=== PATIENT | male | born 1975 | race Caucasian/White ===

== ENCOUNTER 2018-11-22 18:34 | Inpatient (IN) | payer OTHER ==
[2018-11-22 21:11] LABS: Glucose,Whole Blood 299 mg/dL (75-99)
[2018-11-22] MEDS ORDERED: CYCLOBENZAPRINE 5 MG TAB PO PRN (22:36)
[2018-11-22] MEDS ORDERED: VANCOMYCIN IV PER PHARMACY 1 EACH MISC MISCELLANE PRN (22:58)
[2018-11-22] MEDS: SODIUM CHLORIDE 0.9% 1,000 ML IV SCH (23:18)
[2018-11-23] MEDS ORDERED: VANCOMYCIN IV PER PHARMACY 1 EACH MISC MISCELLANE PRN
[2018-11-23] MEDS ORDERED: INSULIN DETEMIR (LEVEMIR) 100 UNIT/ML SYR SQ SCH
[2018-11-23] MEDS: ONDANSETRON 4 MG/2 ML VIAL IVP PRN (00:17)
[2018-11-23] MEDS ORDERED: VANCOMYCIN 2,000 MG in SODIUM CHLORIDE 0.9% 500 ML 500 ML IVPB ONE (01:00)
[2018-11-23] MEDS: PIPERACILLIN-TAZOBACTAM 3.375 GM in SODIUM CHLORIDE 0.9% 100 ML IVPB SCH ×2 (02:25→08:32)
[2018-11-23] MEDS: HYDROmorphone 0.5 MG/0.5 ML SYRINGE IVP PRN ×3 (02:27→12:00)
[2018-11-23] MEDS: HYDROcodone/APAP 10-325MG 1 EACH TAB PO PRN ×3 (04:14→21:43)
[2018-11-23 06:42] LABS: Glucose,Whole Blood 324 mg/dL (75-99)
[2018-11-23 07:50] LABS: Basophils % (A) 0 %; Eosinophils # (A) 0.1 k/uL (0-0.7); Eosinophils % (A) 1 %; HGB 12.4 gm/dL (13.0-17.5); Lymphocytes # (A) 1.7 k/uL (1.0-4.8); Lymphocytes % (A) 14 %; MCH 27.6 pg (25.0-35.0); MCHC 33.5 g/dL (31.0-37.0); MCV 82.5 fL (80.0-100.0); Mean Platelet Volume 6.9; Monocytes # (A) 0.8 k/uL (0-1.0); Monocytes % (A) 7 %; Neutrophils # (A) 9.8 k/uL (1.3-7.7); Neutrophils % (A) 77 %; Platelet Count 240 k/uL (150-450); RBC 4.48 m/uL (4.30-5.90); RDW 13.5 % (11.5-15.5); WBC 12.7 k/uL (3.8-10.6)
[2018-11-23 07:59] LABS: ALT 24 U/L (21-72); AST 24 U/L (17-59); Albumin 3.3 g/dL (3.5-5.0); Alkaline Phosphatase 81 U/L (38-126); Anion Gap 7 mmol/L; Blood Urea Nitrogen 17 mg/dL (9-20); Calcium 8.7 mg/dL (8.4-10.2); Carbon Dioxide 28 mmol/L (22-30); Chloride 99 mmol/L (98-107); Glucose 307 mg/dL (74-99); Potassium 4.8 mmol/L (3.5-5.1); Sodium 134 mmol/L (137-145); Total Bilirubin 0.7 mg/dL (0.2-1.3); Total Protein 6.2 g/dL (6.3-8.2)
[2018-11-23] MEDS: INSULIN ASPART (NovoLOG) 100 UNIT/ML VIAL SQ SCH ×5 (08:32→20:36)
[2018-11-23] MEDS: SODIUM CHLORIDE 0.9% 1,000 ML IV SCH (08:32)
[2018-11-23] MEDS ORDERED: BISACODYL 5 MG TABLET.DR PO STA (10:39)
[2018-11-23 11:58] LABS: Glucose,Whole Blood 329 mg/dL (75-99)
[2018-11-23] MEDS: VANCOMYCIN 1,750 MG in SODIUM CHLORIDE 0.9% 500 ML 500 ML IVPB SCH ×2 (12:00→21:09)
[2018-11-23] MEDS ORDERED: BACLOFEN 10 MG TAB PO PRN (12:35)
--- NOTE | 2018-11-23 13:00 | P.CNOR ---
<Gonzales Lucero - Last Filed: 11/23/18 12:53> History of Present Illness - [facility] Consult date: 11/23/18 Requesting physician: Delma Allen Consult reason: neck pain (Left mid thoracic abscess) History of present illness: Patient is a very pleasant 43-year-old male who seen and examined at the bedside after consultation was placed for evaluation of left midthoracic abscess and cellulitis close to the spinous process. Patient states approximately 2 weeks ago he began experiencing some pain at the abscess site without specific injury. He states approximately 3-5 days days ago his symptoms became severe and debilitating. Nursing states the patient's had stated she had picked at the abscess area feeling may have just been a pimple. His symptoms progressively worsened. He presented to [facility] last night for further evaluation. Following CT imaging the patient was transferred to [facility] for further evaluation. He was admitted to observation after assessment in the emergency department. CT of the abdomen and pelvis has been loaded into the hospital system for further evaluation. Patient states he continues to have severe pain at his midthoracic spine on the left. He denies any lower extremity weakness or radiculopathy bilaterally. He states his pain is only centered at the left midthoracic spine. He does have a significant medical history. He states he is currently on disability after being diagnosed with multiple sclerosis. He does have a history of 3 heart attacks and previously had 7 cardiac stents placed. These cardiac stents were placed approximately 2 years ago. He denies any further surgical intervention after the cardiac stent placement. Past Medical History Past Medical History: Coronary Artery Disease (CAD), Heart Failure, Diabetes Mellitus, Hyperlipidemia, Hypertension, Myocardial Infarction (MT) Additional Past Medical History / Comment(s): scoliosis of spine, 3 MT's x7 stents (2013 x2 MT's w/stents, 2016 MT w/stents), DM II. Last Myocardial Infarction Date:: 2015 History of Any Multi-Drug Resistant Organisms: None Reported Additional Past Surgical History / Comment(s): Pt states: "MT's with stents, left knee scope." Past Anesthesia/Blood Transfusion Reactions: No Reported Reaction Past Psychological History: No Psychological Hx Reported Smoking Status: Never smoker - Past Family History Father Additional Family Medical History / Comment(s): "heart disease." Mother History Unknown: Yes Family Medical History: Cancer, Diabetes Mellitus Additional Family Medical History / Comment(s): pt states: "kidney cancer." Medications and Allergies Home Medications Medication Instructions Recorded Confirmed Type Aspirin [[place] Aspirin EC] 81 mg PO DAILY 11/22/18 11/22/18 History Atorvastatin [Lipitor] 80 mg PO HS 11/22/18 11/22/18 History Baclofen 10 mg PO Q6H PRN 11/22/18 11/22/18 History Carvedilol [Coreg] 12.5 mg PO BID 11/22/18 11/22/18 History Clopidogrel [Plavix] 75 mg PO DAILY 11/22/18 11/22/18 History Ergocalciferol (Vitamin D2) 50,000 unit PO Q72H 11/22/18 11/22/18 History [Drisdol] Furosemide [Lasix] 20 mg PO AC-SUPPER 11/22/18 11/22/18 History Furosemide [Lasix] 40 mg PO DAILY 11/22/18 11/22/18 History Gabapentin [Neurontin] 300 mg PO TID 11/22/18 11/22/18 History Glatiramer Acetate [Copaxone] 20 mg IM DAILY 11/22/18 11/22/18 History Insulin Glargine [Lantus] 70 unit SQ HS 11/22/18 11/23/18 History Insulin Glulisine [Apidra] 30 units SQ AC-TID 11/22/18 11/22/18 History Isosorbide Mononitrate ER [Imdur] 60 mg PO DAILY 11/22/18 11/22/18 History Lisinopril [Prinivil] 10 mg PO BID 11/22/18 11/22/18 History Nitroglycerin 0.4 mg SL Q5M 11/22/18 11/22/18 History Polyethylene Glycol 3350 [Miralax] 17 gm PO DAILY 11/22/18 11/22/18 History Potassium Chloride ER [K-Dur 20] 20 meq PO DAILY 11/22/18 11/22/18 History QUEtiapine [SEROquel] 100 mg PO HS 11/22/18 11/22/18 History Selsun Blue 1 applic TOPICAL DAILY 11/22/18 11/22/18 History Vortioxetine Hydrobromide 20 mg PO DAILY 11/22/18 11/22/18 History [Trintellix] traMADol HCL [Ultram] 50 mg PO Q6H PRN 11/22/18 11/22/18 History Allergies Allergy/AdvReac Type Severity Reaction Status Date / Time No Known Allergies Allergy Verified 11/22/18 22:11 Physical Examination Physical exam: Patient is awake, alert, and oriented 3 Good chest excursion with deep inspiration and expiration Examination of the thoracic spine shows evidence of a large left midthoracic abscess which is indurated with erythema measuring approximately 7.5 cm x 6.25 cm Significant pain on palpation over the abscess site Evidence of open wound measuring approximately 4 mm with purulent drainage at the abscess site No significant pain with palpation along the lumbar spine Adequate for range of motion of the bilateral lower extremities Bilateral lower extremity strength 5/5 Dorsiflexion, plantarflexion, and extensor hallucis longus positive sustained bilateral lower extremities Neurovascularly intact bilateral lower extremities Results Pertinent studies: CT of the abdomen and pelvis taken at an outside facility at [facility] on 11/22/2018: Evidence of large soft tissue change with fluid collection at the left midthoracic spine that appears superficial and does not appear to extend into the fascial layer or into the spinal canal; T10-L2 degenerative disc disease; no evidence of vertebral body compression fracture - Labs Labs: Abnormal Lab Results - Last 24 Hours (Table) 11/22/18 11/23/18 11/23/18 Range/Units 21:06 06:40 07:32 WBC 12.7 H (3.8-10.6) k/uL Hgb 12.4 L (13.0-17.5) gm/dL Hct 37.0 L (39.0-53.0) % Neutrophils # 9.8 H (1.3-7.7) k/uL Sodium (137-145) mmol/L Glucose (74-99) mg/dL POC Glucose (mg/dL) 299 H 324 H (75-99) mg/dL Total Protein (6.3-8.2) g/dL Albumin (3.5-5.0) g/dL 11/23/18 11/23/18 Range/Units 07:32 11:55 WBC (3.8-10.6) k/uL Hgb (13.0-17.5) gm/dL Hct (39.0-53.0) % Neutrophils # (1.3-7.7) k/uL Sodium 134 L (137-145) mmol/L Glucose 307 H (74-99) mg/dL POC Glucose (mg/dL) 329 H (75-99) mg/dL Total Protein 6.2 L (6.3-8.2) g/dL Albumin 3.3 L (3.5-5.0) g/dL H & H 11/23/18 Range/Units 07:32 Hgb 12.4 L (13.0-17.5) gm/dL Hct 37.0 L (39.0-53.0) % Result Diagrams: 11/23/18 07:32 11/23/18 07:32 Assessment and Plan Assessment: Assessment: Large left midthoracic abscess measuring approximately 7.5 cm x 6.25 cm Severe thoracic back pain Thoracolumbar degenerative disc disease T10-L2 Multiple sclerosis History of heart attack 3 with cardiac stent placement 7 (1) Thoracic abscess Current Visit: Yes Status: Acute Code(s): J86.9 - PYOTHORAX WITHOUT FISTULA SNOMED Code(s): 864283533 (2) Thoracic back pain Current Visit: Yes Status: Acute Code(s): M54.6 - PAIN IN THORACIC SPINE SNOMED Code(s): 008657264 (3) Thoracic degenerative disc disease Current Visit: Yes Status: Acute Code(s): M51.34 - OTHER INTERVERTEBRAL DISC DEGENERATION, THORACIC REGION SNOMED Code(s): 63392596 (4) Multiple sclerosis Current Visit: Yes Status: Acute Code(s): G35 - MULTIPLE SCLEROSIS SNOMED Code(s): 77245780 Plan: Plan: 1. After physical examination of the patient, reviewing of imaging, and further discussion with Dr. Trip Frost, we will currently planning to proceed forward with surgical intervention tomorrow, 11/24/2018. The proposed surgical intervention will be an irrigation and debridement of the left midthoracic abscess. Patient may eat today. He will become nothing by mouth status starting at midnight on 11/24/2018 in anticipation for surgical intervention. We will proceed with surgery as scheduled if the patient is cleared from a medical standpoint. During physical examination, abscess site was wiped clean and the abcess site manipulated causing the evacuation of further purulent discharge. This purulent discharge was swabbed and culture sent for anaerobic and aerobic analysis. Patient may continue with dressing changes as needed with nonstick Telfa, 4 x 4's, and paper tape. 2. Patient will continue to be seen and examined by medicine for his other medical diagnoses. We'll plan for medical clearance prior to surgical intervention. Patient will continue with antibiotic IV medication as prescribed by medicine including vancomycin. Time with Patient: Greater than 30 (Including physical examination, reviewing of imaging, obtaining history, and documentation) <Luis Felipe Frost - Last Filed: 11/24/18 11:06> Physical Examination Osteopathic Statement: *. No significant issues noted on an osteopathic structural exam other than those noted in the History and Physical/Consult. Results - Labs Labs: Abnormal Lab Results - Last 24 Hours (Table) 11/23/18 11/23/18 11/23/18 Range/Units 07:32 11:55 16:52 WBC (3.8-10.6) k/uL Hgb (13.0-17.5) gm/dL Hct (39.0-53.0) % Sodium (137-145) mmol/L Potassium (3.5-5.1) mmol/L Chloride (98-107) mmol/L BUN (9-20) mg/dL Creatinine (0.66-1.25) mg/dL Glucose (74-99) mg/dL POC Glucose (mg/dL) 329 H 307 H (75-99) mg/dL Hemoglobin A1c 11.7 H (4.0-6.0) % 11/23/18 11/24/18 11/24/18 Range/Units 20:09 00:02 06:54 WBC (3.8-10.6) k/uL Hgb (13.0-17.5) gm/dL Hct (39.0-53.0) % Sodium 132 L (137-145) mmol/L Potassium 5.2 H (3.5-5.1) mmol/L Chloride 95 L (98-107) mmol/L BUN 28 H (9-20) mg/dL Creatinine 2.44 H (0.66-1.25) mg/dL Glucose 275 H (74-99) mg/dL POC Glucose (mg/dL) 289 H 298 H (75-99) mg/dL Hemoglobin A1c (4.0-6.0) % 11/24/18 Range/Units 06:56 WBC 14.5 H (3.8-10.6) k/uL Hgb 11.9 L (13.0-17.5) gm/dL Hct 36.5 L (39.0-53.0) % Sodium (137-145) mmol/L Potassium (3.5-5.1) mmol/L Chloride (98-107) mmol/L BUN (9-20) mg/dL Creatinine (0.66-1.25) mg/dL Glucose (74-99) mg/dL POC Glucose (mg/dL) (75-99) mg/dL Hemoglobin A1c (4.0-6.0) % Microbiology - Last 24 Hours (Table) 11/23/18 09:25 Gram Stain - Preliminary Back Wound Culture - Preliminary Presumptive Staph aureus 11/23/18 09:25 Anaerobic Culture - Preliminary Back H & H 11/23/18 11/24/18 Range/Units 07:32 06:56 Hgb 12.4 L 11.9 L (13.0-17.5) gm/dL Hct 37.0 L 36.5 L (39.0-53.0) % Result Diagrams: 11/24/18 06:56 11/24/18 00:02 Assessment and Plan Plan: I reviewed the note and reviewed the images as well and the patient. He is 43-year-old male with multiple medical issues and has a abscess which appears to be subcutaneous and extra muscular at the paravertebral area of his thoracic spine. He is not having any neurologic deficit. He does not have any spinal involvement. He has significant pus under pressure and significant discomfort from this. I think his best course of treatment would be to pursue irrigation and debridement with excisional debridement of the thoracic abscess. We discussed the risk, patient's alternatives and benefits with him. We answered his questions best for ability G understand he is agreeable to proceed with surgical intervention as soon as possible.
[2018-11-23] MEDS: SENNOSIDES-DOCUSATE SODIUM 1 EACH TAB PO SCH ×2 (13:09→20:36)
[2018-11-23] MEDS: NITROGLYCERIN SL TABS 0.4 MG TAB SUBLINGUAL SCH ×5 (13:09→14:40)
[2018-11-23] MEDS: COPAXONE 20 MG IM SCH (13:09)
--- NOTE | 2018-11-23 13:11 | XR ---
EXAMINATION TYPE: XR chest 1V DATE OF EXAM: 11/23/2018 COMPARISON: NONE HISTORY: Shortness of breath. Concern for congestive heart failure. TECHNIQUE: Single frontal view of the chest is obtained. FINDINGS: There is no focal air space opacity, pleural effusion, or pneumothorax seen. Minimal left basilar platelike horizontally oriented dependent atelectasis is seen. The cardiac silhouette size i s mildly enlarged. The osseous structures are intact. IMPRESSION: Platelike left basilar subsegmental atelectasis. No radiographic sequela of decompensate d congestive heart failure.
--- NOTE | 2018-11-23 14:54 | P.HPIM ---
History of Present Illness 43-year-old pleasant gentleman was transferred from [facility] after he presented there with severe back pain and possible low-grade fevers patient is found to have C light is an abscess on the right mid back in the paraspinal area. Patient is coming of severe pain there patient has a small pimple-like area with surrounding abscess redness with the pus drainage. Patient will undergo incision and drainage tomorrow patient was started on vancomycin and Zosyn Zosyn was discontinued and infectious disease was consulted. Patient had a CT of the abdomen which showed a showed the same thing as clinical exam. Patient has multiple chronic medical problems including microinfarction 2 years ago with stents that were placed 2 years ago with congestive heart failure appears to be systolic dysfunction it does not have any close available here will obtain medical records from my his him assistant. Patient does have history of multiple sclerosis with some weakness in both legs for which patient is on Glatiramer ACT 8 no new weakness. Patient is diabetic with highly uncontrolled blood sugars patient is on very dose of high-dose of insulin obese. Patient is mildly hyponatremic because of which I'm cutting down oral Lasix chest x-ray was obtained which did not show any pulmonary edema. Review of Systems REVIEW OF SYSTEMS: CONSTITUTIONAL: No fever, no malaise, no fatigue. HEENT: No recent visual problems or hearing problems. Denied any sore throat. CARDIOVASCULAR: No chest pain, orthopnea, PND, no palpitations, no syncope. PULMONARY: No shortness of breath, no cough, no hemoptysis. GASTROINTESTINAL: No diarrhea, no nausea, no vomiting, no abdominal pain. NEUROLOGICAL: No headaches, no weakness, no numbness. HEMATOLOGICAL: Denies any bleeding or petechiae. GENITOURINARY: Denies any burning micturition, frequency, or urgency. MUSCULOSKELETAL/RHEUMATOLOGICAL: Denies any joint pain, swelling, or any muscle pain. ENDOCRINE: Denies any polyuria or polydipsia. The rest of the 14-point review of systems is negative. Past Medical History Past Medical History: Coronary Artery Disease (CAD), Heart Failure, Diabetes Mellitus, Hyperlipidemia, Hypertension, Myocardial Infarction (RI) Additional Past Medical History / Comment(s): scoliosis of spine, 3 RI's x7 stents (2013 x2 RI's w/stents, 2016 RI w/stents), DM II. Last Myocardial Infarction Date:: 2015 History of Any Multi-Drug Resistant Organisms: None Reported Additional Past Surgical History / Comment(s): Pt states: "RI's with stents, left knee scope." Past Anesthesia/Blood Transfusion Reactions: No Reported Reaction Past Psychological History: No Psychological Hx Reported Smoking Status: Never smoker - Past Family History Father Additional Family Medical History / Comment(s): "heart disease." Mother History Unknown: Yes Family Medical History: Cancer, Diabetes Mellitus Additional Family Medical History / Comment(s): pt states: "kidney cancer." Medications and Allergies Home Medications Medication Instructions Recorded Confirmed Type Aspirin [[place] Aspirin EC] 81 mg PO DAILY 11/22/18 11/22/18 History Atorvastatin [Lipitor] 80 mg PO HS 11/22/18 11/22/18 History Baclofen 10 mg PO Q6H PRN 11/22/18 11/22/18 History Carvedilol [Coreg] 12.5 mg PO BID 11/22/18 11/22/18 History Clopidogrel [Plavix] 75 mg PO DAILY 11/22/18 11/22/18 History Ergocalciferol (Vitamin D2) 50,000 unit PO Q72H 11/22/18 11/22/18 History [Drisdol] Furosemide [Lasix] 20 mg PO AC-SUPPER 11/22/18 11/22/18 History Furosemide [Lasix] 40 mg PO DAILY 11/22/18 11/22/18 History Gabapentin [Neurontin] 300 mg PO TID 11/22/18 11/22/18 History Glatiramer Acetate [Copaxone] 20 mg IM DAILY 11/22/18 11/22/18 History Insulin Glargine [Lantus] 100 unit SQ HS 11/22/18 11/22/18 History Insulin Glulisine [Apidra] 30 units SQ AC-TID 11/22/18 11/22/18 History Isosorbide Mononitrate ER [Imdur] 60 mg PO DAILY 11/22/18 11/22/18 History Lisinopril [Prinivil] 10 mg PO BID 11/22/18 11/22/18 History Nitroglycerin 0.4 mg SL Q5M 11/22/18 11/22/18 History Polyethylene Glycol 3350 [Miralax] 17 gm PO DAILY 11/22/18 11/22/18 History Potassium Chloride ER [K-Dur 20] 20 meq PO DAILY 11/22/18 11/22/18 History QUEtiapine [SEROquel] 100 mg PO HS 11/22/18 11/22/18 History Selsun Blue 1 applic TOPICAL DAILY 11/22/18 11/22/18 History Vortioxetine Hydrobromide 20 mg PO DAILY 11/22/18 11/22/18 History [Trintellix] traMADol HCL [Ultram] 50 mg PO Q6H PRN 11/22/18 11/22/18 History Allergies Allergy/AdvReac Type Severity Reaction Status Date / Time No Known Allergies Allergy Verified 11/22/18 22:11 Physical Exam Vitals: Vital Signs Temp Pulse Resp BP Pulse Ox 11/23/18 12:00 86 18 11/23/18 08:00 86 18 11/23/18 07:15 98.9 F 93 18 91/71 92 L 11/23/18 03:21 99 18 11/23/18 00:00 99 18 11/22/18 23:48 99.7 F H 100 18 157/72 91 L 11/22/18 21:01 17 11/22/18 20:40 99.1 F 96 16 148/88 90 L Intake and Output 11/22/18 11/23/18 11/23/18 22:59 06:59 14:59 Intake Total 1200 Output Total 400 Balance 800 Intake: Other 1200 Output: Urine 400 Other: Voiding Method Toilet Urinal # Voids 1 1 Weight 123.63 kg PHYSICAL EXAMINATION: GENERAL: The patient is alert and oriented x3, patient is in distress because of pain. Well developed, well nourished. HEENT: Pupils are round and equally reacting to light. EOMI. No scleral icterus. No conjunctival pallor. Normocephalic, atraumatic. No pharyngeal erythema. No thyromegaly. CARDIOVASCULAR: S1 and S2 present. No murmurs, rubs, or gallops. PULMONARY: Chest is clear to auscultation, no wheezing or crackles. ABDOMEN: Soft, nontender, nondistended, normoactive bowel sounds. No palpable organomegaly. MUSCULOSKELETAL: No joint swelling or deformity. EXTREMITIES: No cyanosis, clubbing, or pedal edema. NEUROLOGICAL: Gross neurological examination did not reveal any focal deficits. SKIN: Patient has about 3-4 cm circumferential area of abscess in the paraspinal area which is draining redness local is of temperature in the abscess site area with tenderness Results CBC & Chem 7: 11/23/18 07:32 11/23/18 07:32 Labs: Abnormal Lab Results - Last 24 Hours (Table) 11/22/18 11/23/18 11/23/18 Range/Units 21:06 06:40 07:32 WBC 12.7 H (3.8-10.6) k/uL Hgb 12.4 L (13.0-17.5) gm/dL Hct 37.0 L (39.0-53.0) % Neutrophils # 9.8 H (1.3-7.7) k/uL Sodium (137-145) mmol/L Glucose (74-99) mg/dL POC Glucose (mg/dL) 299 H 324 H (75-99) mg/dL Total Protein (6.3-8.2) g/dL Albumin (3.5-5.0) g/dL 11/23/18 11/23/18 Range/Units 07:32 11:55 WBC (3.8-10.6) k/uL Hgb (13.0-17.5) gm/dL Hct (39.0-53.0) % Neutrophils # (1.3-7.7) k/uL Sodium 134 L (137-145) mmol/L Glucose 307 H (74-99) mg/dL POC Glucose (mg/dL) 329 H (75-99) mg/dL Total Protein 6.2 L (6.3-8.2) g/dL Albumin 3.3 L (3.5-5.0) g/dL Thrombosis Risk Factor Assmnt - Choose All That Apply Each Factor Represents 1 point: Age 41-60 years, Obesity (BMI >25) Other Risk Factors: No Other congenital or acquired thrombophilia - If yes, enter type in comment: No Thrombosis Risk Factor Assessment Total Risk Factor Score: 2 Thrombosis Risk Factor Assessment Level: Low Risk Assessment and Plan Plan: -Back pain: Secondary to an abscess in the paraspinal area patient underwent incision and drainage continue with vancomycin infectious disease was consulted -Congestive heart failure chronic systolic dysfunction patient is bit hypovolemic, cut down the Lasix with close clinical monitoring. -Coronary artery disease with ischemic cardiomyopathy continue with a beta lukas patient is on dual antiplatelet therapy patient will be continued on aspirin and Plavix will be held patient had stents that were placed more than 2 years ago patient may not require dual antiplatelet therapy and patient will undergo incision and drainage because of that reason Plavix is being held at this time. Patient is on lisinopril because of cardiomyopathy dose of which showed will cut it down because his blood pressures 91-71 do not have ejection fraction available. Beta lukas will be continued -Type 2 diabetes mellitus uncontrolled blood sugars dietary counseling was provided patient was resumed on his home regimen along with sliding scale insulin titration of his regimen depending on his blood sugars here -Sepsis: Secondary to an abscess. -Multiple sclerosis without any new neurological deficits continue with home medications -Hyperlipidemia -Hypertension -Patient will need pharmacologic GEN due to prophylaxis
[2018-11-23] MEDS: KETOROLAC 30 MG/ML 1 ML VIAL IVP PRN ×2 (15:47→23:30)
[2018-11-23] MEDS: CARVEDILOL 12.5 MG TAB PO SCH (15:47)
[2018-11-23] MEDS: GABAPENTIN 300 MG CAP PO SCH ×2 (15:47→21:09)
[2018-11-23] MEDS: HEPARIN SODIUM,PORCINE 5,000 UNIT/ML 1 ML VIAL SQ SCH ×2 (15:48→23:30)
[2018-11-23] MEDS: ceFAZolin IN SWFI 2 GM/20 ML SYRINGE IVP SCH (15:48)
--- NOTE | 2018-11-23 16:15 | P.CONS ---
History of Present Illness - Reason for Consult Consult date: 11/23/18 - Chief Complaint pain in the back - History of Present Illness 43-year-old male that has a long-standing history of diabetes mellitus type 2 that is poorly controlled hemoglobin A1c has been at 13 more recently was about 11. Relates that he has been having ongoing medical troubles with his underlying coronary artery disease and his multiple sclerosis. As of late he's been doing somewhat poorly and that the MS has been flaring is having increasing difficulties with ambulation and discomforts to his lower extremities. He relates several weeks ago started to feel more poorly and developed without was a ampler cyst on his back that became progressively more uncomfortable. It bec rebecca larger, swollen, warm and reddened and constantly his attempted to drain it. Her manipulation did not allow any drainage and now the site has considerably worsened. There is a large area that is very painful making it difficult for him to lay supine cause of the swelling and tenderness. He started physically feel more poorly low-grade fever with chills and thought that his MS was worsening. Consequently presented to his local emergency center. There he underwent evaluations which included computed tomography scan and ultrasound and constantly was referred to our facility for surgical evaluation. With evidence of any abscess to his thoracic area of his back the infectious diseases consultation is been requested. The patient relates that over the last many months he's had difficulties with small skin lesions and pimples that usually resolve with local care this is the first time something has become so difficult. Review of Systems 43-year-old male uncomfortable due to the pain from the lesion on his back HEENT:has only a mild headache but no acute visual change. Denies sinus or mouth discomforts. Denies neck stiffness or pain. Denies significant oral cavity pain. Denies difficulty on swallowing. Lungs: Denies significant shortness of breath, cough, sputum production, or hemoptysis. Cardiovascular: Denies significant shortness of breath, chest pain, chest wall pain, orthopnea, dyspnea on exertion, syncope Gastrointestinal:is not at all some nausea and decreased appetite no significant emesis. He's had no hematemesis melena or hematochezia. He's had constipation with no diarrhea Musculoskeletal: relates to significant pain to his lower extremities that is worsened as his MS has recently flared Skin: [place] per the HPI lesion to his thoracic spine Neuro: has MS flare which is causing pain and weakness to his lower extremities Psychiatric:chronic anxiety and depression Endocrine: chronic fatigue and weight has been increasing Past Medical History Past Medical History: Coronary Artery Disease (CAD), Heart Failure, Diabetes Mellitus, Hyperlipidemia, Hypertension, Myocardial Infarction (ME) Additional Past Medical History / Comment(s): scoliosis of spine, 3 ME's x7 stents (2013 x2 ME's w/stents, 2016 ME w/stents), DM II. Last Myocardial Infarction Date:: 2015 History of Any Multi-Drug Resistant Organisms: None Reported Additional Past Surgical History / Comment(s): Pt states: "ME's with stents, left knee scope." Past Anesthesia/Blood Transfusion Reactions: No Reported Reaction Past Psychological History: No Psychological Hx Reported, Anxiety, Depression Additional Psychological History / Comment(s): Patient is and lives in the family home with his . They've a total of 7 children. Four of the children currently live in the home with them. Did not relate any significant alcohol or recreational drug use. No experience. Medically disabled. No animals in the home Smoking Status: Never smoker - Past Family History Father Additional Family Medical History / Comment(s): "heart disease." Mother History Unknown: Yes Family Medical History: Cancer, Diabetes Mellitus Additional Family Medical History / Comment(s): pt states: "kidney cancer." Medications and Allergies Home Medications and Allergies Comment(s): Current Medications Hydrocodone Bitart/Acetaminophen ([place] 10) 1 each PO Q6H PRN PRN Reason: Pain Last Admin: 11/23/18 15:48 Dose: 1 each Documented by: Aspirin (Aspirin) 81 mg PO DAILY [facility] Atorvastatin Calcium (Lipitor) 80 mg PO HS ALONSO Baclofen (Lioresal) 10 mg PO Q6H PRN PRN Reason: Spasms Carvedilol (Coreg) 12.5 mg PO AC-BID [facility] Last Admin: 11/23/18 15:47 Dose: 12.5 mg Documented by: Cefazolin Sodium (Kefzol) 2 gm IVP Q8HR [facility] Last Admin: 11/23/18 15:48 Dose: 2 gm Documented by: Famotidine (Pepcid) 20 mg PO BID [facility] Furosemide (Lasix) 40 mg PO DAILY [facility] Gabapentin (Neurontin) 300 mg PO TID [facility] Last Admin: 11/23/18 15:47 Dose: 300 mg Documented by: Heparin Sodium (Porcine) (Heparin) 5,000 unit SQ Q8HR [facility] Last Admin: 11/23/18 15:48 Dose: 5,000 unit Documented by: Hydromorphone HCl (Dilaudid) 0.5 mg IVP Q3HR PRN PRN Reason: Pain Last Admin: 11/23/18 12:00 Dose: 0.5 mg Documented by: Vancomycin HCl 1,750 mg/ (Sodium Chloride) 500 mls @ 167 mls/hr IVPB Q8H [facility] Last Admin: 11/23/18 12:00 Dose: 167 mls/hr Documented by: Insulin Aspart (Novolog) 0 unit SQ ACHS [facility]; Protocol Last Admin: 11/23/18 12:01 Dose: 9 unit Documented by: Insulin Aspart (Novolog) 30 unit SQ AC-TID [facility] Insulin Detemir (Levemir) 100 unit SQ HS [facility] Last Admin: 11/23/18 02:25 Dose: Not Given Documented by: Isosorbide Mononitrate (Imdur) 60 mg PO DAILY [facility] Ketorolac Tromethamine (Toradol) 15 mg IVP Q6HR PRN PRN Reason: Pain Stop: 11/28/18 12:35 Last Admin: 11/23/18 15:47 Dose: 15 mg Documented by: Lactulose (Cephulac) 20 gm PO BID PRN PRN Reason: Constipation Lisinopril (Zestril) 10 mg PO DAILY [facility] Miscellaneous Information (Vancomycin Trough Due) 0 each MISCELLANE DIRECTED ONE Stop: 11/24/18 19:01 Copaxone (Glatiramer (Acetate) 20 Mg) 20 mg IM DAILY [facility] Last Admin: 11/23/18 13:09 Dose: Not Given Documented by: Ondansetron HCl (Zofran) 4 mg IVP Q6HR PRN PRN Reason: Nausea And Vomiting Last Admin: 11/23/18 00:17 Dose: 4 mg Documented by: Polyethylene Glycol (Miralax) 17 gm PO DAILY PRN PRN Reason: Constipation Quetiapine Fumarate (Seroquel) 100 mg PO [facility] Senna/Docusate Sodium (Senokot-S) 1 each PO BID [facility] Last Admin: 11/23/18 13:09 Dose: Not Given Documented by: Vortioxetine (Trintellix) 20 mg PO DAILY ALONSO Home Medications Medication Instructions Recorded Confirmed Type Aspirin [[place] Aspirin EC] 81 mg PO DAILY 11/22/18 11/22/18 History Atorvastatin [Lipitor] 80 mg PO HS 11/22/18 11/22/18 History Baclofen 10 mg PO Q6H PRN 11/22/18 11/22/18 History Carvedilol [Coreg] 12.5 mg PO BID 11/22/18 11/22/18 History Clopidogrel [Plavix] 75 mg PO DAILY 11/22/18 11/22/18 History Ergocalciferol (Vitamin D2) 50,000 unit PO Q72H 11/22/18 11/22/18 History [Drisdol] Furosemide [Lasix] 20 mg PO AC-SUPPER 11/22/18 11/22/18 History Furosemide [Lasix] 40 mg PO DAILY 11/22/18 11/22/18 History Gabapentin [Neurontin] 300 mg PO TID 11/22/18 11/22/18 History Glatiramer Acetate [Copaxone] 20 mg IM DAILY 11/22/18 11/22/18 History Insulin Glargine [Lantus] 100 unit SQ HS 11/22/18 11/22/18 History Insulin Glulisine [Apidra] 30 units SQ AC-TID 11/22/18 11/22/18 History Isosorbide Mononitrate ER [Imdur] 60 mg PO DAILY 11/22/18 11/22/18 History Lisinopril [Prinivil] 10 mg PO BID 11/22/18 11/22/18 History Nitroglycerin 0.4 mg SL Q5M 11/22/18 11/22/18 History Polyethylene Glycol 3350 [Miralax] 17 gm PO DAILY 11/22/18 11/22/18 History Potassium Chloride ER [K-Dur 20] 20 meq PO DAILY 11/22/18 11/22/18 History QUEtiapine [SEROquel] 100 mg PO HS 11/22/18 11/22/18 History Selsun Blue 1 applic TOPICAL DAILY 11/22/18 11/22/18 History Vortioxetine Hydrobromide 20 mg PO DAILY 11/22/18 11/22/18 History [Trintellix] traMADol HCL [Ultram] 50 mg PO Q6H PRN 11/22/18 11/22/18 History Allergies Allergy/AdvReac Type Severity Reaction Status Date / Time No Known Allergies Allergy Verified 11/22/18 22:11 Physical Exam Vitals: Vital Signs Temp Pulse Resp BP Pulse Ox 11/23/18 12:00 86 18 11/23/18 08:00 86 18 11/23/18 07:15 98.9 F 93 18 91/71 92 L 11/23/18 03:21 99 18 11/23/18 00:00 99 18 11/22/18 23:48 99.7 F H 100 18 157/72 91 L 11/22/18 21:01 17 11/22/18 20:40 99.1 F 96 16 148/88 90 L Intake and Output 11/23/18 11/23/18 11/23/18 06:59 14:59 22:59 Intake Total 1200 Output Total 400 Balance 800 Intake: Other 1200 Output: Urine 400 Other: Voiding Method Toilet Urinal # Voids 1 43-year-old male with obesity uncomfortable HEENT: Anicteric conjunctiva are pink and moist nasal mucosa grossly intact without significant lesions, there is no thrush. Neck: The neck is supple without significant lymphadenopathy or thyromegaly. Lungs: Good bilateral air entry without significant crackles or wheezing. There is no significant bronchial sounds. There is no egophony or dullness. Heart: mildly irregular with a soft S4 no murmur click or rub Abdomen: obesePositive bowel sounds soft and nontender without palpable masses or organomegaly. There was no guarding or rebound. Extremities: The upper extremities have excellent pulses they are symmetric, no significant petechiae or telangiectasia. No splinter hemorrhages were noted. The lower extremities are free from significant edema. The peripheral pulses were 2+ and symmetric. Neuro: Awake alert oriented to person place and time. There are no acute new gross focal sensory motor deficits. skin: Evidence of the significant abscess in the mid aspect of the thoracic spine. There is a approximate 5 cm area of erythema. The central area is necrotic and grossly purulent material is extruding from the site. Is externally tender to touch.scattered on the back are a few other small milind thematous areas that are without evidence of significant tenderness or purulence at this time. Results CBC & Chem 7: 11/23/18 07:32 11/23/18 07:32 Labs: Abnormal Lab Results - Last 24 Hours (Table) 11/22/18 11/23/18 11/23/18 Range/Units 21:06 06:40 07:32 WBC 12.7 H (3.8-10.6) k/uL Hgb 12.4 L (13.0-17.5) gm/dL Hct 37.0 L (39.0-53.0) % Neutrophils # 9.8 H (1.3-7.7) k/uL Sodium (137-145) mmol/L Glucose (74-99) mg/dL POC Glucose (mg/dL) 299 H 324 H (75-99) mg/dL Total Protein (6.3-8.2) g/dL Albumin (3.5-5.0) g/dL 11/23/18 11/23/18 Range/Units 07:32 11:55 WBC (3.8-10.6) k/uL Hgb (13.0-17.5) gm/dL Hct (39.0-53.0) % Neutrophils # (1.3-7.7) k/uL Sodium 134 L (137-145) mmol/L Glucose 307 H (74-99) mg/dL POC Glucose (mg/dL) 329 H (75-99) mg/dL Total Protein 6.2 L (6.3-8.2) g/dL Albumin 3.3 L (3.5-5.0) g/dL Laboratory Results WBC 12.7 k/uL (3.8-10.6) H 11/23/18 07:32 RBC 4.48 m/uL (4.30-5.90) 11/23/18 07:32 Hgb 12.4 gm/dL (13.0-17.5) L 11/23/18 07:32 Hct 37.0 % (39.0-53.0) L 11/23/18 07:32 MCV 82.5 fL (80.0-100.0) 11/23/18 07:32 MCH 27.6 pg (25.0-35.0) 11/23/18 07:32 MCHC 33.5 g/dL (31.0-37.0) 11/23/18 07:32 RDW 13.5 % (11.5-15.5) 11/23/18 07:32 Plt Count 240 k/uL (150-450) 11/23/18 07:32 Neutrophils % 77 % 11/23/18 07:32 Lymphocytes % 14 % 11/23/18 07:32 Monocytes % 7 % 11/23/18 07:32 Eosinophils % 1 % 11/23/18 07:32 Basophils % 0 % 11/23/18 07:32 Neutrophils # 9.8 k/uL (1.3-7.7) H 11/23/18 07:32 Lymphocytes # 1.7 k/uL (1.0-4.8) 11/23/18 07:32 Monocytes # 0.8 k/uL (0-1.0) 11/23/18 07:32 Eosinophils # 0.1 k/uL (0-0.7) 11/23/18 07:32 Basophils # 0.0 k/uL (0-0.2) 11/23/18 07:32 Sodium 134 mmol/L (137-145) L 11/23/18 07:32 Potassium 4.8 mmol/L (3.5-5.1) 11/23/18 07:32 Chloride 99 mmol/L (98-107) 11/23/18 07:32 Carbon Dioxide 28 mmol/L (22-30) 11/23/18 07:32 Anion Gap 7 mmol/L 11/23/18 07:32 BUN 17 mg/dL (9-20) 11/23/18 07:32 Creatinine 0.76 mg/dL (0.66-1.25) 11/23/18 07:32 Est GFR (CKD-EPI)AfAm >90 (>60 ml/min/1.73 sqM) 11/23/18 07:32 Est GFR (CKD-EPI)NonAf >90 (>60 ml/min/1.73 sqM) 11/23/18 07:32 Glucose 307 mg/dL (74-99) H 11/23/18 07:32 POC Glucose (mg/dL) 329 mg/dL (75-99) H 11/23/18 11:55 POC Glu [employer]er[employer] Supervisor ID Sydnie Elliott 11/23/18 11:55 Calcium 8.7 mg/dL (8.4-10.2) 11/23/18 07:32 Total Bilirubin 0.7 mg/dL (0.2-1.3) 11/23/18 07:32 AST 24 U/L (17-59) 11/23/18 07:32 ALT 24 U/L (21-72) 11/23/18 07:32 Alkaline Phosphatase 81 U/L (38-126) 11/23/18 07:32 Total Protein 6.2 g/dL (6.3-8.2) L 11/23/18 07:32 Albumin 3.3 g/dL (3.5-5.0) L 11/23/18 07:32 outside studies including computed tomography scan chest and pelvis are reviewed as well as ultrasound showing evidence the fluid collection in the tissue of the posterior thoracic area Assessment and Plan (1) Thoracic abscess Narrative/Plan: 43-year-old male who has multiple medical troubles that includes multiple sclerosis, coronary disease and diabetes mellitus type 2 presented to his local emergency center and then transferred to our facility for further bandar gical evaluation. Patient is evidence of an abscess on the posterior aspect of the thorax in is in need of surgical incision and drainage. The patient has been seen by orthopedics and plans are for this to occur tomorrow. Given the uncontrolled IV as well as type II staphylococcal infection the skin is most likely and while cultures are in process vancomycin with cefazolin are being utilized. Wound care will be advised once the postoperative wound is evaluated.if patient is not up-to-date on his tetanus vaccine should be performed before his discharge. Multivitamin with zinc is added to his medications. Current Visit: Yes Status: Acute Code(s): J86.9 - PYOTHORAX WITHOUT FISTULA SNOMED Code(s): 096983414 (2) Diabetes mellitus type 2, uncontrolled, with complications Current Visit: Yes Status: Acute Code(s): E11.8 - TYPE 2 DIABETES MELLITUS WITH UNSPECIFIED COMPLICATIONS; E11.65 - TYPE 2 DIABETES MELLITUS WITH HYPERGLYCEMIA SNOMED Code(s): 80013147
[2018-11-23 16:54] LABS: Glucose,Whole Blood 307 mg/dL (75-99)
[2018-11-23 20:10] LABS: Glucose,Whole Blood 289 mg/dL (75-99)
[2018-11-23] MEDS: ATORVASTATIN 80 MG TAB PO SCH (20:36)
[2018-11-23] MEDS: FAMOTIDINE 20 MG TAB PO SCH (20:36)
[2018-11-23] MEDS ORDERED: LISINOPRIL 10 MG TAB PO SCH (21:00)
[2018-11-23] MEDS: QUEtiapine 100 MG TAB PO SCH (21:09)
[2018-11-23 21:21] LABS: Hemoglobin A1C 11.7 % (4.0-6.0)
[2018-11-24] MEDS: ceFAZolin IN SWFI 2 GM/20 ML SYRINGE IVP SCH ×4 (00:38→23:01)
[2018-11-24] MEDS: VANCOMYCIN 1,750 MG in SODIUM CHLORIDE 0.9% 500 ML 500 ML IVPB SCH (04:19)
[2018-11-24] MEDS: HYDROmorphone 0.5 MG/0.5 ML SYRINGE IVP PRN (04:26)
[2018-11-24] MEDS: COPAXONE 20 MG IM SCH (06:57)
[2018-11-24] MEDS: HEPARIN SODIUM,PORCINE 5,000 UNIT/ML 1 ML VIAL SQ SCH ×3 (06:57→23:01)
[2018-11-24 06:59] LABS: Glucose,Whole Blood 298 mg/dL (75-99)
[2018-11-24] MEDS: INSULIN ASPART (NovoLOG) 100 UNIT/ML VIAL SQ SCH ×7 (07:26→20:57)
[2018-11-24] MEDS: ASPIRIN 81 MG PO SCH (07:29)
[2018-11-24] MEDS: MULTIVITAMINS, THERA 1 EACH TAB PO SCH (07:30)
[2018-11-24] MEDS: ISOSORBIDE MONONITRATE ER 60 MG TAB.ER.24H PO SCH (07:30)
[2018-11-24] MEDS: LISINOPRIL 10 MG TAB PO SCH (07:30)
[2018-11-24] MEDS: VORTIOXETINE HYDROBROMIDE 20 MG TABLET PO SCH (07:31)
[2018-11-24] MEDS: CARVEDILOL 12.5 MG TAB PO SCH ×2 (07:31→17:35)
[2018-11-24] MEDS: FUROSEMIDE 40 MG TAB PO SCH (07:31)
[2018-11-24] MEDS: FAMOTIDINE 20 MG TAB PO SCH (07:31)
[2018-11-24] MEDS: SENNOSIDES-DOCUSATE SODIUM 1 EACH TAB PO SCH ×2 (07:31→20:57)
[2018-11-24] MEDS: GABAPENTIN 300 MG CAP PO SCH ×3 (07:31→23:01)
[2018-11-24] MEDS: KETOROLAC 30 MG/ML 1 ML VIAL IVP PRN ×2 (07:37→23:07)
[2018-11-24] MEDS: ONDANSETRON 4 MG/2 ML VIAL IVP PRN ×3 (07:43→23:02)
[2018-11-24 07:56] LABS: HCT 36.5 % (39.0-53.0); HGB 11.9 gm/dL (13.0-17.5); MCH 27.3 pg (25.0-35.0); MCHC 32.6 g/dL (31.0-37.0); MCV 83.6 fL (80.0-100.0); Mean Platelet Volume 7.2; Platelet Count 243 k/uL (150-450); RBC 4.37 m/uL (4.30-5.90); RDW 13.5 % (11.5-15.5); WBC 14.5 k/uL (3.8-10.6)
[2018-11-24 08:10] LABS: Calcium 8.5 mg/dL (8.4-10.2); Potassium 5.2 mmol/L (3.5-5.1)
[2018-11-24 11:04] VITALS: BMI 42.0
[2018-11-24] MEDS ORDERED: BACITRACIN 50,000 UNIT, POLYMYXIN B 500,000 UNIT in SODIUM CHLORIDE 0.9% IRRIGATIO 1,00... IRRIGATION ONE (11:22)
[2018-11-24 11:39] LABS: Glucose,Whole Blood 281 mg/dL (75-99)
[2018-11-24] MEDS ORDERED: IV FLUID CONTINUATION 1,000 ML IV ONE (12:16)
[2018-11-24] MEDS ORDERED: LIDOCAINE 1% 20 ML VIAL (10MG/ML) FOR IV START INTRADERMA ONE (12:30)
[2018-11-24] MEDS ORDERED: LACTATED RINGERS 1,000 ML IV ONE (12:30)
[2018-11-24 13:04] LABS: Glucose,Whole Blood 265 mg/dL (75-99)
[2018-11-24] MEDS ORDERED: fentaNYL (PF) 50 MCG/ML 2 ML AMP IV ONE (13:15)
[2018-11-24] MEDS ORDERED: SUCCINYLCHOLINE CHLORIDE 100 MG/5 ML SYR IV ONE (14:14)
[2018-11-24] MEDS ORDERED: LIDOCAINE 1% INJ 10MG/ML (20 ML MDV) ONE (14:14)
[2018-11-24] MEDS ORDERED: PROPOFOL 10 MG/ML 20 ML VIAL IV ONE (14:14)
[2018-11-24] MEDS ORDERED: ceFAZolin 1,000 MG VIAL ONE (14:14)
[2018-11-24] MEDS ORDERED: fentaNYL (PF) 50 MCG/ML 2 ML AMP ONE (14:14)
[2018-11-24] MEDS ORDERED: MIDAZOLAM 2 MG/2 ML VIAL ONE (14:14)
[2018-11-24] MEDS ORDERED: PHENYLEPHRINE-0.9% NACL SYG 1 MG/10 ML SYRINGE ONE (14:14)
[2018-11-24] MEDS ORDERED: ePHEDrine SULFATE/0.9% NACL/PF 50 MG/5 ML SYRINGE IV ONE (14:14)
[2018-11-24] MEDS ORDERED: SODIUM CHLORIDE 0.9% 50 ML with ceFAZolin 2,000 MG IV ONE ×2 (14:46)
[2018-11-24] MEDS ORDERED: HYDROcodone/APAP 5-325MG 1 EACH TAB PO PRN (15:25)
--- NOTE | 2018-11-24 15:36 | P.OP ---
Date of Procedure: 11/24/18 Preoperative Diagnosis: Soft tissue abscess at thoracic spine, 10 x 10 cm Subcutaneous soft tissue abscess at thoracic spine with thoracic back pain Postoperative Diagnosis: Same Anesthesia: GETA Pathology: other (Deep subcutaneous abscess wound at the thoracic spine culture sent to pathology) Condition: stable Disposition: PACU Description of Procedure: BRIEF OPERATIVE NOTE Preoperative Diagnosis:Soft tissue abscess at thoracic spine, 10 x 10 cm Subcutaneous soft tissue abscess at thoracic spine with thoracic back pain Postoperative Diagnosis:same , no evidence of intramuscular or further abscess deep to the fascial layer Procedure: irrigation and debridement with excisional debridement of thoracic abscess at deep subcutaneous tissue measuring approximately 10 cm by 10 cm x 4 cm , excisional debridement of denuded tissue thoracic spine wound Surgeon: Dr. Frost Landscape Engineer: Gonzales MEDRANO Anesthesia: General anesthesia Estimated blood loss:Approximately 50 mL Complications: None apparent Components implanted:none Disposition: To recovery room in good stable condition, with dressing intact and iodoform gauze packed into the wound OPERATIVE INDICATIONS The patient has been having issues in their lower back over his thoracic spine which has been worsening for him. The patient has multiple medical issues including poorly controlled diabetes, MS, cardiac artery disease with multiple stents the past. Patient has been developing worsening pain in his back at the mid back over the past several weeks area he denies any specific injury or trauma or bites or punctures. He started noticing well swelling and redness at the area and was evaluated. He has been in bed and was admitted to the hospital in regards to pad abscess that his thoracic spine. Further workup which showed soft tissue abscess at his thoracic area on the left side. Did not appear to extend into the thoracic spine itself or appear to cause any neurologic change. Patient denied any changes in his neurologic status or any numbness tingling in his lower extremity is. Different treatment options were explained to the patient. He had been on IV antibiotics and had some drainage from the wound itself but there is still significant erythema and significant pressure at the space. He is having great pain due to the abscess. We discussed possibility of surgical intervention for irrigation and debridement with his excisional debridement of the abscess. Patient was described the risk of occasions alternatives and benefits at length discussed the nature of the surgery in the abscess and the possibility of further need for surgery. The risks, occasions were explained and elected to proceed with surgical intervention and signed informed consent. . OPERATIVE SUMMARY After discussing all the risks, patient alternatives and benefits at length, the patient elected to proceed with surgical intervention, signed informed consent, and presented for their procedure. The patient was seen and examined in the preoperative holding area and the surgical site was marked. The patient was given antibiotics and brought to the operating room. The patient was sedated and intubated by anesthesia in standard fashion. The patient was positioned on to the operating room table in a prone position on the appropriate frame which was well-padded and well molded. We were careful to pad any bony prominences and pressure points. We were careful to maintain the patient's cervical spine and good neutral alignment and position throughout. The patient was prepped and draped in a normal standard fashion. An appropriate timeout and keystone protocol performed. We were able to proceed with the surgery. the abscess area was easily identified as he had a approximately 8 x 8 cm area of significant erythema over a draining 0.5 x 0.5 cm purulent space. An incision was made at the knee opening of the abscess near the paraspinal area on the left of the thoracic spine. Upon incision a great deal of pus was able to be excised. There is significant whitish yellow purulence. I was able to explore the area digitally. There is no evidence of deep tissue abscess into the fascia or the musculature. The abscess seemed to be contained within the subcutaneous space. There are numerous vacuoles and spaces which had to be broken down at the subcu space where further pus was removed. We're able to remove great deal of pus. There is significant denuded tissue and I performed excisional debridement of the denuded tissue of the fatty tissue and the connective tissue at the area. There is obvious purulence and infection at the soft tissue and a portion of soft tissue was removed to get good bleeding surface. Deep culture was taken of the subcu tissue and sent to pathology. The wound was then copiously irrigated and suctioned dry with possibly 4 L of antibiotic and irrigation solution. We had good clean surfaces. Good bleeding tissue. There is no further pus or purulence noted. Some of the erythema had already subsided to some degree at the skin. I was unable to proceed with closure. The empty space was packed lightly with iodoform gauze. I closed the skin with 3-0 nylon. We will proceed with dressing. The wound was cleaned and dried and dressed with the appropriate dressing. The drapes were broken down. The patient was gently rolled back onto their hospital bed being careful to maintain their cervical spine and good neutral alignment and position. They were woken up by anesthesia, extubated, and brought to the recovery room in good stable condition. The patient will be admitted to the hospital for observation and for appropriate I plan to remove portions of the iodoform gauze tomorrow and then the remainder of the gauze the next day and follow the wound closely. He should continue antibiotics as per infectious disease.postoperative care, medical management and monitoring. We will continue to follow them closely about the postoperative course.
[2018-11-24] MEDS ORDERED: MEPERIDINE 50 MG/ML SYRINGE IVP ONE (15:38)
[2018-11-24 15:46] LABS: Glucose,Whole Blood 257 mg/dL (75-99)
[2018-11-24] MEDS ORDERED: SODIUM CHLORIDE 0.9% 1,000 ML IV ONE (16:11)
[2018-11-24 16:42] LABS: Glucose,Whole Blood 279 mg/dL (75-99)
[2018-11-24] MEDS ORDERED: VANCOMYCIN TROUGH DUE 1 EACH MISC MISCELLANE ONE (19:00)
[2018-11-24 20:43] LABS: Glucose,Whole Blood 357 mg/dL (75-99)
[2018-11-24] MEDS: QUEtiapine 100 MG TAB PO SCH (20:57)
[2018-11-24] MEDS: INSULIN DETEMIR (LEVEMIR) 100 UNIT/ML SYR SQ SCH (20:57)
[2018-11-24] MEDS: ATORVASTATIN 80 MG TAB PO SCH (20:57)
[2018-11-24] MEDS ORDERED: INSULIN DETEMIR (LEVEMIR) 100 UNIT/ML SYR SQ SCH (21:00)
--- NOTE | 2018-11-24 21:34 | P.PN ---
Subjective Progress Note Date: 11/24/18 43-year-old male that has a long-standing history of diabetes mellitus type 2 that is poorly controlled hemoglobin A1c has been at 13 more recently was about 11. Relates that he has been having ongoing medical troubles with his underlying coronary artery disease and his multiple sclerosis. As of late he's been doing somewhat poorly and that the MS has been flaring is having increasing difficulties with ambulation and discomforts to his lower extremities. He relates several weeks ago started to feel more poorly and developed without was a ampler cyst on his back that became progressively more uncomfortable. It became larger, swollen, warm and reddened and constantly his attempted to drain it. Her manipulation did not allow any drainage and now the site has considerably worsened. There is a large area that is very painful making it difficult for him to lay supine cause of the swelling and tenderness. He started physically feel more poorly low-grade fever with chills and thought that his MS was worsening. Consequently presented to his local emergency center. There he underwent evaluations which included computed tomography scan and ultrasound and constantly was referred to our facility for surgical evaluation. With evidence of any abscess to his thoracic area of his back the infectious diseases consultation is been requested. The patient relates that over the last many months he's had difficulties with small skin lesions and pimples that usually resolve with local care this is the first time something has become so difficult. Patient is now status post incision and drainage of the back abscess. His pain is well controlled. He voices no other new acute complaints at this time. No nausea or emesis with antibiotic therapy. Blood sugars are trending to improvement. Objective - Vital Signs Vital signs: Vital Signs Temp 98.0 F 11/24/18 20:08 Pulse 99 11/24/18 20:08 Resp 17 11/24/18 20:08 BP 121/79 11/24/18 20:08 Pulse Ox 98 11/24/18 20:08 Intake & Output 11/24/18 11/24/18 11/25/18 06:59 18:59 06:59 Intake Total 1426 Output Total 550 20 375 Balance -550 1406 -375 Weight 133 kg 133 kg Intake: IV 1426 Output: Urine 550 375 Estimated Blood Loss 20 Other: Voiding Method Urinal # Voids 1 # Bowel Movements 0 - Exam 43-year-old male with obesity uncomfortable HEENT: Anicteric conjunctiva are pink and moist nasal mucosa grossly intact without significant lesions, there is no thrush. Neck: The neck is supple without significant lymphadenopathy or thyromegaly. Lungs: Good bilateral air entry without significant crackles or wheezing. There is no significant bronchial sounds. There is no egophony or dullness. Heart: mildly irregular with a soft S4 no murmur click or rub Abdomen: obesePositive bowel sounds soft and nontender without palpable masses or organomegaly. There was no guarding or rebound. Extremities: The upper extremities have excellent pulses they are symmetric, no significant petechiae or telangiectasia. No splinter hemorrhages were noted. The lower extremities are free from significant edema. The peripheral pulses were 2+ and symmetric. Neuro: Awake alert oriented to person place and time. There are no acute new gross focal sensory motor deficits. skin: Evidence of the significant abscess in the mid aspect of the thoracic s pine. Surgical dressing is in place not removed and is intact - Labs CBC & Chem 7: 11/24/18 06:56 11/24/18 00:02 Labs: Abnormal Lab Results - Last 24 Hours (Table) 11/23/18 11/24/18 11/24/18 Range/Units 07:32 00:02 06:54 WBC (3.8-10.6) k/uL Hgb (13.0-17.5) gm/dL Hct (39.0-53.0) % Sodium 132 L (137-145) mmol/L Potassium 5.2 H (3.5-5.1) mmol/L Chloride 95 L (98-107) mmol/L BUN 28 H (9-20) mg/dL Creatinine 2.44 H (0.66-1.25) mg/dL Glucose 275 H (74-99) mg/dL POC Glucose (mg/dL) 298 H (75-99) mg/dL Hemoglobin A1c 11.7 H (4.0-6.0) % 11/24/18 11/24/18 11/24/18 Range/Units 06:56 11:35 12:30 WBC 14.5 H (3.8-10.6) k/uL Hgb 11.9 L (13.0-17.5) gm/dL Hct 36.5 L (39.0-53.0) % Sodium (137-145) mmol/L Potassium (3.5-5.1) mmol/L Chloride (98-107) mmol/L BUN (9-20) mg/dL Creatinine (0.66-1.25) mg/dL Glucose (74-99) mg/dL POC Glucose (mg/dL) 281 H 265 H (75-99) mg/dL Hemoglobin A1c (4.0-6.0) % 11/24/18 11/24/18 11/24/18 Range/Units 15:43 16:40 20:36 WBC (3.8-10.6) k/uL Hgb (13.0-17.5) gm/dL Hct (39.0-53.0) % Sodium (137-145) mmol/L Potassium (3.5-5.1) mmol/L Chloride (98-107) mmol/L BUN (9-20) mg/dL Creatinine (0.66-1.25) mg/dL Glucose (74-99) mg/dL POC Glucose (mg/dL) 257 H 279 H 357 H (75-99) mg/dL Hemoglobin A1c (4.0-6.0) % Microbiology - Last 24 Hours (Table) 11/23/18 09:25 Gram Stain - Preliminary Back Wound Culture - Preliminary Presumptive Staph aureus Laboratory Results WBC 14.5 k/uL (3.8-10.6) H 11/24/18 06:56 RBC 4.37 m/uL (4.30-5.90) 11/24/18 06:56 Hgb 11.9 gm/dL (13.0-17.5) L 11/24/18 06:56 Hct 36.5 % (39.0-53.0) L 11/24/18 06:56 MCV 83.6 fL (80.0-100.0) 11/24/18 06:56 MCH 27.3 pg (25.0-35.0) 11/24/18 06:56 MCHC 32.6 g/dL (31.0-37.0) 11/24/18 06:56 RDW 13.5 % (11.5-15.5) 11/24/18 06:56 Plt Count 243 k/uL (150-450) 11/24/18 06:56 Neutrophils % 77 % 11/23/18 07:32 Lymphocytes % 14 % 11/23/18 07:32 Monocytes % 7 % 11/23/18 07:32 Eosinophils % 1 % 11/23/18 07:32 Basophils % 0 % 11/23/18 07:32 Neutrophils # 9.8 k/uL (1.3-7.7) H 11/23/18 07:32 Lymphocytes # 1.7 k/uL (1.0-4.8) 11/23/18 07:32 Monocytes # 0.8 k/uL (0-1.0) 11/23/18 07:32 Eosinophils # 0.1 k/uL (0-0.7) 11/23/18 07:32 Basophils # 0.0 k/uL (0-0.2) 11/23/18 07:32 Sodium 132 mmol/L (137-145) L 11/24/18 00:02 Potassium 5.2 mmol/L (3.5-5.1) H 11/24/18 00:02 Chloride 95 mmol/L (98-107) L 11/24/18 00:02 Carbon Dioxide 28 mmol/L (22-30) 11/24/18 00:02 Anion Gap 9 mmol/L 11/24/18 00:02 BUN 28 mg/dL (9-20) H 11/24/18 00:02 Creatinine 2.44 mg/dL (0.66-1.25) H 11/24/18 00:02 Est GFR (CKD-EPI)AfAm 36 (>60 ml/min/1.73 sqM) 11/24/18 00:02 Est GFR (CKD-EPI)NonAf 31 (>60 ml/min/1.73 sqM) 11/24/18 00:02 Glucose 275 mg/dL (74-99) H 11/24/18 00:02 POC Glucose (mg/dL) 357 mg/dL (75-99) H 11/24/18 20:36 POC Glu Custom Ski Maker ID Marvin Mack 11/24/18 20:[address] Glu mg/dL 289 11/23/18 07:32 Hemoglobin A1c 11.7 % (4.0-6.0) H 11/23/18 07:32 Calcium 8.5 mg/dL (8.4-10.2) 11/24/18 00:02 Total Bilirubin 0.7 mg/dL (0.2-1.3) 11/23/18 07:32 AST 24 U/L (17-59) 11/23/18 07:32 ALT 24 U/L (21-72) 11/23/18 07:32 Alkaline Phosphatase 81 U/L (38-126) 11/23/18 07:32 Total Protein 6.2 g/dL (6.3-8.2) L 11/23/18 07:32 Albumin 3.3 g/dL (3.5-5.0) L 11/23/18 07:32 Microbiology 11/23/18 09:25 Back Gram Stain - Preliminary 11/23/18 09:25 Back Wound Culture - Preliminary Presumptive Staph aureus 11/23/18 09:25 Back Anaerobic Culture - Preliminary Laboratory Results WBC 14.5 k/uL (3.8-10.6) H 11/24/18 06:56 RBC 4.37 m/uL (4.30-5.90) 11/24/18 06:56 Hgb 11.9 gm/dL (13.0-17.5) L 11/24/18 06:56 Hct 36.5 % (39.0-53.0) L 11/24/18 06:56 MCV 83.6 fL (80.0-100.0) 11/24/18 06:56 MCH 27.3 pg (25.0-35.0) 11/24/18 06:56 MCHC 32.6 g/dL (31.0-37.0) 11/24/18 06:56 RDW 13.5 % (11.5-15.5) 11/24/18 06:56 Plt Count 243 k/uL (150-450) 11/24/18 06:56 Neutrophils % 77 % 11/23/18 07:32 Lymphocytes % 14 % 11/23/18 07:32 Monocytes % 7 % 11/23/18 07:32 Eosinophils % 1 % 11/23/18 07:32 Basophils % 0 % 11/23/18 07:32 Neutrophils # 9.8 k/uL (1.3-7.7) H 11/23/18 07:32 Lymphocytes # 1.7 k/uL (1.0-4.8) 11/23/18 07:32 Monocytes # 0.8 k/uL (0-1.0) 11/23/18 07:32 Eosinophils # 0.1 k/uL (0-0.7) 11/23/18 07:32 Basophils # 0.0 k/uL (0-0.2) 11/23/18 07:32 Sodium 132 mmol/L (137-145) L 11/24/18 00:02 Potassium 5.2 mmol/L (3.5-5.1) H 11/24/18 00:02 Chloride 95 mmol/L (98-107) L 11/24/18 00:02 Carbon Dioxide 28 mmol/L (22-30) 11/24/18 00:02 Anion Gap 9 mmol/L 11/24/18 00:02 BUN 28 mg/dL (9-20) H 11/24/18 00:02 Creatinine 2.44 mg/dL (0.66-1.25) H 11/24/18 00:02 Est GFR (CKD-EPI)AfAm 36 (>60 ml/min/1.73 sqM) 11/24/18 00:02 Est GFR (CKD-EPI)NonAf 31 (>60 ml/min/1.73 sqM) 11/24/18 00:02 Glucose 275 mg/dL (74-99) H 11/24/18 00:02 POC Glucose (mg/dL) 357 mg/dL (75-99) H 11/24/18 20:36 POC Glu Custom [employer] Maker ID Marvin Mack 11/24/18 20:[address] Glu mg/dL 289 11/23/18 07:32 Hemoglobin A1c 11.7 % (4.0-6.0) H 11/23/18 07:32 Calcium 8.5 mg/dL (8.4-10.2) 11/24/18 00:02 Total Bilirubin 0.7 mg/dL (0.2-1.3) 11/23/18 07:32 AST 24 U/L (17-59) 11/23/18 07:32 ALT 24 U/L (21-72) 11/23/18 07:32 Alkaline Phosphatase 81 U/L (38-126) 11/23/18 07:32 Total Protein 6.2 g/dL (6.3-8.2) L 11/23/18 07:32 Albumin 3.3 g/dL (3.5-5.0) L 11/23/18 07:32 Microbiology 11/23/18 09:25 Back Gram Stain - Preliminary 11/23/18 09:25 Back Wound Culture - Preliminary Presumptive Staph aureus 11/23/18 09:25 Back Anaerobic Culture - Preliminary Assessment and Plan (1) Thoracic abscess Narrative/Plan: 43-year-old male who has multiple medical troubles that includes multiple sclerosis, coronary disease and diabetes mellitus type 2 presented to his local emergency center and then transferred to our facility for further surgical evaluation. Patient is evidence of an abscess on the posterior aspect of the thorax in is in need of surgical incision and drainage. The patient has been seen by orthopedics and plans are for this to occur tomorrow. Given the uncontrolled IV as well as type II staphylococcal infection the skin is most likely and while cultures are in process vancomycin with cefazolin are being utilized. Wound care will be advised once the postoperative wound is evaluated.if patient is not up-to-date on his tetanus vaccine should be performed before his discharge. Multivitamin with zinc is added to his medications. 11/24/2018 patient improved after I&D today still some pain post -op. No fever and blood glucose already improving. Final cultures are pending patient will likely be treated in the outpatient setting likely in his home with home care. Given the extent of the abscess will likely utilize a couple week course of antibiotic therapy with local wound care. Site will be observed and further advice about wound care at discharge. Patient is again educated about the importance of blood glucose control and how this impacts infections. Current Visit: Yes Status: Acute Code(s): J86.9 - PYOTHORAX WITHOUT FISTULA SNOMED Code(s): 268685214 (2) Diabetes mellitus type 2, uncontrolled, with complications Current Visit: Yes Status: Acute Code(s): E11.8 - TYPE 2 DIABETES MELLITUS WITH UNSPECIFIED COMPLICATIONS; E11.65 - TYPE 2 DIABETES MELLITUS WITH HYPERGLYCEMIA SNOMED Code(s): 18919647
[2018-11-24] MEDS: POLYETHYLENE GLYCOL 3350 17 GM POWD.PACK PO PRN (23:02)
[2018-11-24] MEDS: LACTULOSE 20 GM/30 ML CUP PO PRN (23:07)
[2018-11-25 06:14] LABS: Basophils % (A) 0 %; Eosinophils # (A) 0.2 k/uL (0-0.7); Eosinophils % (A) 1 %; HGB 11.2 gm/dL (13.0-17.5); Lymphocytes # (A) 1.4 k/uL (1.0-4.8); Lymphocytes % (A) 11 %; MCHC 32.1 g/dL (31.0-37.0); Mean Platelet Volume 7.5; Monocytes # (A) 0.9 k/uL (0-1.0); Monocytes % (A) 7 %; Neutrophils # (A) 10.2 k/uL (1.3-7.7); Neutrophils % (A) 79 %; Platelet Count 258 k/uL (150-450); RBC 4.17 m/uL (4.30-5.90); RDW 13.4 % (11.5-15.5)
[2018-11-25 06:34] LABS: Calcium 8.6 mg/dL (8.4-10.2)
[2018-11-25 06:38] LABS: Vancomycin,Random 22.2 ug/mL
[2018-11-25 07:22] LABS: Glucose,Whole Blood 293 mg/dL (75-99)
[2018-11-25] MEDS: CARVEDILOL 12.5 MG TAB PO SCH ×2 (08:37→17:01)
[2018-11-25] MEDS: INSULIN ASPART (NovoLOG) 100 UNIT/ML VIAL SQ SCH ×7 (08:37→21:04)
[2018-11-25] MEDS: ceFAZolin IN SWFI 2 GM/20 ML SYRINGE IVP SCH ×3 (08:37→23:51)
[2018-11-25] MEDS: HEPARIN SODIUM,PORCINE 5,000 UNIT/ML 1 ML VIAL SQ SCH ×3 (08:38→23:51)
[2018-11-25] MEDS: FAMOTIDINE 20 MG TAB PO SCH (10:18)
[2018-11-25] MEDS: ASPIRIN 81 MG PO SCH (10:18)
[2018-11-25] MEDS: FUROSEMIDE 40 MG TAB PO SCH (10:18)
[2018-11-25] MEDS: LISINOPRIL 10 MG TAB PO SCH (10:19)
[2018-11-25] MEDS: ISOSORBIDE MONONITRATE ER 60 MG TAB.ER.24H PO SCH (10:19)
[2018-11-25] MEDS: GABAPENTIN 300 MG CAP PO SCH ×3 (10:19→20:58)
[2018-11-25] MEDS: SENNOSIDES-DOCUSATE SODIUM 1 EACH TAB PO SCH ×2 (10:19→20:58)
[2018-11-25] MEDS: VORTIOXETINE HYDROBROMIDE 20 MG TABLET PO SCH (10:19)
[2018-11-25] MEDS: HYDROmorphone 0.5 MG/0.5 ML SYRINGE IVP PRN ×3 (10:40→23:51)
[2018-11-25 11:44] LABS: Glucose,Whole Blood 352 mg/dL (75-99)
--- NOTE | 2018-11-25 12:02 | P.PN ---
Progress Note - Text Progress Note Date: 11/25/18 Postoperative day #1 Patient is seen and examined today at bedside. The patient has some pain around the surgical site as expected. Pain is being controlled with medication. He has not been having any fevers overnight. Physical Exam Afebrile with stable vital signs he has been afebrile over the last 24 hours Abdomen is soft nontender. Chest has good excursion deep and space expiration The incision site has less erythema though there is still some redness around the site of the abscess. There is been some cloudy drainage as expected from the site. At bedside today I removed a [place] half of the iodoform gauze from the wound. The wound is soft but there is no tense fluid collection. The patient tolerated this well. Sutures are intact. Extremities have not had neurologic change from prior to surgery. Calves and thighs were soft nontender without evidence of DVT. Assessment/Plan Postoperative day #1 status post incision and excisional drainage and excisional debridement of thoracic abscess superficial at the subcutaneous tissue. Patient is progressing as expected from the surgery. We left some of the dressing intact and this was removed tomorrow which we our service will do at bedside. He should continue his IV antibiotic per infectious disease. At this point I do not plan further surgical intervention and I would like to see how he does with continued local wound care and IV antibiotics. Once the dressing is removed tomorrow and he has a plan for his continued antibiotics would be okay from orthosis spine surgery standpoint for him to be treated outpatient. He is continuing his medical management for his other cardiac and MS issues as well. We will continue to increase the patient's mobilization with therapy. We will continue pain control with oral or IV medications. We'll continue to follow patient closely.
[2018-11-25] MEDS: COPAXONE 20 MG IM SCH (12:25)
[2018-11-25] MEDS: MULTIVITAMINS, THERA 1 EACH TAB PO SCH (12:25)
[2018-11-25 16:43] LABS: Glucose,Whole Blood 340 mg/dL (75-99)
[2018-11-25 20:17] LABS: Glucose,Whole Blood 276 mg/dL (75-99)
[2018-11-25] MEDS: INSULIN DETEMIR (LEVEMIR) 100 UNIT/ML SYR SQ SCH (20:57)
[2018-11-25] MEDS: ATORVASTATIN 80 MG TAB PO SCH (20:57)
[2018-11-25] MEDS: QUEtiapine 100 MG TAB PO SCH (20:58)
--- NOTE | 2018-11-25 22:44 | P.PN ---
Subjective Progress Note Date: 11/25/18 43-year-old male that has a long-standing history of diabetes mellitus type 2 that is poorly controlled hemoglobin A1c has been at 13 more recently was about 11. Relates that he has been having ongoing medical troubles with his underlying coronary artery disease and his multiple sclerosis. As of late he's been doing somewhat poorly and that the MS has been flaring is having increasing difficulties with ambulation and discomforts to his lower extremities. He relates several weeks ago started to feel more poorly and developed without was a ampler cyst on his back that became progressively more uncomfortable. It became larger, swollen, warm and reddened and constantly his attempted to drain it. Her manipulation did not allow any drainage and now the site has considerably worsened. There is a large area that is very painful making it difficult for him to lay supine cause of the swelling and tenderness. He started physically feel more poorly low-grade fever with chills and thought that his MS was worsening. Consequently presented to his local emergency center. There he underwent evaluations which included computed tomography scan and ultrasound and constantly was referred to our facility for surgical evaluation. With evidence of any abscess to his thoracic area of his back the infectious diseases consultation is been requested. The patient relates that over the last many months he's had difficulties with small skin lesions and pimples that usually resolve with local care this is the first time something has become so difficult. Patient is now status post incision and drainage of the back abscess. His pain is well controlled. He voices no other new acute complaints at this time. No nausea or emesis with antibiotic therapy. Blood sugars are trending to improvement. 11/25/2018 patient is feeling better status post incision and drainage of his large back abscess. It is packed with the gauze dressing. Drainage is well contained. He has noted blood sugars are starting to show some improvement. He is having no further fever chill. Being ready for discharge tomorrow once all arrangements are made about his antibiotic therapy. Objective - Vital Signs Vital signs: Vital Signs Temp 98.2 F 11/25/18 19:54 Pulse 80 11/25/18 19:54 Resp 18 11/25/18 19:54 BP 104/66 11/25/18 19:54 Pulse Ox 95 11/25/18 19:54 Intake & Output 11/25/18 11/25/18 11/26/18 06:59 18:59 06:59 Output Total 1100 350 Balance -1100 -350 Weight 135.8 kg Output: Urine 1100 350 Other: Voiding Method Urinal Toilet # Voids 1 2 1 # Bowel Movements 2 1 - Exam 43-year-old male with obesity uncomfortable HEENT: Anicteric conjunctiva are pink and moist nasal mucosa grossly intact without significant lesions, there is no thrush. Neck: The neck is supple without significant lymphadenopathy or thyromegaly. Lungs: Good bilateral air entry without significant crackles or wheezing. There is no significant bronchial sounds. There is no egophony or dullness. Heart: mildly irregular with a soft S4 no murmur click or rub Abdomen: obesePositive bowel sounds soft and nontender without palpable masses or organomegaly. There was no guarding or rebound. Extremities: The upper extremities have excellent pulses they are symmetric, no significant petechiae or telangiectasia. No splinter hemorrhages were noted. The lower extremities are free from significant edema. The peripheral pulses were 2+ and symmetric. Neuro: Awake alert oriented to person place and time. There are no acute new gross focal sensory motor deficits. skin: Evidence of the significant abscess in the mid aspect of the thoracic spine. Surgical dressing is in place without breakthrough drainage or bleeding - Labs CBC & Chem 7: 11/25/18 05:54 11/25/18 05:54 Labs: Abnormal Lab Results - Last 24 Hours (Table) 11/25/18 11/25/18 11/25/18 Range/Units 05:54 05:54 07:09 WBC 13.0 H (3.8-10.6) k/uL RBC 4.17 L (4.30-5.90) m/uL Hgb 11.2 L (13.0-17.5) gm/dL Hct 35.0 L (39.0-53.0) % Neutrophils # 10.2 H (1.3-7.7) k/uL Sodium 132 L (137-145) mmol/L Chloride 97 L (98-107) mmol/L BUN 37 H (9-20) mg/dL Creatinine 3.70 H (0.66-1.25) mg/dL Glucose 269 H (74-99) mg/dL POC Glucose (mg/dL) 293 H (75-99) mg/dL 11/25/18 11/25/1819 Range/Units 11:33 16:42 20:16 WBC (3.8-10.6) k/uL RBC (4.30-5.90) m/uL Hgb (13.0-17.5) gm/dL Hct (39.0-53.0) % Neutrophils # (1.3-7.7) k/uL Sodium (137-145) mmol/L Chloride (98-107) mmol/L BUN (9-20) mg/dL Creatinine (0.66-1.25) mg/dL Glucose (74-99) mg/dL POC Glucose (mg/dL) 352 H 340 H 276 H (75-99) mg/dL Microbiology - Last 24 Hours (Table) 11/24/18 14:53 Gram Stain - Preliminary Back Wound Culture - Preliminary Presumptive Staph aureus 11/23/18 09:25 Anaerobic Culture - Preliminary Back 11/23/18 09:25 Gram Stain - Final Back Wound Culture - Final Staphylococcus aureus 11/24/18 14:53 Fungal Culture - Preliminary Back 11/24/18 14:53 Anaerobic Culture - Preliminary Back Laboratory Results WBC 13.0 k/uL (3.8-10.6) H 11/25/18 05:54 RBC 4.17 m/uL (4.30-5.90) L 11/25/18 05:54 Hgb 11.2 gm/dL (13.0-17.5) L 11/25/18 05:54 Hct 35.0 % (39.0-53.0) L 11/25/18 05:54 MCV 84.0 fL (80.0-100.0) 11/25/18 05:54 MCH 27.0 pg (25.0-35.0) 11/25/18 05:54 MCHC 32.1 g/dL (31.0-37.0) 11/25/18 05:54 RDW 13.4 % (11.5-15.5) 11/25/18 05:54 Plt Count 258 k/uL (150-450) 11/25/18 05:54 Neutrophils % 79 % 11/25/18 05:54 Lymphocytes % 11 % 11/25/18 05:54 Monocytes % 7 % 11/25/18 05:54 Eosinophils % 1 % 11/25/18 05:54 Basophils % 0 % 11/25/18 05:54 Neutrophils # 10.2 k/uL (1.3-7.7) H 11/25/18 05:54 Lymphocytes # 1.4 k/uL (1.0-4.8) 11/25/18 05:54 Monocytes # 0.9 k/uL (0-1.0) 11/25/18 05:54 Eosinophils # 0.2 k/uL (0-0.7) 11/25/18 05:54 Basophils # 0.0 k/uL (0-0.2) 11/25/18 05:54 Sodium 132 mmol/L (137-145) L 11/25/18 05:54 Potassium 5.0 mmol/L (3.5-5.1) 11/25/18 05:54 Chloride 97 mmol/L (98-107) L 11/25/18 05:54 Carbon Dioxide 25 mmol/L (22-30) 11/25/18 05:54 Anion Gap 10 mmol/L 11/25/18 05:54 BUN 37 mg/dL (9-20) H 11/25/18 05:54 Creatinine 3.70 mg/dL (0.66-1.25) H 11/25/18 05:54 Est GFR (CKD-EPI)AfAm 22 (>60 ml/min/1.73 sqM) 11/25/18 05:54 Est GFR (CKD-EPI)NonAf 19 (>60 ml/min/1.73 sqM) 11/25/18 05:54 Glucose 269 mg/dL (74-99) H 11/25/18 05:54 POC Glucose (mg/dL) 276 mg/dL (75-99) H 11/25/18 20:16 POC Glu Nurse Auditor ID Angela Bustamante 11/25/18 20:[address] Glu mg/dL 289 11/23/18 07:32 Hemoglobin A1c 11.7 % (4.0-6.0) H 11/23/18 07:32 Calcium 8.6 mg/dL (8.4-10.2) 11/25/18 05:54 Total Bilirubin 0.7 mg/dL (0.2-1.3) 11/23/18 07:32 AST 24 U/L (17-59) 11/23/18 07:32 ALT 24 U/L (21-72) 11/23/18 07:32 Alkaline Phosphatase 81 U/L (38-126) 11/23/18 07:32 Total Protein 6.2 g/dL (6.3-8.2) L 11/23/18 07:32 Albumin 3.3 g/dL (3.5-5.0) L 11/23/18 07:32 Random Vancomycin 22.2 ug/mL 11/25/18 05:54 Microbiology 11/24/18 14:53 Back Gram Stain - Preliminary 11/24/18 14:53 Back Wound Culture - Preliminary Presumptive Staph aureus 11/23/18 09:25 Back Anaerobic Culture - Preliminary 11/23/18 09:25 Back Gram Stain - Final 11/23/18 09:25 Back Wound Culture - Final Staphylococcus aureus 11/24/18 14:53 Back Fungal Culture - Preliminary 11/24/18 14:53 Back Anaerobic Culture - Preliminary Assessment and Plan (1) Thoracic abscess Narrative/Plan: 43-year-old male who has multiple medical troubles that includes multiple sclerosis, coronary disease and diabetes mellitus type 2 presented to his local emergency center and then transferred to our facility for further surgical evaluation. Patient is evidence of an abscess on the posterior aspect of the thorax in is in need of surgical incision and drainage. The patient has been seen by orthopedics and plans are for this to occur tomorrow. Given the uncontrolled IV as well as type II staphylococcal infection the skin is most likely and while cultures are in process vancomycin with cefazolin are being utilized. Wound care will be advised once the postoperative wound is evaluated.if patient is not up-to-date on his tetanus vaccine should be performed before his discharge. Multivitamin with zinc is added to his medications. 11/24/2018 patient improved after I&D today still some pain post -op. No fever and blood glucose already improving. Final cultures are pending patient will likely be treated in the outpatient setting likely in his home with home care. Given the extent of the abscess will likely utilize a couple week course of antibiotic therapy with local wound care. Site will be observed and further advice about wound care at discharge. Patient is again educated about the importance of blood glucose control and how this impacts infections. 11/25/2018 patient is now starting to show some improvement. MSSA as I said vancomycin discontinued and will plan on ceftezole and. 2 g every 8 hours IV push will be arranged for home patient relates his can be helpful in this process. If the blood work is requested. Follow-up in the office in 2 weeks if any of his antibiotic therapy hoping that he will have further improvement. Local wound care is written with the silver alginate dressing per the home care nurse. Current Visit: Yes Status: Acute Code(s): J86.9 - PYOTHORAX WITHOUT FISTULA SNOMED Code(s): 841509968 (2) Diabetes mellitus type 2, uncontrolled, with complications Current Visit: Yes Status: Acute Code(s): E11.8 - TYPE 2 DIABETES MELLITUS WITH UNSPECIFIED COMPLICATIONS; E11.65 - TYPE 2 DIABETES MELLITUS WITH HYPERGLYCEMIA SNOMED Code(s): 93840696
--- NOTE | 2018-11-25 23:30 | P.PN ---
Subjective Progress Note Date: 11/24/18 Principal diagnosis: Thoracic abscess Hyperglycemia with uncontrolled diabetes type 2 43-year-old pleasant gentleman was transferred from [facility] after he presented there with severe back pain and possible low-grade fevers patient is found to have C light is an abscess on the right mid back in the paraspinal area. Patient is coming of severe pain there patient has a small pimple-like area with surrounding abscess redness with the pus drainage. Patient will und ergo incision and drainage tomorrow patient was started on vancomycin and Zosyn Zosyn was discontinued and infectious disease was consulted. Patient had a CT of the abdomen which showed a showed the same thing as clinical exam. 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 Patient does have history of multiple sclerosis with some weakness in both legs for which patient is on Glatiramer ACT 8 no new weakness. Patient is diabetic with highly uncontrolled blood sugars patient is on very dose of high-dose of insulin obese. Patient is mildly hyponatremic because of which I'm cutting down oral Lasix chest x-ray was obtained which did not show any pulmonary edema. 11/24/2018 Patient is awake alert oriented oriented 3. Patient was taken to or today for incision and drainage of thoracic abscess. No fever no chills. We will follow up wound cultures. ID is following. Patient will be continued on antibiotics in the form of cefazolin as per ID recommendations. Continued on wound care. Patient was started back on home dose of levemir 75 units at bedtime along with aspart 30 units 3 times a day before meals. Patient is hyperglycemic today. No nausea vomiting or abdominal pain. Current medications reviewed. Objective - Vital Signs Vital signs: Vital Signs Temp 98.1 F 11/24/18 12:18 Pulse 82 11/24/18 12:18 Resp 18 11/24/18 12:18 BP 114/74 11/24/18 12:18 Pulse Ox 98 11/24/18 12:18 Intake & Output 11/23/18 11/24/18 11/24/18 18:59 06:59 18:59 Intake Total 1200 250 Output Total 400 550 Balance 800 -550 250 Weight 133 kg 133 kg Intake: IV 250 Other 1200 Output: Urine 400 550 Other: Voiding Method Urinal Urinal # Voids 0 # Bowel Movements 0 - Exam GENERAL: The patient is alert and oriented x3, patient is in distress because of pain. Well developed, well nourished. HEENT: Pupils are round and equally reacting to light. EOMI. No scleral icterus. No conjunctival pallor. Normocephalic, atraumatic. No pharyngeal erythema. No thyromegaly. CARDIOVASCULAR: S1 and S2 present. No murmurs, rubs, or gallops. PULMONARY: Chest is clear to auscultation, no wheezing or crackles. ABDOMEN: Soft, nontender, nondistended, normoactive bowel sounds. No palpable organomegaly. MUSCULOSKELETAL: No joint swelling or deformity. EXTREMITIES: No cyanosis, clubbing, or pedal edema. NEUROLOGICAL: Gross neurological examination did not reveal any focal deficits. SKIN: Thoracic abscess status post I&D currently bandaged. - Labs CBC & Chem 7: 11/25/18 05:54 11/25/18 05:54 Labs: Abnormal Lab Results - Last 24 Hours (Table) 11/23/18 11/23/18 11/23/18 Range/Units 07:32 16:52 20:09 WBC (3.8-10.6) k/uL Hgb (13.0-17.5) gm/dL Hct (39.0-53.0) % Sodium (137-145) mmol/L Potassium (3.5-5.1) mmol/L Chloride (98-107) mmol/L BUN (9-20) mg/dL Creatinine (0.66-1.25) mg/dL Glucose (74-99) mg/dL POC Glucose (mg/dL) 307 H 289 H (75-99) mg/dL Hemoglobin A1c 11.7 H (4.0-6.0) % 11/24/18 11/24/18 11/24/18 Range/Units 00:02 06:54 06:56 WBC 14.5 H (3.8-10.6) k/uL Hgb 11.9 L (13.0-17.5) gm/dL Hct 36.5 L (39.0-53.0) % Sodium 132 L (137-145) mmol/L Potassium 5.2 H (3.5-5.1) mmol/L Chloride 95 L (98-107) mmol/L BUN 28 H (9-20) mg/dL Creatinine 2.44 H (0.66-1.25) mg/dL Glucose 275 H (74-99) mg/dL POC Glucose (mg/dL) 298 H (75-99) mg/dL Hemoglobin A1c (4.0-6.0) % 11/24/18 11/24/18 Range/Units 11:35 12:30 WBC (3.8-10.6) k/uL Hgb (13.0-17.5) gm/dL Hct (39.0-53.0) % Sodium (137-145) mmol/L Potassium (3.5-5.1) mmol/L Chloride (98-107) mmol/L BUN (9-20) mg/dL Creatinine (0.66-1.25) mg/dL Glucose (74-99) mg/dL POC Glucose (mg/dL) 281 H 265 H (75-99) mg/dL Hemoglobin A1c (4.0-6.0) % Microbiology - Last 24 Hours (Table) 11/23/18 09:25 Gram Stain - Preliminary Back Wound Culture - Preliminary Presumptive Staph aureus 11/23/18 09:25 Anaerobic Culture - Preliminary Back Assessment and Plan Assessment: -Back pain: Secondary to an abscess in the paraspinal area patient underwent incision and drainage continue with cefazolin. Vancomycin DC'd. -Acute kidney injury nonoliguric. Possible ATN. Creatinine 2.44 today. Will hold Lasix, lisinopril and Neurontin. We'll consult nephrology. -Congestive heart failure chronic systolic dysfunction patient is bit hypovolemic, hold the Lasix with close clinical monitoring. -Coronary artery disease with ischemic cardiomyopathy continue with a beta lukas patient is on dual antiplatelet therapy patient will be continued on aspirin and Plavix will be held patient had stents that were placed more than 2 years ago patient may not require dual antiplatelet therapy and patient will undergo incision and drainage because of that reason Plavix is being held at this time. Patient is on lisinopril because of cardiomyopathy dose of which showed will cut it down because his blood pressures 91-71 do not have ejection fraction available. Beta lukas will be continued -Type 2 diabetes mellitus uncontrolled with hyperglycemia. dietary counseling was provided patient was resumed on his home regimen along with sliding scale insulin titration of his regimen depending on his blood sugars here -Sepsis: Secondary to an abscess. -Multiple sclerosis without any new neurological deficits continue with home medications -Hyperlipidemia -Hypertension -DVT prophylaxis Time with Patient: Greater than 30
--- NOTE | 2018-11-25 23:38 | P.PN ---
Subjective Progress Note Date: 11/25/18 Principal diagnosis: Thoracic abscess Hyperglycemia with uncontrolled diabetes type 2 Acute kidney injury 43-year-old pleasant gentleman was transferred from [facility] after he presented there with severe back pain and possible low-grade fevers patient is found to have C light is an abscess on the right mid back in the paraspinal area. Patient is coming of severe pain there patient has a small pimple-like area with surrounding abscess redness with the pus drainage. Patient will undergo incision and drainage tomorrow patient was started on vancomycin and Zosyn Zosyn was discontinued and infectious disease was consulted. Patient had a CT of the abdomen which showed a showed the same thing as clinical exam. 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 Patient does have history of multiple sclerosis with some weakness in both legs for which patient is on Glatiramer ACT 8 no new weakness. Patient is diabetic with highly uncontrolled blood sugars patient is on very dose of high-dose of insulin obese. Patient is mildly hyponatremic because of which I'm cutting down oral Lasix chest x-ray was obtained which did not show any pulmonary edema. 11/24/2018 Patient is awake alert oriented oriented 3. Patient was taken to or today for incision and drainage of thoracic abscess. No fever no chills. We will follow up wound cultures. ID is following. Patient will be continued on antibiotics in the form of cefazolin as per ID recommendations. Continued on wound care. Patient was started back on home dose of levemir 75 units at bedtime along with aspart 30 units 3 times a day before meals. Patient is hyperglycemic today. No nausea vomiting or abdominal pain. 11/25/2018 Patient says that he feels better today. Back pain is much improved now. Status post I&D. Initial wound cultures growing MSSA. Patient will be continued on cefazolin as per ID recommendations. No fever no chills. Blood sugar is better controlled today. Still hyperglycemic. Creatinine increased from 2.44-3.7 today. Blood pressure is also on the lower side. Patient will be started on gentle hydration. Will get urine eosinophils and US RENAL. Nephrology will be consulted. Patient denied any abdominal pain. Denied any dysuria or hematuria. No fever no chills. Current medications reviewed. Objective - Vital Signs Vital signs: Vital Signs Temp 98.2 F 11/25/18 19:54 Pulse 80 11/25/18 19:54 Resp 18 11/25/18 19:54 BP 104/66 11/25/18 19:54 Pulse Ox 95 11/25/18 19:54 Intake & Output 11/25/18 11/25/18 11/26/18 06:59 18:59 06:59 Output Total 1100 350 Balance -1100 -350 Weight 135.8 kg Output: Urine 1100 350 Other: Voiding Method Urinal Toilet # Voids 1 2 1 # Bowel Movements 2 1 - Exam GENERAL: The patient is alert and oriented x3, patient is in distress because of pain. Well developed, well nourished. HEENT: Pupils are round and equally reacting to light. EOMI. No scleral icterus. No conjunctival pallor. Normocephalic, atraumatic. No pharyngeal erythema. No thyromegaly. CARDIOVASCULAR: S1 and S2 present. No murmurs, rubs, or gallops. PULMONARY: Chest is clear to auscultation, no wheezing or crackles. ABDOMEN: Soft, nontender, nondistended, normoactive bowel sounds. No palpable organomegaly. MUSCULOSKELETAL: No joint swelling or deformity. EXTREMITIES: No cyanosis, clubbing, or pedal edema. NEUROLOGICAL: Gross neurological examination did not reveal any focal deficits. SKIN: Thoracic abscess status post I&D currently bandaged. - Labs CBC & Chem 7: 11/25/18 05:54 11/25/18 05:54 Labs: Abnormal Lab Results - Last 24 Hours (Table) 11/25/18 11/25/18 11/25/18 Range/Units 05:54 05:54 07:09 WBC 13.0 H (3.8-10.6) k/uL RBC 4.17 L (4.30-5.90) m/uL Hgb 11.2 L (13.0-17.5) gm/dL Hct 35.0 L (39.0-53.0) % Neutrophils # 10.2 H (1.3-7.7) k/uL Sodium 132 L (137-145) mmol/L Chloride 97 L (98-107) mmol/L BUN 37 H (9-20) mg/dL Creatinine 3.70 H (0.66-1.25) mg/dL Glucose 269 H (74-99) mg/dL POC Glucose (mg/dL) 293 H (75-99) mg/dL 11/25/18 11/25/18 11/25/18 Range/Units 11:33 16:42 20:16 WBC (3.8-10.6) k/uL RBC (4.30-5.90) m/uL Hgb (13.0-17.5) gm/dL Hct (39.0-53.0) % Neutrophils # (1.3-7.7) k/uL Sodium (137-145) mmol/L Chloride (98-107) mmol/L BUN (9-20) mg/dL Creatinine (0.66-1.25) mg/dL Glucose (74-99) mg/dL POC Glucose (mg/dL) 352 H 340 H 276 H (75-99) mg/dL Microbiology - Last 24 Hours (Table) 11/24/18 14:53 Gram Stain - Preliminary Back Wound Culture - Preliminary Presumptive Staph aureus 11/23/18 09:25 Anaerobic Culture - Preliminary Back 11/23/18 09:25 Gram Stain - Final Back Wound Culture - Final Staphylococcus aureus 11/24/18 14:53 Fungal Culture - Preliminary Back 11/24/18 14:53 Anaerobic Culture - Preliminary Back Assessment and Plan Assessment: -Back pain: Secondary to an abscess in the paraspinal area patient underwent incision and drainage continue with cefazolin. Vancomycin DC'd. -Acute kidney injury nonoliguric. Possible ATN. Creatinine 0.76--2.44--3.7 today. Will hold Lasix, lisinopril and Neurontin. Gentle hydration. consult nephrology. -Congestive heart failure chronic systolic dysfunction patient is bit hypovolemic, hold the Lasix with close clinical monitoring. -Coronary artery disease with ischemic cardiomyopathy continue with a beta lukas patient is on dual antiplatelet therapy patient will be continued on aspirin and Plavix will be held patient had stents that were placed more than 2 years ago patient may not require dual antiplatelet therapy and patient will undergo incision and drainage because of that reason Plavix is being held at this time. Patient is on lisinopril because of cardiomyopathy dose of which owed will cut it down because his blood pressures 91-71 do not have ejection fraction available. Beta lukas will be continued -Type 2 diabetes mellitus uncontrolled with hyperglycemia. Hb A1c 11.7 .dietary counseling was provided patient was resumed on his home regimen along with sliding scale insulin titration of his regimen depending on his blood sugars here -Sepsis: Secondary to an abscess. -Multiple sclerosis without any new neurological deficits continue with home medications -Hyperlipidemia -Hypertension -DVT prophylaxis Time with Patient: Greater than 30
[2018-11-25] MEDS: SODIUM CHLORIDE 0.9% 1,000 ML IV SCH (23:52)
[2018-11-26] MEDS: ONDANSETRON 4 MG/2 ML VIAL IVP PRN ×2 (01:20→08:30)
[2018-11-26 07:20] LABS: Glucose,Whole Blood 326 mg/dL (75-99)
[2018-11-26] MEDS: CLOPIDOGREL 75 MG TAB PO SCH (07:59)
[2018-11-26] MEDS: SENNOSIDES-DOCUSATE SODIUM 1 EACH TAB PO SCH ×2 (07:59→20:11)
[2018-11-26] MEDS: FAMOTIDINE 20 MG TAB PO SCH (07:59)
[2018-11-26] MEDS: ISOSORBIDE MONONITRATE ER 60 MG TAB.ER.24H PO SCH (08:00)
[2018-11-26] MEDS: VORTIOXETINE HYDROBROMIDE 20 MG TABLET PO SCH (08:00)
[2018-11-26] MEDS: INSULIN ASPART (NovoLOG) 100 UNIT/ML VIAL SQ SCH ×7 (08:00→21:34)
[2018-11-26] MEDS: CARVEDILOL 12.5 MG TAB PO SCH ×2 (08:00→17:37)
[2018-11-26] MEDS: ASPIRIN 81 MG PO SCH (08:00)
[2018-11-26] MEDS: COPAXONE 20 MG IM SCH (08:01)
[2018-11-26] MEDS: HEPARIN SODIUM,PORCINE 5,000 UNIT/ML 1 ML VIAL SQ SCH ×3 (08:01→23:46)
--- NOTE | 2018-11-26 08:06 | US ---
EXAMINATION TYPE: US kidneys/renal and bladder DATE OF EXAM: 11/26/2018 COMPARISON: NONE CLINICAL HISTORY: PAIGE. No h/o renal issues, no complaints at this time EXAM MEASUREMENTS: Right Kidney: 13.0 x 5.9 x 7.3 cm Left Kidney: 14.4 x 7.8 x 7.8 cm Right Kidney: Large in size with no hydronephrosis or masses seen Left Kidney: Large in size with no hydronephrosis or masses seen Bladder: patient voided prior to exam IMPRESSION: 1. Renal ultrasound unremarkable.
[2018-11-26] MEDS: POLYETHYLENE GLYCOL 3350 17 GM POWD.PACK PO PRN (08:30)
--- NOTE | 2018-11-26 08:59 | P.PN ---
Progress Note - Text Progress Note Date: 11/26/18 Patient is a very pleasant 43-year-old male who is seen and examined the bedside for follow-up evaluation for his thoracic spine. He is status post incision and excisional drainage and excisional debridement of the thoracic abscess superficial at the subcutaneous tissue. Postoperatively patient's symptoms have had significant improvement. He continues to have some pain at thoracic spine but feels his pain has been adequately controlled with medications. He denies any lower external weakness or radiculopathy bilaterally. He continues to be seen by medicine and infectious disease. He continues to receive Kefzol antibiotic IV. Patient feels he is ready for discharge home today. IV outpatient antibiotics have been ordered by infectious disease. PICC line intact of the left upper extremity. Wound cultures have come back positive for presumptive staph aureus. Physical exam: Patient is awake, alert, and oriented 3 Good chest excursion with deep inspiration and expiration Examination of the thoracic spine shows evidence of a large left midthoracic abscess which continues to have some induration with erythema measuring approximately 7.5 cm x 6.25 cm but has had significant improvement postoperatively Continued pain on palpation over the abscess site 3 nylon sutures intact over the incision site Iodoform gauze removed during physical examination Minimal purulent discharge from the incision site Evidence of open wound measuring approximately 4 mm with purulent drainage at the abscess site No significant pain with palpation along the lumbar spine Adequate for range of motion of the bilateral lower extremities Bilateral lower extremity strength 5/5 Dorsiflexion, plantarflexion, and extensor hallucis longus positive sustained bilateral lower extremities Neurovascularly intact bilateral lower extremities Pertinent studies: CT of the abdomen and pelvis taken at an outside facility at [facility] on 11/22/2018: Evidence of large soft tissue change with fluid collection at the left midthoracic spine that appears superficial and does not appear to extend into the fascial layer or into the spinal canal; T10-L2 degenerative disc disease; no evidence of vertebral body compression fracture Assessment: Status post incision and excisional drainage and excisional debridement of the thoracic abscess superficial at the subcutaneous tissue Thoracic back pain Thoracolumbar degenerative disc disease T10-L2 Multiple sclerosis History of heart attack 3 with cardiac stent placement 7 Plan: 1. Patient's dressing has been removing physical examination. Rest of iodoform gauze has been removed during physical examination. Sutures over the incision site remain intact. Dressing has been reapplied with nonstick, 4 x 4's, and ABDs pad. Patient has had improvement of his thoracic back pain following irrigation and debridement of his thoracic abscess. He continues to have some mild drainage at the incision site. His pain is been controlled with medications. He has been ambulating without difficulty. He denies any specific lower extremity weakness or radiculopathy. He does feel generally weaker during ambulation but has been ambulating without difficulty. At this time, patient be clear for discharge from an orthopedic spine standpoint. We will continue to keep sutures intact of the incision site. We'll plan for the patient to follow up in approximately 1 week for further evaluation. If the patient is having exacerbation of symptoms prior to her scheduled appointment, he may call the office set up an earlier follow-up appointment. He may follow-up with Gonzales Lucero PA-C or Dr. Trip Frost at [facility]. We discussed he may continue with daily dressing changes as needed. He should avoid heavy lifting, bending, twisting, and heavy activities with his thoracic spine. MAPS has been reviewed today, 11/26/2018, with an Overall Overdose Risk Score of 150 with a narcotic score of 281. An "Opiod Start Talking" Forn has been signed by the patient and myself in place in the patient's chart. A prescription has been written for [place] 5 mg/325 mg 1 tablet every 6 hours as needed for pain, dispense #42. Patient does regularly receive pain medication from his neurologist but is unsure if he is under contract. We discussed will prescribe this medication for the first week postoperatively. He'll plan to contact his neurologist to discuss long-term pain management plans. 2. Patient will continue to be seen and examined by Dr. Noriega in infectious disease and Dr. Allen in medicine
[2018-11-26] MEDS: ceFAZolin IN SWFI 2 GM/20 ML SYRINGE IVP SCH ×3 (10:01→23:46)
[2018-11-26 10:12] LABS: Basophils % (A) 0 %; Eosinophils # (A) 0.4 k/uL (0-0.7); Eosinophils % (A) 4 %; HCT 33.7 % (39.0-53.0); HGB 11.1 gm/dL (13.0-17.5); Lymphocytes # (A) 1.3 k/uL (1.0-4.8); Lymphocytes % (A) 13 %; MCH 27.3 pg (25.0-35.0); MCHC 32.8 g/dL (31.0-37.0); MCV 83.3 fL (80.0-100.0); Mean Platelet Volume 7.8; Monocytes # (A) 0.6 k/uL (0-1.0); Monocytes % (A) 6 %; Neutrophils # (A) 7.1 k/uL (1.3-7.7); Neutrophils % (A) 74 %; Platelet Count 284 k/uL (150-450); RBC 4.05 m/uL (4.30-5.90); RDW 13.5 % (11.5-15.5); WBC 9.5 k/uL (3.8-10.6)
[2018-11-26 10:16] LABS: Calcium 8.6 mg/dL (8.4-10.2); Potassium 5.1 mmol/L (3.5-5.1)
[2018-11-26 11:31] LABS: Glucose,Whole Blood 316 mg/dL (75-99)
[2018-11-26] MEDS: MULTIVITAMINS, THERA 1 EACH TAB PO SCH (13:17)
[2018-11-26] MEDS: LACTULOSE 20 GM/30 ML CUP PO PRN (13:20)
--- NOTE | 2018-11-26 14:00 | P.NPCON ---
History of Present Illness - Reason for Consult acute renal failure - History of Present Illness Reason for consultation: Acute kidney injury History of present illness: Patient is a 43-year-old male seen in renal consultation for acute kidney injury. Patient's baseline creatinine is near 1 and is elevated at 4.08 today. His renal function has been worsening over the last few days. He denies any prior history of kidney disease. Renal ultrasound reveals no evidence of hydronephrosis. Patient presented to the hospital due to pain in his lower back. Patient states about a week ago he had pain and then noticed a cyst which was enlarging. On November 24 T underwent irrigation and debridement with excision of the thoracic abscess. Cultures positive for staph aureus. He was receiving IV vancomycin and is now on cefazolin. Vancomycin level from November 25 is 22.2. His blood pressure has been running on the lower side in the range of systolic 90s to 120. No dizziness or passing out. He has been voiding. No hematuria or dysuria. Denies chest pain or shortness of breath. No vomiting or diarrhea. Appetite is fair. He does have history of congestive heart failure and was taking Lasix 60 mg total at home. He was receiving Lasix 40 mg once daily here which was discontinued yesterday. He was also receiving lisinopril which was discontinued yesterday. He is also maintained on Toradol for pain control. He denies family history of renal disease. Vital signs are stable. General: The patient appeared well nourished and normally developed. HEENT: Head exam is unremarkable. Neck is without jugular venous distension. LUNGS: Lungs are clear to auscultation and percussion. Breath sounds decreased. HEART: Rate and Rhythm are regular. First and second heart sounds normal. No murmurs, rubs or gallops. ABDOMEN: Abdominal exam reveals normal bowel sounds. Non-tender and non-distended. No evidence of peritonitis. EXTREMITITES: No clubbing, cyanosis, or edema. Past Medical History Past Medical History: Coronary Artery Disease (CAD), Heart Failure, Diabetes Mellitus, Hyperlipidemia, Hypertension, Myocardial Infarction (SC) Additional Past Medical History / Comment(s): scoliosis of spine, 3 SC's x7 stents (2013 x2 SC's w/stents, 2016 SC w/stents), DM II. Last Myocardial Infarction Date:: 2015 History of Any Multi-Drug Resistant Organisms: None Reported Additional Past Surgical History / Comment(s): Pt states: "SC's with stents, left knee scope." Past Anesthesia/Blood Transfusion Reactions: No Reported Reaction Past Psychological History: No Psychological Hx Reported, Anxiety, Depression Additional Psychological History / Comment(s): Patient is and lives in the family home with his . They've a total of 7 children. Four of the children currently live in the home with them. Did not relate any significant alcohol or recreational drug use. No experience. Medically disabled. No animals in the home Smoking Status: Never smoker - Past Family History Father Additional Family Medical History / Comment(s): "heart disease." Mother History Unknown: Yes Family Medical History: Cancer, Diabetes Mellitus Additional Family Medical History / Comment(s): pt states: "kidney cancer." Medications and Allergies Home Medications Medication Instructions Recorded Confirmed Type Aspirin [[place] Aspirin EC] 81 mg PO DAILY 11/22/18 11/22/18 History Atorvastatin [Lipitor] 80 mg PO HS 11/22/18 11/22/18 History Baclofen 10 mg PO Q6H PRN 11/22/18 11/22/18 History Carvedilol [Coreg] 12.5 mg PO BID 11/22/18 11/22/18 History Clopidogrel [Plavix] 75 mg PO DAILY 11/22/18 11/22/18 History Ergocalciferol (Vitamin D2) 50,000 unit PO Q72H 11/22/18 11/22/18 History [Drisdol] Furosemide [Lasix] 20 mg PO AC-SUPPER 11/22/18 11/22/18 History Furosemide [Lasix] 40 mg PO DAILY 11/22/18 11/22/18 History Gabapentin [Neurontin] 300 mg PO TID 11/22/18 11/22/18 History Glatiramer Acetate [Copaxone] 20 mg IM DAILY 11/22/18 11/22/18 History Insulin Glargine [Lantus] 70 unit SQ HS 11/22/18 11/23/18 History Insulin Glulisine [Apidra] 30 units SQ AC-TID 11/22/18 11/22/18 History Isosorbide Mononitrate ER [Imdur] 60 mg PO DAILY 11/22/18 11/22/18 History Lisinopril [Prinivil] 10 mg PO BID 11/22/18 11/22/18 History Nitroglycerin 0.4 mg SL Q5M 11/22/18 11/22/18 History Polyethylene Glycol 3350 [Miralax] 17 gm PO DAILY 11/22/18 11/22/18 History Potassium Chloride ER [K-Dur 20] 20 meq PO DAILY 11/22/18 11/22/18 History QUEtiapine [SEROquel] 100 mg PO HS 11/22/18 11/22/18 History Selsun Blue 1 applic TOPICAL DAILY 11/22/18 11/22/18 History Vortioxetine Hydrobromide 20 mg PO DAILY 11/22/18 11/22/18 History [Trintellix] traMADol HCL [Ultram] 50 mg PO Q6H PRN 11/22/18 11/22/18 History ceFAZolin [Kefzol] 2 gm IVP Q8HR #42 ml 11/24/18 Rx HYDROcodone/APAP 5-325MG [[place] 5] 1 each PO Q4HR PRN #42 tab 11/26/18 Rx Allergies Allergy/AdvReac Type Severity Reaction Status Date / Time No Known Allergies Allergy Verified 11/22/18 22:11 Physical Exam Vitals: Vital Signs Temp Pulse Resp BP Pulse Ox 11/26/18 01:13 97.8 F 74 16 115/74 93 L 11/25/18 19:54 98.2 F 80 18 104/66 95 Intake and Output 11/25/18 11/26/18 11/26/18 22:59 06:59 14:59 Intake Total 250 Output Total 350 Balance -350 250 Intake: Intake, IV Titration 250 Amount Sodium Chloride 0.9% 1, 250 000 ml @ 50 mls/hr IV . [facility] Rx#:[id number] Output: Urine 350 Other: Voiding Method Toilet Toilet # Voids 1 2 # Bowel Movements 1 Weight 138.5 kg Results - Lab Results Most recent lab results Calcium 8.6 mg/dL (8.4-10.2) 11/26/18 08:34 11/26/18 08:34 11/26/18 08:34 Assessment and Plan Plan: Assessment: 1. Acute kidney injury secondary to ATN secondary to hypotension and nonsteroidals. Additionally he was on Lasix and lisinopril which have been discontinued. Baseline creatinine is near 1. It is 4.0 today. Rule out urinary retention. No evidence of hydronephrosis noted on renal ultrasound. 2. Hypertonic hyponatremia secondary to hyperglycemia. 3. Insulin-dependent diabetes mellitus. 4. History of MS. 5. Thoracic spine abscess status post debridement on November 24. Plan: Increase rate of normal saline to 75 mL an hour. Discontinue Toradol. Continue to hold diuretics and lisinopril. Check postvoid residual and to insert Valenzuela catheter if greater than 300 mL present. Check urinalysis and urine eosinophils. Repeat electrolytes in the morning. Thank you for the consultation. I will continue to follow the patient with you during his hospital stay.
--- NOTE | 2018-11-26 17:07 | P.PN ---
Subjective Progress Note Date: 11/26/18 43-year-old male that has a long-standing history of diabetes mellitus type 2 that is poorly controlled hemoglobin A1c has been at 13 more recently was about 11. Relates that he has been having ongoing medical troubles with his underlying coronary artery disease and his multiple sclerosis. As of late he's been doing somewhat poorly and that the MS has been flaring is having increasing difficulties with ambulation and discomforts to his lower extremities. He relates several weeks ago started to feel more poorly and developed without was a ampler cyst on his back that became progressively more uncomfortable. It became larger, swollen, warm and reddened and constantly his attempted to drain it. Her manipulation did not allow any drainage and now the site has considerably worsened. There is a large area that is very painful making it difficult for him to lay supine cause of the swelling and tenderness. He started physically feel more poorly low-grade fever with chills and thought that his MS was worsening. Consequently presented to his local emergency center. There he underwent evaluations which included computed tomography scan and ultrasound and constantly was referred to our facility for surgical evaluation. With evidence of any abscess to his thoracic area of his back the infectious diseases consultation is been requested. The patient relates that over the last many months he's had difficulties with small skin lesions and pimples that usually resolve with local care this is the first time something has become so difficult. Patient is now status post incision and drainage of the back abscess. His pain is well controlled. He voices no other new acute complaints at this time. No nausea or emesis with antibiotic therapy. Blood sugars are trending to improvement. 11/25/2018 patient is feeling better status post incision and drainage of his large back abscess. It is packed with the gauze dressing. Drainage is well contained. He has noted blood sugars are starting to show some improvement. He is having no further fever chill. Being ready for discharge tomorrow once all arrangements are made about his antibiotic therapy. 11/26/2018 patient is feeling somewhat better but continues hip pain to his back. Dressing is been changed recently. Blood sugars remain elevated and overall is not feeling very well. Evidence of worsening acute renal failure are noted. Objective - Vital Signs Vital signs: Vital Signs Temp 98.4 F 11/26/18 14:41 Pulse 76 11/26/18 14:41 Resp 16 11/26/18 14:41 BP 120/77 11/26/18 14:41 Pulse Ox 95 11/26/18 14:41 Intake & Output 11/25/18 11/26/18 11/26/18 18:59 06:59 18:59 Intake Total 250 Output Total 350 475 Balance -350 250 -475 Weight 138.5 kg Intake: Intake, IV Titration 250 Amount Sodium Chloride 0.9% 1, 250 000 ml @ 75 mls/hr IV . [id number] [facility] Rx#:[id number] Output: Urine 350 475 Other: Voiding Method Toilet Toilet # Voids 2 2 # Bowel Movements 1 - Exam 43-year-old male with obesity uncomfortable HEENT: Anicteric conjunctiva are pink and moist nasal mucosa grossly intact without significant lesions, there is no thrush. Neck: The neck is supple without significant lymphadenopathy or thyromegaly. Lungs: Good bilateral air entry without significant crackles or wheezing. There is no significant bronchial sounds. There is no egophony or dullness. Heart: mildly irregular with a soft S4 no murmur click or rub Abdomen: obesePositive bowel sounds soft and nontender without palpable masses or organomegaly. There was no guarding or rebound. Extremities: The upper extremities have excellent pulses they are symmetric, no significant petechiae or telangiectasia. No splinter hemorrhages were noted. The lower extremities are free from significant edema. The peripheral pulses were 2+ and symmetric. Neuro: Awake alert oriented to person place and time. There are no acute new gross focal sensory motor deficits. skin: Evidence of the significant abscess in the mid aspect of the thoracic spine. Surgical dressing is in place without breakthrough drainage or bleeding - Labs CBC & Chem 7: 11/26/18 08:34 11/26/18 08:34 Labs: Abnormal Lab Results - Last 24 Hours (Table) 11/25/18 11/26/18 11/26/18 Range/Units 20:16 07:17 08:34 RBC (4.30-5.90) m/uL Hgb (13.0-17.5) gm/dL Hct (39.0-53.0) % Sodium 131 L (137-145) mmol/L Chloride 96 L (98-107) mmol/L BUN 43 H (9-20) mg/dL Creatinine 4.08 H (0.66-1.25) mg/dL Glucose 324 H (74-99) mg/dL POC Glucose (mg/dL) 276 H 326 H (75-99) mg/dL 11/26/18 11/26/18 Range/Units 08:34 11:29 RBC 4.05 L (4.30-5.90) m/uL Hgb 11.1 L (13.0-17.5) gm/dL Hct 33.7 L (39.0-53.0) % Sodium (137-145) mmol/L Chloride (98-107) mmol/L BUN (9-20) mg/dL Creatinine (0.66-1.25) mg/dL Glucose (74-99) mg/dL POC Glucose (mg/dL) 316 H (75-99) mg/dL Microbiology - Last 24 Hours (Table) 11/24/18 14:53 Gram Stain - Preliminary Back Wound Culture - Preliminary Presumptive Staph aureus 11/23/18 09:25 Anaerobic Culture - Preliminary Back Laboratory Results WBC 9.5 k/uL (3.8-10.6) 11/26/18 08:34 RBC 4.05 m/uL (4.30-5.90) L 11/26/18 08:34 Hgb 11.1 gm/dL (13.0-17.5) L 11/26/18 08:34 Hct 33.7 % (39.0-53.0) L 11/26/18 08:34 MCV 83.3 fL (80.0-100.0) 11/26/18 08:34 MCH 27.3 pg (25.0-35.0) 11/26/18 08:34 MCHC 32.8 g/dL (31.0-37.0) 11/26/18 08:34 RDW 13.5 % (11.5-15.5) 11/26/18 08:34 Plt Count 284 k/uL (150-450) 11/26/18 08:34 Neutrophils % 74 % 11/26/18 08:34 Lymphocytes % 13 % 11/26/18 08:34 Monocytes % 6 % 11/26/18 08:34 Eosinophils % 4 % 11/26/18 08:34 Basophils % 0 % 11/26/18 08:34 Neutrophils # 7.1 k/uL (1.3-7.7) 11/26/18 08:34 Lymphocytes # 1.3 k/uL (1.0-4.8) 11/26/18 08:34 Monocytes # 0.6 k/uL (0-1.0) 11/26/18 08:34 Eosinophils # 0.4 k/uL (0-0.7) 11/26/18 08:34 Basophils # 0.0 k/uL (0-0.2) 11/26/18 08:34 Sodium 131 mmol/L (137-145) L 11/26/18 08:34 Potassium 5.1 mmol/L (3.5-5.1) 11/26/18 08:34 Chloride 96 mmol/L (98-107) L 11/26/18 08:34 Carbon Dioxide 24 mmol/L (22-30) 11/26/18 08:34 Anion Gap 11 mmol/L 11/26/18 08:34 BUN 43 mg/dL (9-20) H 11/26/18 08:34 Creatinine 4.08 mg/dL (0.66-1.25) H 11/26/18 08:34 Est GFR (CKD-EPI)AfAm 19 (>60 ml/min/1.73 sqM) 11/26/18 08:34 Est GFR (CKD-EPI)NonAf 17 (>60 ml/min/1.73 sqM) 11/26/18 08:34 Glucose 324 mg/dL (74-99) H 11/26/18 08:34 POC Glucose (mg/dL) 316 mg/dL (75-99) H 11/26/18 11:29 POC Glu Professor Of Radiology [employer] Lisa Huber 11/26/18 11:[address] Glu mg/dL 289 11/23/18 07:32 Hemoglobin A1c 11.7 % (4.0-6.0) H 11/23/18 07:32 Calcium 8.6 mg/dL (8.4-10.2) 11/26/18 08:34 Total Bilirubin 0.7 mg/dL (0.2-1.3) 11/23/18 07:32 AST 24 U/L (17-59) 11/23/18 07:32 ALT 24 U/L (21-72) 11/23/18 07:32 Alkaline Phosphatase 81 U/L (38-126) 11/23/18 07:32 Total Protein 6.2 g/dL (6.3-8.2) L 11/23/18 07:32 Albumin 3.3 g/dL (3.5-5.0) L 11/23/18 07:32 Random Vancomycin 22.2 ug/mL 11/25/18 05:54 Microbiology 11/24/18 14:53 Back Gram Stain - Preliminary 11/24/18 14:53 Back Wound Culture - Preliminary Presumptive Staph aureus 11/23/18 09:25 Back Anaerobic Culture - Preliminary 11/23/18 09:25 Back Gram Stain - Final 11/23/18 09:25 Back Wound Culture - Final Staphylococcus aureus 11/24/18 14:53 Back Fungal Culture - Preliminary 11/24/18 14:53 Back Anaerobic Culture - Preliminary Assessment and Plan (1) Thoracic abscess Narrative/Plan: 43-year-old male who has multiple medical troubles that includes multiple sclerosis, coronary disease and diabetes mellitus type 2 presented to his local emergency center and then transferred to our facility for further surgical evaluation. Patient is evidence of an abscess on the posterior aspect of the thorax in is in need of surgical incision and drainage. The patient has been seen by orthopedics and plans are for this to occur tomorrow. Given the uncontrolled IV as well as type II staphylococcal infection the skin is most likely and while cultures are in process vancomycin with cefazolin are being utilized. Wound care will be advised once the postoperative wound is evaluated.if patient is not up-to-date on his tetanus vaccine should be performed before his discharge. Multivitamin with zinc is added to his medications. 11/24/2018 patient improved after I&D today still some pain post -op. No fever and blood glucose already improving. Final cultures are pending patient will likely be treated in the outpatient setting likely in his home with home care. Given the extent of the abscess will likely utilize a couple week course of antibiotic therapy with local wound care. Site will be observed and further advice about wound care at discharge. Patient is again educated about the importance of blood glucose control and how this impacts infections. 11/25/2018 patient is now starting to show some improvement. MSSA as I said vancomycin discontinued and will plan on ceftezole and. 2 g every 8 hours IV push will be arranged for home patient relates his can be helpful in this process. If the blood work is requested. Follow-up in the office in 2 weeks if any of his antibiotic therapy hoping that he will have further improvement. Local wound care is written with the silver alginate dressing per the home care nurse. 11/26/2018 the patient has had improvement of the abscess. With final culture of MSSA antibiotic therapy has been de-escalated to Ancef 2 g every 8 hours which has now been dose adjusted because of acute renal failure. The patient's been seen by nephrology. Appears that there is a multifactorial etiology for his renal failure including his sepsis, uncontrolled diabetes, LLUVIA inhibitor, nonsteroidals and utilization of antibiotic therapy with vancomycin. Vancomycin was just for approximate 48 hours while cultures were pending and has been discontinued. Rations for outpatient by therapy 40 been made as his home care for wound care for his back ulceration. Current Visit: Yes Status: Acute Code(s): J86.9 - PYOTHORAX WITHOUT FISTULA SNOMED Code(s): 072719342 (2) Diabetes mellitus type 2, uncontrolled, with complications Current Visit: Yes Status: Acute Code(s): E11.8 - TYPE 2 DIABETES MELLITUS WITH UNSPECIFIED COMPLICATIONS; E11.65 - TYPE 2 DIABETES MELLITUS WITH HYPERGLYC EMIA SNOMED Code(s): 03365952
[2018-11-26 17:19] LABS: Glucose,Whole Blood 269 mg/dL (75-99)
[2018-11-26] MEDS: HYDROmorphone 0.5 MG/0.5 ML SYRINGE IVP PRN (17:35)
[2018-11-26] MEDS: SODIUM CHLORIDE 0.9% 1,000 ML IV SCH (17:39)
[2018-11-26] MEDS: LACTULOSE 20 GM/30 ML CUP PO SCH ×2 (18:43→21:33)
[2018-11-26 20:09] LABS: Glucose,Whole Blood 294 mg/dL (75-99)
[2018-11-26] MEDS: ATORVASTATIN 80 MG TAB PO SCH (20:11)
[2018-11-26] MEDS: QUEtiapine 100 MG TAB PO SCH (21:33)
[2018-11-26] MEDS: INSULIN DETEMIR (LEVEMIR) 100 UNIT/ML SYR SQ SCH (21:34)
--- NOTE | 2018-11-26 22:05 | P.PN ---
Subjective Progress Note Date: 11/26/18 Principal diagnosis: Thoracic abscess Hyperglycemia with uncontrolled diabetes type 2 Acute kidney injury 43-year-old pleasant gentleman was transferred from [facility] after he presented there with severe back pain and possible low-grade fevers patient is found to have C light is an abscess on the right mid back in the paraspinal area. Patient is coming of severe pain there patient has a small pimple-like area with surrounding abscess redness with the pus drainage. Patient will undergo incision and drainage tomorrow patient was started on vancomycin and Zosyn Zosyn was discontinued and infectious disease was consulted. Patient had a CT of the abdomen which showed a showed the same thing as clinical exam. Patient has multiple chronic medical problems including myocardial infarction 2 years ago with stents that were placed 2 years ago with congestive heart failure appears to be systolic dysfunction it does not have any close available here will obtain medical records from my his pulverizer tender. Patient does have history of multiple sclerosis with some weakness in both legs for which patient is on Glatiramer ACT 8 no new weakness. Patient is diabetic with highly uncontrolled blood sugars patient is on very dose of high-dose of insulin obese. Patient is mildly hyponatremic because of which I'm cutting down oral Lasix chest x-ray was obtained which did not show any pulmonary edema. 11/24/2018 Patient is awake alert oriented oriented 3. Patient was taken to or today for incision and drainage of thoracic abscess. No fever no chills. We will follow up wound cultures. ID is following. Patient will be continued on antibiotics in the form of cefazolin as per ID recommendations. Continued on wound care. Patient was started back on home dose of levemir 75 units at bedtime along with aspart 30 units 3 times a day before meals. Patient is hyperglycemic today. No nausea vomiting or abdominal pain. 11/25/2018 Patient says that he feels better today. Back pain is much improved now. Status post I&D. Initial wound cultures growing MSSA. Patient will be continued on cefazolin as per ID recommendations. No fever no chills. Blood sugar is better controlled today. Still hyperglycemic. Creatinine increased from 2.44-3.7 today. Blood pressure is also on the lower side. Patient will be started on gentle hydration. Will get urine eosinophils and US RENAL. Nephrology will be consulted. Patient denied any abdominal pain. Denied any dysuria or hematuria. No fever no chills. 11/26/2018 Patient denied any complaints of chest pain or shortness of breath. Lying in the bed comfortably. Patient says that his urine output has increased. Currently being continued on normal saline at 75 mL per hour. No complaints of fever or chills. Continued on IV antibiotics. Blood sugar is still elevated. Otherwise creatinine level increased to 4.08 today. Nephrology is following. Ultrasound renal showed no evidence of obstruction. Current medications reviewed. Objective - Vital Signs Vital signs: Vital Signs Temp 98.7 F 11/26/18 19:35 Pulse 84 11/26/18 19:35 Resp 16 11/26/18 19:35 BP 151/81 11/26/18 19:35 Pulse Ox 95 11/26/18 19:35 Intake & Output 11/26/18 11/26/18 11/27/18 06:59 18:59 06:59 Intake Total 250 1595 75 Output Total 475 Balance 250 1120 75 Weight 138.5 kg Intake: Intake, IV Titration 250 875 75 Amount Sodium Chloride 0.9% 1, 250 875 75 000 ml @ 75 mls/hr IV . [id number] [facility] Rx#:[id number] Oral 720 Output: Urine 475 Other: Voiding Method Toilet Toilet Urinal # Voids 2 1 - Exam GENERAL: The patient is alert and oriented x3, patient is in distress because of pain. Well developed, well nourished. HEENT: Pupils are round and equally reacting to light. EOMI. No scleral icterus. No conjunctival pallor. Normocephalic, atraumatic. No pharyngeal erythema. No thyromegaly. CARDIOVASCULAR: S1 and S2 present. No murmurs, rubs, or gallops. PULMONARY: Chest is clear to auscultation, no wheezing or crackles. ABDOMEN: Soft, nontender, nondistended, normoactive bowel sounds. No palpable organomegaly. MUSCULOSKELETAL: No joint swelling or deformity. EXTREMITIES: No cyanosis, clubbing, or pedal edema. NEUROLOGICAL: Gross neurological examination did not reveal any focal deficits. SKIN: Thoracic abscess status post I&D currently bandaged. - Labs CBC & Chem 7: 11/26/18 08:34 11/26/18 08:34 Labs: Abnormal Lab Results - Last 24 Hours (Table) 11/26/18 11/26/18 11/26/18 Range/Units 07:17 08:34 08:34 RBC 4.05 L (4.30-5.90) m/uL Hgb 11.1 L (13.0-17.5) gm/dL Hct 33.7 L (39.0-53.0) % Sodium 131 L (137-145) mmol/L Chloride 96 L (98-107) mmol/L BUN 43 H (9-20) mg/dL Creatinine 4.08 H (0.66-1.25) mg/dL Glucose 324 H (74-99) mg/dL POC Glucose (mg/dL) 326 H (75-99) mg/dL 11/26/18 11/26/18 11/26/18 Range/Units 11:29 17:17 20:08 RBC (4.30-5.90) m/uL Hgb (13.0-17.5) gm/dL Hct (39.0-53.0) % Sodium (137-145) mmol/L Chloride (98-107) mmol/L BUN (9-20) mg/dL Creatinine (0.66-1.25) mg/dL Glucose (74-99) mg/dL POC Glucose (mg/dL) 316 H 269 H 294 H (75-99) mg/dL Microbiology - Last 24 Hours (Table) 11/24/18 14:53 Anaerobic Culture - Preliminary Back 11/24/18 14:53 Gram Stain - Final Back Wound Culture - Final Staphylococcus aureus Assessment and Plan Assessment: -Back pain: Secondary to an abscess in the paraspinal area patient underwent incision and drainage. MSSA. continue with cefazolin. Vancomycin DC'd. -Acute kidney injury nonoliguric. Possible ATN. Creatinine 0.76--2.44--3.7-- 1.08 today. Will hold Lasix, lisinopril NSAID and Neurontin. Gentle hydration. Nephrology is following. -Congestive heart failure chronic systolic dysfunction patient is bit hypovolemic, hold the Lasix with close clinical monitoring. -Coronary artery disease with ischemic cardiomyopathy continue with a beta lukas patient is on dual antiplatelet therapy patient will be continued on aspirin and Plavix will be held patient had stents that were placed more than 2 years ago patient may not require dual antiplatelet therapy and patient will undergo incision and drainage because of that reason Plavix is being held at this time. Patient is on lisinopril because of cardiomyopathy dose of which showed will cut it down because his blood pressures 91-71 do not have ejection fraction available. Beta lukas will be continued -Type 2 diabetes mellitus uncontrolled with hyperglycemia. Hb A1c 11.7 .dietary counseling was provided patient was resumed on his home regimen along with sliding scale insulin titration of his regimen depending on his blood sugars here -Sepsis: Secondary to an abscess. -Multiple sclerosis without any new neurological deficits continue with home medications -Hyperlipidemia -Hypertension -DVT prophylaxis Time with Patient: Greater than 30
[2018-11-26 22:20] LABS: Amorphous Sediment,Urine Rare /hpf; Appearance,Urine Clear (Clear); Bacteria,Urine Occasional /hpf; Bilirubin,Urine Negative (Negative); Blood,Urine Trace (Negative); Color,Urine Light Yellow; Glucose,Urine (UA) Trace (Negative); Ketones,Urine Negative (Negative); Leukocyte Esterase,Urine Negative (Negative); Mucus,Urine Rare /hpf; Nitrite,Urine Negative (Negative); Protein,Urine Trace (Negative); RBC,Urine <1 /hpf (0-5); Specific Gravity,Urine 1.007 (1.001-1.035); Urobilinogen,Urine <2.0 mg/dL (<2.0); WBC,Urine 1 /hpf (0-5)
[2018-11-27 07:34] LABS: Glucose,Whole Blood 261 mg/dL (75-99)
[2018-11-27 07:55] LABS: Calcium 9.1 mg/dL (8.4-10.2); Potassium 5.3 mmol/L (3.5-5.1)
[2018-11-27] MEDS: INSULIN ASPART (NovoLOG) 100 UNIT/ML VIAL SQ SCH ×7 (07:58→21:12)
[2018-11-27] MEDS: CARVEDILOL 12.5 MG TAB PO SCH ×2 (08:00→17:27)
[2018-11-27] MEDS: ASPIRIN 81 MG PO SCH (08:00)
[2018-11-27] MEDS: CLOPIDOGREL 75 MG TAB PO SCH (08:00)
[2018-11-27] MEDS: HEPARIN SODIUM,PORCINE 5,000 UNIT/ML 1 ML VIAL SQ SCH ×3 (08:00→23:29)
[2018-11-27] MEDS: FAMOTIDINE 20 MG TAB PO SCH (08:01)
[2018-11-27] MEDS: SENNOSIDES-DOCUSATE SODIUM 1 EACH TAB PO SCH ×2 (08:01→21:12)
[2018-11-27] MEDS: VORTIOXETINE HYDROBROMIDE 20 MG TABLET PO SCH (08:01)
[2018-11-27] MEDS: COPAXONE 20 MG IM SCH (08:01)
[2018-11-27] MEDS: LACTULOSE 20 GM/30 ML CUP PO SCH ×3 (08:01→21:13)
[2018-11-27] MEDS: ISOSORBIDE MONONITRATE ER 60 MG TAB.ER.24H PO SCH (08:01)
--- NOTE | 2018-11-27 08:53 | P.PN ---
Subjective Progress Note Date: 11/27/18 Principal diagnosis: History of present illness: Patient is a 43-year-old male seen in renal consultation for acute kidney injury, multiple sclerosis, diabetes mellitus coronary artery disease. He had acute kidney injuries secondary to combination off hypotension nonsteroidals and Angel inhibitors. He was started on IV fluids and is responding with reduction in creatinine. He has significant oozing from his spinal surgery own. Denies any shortness of breath fever chills. Has good appetite no nausea vomiting. Is somewhat constipated but feels is from his MS and is a chronic problem He had a good night sleep History of present illness; Patient's baseline creatinine is near 1 and is elevated at 4.08 today. His renal function has been worsening over the last few days. He denies any prior history of kidney disease. Renal ultrasound reveals no evidence of hydron ephrosis. Patient presented to the hospital due to pain in his lower back. Patient states about a week ago he had pain and then noticed a cyst which was enlarging. On November 24 T underwent irrigation and debridement with excision of the thoracic abscess. Cultures positive for staph aureus. He was receiving IV vancomycin and is now on cefazolin. Vancomycin level from November 25 is 22.2. His blood pressure has been running on the lower side in the range of systolic 90s to 120. No dizziness or passing out. He has been voiding. No hematuria or dysuria. Denies chest pain or shortness of breath. No vomiting or diarrhea. Appetite is fair. He does have history of congestive heart failure and was taking Lasix 60 mg total at home. He was receiving Lasix 40 mg once daily here which was discontinued yesterday. He was also receiving lisinopril which was discontinued yesterday. He is also maintained on Toradol for pain control. He denies family history of renal disease. Objective - Vital Signs Vital signs: Vital Signs Temp 97.4 F L 11/27/18 01:08 Pulse 81 11/27/18 01:08 Resp 16 11/27/18 01:08 BP 146/82 11/27/18 01:08 Pulse Ox 96 11/27/18 01:08 Intake & Output 11/26/18 11/27/18 11/27/18 18:59 06:59 18:59 Intake Total 1595 825 Output Total 475 500 Balance 1120 325 Weight 143 kg Intake: Intake, IV Titration 875 825 Amount Sodium Chloride 0.9% 1, 875 825 000 ml @ 75 mls/hr IV . [id number] [facility] Rx#:[id number] Oral 720 Output: Urine 475 500 Other: Voiding Method Toilet Toilet Urinal # Voids 2 Vital signs are stable. General: The patient appeared well nourished and normally developed. HEENT: Head exam is unremarkable. Neck is without jugular venous distension. LUNGS: Lungs are clear to auscultation and percussion. Breath sounds normal HEART: Rate and Rhythm are regular. First and second heart sounds normal. No murmurs, rubs or gallops. ABDOMEN: Abdominal exam reveals normal bowel sounds. Non-tender and non- distended. No evidence of peritonitis. EXTREMITITES: No clubbing, cyanosis, has 1+ edema. Neurologically awake alert oriented comfortable. - Labs CBC & Chem 7: 11/26/18 08:34 11/27/18 07:22 Labs: Abnormal Lab Results - Last 24 Hours (Table) 11/26/18 11/26/18 11/26/18 Range/Units 08:34 08:34 11:29 RBC 4.05 L (4.30-5.90) m/uL Hgb 11.1 L (13.0-17.5) gm/dL Hct 33.7 L (39.0-53.0) % Sodium 131 L (137-145) mmol/L Potassium (3.5-5.1) mmol/L Chloride 96 L (98-107) mmol/L BUN 43 H (9-20) mg/dL Creatinine 4.08 H (0.66-1.25) mg/dL Glucose 324 H (74-99) mg/dL POC Glucose (mg/dL) 316 H (75-99) mg/dL Urine Protein (Negative) Urine Glucose (UA) (Negative) Urine Blood (Negative) Amorphous Sediment (None) /hpf Urine Bacteria (None) /hpf Urine Mucus (None) /hpf 11/26/18 11/26/18 11/26/18 Range/Units 17:17 20:08 21:50 RBC (4.30-5.90) m/uL Hgb (13.0-17.5) gm/dL Hct (39.0-53.0) % Sodium (137-145) mmol/L Potassium (3.5-5.1) mmol/L Chloride (98-107) mmol/L BUN (9-20) mg/dL Creatinine (0.66-1.25) mg/dL Glucose (74-99) mg/dL POC Glucose (mg/dL) 269 H 294 H (75-99) mg/dL Urine Protein Trace H (Negative) Urine Glucose (UA) Trace H (Negative) Urine Blood Trace H (Negative) Amorphous Sediment Rare H (None) /hpf Urine Bacteria Occasional H (None) /hpf Urine Mucus Rare H (None) /hpf 11/27/18 11/27/18 Range/Units 07:22 07:22 RBC (4.30-5.90) m/uL Hgb (13.0-17.5) gm/dL Hct (39.0-53.0) % Sodium 136 L (137-145) mmol/L Potassium 5.3 H (3.5-5.1) mmol/L Chloride (98-107) mmol/L BUN 43 H (9-20) mg/dL Creatinine 3.43 H (0.66-1.25) mg/dL Glucose 251 H (74-99) mg/dL POC Glucose (mg/dL) 261 H (75-99) mg/dL Urine Protein (Negative) Urine Glucose (UA) (Negative) Urine Blood (Negative) Amorphous Sediment (None) /hpf Urine Bacteria (None) /hpf Urine Mucus (None) /hpf Microbiology - Last 24 Hours (Table) 11/24/18 14:53 Anaerobic Culture - Preliminary Back 11/24/18 14:53 Gram Stain - Final Back Wound Culture - Final Staphylococcus aureus Assessment and Plan Plan: Assessment: 1. Acute kidney injury secondary to ATN secondary to hypotension and nonsteroidals. Additionally he was on Lasix and lisinopril which have been discontinued. Baseline creatinine is near 1. It peaked at 4 and is down to 3.43 this morning. Ultrasound shows no hydronephrosis 2. Hypertonic hyponatremia secondary to hyperglycemia. Resolved with sodium of 136 3. Insulin-dependent diabetes mellitus. 4. History of MS. has history of constipation 5. Thoracic spine abscess status post debridement on November 24. Oozing fair amount of serous fluid 6. Significant edema, on IV fluids. Plan: Discontinue IV fluids. Watch his edema. Watch intake and output Avoid any nephrotoxic medication. If possible change vancomycin, since the staph is sensitive to multiple other antibiotics. Monitor labs. Thank you for allowing to participate in this patient care will continue to follow
--- NOTE | 2018-11-27 10:59 | P.PN ---
Progress Note - Text Progress Note Date: 11/27/18 Postoperative day #3 Patient is seen and examined today at bedside. He feels his symptoms have been improving. He says his back has some soreness but it is much better than prior to surgery. Pain is being controlled with medication. Physical Exam Afebrile with stable vital signs Abdomen is soft nontender. Chest has good excursion deep and space expiration The incision site is improving. There is an area about 6 x 6 cm that is still erythematous. I removed the central stitch and there is no active drainage from the site. I'm unable to extrude pus. There is no active purulence from the site. Extremities have not had neurologic change from prior to surgery. Calves and thighs were soft nontender without evidence of DVT. Assessment/Plan Postoperative day #3 status post irrigation and excisional debridement of thoracic back abscess, Improving slowly. Patient is progressing as expected from the surgery. We appreciate the antibiotic regimen per medicine and infectious disease. The patient has a PICC line. He is continuing to manage his inability regimen for his MSSA. I do not have further plans of surgical intervention at this point and he should continue with local wound care and antibiotics. It is okay for the patient to shower with Tegaderm over the wound site. We will continue to increase the patient's mobilization with therapy. We will continue pain control with oral or IV medications. We'll continue to follow patient closely.
[2018-11-27] MEDS: ceFAZolin IN SWFI 2 GM/20 ML SYRINGE IVP SCH ×3 (11:14→23:29)
[2018-11-27] MEDS: HYDROmorphone 0.5 MG/0.5 ML SYRINGE IVP PRN ×2 (11:16→17:26)
[2018-11-27 12:03] LABS: Glucose,Whole Blood 284 mg/dL (75-99)
[2018-11-27] MEDS: MULTIVITAMINS, THERA 1 EACH TAB PO SCH (12:44)
--- NOTE | 2018-11-27 15:20 | P.PN ---
Subjective Progress Note Date: 11/27/18 43-year-old male that has a long-standing history of diabetes mellitus type 2 that is poorly controlled hemoglobin A1c has been at 13 more recently was about 11. Relates that he has been having ongoing medical troubles with his underlying coronary artery disease and his multiple sclerosis. As of late he's been doing somewhat poorly and that the MS has been flaring is having increasing difficulties with ambulation and discomforts to his lower extremities. He relates several weeks ago started to feel more poorly and developed without was a ampler cyst on his back that became progressively more uncomfortable. It became larger, swollen, warm and reddened and constantly his attempted to drain it. Her manipulation did not allow any drainage and now the site has considerably worsened. There is a large area that is very painful making it difficult for him to lay supine cause of the swelling and tenderness. He started physically feel more poorly low-grade fever with chills and thought that his MS was worsening. Consequently presented to his local emergency center. There he underwent evaluations which included computed tomography scan and ultrasound and constantly was referred to our facility for surgical evaluation. With evidence of any abscess to his thoracic area of his back the infectious diseases consultation is been requested. The patient relates that over the last many months he's had difficulties with small skin lesions and pimples that usually resolve with local care this is the first time something has become so difficult. Patient is now status post incision and drainage of the back abscess. His pain is well controlled. He voices no other new acute complaints at this time. No nausea or emesis with antibiotic therapy. Blood sugars are trending to improvement. 11/25/2018 patient is feeling better status post incision and drainage of his large back abscess. It is packed with the gauze dressing. Drainage is well contained. He has noted blood sugars are starting to show some improvement. He is having no further fever chill. Being ready for discharge tomorrow once all arrangements are made about his antibiotic therapy. 11/26/2018 patient is feeling somewhat better but continues hip pain to his back. Dressing is been changed recently. Blood sugars remain elevated and overall is not feeling very well. Evidence of worsening acute renal failure are noted. 11/27/2018 patient is feeling somewhat better today. The pain from the back inc ision is improved. He's been seen by the surgeon today and the suture was removed which has improved discomfort. There was not a large amount of purulent still seemed, but the patient continues to have evidence of the extensive surrounding erythema that is slightly tender. The acute renal failure extremities show some slight improvement in urine output is improved. Blood sugars remain erratic Objective - Vital Signs Vital signs: Vital Signs Temp 97.4 F L 11/27/18 01:08 Pulse 81 11/27/18 01:08 Resp 16 11/27/18 01:08 BP 146/82 11/27/18 01:08 Pulse Ox 96 11/27/18 01:08 Intake & Output 11/26/18 11/27/18 11/27/18 18:59 06:59 18:59 Intake Total 1595 825 Output Total 463 887 1821 Balance 1120 325 -1500 Weight 143 kg Intake: Intake, IV Titration 875 825 Amount Sodium Chloride 0.9% 1, 875 825 000 ml @ 75 mls/hr IV . [id number] [facility] Rx#:[id number] Oral 720 Output: Urine 431 459 4643 Other: Voiding Method Toilet Toilet Urinal # Voids 2 2 - Exam 43-year-old male with obesity uncomfortable HEENT: Anicteric conjunctiva are pink and moist nasal mucosa grossly intact without significant lesions, there is no thrush. Neck: The neck is supple without significant lymphadenopathy or thyromegaly. Lungs: Good bilateral air entry without significant crackles or wheezing. There is no significant bronchial sounds. There is no egophony or dullness. Heart: mildly irregular with a soft S4 no murmur click or rub Abdomen: obesePositive bowel sounds soft and nontender without palpable masses or organomegaly. There was no guarding or rebound. Extremities: The upper extremities have excellent pulses they are symmetric, no significant petechiae or telangiectasia. No splinter hemorrhages were noted. The lower extremities are free from significant edema. The peripheral pulses were 2+ and symmetric. Neuro: Awake alert oriented to person place and time. There are no acute new gross focal sensory motor deficits. skin: Evidence of the significant abscess in the mid aspect of the thoracic spine. Surgical dressing is in place without breakthrough drainage or bleeding - Labs CBC & Chem 7: 11/26/18 08:34 11/27/18 07:22 Labs: Abnormal Lab Results - Last 24 Hours (Table) 11/26/18 11/26/18 11/26/18 Range/Units 17:17 20:08 21:50 Sodium (137-145) mmol/L Potassium (3.5-5.1) mmol/L BUN (9-20) mg/dL Creatinine (0.66-1.25) mg/dL Glucose (74-99) mg/dL POC Glucose (mg/dL) 269 H 294 H (75-99) mg/dL Urine Protein Trace H (Negative) Urine Glucose (UA) Trace H (Negative) Urine Blood Trace H (Negative) Amorphous Sediment Rare H (None) /hpf Urine Bacteria Occasional H (None) /hpf Urine Mucus Rare H (None) /hpf 11/27/18 11/27/18 11/27/18 Range/Units 07:22 07:22 11:49 Sodium 136 L (137-145) mmol/L Potassium 5.3 H (3.5-5.1) mmol/L BUN 43 H (9-20) mg/dL Creatinine 3.43 H (0.66-1.25) mg/dL Glucose 251 H (74-99) mg/dL POC Glucose (mg/dL) 261 H 284 H (75-99) mg/dL Urine Protein (Negative) Urine Glucose (UA) (Negative) Urine Blood (Negative) Amorphous Sediment (None) /hpf Urine Bacteria (None) /hpf Urine Mucus (None) /hpf Microbiology - Last 24 Hours (Table) 11/23/18 09:25 Anaerobic Culture - Final Back 11/24/18 14:53 Anaerobic Culture - Preliminary Back 11/24/18 14:53 Gram Stain - Final Back Wound Culture - Final Staphylococcus aureus Laboratory Results WBC 9.5 k/uL (3.8-10.6) 11/26/18 08:34 RBC 4.05 m/uL (4.30-5.90) L 11/26/18 08:34 Hgb 11.1 gm/dL (13.0-17.5) L 11/26/18 08:34 Hct 33.7 % (39.0-53.0) L 11/26/18 08:34 MCV 83.3 fL (80.0-100.0) 11/26/18 08:34 MCH 27.3 pg (25.0-35.0) 11/26/18 08:34 MCHC 32.8 g/dL (31.0-37.0) 11/26/18 08:34 RDW 13.5 % (11.5-15.5) 11/26/18 08:34 Plt Count 284 k/uL (150-450) 11/26/18 08:34 Neutrophils % 74 % 11/26/18 08:34 Lymphocytes % 13 % 11/26/18 08:34 Monocytes % 6 % 11/26/18 08:34 Eosinophils % 4 % 11/26/18 08:34 Basophils % 0 % 11/26/18 08:34 Neutrophils # 7.1 k/uL (1.3-7.7) 11/26/18 08:34 Lymphocytes # 1.3 k/uL (1.0-4.8) 11/26/18 08:34 Monocytes # 0.6 k/uL (0-1.0) 11/26/18 08:34 Eosinophils # 0.4 k/uL (0-0.7) 11/26/18 08:34 Basophils # 0.0 k/uL (0-0.2) 11/26/18 08:34 Sodium 136 mmol/L (137-145) L 11/27/18 07:22 Potassium 5.3 mmol/L (3.5-5.1) H 11/27/18 07:22 Chloride 103 mmol/L (98-107) 11/27/18 07:22 Carbon Dioxide 24 mmol/L (22-30) 11/27/18 07:22 Anion Gap 9 mmol/L 11/27/18 07:22 BUN 43 mg/dL (9-20) H 11/27/18 07:22 Creatinine 3.43 mg/dL (0.66-1.25) H 11/27/18 07:22 Est GFR (CKD-EPI)AfAm 24 (>60 ml/min/1.73 sqM) 11/27/18 07:22 Est GFR (CKD-EPI)NonAf 20 (>60 ml/min/1.73 sqM) 11/27/18 07:22 Glucose 251 mg/dL (74-99) H 11/27/18 07:22 POC Glucose (mg/dL) 284 mg/dL (75-99) H 11/27/18 11:49 POC Glu Suspender Cutter YU ColemanleyNegrita 11/27/18 11:[address] Glu mg/dL 289 11/23/18 07:32 Hemoglobin A1c 11.7 % (4.0-6.0) H 11/23/18 07:32 Calcium 9.1 mg/dL (8.4-10.2) 11/27/18 07:22 Total Bilirubin 0.7 mg/dL (0.2-1.3) 11/23/18 07:32 AST 24 U/L (17-59) 11/23/18 07:32 ALT 24 U/L (21-72) 11/23/18 07:32 Alkaline Phosphatase 81 U/L (38-126) 11/23/18 07:32 Total Protein 6.2 g/dL (6.3-8.2) L 11/23/18 07:32 Albumin 3.3 g/dL (3.5-5.0) L 11/23/18 07:32 Urine Color Light Yellow 11/26/18 21:50 Urine Appearance Clear (Clear) 11/26/18 21:50 Urine pH 5.0 (5.0-8.0) 11/26/18 21:50 Ur Specific Porter 1.007 (1.001-1.035) 11/26/18 21:50 Urine Protein Trace (Negative) H 11/26/18 21:50 Urine Glucose (UA) Trace (Negative) H 11/26/18 21:50 Urine Ketones Negative (Negative) 11/26/18 21:50 Urine Blood Trace (Negative) H 11/26/18 21:50 Urine Nitrite Negative (Negative) 11/26/18 21:50 Urine Bilirubin Negative (Negative) 11/26/18 21:50 Urine Urobilinogen <2.0 mg/dL (<2.0) 11/26/18 21:50 Ur Leukocyte Esterase Negative (Negative) 11/26/18 21:50 Urine RBC <1 /hpf (0-5) 11/26/18 21:50 Urine WBC 1 /hpf (0-5) 11/26/18 21:50 Amorphous Sediment Rare /hpf (None) H 11/26/18 21:50 Urine Bacteria Occasional /hpf (None) H 11/26/18 21:50 Urine Mucus Rare /hpf (None) H 11/26/18 21:50 Urine Eosinophils 0 % 11/26/18 15:17 Random Vancomycin 22.2 ug/mL 11/25/18 05:54 Microbiology 11/23/18 09:25 Back Anaerobic Culture - Final 11/24/18 14:53 Back Anaerobic Culture - Preliminary 11/24/18 14:53 Back Gram Stain - Final 11/24/18 14:53 Back Wound Culture - Final Staphylococcus aureus 11/23/18 09:25 Back Gram Stain - Final 11/23/18 09:25 Back Wound Culture - Final Staphylococcus aureus 11/24/18 14:53 Back Fungal Culture - Preliminary Assessment and Plan (1) Thoracic abscess Narrative/Plan: 43-year-old male who has multiple medical troubles that includes multiple sclerosis, coronary disease and diabetes mellitus type 2 presented to his local emergency center and then transferred to our facility for further surgical evaluation. Patient is evidence of an abscess on the posterior aspect of the thorax in is in need of surgical incision and drainage. The patient has been seen by orthopedics and plans are for this to occur tomorrow. Given the uncontrolled IV as well as type II staphylococcal infection the skin is most likely and while cultures are in process vancomycin with cefazolin are being utilized. Wound care will be advised once the postoperative wound is evaluated.if patient is not up-to-date on his tetanus vaccine should be performed before his discharge. Multivitamin with zinc is added to his medications. 11/24/2018 patient improved after I&D today still some pain post -op. No fever and blood glucose already improving. Final cultures are pending patient will likely be treated in the outpatient setting likely in his home with home care. Given the extent of the abscess will likely utilize a couple week course of antibiotic therapy with local wound care. Site will be observed and further advice about wound care at discharge. Patient is again educated about the importance of blood glucose control and how this impacts infections. 11/25/2018 patient is now starting to show some improvement. MSSA as I said vancomycin discontinued and will plan on ceftezole and. 2 g every 8 hours IV push will be arranged for home patient relates his can be helpful in this process. If the blood work is requested. Follow-up in the office in 2 weeks if any of his antibiotic therapy hoping that he will have further improvement. Local wound care is written with the silver alginate dressing per the home care nurse. 11/26/2018 the patient has had improvement of the abscess. With final culture of MSSA antibiotic therapy has been de-escalated to Ancef 2 g every 8 hours which has now been dose adjusted because of acute renal failure. The patient's been seen by nephrology. Appears that there is a multifactorial etiology for his renal failure including his sepsis, uncontrolled diabetes, LLUVIA inhibitor, nonsteroidals and utilization of antibiotic therapy with vancomycin. Vancomycin was just for approximate 48 hours while cultures were pending and has been discontinued. Rations for outpatient by therapy has been made as his home care for wound care for his back ulceration. 11/27/2018 since yesterday the patient has had some further improvement of his discomfort. He is tolerating the current antibiotic therapy while on Ancef 2 g he became recommendations as MSSA abscess of his back that has been incised and drained by orthopedics. Given the extensive nature of the infection the patient will receive a 14 day course of outpatient intravenous antibiotic therapy after his discharge. The patient is being followed by nephrology for his acute renal failure and is starting to show some further improvement. His creatinine has improved to 3.43 today. Output is adequate. He has other new symptoms. They're working diligently with attempts to improve his glucose control. Hemoglobin A1c was greater than 11 at admission. Wound care discharge will be silver alginate cumin and Thursday changed by home care and he be followed at the wound healing center after discharge. Current Visit: Yes Status: Acute Code(s): J86.9 - PYOTHORAX WITHOUT FISTULA SNOMED Code(s): 619909715 (2) Diabetes mellitus type 2, uncontrolled, with complications Current Visit: Yes Status: Acute Code(s): E11.8 - TYPE 2 DIABETES MELLITUS WITH UNSPECIFIED COMPLICATIONS; E11.65 - TYPE 2 DIABETES MELLITUS WITH HYPERGLYCEMIA SNOMED Code(s): 28377467
[2018-11-27 17:00] LABS: Glucose,Whole Blood 288 mg/dL (75-99)
[2018-11-27 20:39] LABS: Glucose,Whole Blood 293 mg/dL (75-99)
[2018-11-27] MEDS: ATORVASTATIN 80 MG TAB PO SCH (21:12)
[2018-11-27] MEDS: INSULIN DETEMIR (LEVEMIR) 100 UNIT/ML SYR SQ SCH (21:12)
[2018-11-27] MEDS: QUEtiapine 100 MG TAB PO SCH (21:12)
--- NOTE | 2018-11-27 23:24 | P.PN ---
Subjective Progress Note Date: 11/27/18 Principal diagnosis: Thoracic abscess Hyperglycemia with uncontrolled diabetes type 2 Acute kidney injury 43-year-old pleasant gentleman was transferred from [facility] after he presented there with severe back pain and possible low-grade fevers patient is found to have C light is an abscess on the right mid back in the paraspinal area. Patient is coming of severe pain there patient has a small pimple-like area with surrounding abscess redness with the pus drainage. Patient will undergo incision and drainage tomorrow patient was started on vancomycin and Zosyn Zosyn was discontinued and infectious disease was consulted. Patient had a CT of the abdomen which showed a showed the same thing as clinical exam. 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 Patient does have history of multiple sclerosis with some weakness in both legs for which patient is on Glatiramer ACT 8 no new weakness. Patient is diabetic with highly uncontrolled blood sugars patient is on very dose of high-dose of insulin obese. Patient is mildly hyponatremic because of which I'm cutting down oral Lasix chest x-ray was obtained which did not show any pulmonary edema. 11/24/2018 Patient is awake alert oriented oriented 3. Patient was taken to or today for incision and drainage of thoracic abscess. No fever no chills. We will follow up wound cultures. ID is following. Patient will be continued on antibiotics in the form of cefazolin as per ID recommendations. Continued on wound care. Patient was started back on home dose of levemir 75 units at bedtime along with aspart 30 units 3 times a day before meals. Patient is hyperglycemic today. No nausea vomiting or abdominal pain. 11/25/2018 Patient says that he feels better today. Back pain is much improved now. Status post I&D. Initial wound cultures growing MSSA. Patient will be continued on cefazolin as per ID recommendations. No fever no chills. Blood sugar is better controlled today. Still hyperglycemic. Creatinine increased from 2.44-3.7 today. Blood pressure is also on the lower side. Patient will be started on gentle hydration. Will get urine eosinophils and US RENAL. Nephrology will be consulted. Patient denied any abdominal pain. Denied any dysuria or hematuria. No fever no chills. 11/26/2018 Patient denied any complaints of chest pain or shortness of breath. Lying in the bed comfortably. Patient says that his urine output has increased. Currently being continued on normal saline at 75 mL per hour. No complaints of fever or chills. Continued on IV antibiotics. Blood sugar is still elevated. Otherwise creatinine level increased to 4.08 today. Nephrology is following. Ultrasound renal showed no evidence of obstruction. 11/27/2018 Patient denied any complaints of chest pain or shortness of breath. Able to sit in the chair comfortably today. Feels better. Otherwise creatinine level improved to 3.43. Patient does have good urine output. IV fluids have been discontinued due to increased leg swelling. Otherwise patient is being continued on antibiotics in the form of cefazolin as per ID recommendations for thoracic abscess status post I&D. Patient is otherwise still hyperglycemic and insulin dose will be titrated again. Nephrology and ID is following. Current medications reviewed. Objective - Vital Signs Vital signs: Vital Signs Temp 97.4 F L 11/27/18 01:08 Pulse 81 11/27/18 01:08 Resp 16 11/27/18 01:08 BP 146/82 11/27/18 01:08 Pulse Ox 96 11/27/18 01:08 Intake & Output 11/26/18 11/27/18 11/27/18 18:59 06:59 18:59 Intake Total 1595 825 Output Total 213 044 9136 Balance 1120 325 -1500 Weight 143 kg Intake: Intake, IV Titration 875 825 Amount Sodium Chloride 0.9% 1, 875 825 000 ml @ 75 mls/hr IV . [id number] [facility] Rx#:[id number] Oral 720 Output: Urine 540 616 2857 Other: Voiding Method Toilet Toilet Urinal # Voids 2 2 - Exam GENERAL: The patient is alert and oriented x3, patient is in distress because of pain. Well developed, well nourished. HEENT: Pupils are round and equally reacting to light. EOMI. No scleral icterus. No conjunctival pallor. Normocephalic, atraumatic. No pharyngeal erythema. No thyromegaly. CARDIOVASCULAR: S1 and S2 present. No murmurs, rubs, or gallops. PULMONARY: Chest is clear to auscultation, no wheezing or crackles. ABDOMEN: Soft, nontender, nondistended, normoactive bowel sounds. No palpable organomegaly. MUSCULOSKELETAL: No joint swelling or deformity. EXTREMITIES: No cyanosis, clubbing, or 2+ pedal edema. NEUROLOGICAL: Gross neurological examination did not reveal any focal deficits. SKIN: Thoracic abscess status post I&D currently bandaged. - Labs CBC & Chem 7: 11/26/18 08:34 11/27/18 07:22 Labs: Abnormal Lab Results - Last 24 Hours (Table) 11/26/18 11/26/18 11/26/18 Range/Units 17:17 20:08 21:50 Sodium (137-145) mmol/L Potassium (3.5-5.1) mmol/L BUN (9-20) mg/dL Creatinine (0.66-1.25) mg/dL Glucose (74-99) mg/dL POC Glucose (mg/dL) 269 H 294 H (75-99) mg/dL Urine Protein Trace H (Negative) Urine Glucose (UA) Trace H (Negative) Urine Blood Trace H (Negative) Amorphous Sediment Rare H (None) /hpf Urine Bacteria Occasional H (None) /hpf Urine Mucus Rare H (None) /hpf 11/27/18 11/27/18 11/27/18 Range/Units 07:22 07:22 11:49 Sodium 136 L (137-145) mmol/L Potassium 5.3 H (3.5-5.1) mmol/L BUN 43 H (9-20) mg/dL Creatinine 3.43 H (0.66-1.25) mg/dL Glucose 251 H (74-99) mg/dL POC Glucose (mg/dL) 261 H 284 H (75-99) mg/dL Urine Protein (Negative) Urine Glucose (UA) (Negative) Urine Blood (Negative) Amorphous Sediment (None) /hpf Urine Bacteria (None) /hpf Urine Mucus (None) /hpf Microbiology - Last 24 Hours (Table) 11/23/18 09:25 Anaerobic Culture - Final Back 11/24/18 14:53 Anaerobic Culture - Preliminary Back 11/24/18 14:53 Gram Stain - Final Back Wound Culture - Final Staphylococcus aureus Assessment and Plan Assessment: -Back pain: Secondary to an abscess in the paraspinal area patient underwent incision and drainage. MSSA. continue with cefazolin. Vancomycin DC'd. -Acute kidney injury nonoliguric. Possible ATN. Creatinine 0.76--2.44--3.7--4.08--3.43 today. Will hold Lasix, lisinopril NSAID and Neurontin. DC'd IV fluids will. Nephrology is following. -Congestive heart failure chronic systolic dysfunction patient is bit hypovolemic, hold the Lasix with close clinical monitoring. -Coronary artery disease with ischemic cardiomyopathy continue with a beta lukas patient is on dual antiplatelet therapy patient will be continued on aspirin and Plavix will be held patient had stents that were placed more than 2 years ago patient may not require dual antiplatelet therapy and patient will undergo incision and drainage because of that reason Plavix is being held at this time. Patient is on lisinopril because of cardiomyopathy dose of which showed will cut it down because his blood pressures 91-71 do not have ejection fraction available. Beta lukas will be continued -Type 2 diabetes mellitus uncontrolled with hyperglycemia. Hb A1c 11.7 .dietary counseling was provided patient was resumed on his home regimen along with sliding scale insulin titration of his regimen depending on his blood sugars here -Sepsis: Secondary to an abscess. -Multiple sclerosis without any new neurological deficits continue with home medications -Hyperlipidemia -Hypertension -DVT prophylaxis Time with Patient: Greater than 30
[2018-11-28] MEDS: ONDANSETRON 4 MG/2 ML VIAL IVP PRN ×2 (07:19→15:54)
[2018-11-28 07:29] LABS: Glucose,Whole Blood 241 mg/dL (75-99)
[2018-11-28 07:37] LABS: Basophils # (A) 0.1 k/uL (0-0.2); Basophils % (A) 1 %; Eosinophils # (A) 0.3 k/uL (0-0.7); Eosinophils % (A) 4 %; HCT 34.3 % (39.0-53.0); Lymphocytes % (A) 13 %; MCHC 31.9 g/dL (31.0-37.0); MCV 84.6 fL (80.0-100.0); Mean Platelet Volume 6.8; Monocytes # (A) 0.6 k/uL (0-1.0); Monocytes % (A) 7 %; Neutrophils # (A) 6.1 k/uL (1.3-7.7); Neutrophils % (A) 74 %; Platelet Count 333 k/uL (150-450); RBC 4.06 m/uL (4.30-5.90); RDW 13.8 % (11.5-15.5); WBC 8.2 k/uL (3.8-10.6)
[2018-11-28] MEDS: ceFAZolin IN SWFI 2 GM/20 ML SYRINGE IVP SCH ×3 (07:41→23:59)
[2018-11-28] MEDS: CARVEDILOL 12.5 MG TAB PO SCH ×2 (07:41→15:54)
[2018-11-28] MEDS: ASPIRIN 81 MG PO SCH (07:42)
[2018-11-28] MEDS: HEPARIN SODIUM,PORCINE 5,000 UNIT/ML 1 ML VIAL SQ SCH ×3 (07:42→23:58)
[2018-11-28] MEDS: FAMOTIDINE 20 MG TAB PO SCH (07:42)
[2018-11-28] MEDS: CLOPIDOGREL 75 MG TAB PO SCH (07:42)
[2018-11-28] MEDS: VORTIOXETINE HYDROBROMIDE 20 MG TABLET PO SCH (07:43)
[2018-11-28] MEDS: ISOSORBIDE MONONITRATE ER 60 MG TAB.ER.24H PO SCH (07:43)
[2018-11-28] MEDS: COPAXONE 20 MG IM SCH (07:43)
[2018-11-28] MEDS: SENNOSIDES-DOCUSATE SODIUM 1 EACH TAB PO SCH (07:43)
[2018-11-28] MEDS: INSULIN ASPART (NovoLOG) 100 UNIT/ML VIAL SQ SCH ×7 (07:44→21:38)
[2018-11-28 07:45] LABS: Calcium 9.2 mg/dL (8.4-10.2); Potassium 5.5 mmol/L (3.5-5.1)
[2018-11-28] MEDS: LACTULOSE 20 GM/30 ML CUP PO SCH ×3 (08:15→21:39)
--- NOTE | 2018-11-28 08:22 | P.PN ---
Subjective Progress Note Date: 11/28/18 Principal diagnosis: History of present illness: Patient is a 43-year-old male seen in renal consultation for acute kidney injury, multiple sclerosis, diabetes mellitus coronary artery disease. He had acute kidney injuries secondary to combination off hypotension nonsteroidals and Angel inhibitors. He was started on IV fluids and is responding with reduction in creatinine. He has significant oozing from his spinal surgery own. Denies any shortness of breath fever chills. Has good appetite no nausea vomiting. Is somewhat constipated but feels is from his MS and is a chronic problem He had a good night sleep He vomittred once this morning but had a good breakfast History of present illness; Patient's baseline creatinine is near 1 and is elevated at 4.08 today. His renal function has been worsening over the last few days. He denies any prior history of kidney disease. Renal ultrasound reveals no evidence of hydronephrosis. Patient presented to the hospital due to pain in his lower back. Patient states about a week ago he had pain and then noticed a cyst which was enlarging. On November 24 T underwent irrigation and debridement with excision of the thoracic abscess. Cultures positive for staph aureus. He was receiving IV vancomycin and is now on cefazolin. Vancomycin level from November 25 is 22.2. His blood pressure has been running on the lower side in the range of systolic 90s to 120. No dizziness or passing out. He has been voiding. No hematuria or dysuria. Denies chest pain or shortness of breath. No vomiting or diarrhea. Appetite is fair. He does have history of congestive heart failure and was taking Lasix 60 mg total at home. He was receiving Lasix 40 mg once daily here which was discontinued yesterday. He was also receiving lisinopril which was discontinued yesterday. He is also maintained on Toradol for pain control. He denies family history of renal disease. Objective - Vital Signs Vital signs: Vital Signs Temp 98.7 F 11/28/18 07:00 Pulse 76 11/28/18 07:00 Resp 12 11/28/18 07:00 BP 158/86 11/28/18 07:00 Pulse Ox 94 L 11/28/18 07:00 Intake & Output 11/27/18 11/28/18 11/28/18 18:59 06:59 18:59 Intake Total 600 400 Output Total 2000 Balance -1400 400 Weight 142 kg Intake: Intake, IV Titration 600 Amount Sodium Chloride 0.9% 1, 600 000 ml @ 75 mls/hr IV . [id number] [facility] Rx#:[id number] Oral 400 Output: Urine 2000 Other: Voiding Method Toilet # Voids 3 2 Vital signs are stable. General: The patient appeared well nourished and normally developed. HEENT: Head exam is unremarkable. Neck is without jugular venous distension. LUNGS: Lungs are clear to auscultation and percussion. Breath sounds normal HEART: Rate and Rhythm are regular. First and second heart sounds normal. No murmurs, rubs or gallops. ABDOMEN: Abdominal exam reveals normal bowel sounds. Non-tender and non- distended. No evidence of peritonitis. EXTREMITITES: No clubbing, cyanosis, has 1+ edema. Neurologically awake alert oriented comfortable. - Labs CBC & Chem 7: 11/28/18 06:35 11/28/18 06:35 Labs: Abnormal Lab Results - Last 24 Hours (Table) 11/27/18 11/27/18 11/27/18 Range/Units 11:49 16:49 20:15 RBC (4.30-5.90) m/uL Hgb (13.0-17.5) gm/dL Hct (39.0-53.0) % Sodium (137-145) mmol/L Potassium (3.5-5.1) mmol/L BUN (9-20) mg/dL Creatinine (0.66-1.25) mg/dL Glucose (74-99) mg/dL POC Glucose (mg/dL) 284 H 288 H 293 H (75-99) mg/dL 11/28/18 11/28/18 11/28/18 Range/Units 06:35 06:35 07:21 RBC 4.06 L (4.30-5.90) m/uL Hgb 11.0 L (13.0-17.5) gm/dL Hct 34.3 L (39.0-53.0) % Sodium 135 L (137-145) mmol/L Potassium 5.5 H (3.5-5.1) mmol/L BUN 35 H (9-20) mg/dL Creatinine 2.96 H (0.66-1.25) mg/dL Glucose 230 H (74-99) mg/dL POC Glucose (mg/dL) 241 H (75-99) mg/dL Microbiology - Last 24 Hours (Table) 11/23/18 09:25 Anaerobic Culture - Final Back Assessment and Plan Plan: Assessment: 1. Acute kidney injury secondary to ATN secondary to hypotension and nonsteroidals. Additionally he was on Lasix and lisinopril which have been discontinued. Baseline creatinine is near 1. It peaked at 4 and is down to 3.43 > 2.96 this morning. Ultrasound shows no hydronephrosis 2. Hypertonic hyponatremia secondary to hyperglycemia. Resolved with sodium of 136 > 135 3. Insulin-dependent diabetes mellitus. Bs high 4. History of MS. has history of constipation 5. Thoracic spine abscess status post debridement on November 24. Oozing fair amount of serous fluid 6. Significant edema, on IV fluids. 7. K 5.5, sec to hig BS 8. Low Na sec to High BS Plan: Start lasix 20 QD Discontinued IV fluids 11/27/18. Watch his edema. Watch intake and output control BS better to reduce K and improve Na Avoid any nephrotoxic medication. If possible change vancomycin, since the staph is sensitive to multiple other antibiotics. Monitor labs. Thank you for allowing to participate in this patient care will continue to follow
--- NOTE | 2018-11-28 10:54 | P.PN ---
Progress Note - Text Progress Note Date: 11/28/18 Patient is a very pleasant 43-year-old male who is seen and examined the bedside for follow-up evaluation for his thoracic spine. He is status post incision and excisional drainage and excisional debridement of the thoracic abscess superficial at the subcutaneous tissue. Postoperatively patient's symptoms have continued to have significant improvement. He continues to have some pain at thoracic spine but feels his pain has been adequately controlled with medications. He denies any lower external weakness or radiculopathy bilaterally. He continues to be seen by medicine and infectious disease. He continues to receive IV antibiotics per infectious disease. He is currently being treated by nephrology for acute kidney injury. His antibiotics may be changed due to his acute kidney injury. PICC line has been placed in the left upper extremity. PICC line intact of the left upper extremity. Wound cultures have come back positive for presumptive staph aureus. Patient feels he'll be ready for discharge home once cleared by other providers. He has been expressing some left-sided abdominal pain this morning. He was able to have a bowel movement yesterday. His abdomen remained soft. Physical exam: Patient is awake, alert, and oriented 3 Good chest excursion with deep inspiration and expiration Abdomen is soft with some mild pain with palpation over the left lateral abdomen Mild pain on palpation over the abscess site Dressing over the wound site remains clean, dry, and intact No significant pain with palpation along the lumbar spine Adequate for range of motion of the bilateral lower extremities Bilateral lower extremity strength 5/5 Dorsiflexion, plantarflexion, and extensor hallucis longus positive sustained bilateral lower extremities Neurovascularly intact bilateral lower extremities Pertinent studies: CT of the abdomen and pelvis taken at an outside facility at [facility] on 11/22/2018: Evidence of large soft tissue change with fluid collection at the left midthoracic spine that appears superficial and does not appear to extend into the fascial layer or into the spinal canal; T10-L2 degenerative disc disease; no evidence of vertebral body compression fracture Assessment: Status post incision and excisional drainage and excisional debridement of the thoracic abscess superficial at the subcutaneous tissue Wound culture positive for staph aureus Thoracic back pain Thoracolumbar degenerative disc disease T10-L2 Multiple sclerosis History of heart attack 3 with cardiac stent placement 7 Acute kidney injury Plan: 1. Patient's dressing over the thoracic abscess remains clean, dry, and intact. His pain with palpation over the abscess site has improved. Patient has had improvement of his thoracic back pain following irrigation and debridement of his thoracic abscess. He continues to have some mild drainage at the incision site. His pain is been controlled with medications. He has been ambulating without difficulty. He denies any specific lower extremity weakness or radiculopathy. He does feel generally weaker during ambulation but has been ambulating without difficulty. At this time, patient be clear for discharge from an orthopedic spine standpoint. We will continue to keep sutures intact of the incision site. We'll plan for the patient to follow up in approximately 1 week for further evaluation. If the patient is having exacerbation of symptoms prior to her scheduled appointment, he may call the office set up an earlier follow-up appointment. He may follow-up with Gonzales Lucero PA-C or Dr. Trip Frost at [facility]. We discussed he may continue with daily dressing changes as needed. He should avoid heavy lifting, bending, twisting, and heavy activities with his thoracic spine. MAPS has been reviewed today, 11/26/2018, with an Overall Overdose Risk Score of 150 with a narcotic score of 281. An "Opiod Start Talking" Forn has been signed by the patient and myself in place in the patient's chart. A prescription has been written for [place] 5 mg/325 mg 1 tablet every 6 hours as needed for pain, dispense #42. Patient does regularly receive pain medication from his neurologist but is unsure if he is under contract. We discussed will prescribe this medication for the first week postoperatively. He'll plan to contact his neurologist to discuss long-term pain management plans. 2. Patient will continue to be seen and examined by Dr. Noriega in infectious disease who will monitor his outpatient IV antibiotics 3. Patient will continue to be seen and examined by medicine and may further evaluate left abdominal pain as needed 4. Patient continues to be seen and examined by nephrology in regards to acute kidney injury
[2018-11-28] MEDS: FUROSEMIDE 20 MG TAB PO SCH (11:01)
[2018-11-28] MEDS: HYDROmorphone 0.5 MG/0.5 ML SYRINGE IVP PRN (11:06)
[2018-11-28 11:53] LABS: Glucose,Whole Blood 274 mg/dL (75-99)
[2018-11-28] MEDS: MULTIVITAMINS, THERA 1 EACH TAB PO SCH (15:16)
[2018-11-28 16:58] LABS: Glucose,Whole Blood 265 mg/dL (75-99)
[2018-11-28 20:58] LABS: Glucose,Whole Blood 210 mg/dL (75-99)
[2018-11-28] MEDS: ATORVASTATIN 80 MG TAB PO SCH (21:38)
[2018-11-28] MEDS: QUEtiapine 100 MG TAB PO SCH (22:05)
[2018-11-28] MEDS: INSULIN DETEMIR (LEVEMIR) 100 UNIT/ML SYR SQ SCH (22:05)
--- NOTE | 2018-11-29 00:20 | P.PN ---
Subjective Progress Note Date: 11/28/18 Principal diagnosis: Thoracic abscess Hyperglycemia with uncontrolled diabetes type 2 Acute kidney injury 43-year-old pleasant gentleman was transferred from [facility] after he presented there with severe back pain and possible low-grade fevers patient is found to have C light is an abscess on the right mid back in the paraspinal area. Patient is coming of severe pain there patient has a small pimple-like area with surrounding abscess redness with the pus drainage. Patient will undergo incision and drainage tomorrow patient was started on vancomycin and Zosyn Zosyn was discontinued and infectious disease was consulted. Patient had a CT of the abdomen which showed a showed the same thing as clinical exam. 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 Patient does have history of multiple sclerosis with some weakness in both legs for which patient is on Glatiramer ACT 8 no new weakness. Patient is diabetic with highly uncontrolled blood sugars patient is on very dose of high-dose of insulin obese. Patient is mildly hyponatremic because of which I'm cutting down oral Lasix chest x-ray was obtained which did not show any pulmonary edema. 11/24/2018 Patient is awake alert oriented oriented 3. Patient was taken to or today for incision and drainage of thoracic abscess. No fever no chills. We will follow up wound cultures. ID is following. Patient will be continued on antibiotics in the form of cefazolin as per ID recommendations. Continued on wound care. Patient was started back on home dose of levemir 75 units at bedtime along with aspart 30 units 3 times a day before meals. Patient is hyperglycemic today. No nausea vomiting or abdominal pain. 11/25/2018 Patient says that he feels better today. Back pain is much improved now. Status post I&D. Initial wound cultures growing MSSA. Patient will be continued on cefazolin as per ID recommendations. No fever no chills. Blood sugar is better controlled today. Still hyperglycemic. Creatinine increased from 2.44-3.7 today. Blood pressure is also on the lower side. Patient will be started on gentle hydration. Will get urine eosinophils and US RENAL. Nephrology will be consulted. Patient denied any abdominal pain. Denied any dysuria or hematuria. No fever no chills. 11/26/2018 Patient denied any complaints of chest pain or shortness of breath. Lying in the bed comfortably. Patient says that his urine output has increased. Currently being continued on normal saline at 75 mL per hour. No complaints of fever or chills. Continued on IV antibiotics. Blood sugar is still elevated. Otherwise creatinine level increased to 4.08 today. Nephrology is following. Ultrasound renal showed no evidence of obstruction. 11/27/2018 Patient denied any complaints of chest pain or shortness of breath. Able to sit in the chair comfortably today. Feels better. Otherwise creatinine level improved to 3.43. Patient does have good urine output. IV fluids have been discontinued due to increased leg swelling. Otherwise patient is being continued on antibiotics in the form of cefazolin as per ID recommendations for thoracic abscess status post I&D. Patient is otherwise still hyperglycemic and insulin dose will be titrated again. Nephrology and ID is following. 11/28/2018 Patient says that his rate is better. Status post thoracic abscess IND. Continued on antibiotics in the form of cefazolin as per ID recommendations. Wound cultures grew MSSA. Otherwise renal function is improving with creatinine level II.96 today. Potassium level V.5. Patient is making good urine output. Started on low-dose Lasix as well. ID recommends IV antibiotics. PICC line was placed. Possible discharge home with IV antibiotics in next 24 hours.. Patient is still hyperglycemic but slightly improved. Current medications reviewed. Objective - Vital Signs Vital signs: Vital Signs Temp 98.6 F 11/28/18 20:12 Pulse 78 11/28/18 20:12 Resp 16 11/28/18 20:12 BP 171/94 11/28/18 20:12 Pulse Ox 94 L 11/28/18 20:12 Intake & Output 11/28/18 11/28/18 11/29/18 06:59 18:59 06:59 Intake Total 400 400 Output Total 1000 Balance 400 -600 Weight 142 kg Intake: Oral 400 400 Output: Urine 1000 Other: Voiding Method Toilet Toilet # Voids 2 3 - Exam GENERAL: The patient is alert and oriented x3, patient is in distress because of pain. Well developed, well nourished. HEENT: Pupils are round and equally reacting to light. EOMI. No scleral icterus. No conjunctival pallor. Normocephalic, atraumatic. No pharyngeal erythema. No thyromegaly. CARDIOVASCULAR: S1 and S2 present. No murmurs, rubs, or gallops. PULMONARY: Chest is clear to auscultation, no wheezing or crackles. ABDOMEN: Soft, nontender, nondistended, normoactive bowel sounds. No palpable organomegaly. MUSCULOSKELETAL: No joint swelling or deformity. EXTREMITIES: No cyanosis, clubbing, or 2+ pedal edema. NEUROLOGICAL: Gross neurological examination did not reveal any focal deficits. SKIN: Thoracic abscess status post I&D currently bandaged. - Labs CBC & Chem 7: 11/28/18 06:35 11/28/18 06:35 Labs: Abnormal Lab Results - Last 24 Hours (Table) 11/28/18 11/28/18 11/28/18 Range/Units 06:35 06:35 07:21 RBC 4.06 L (4.30-5.90) m/uL Hgb 11.0 L (13.0-17.5) gm/dL Hct 34.3 L (39.0-53.0) % Sodium 135 L (137-145) mmol/L Potassium 5.5 H (3.5-5.1) mmol/L BUN 35 H (9-20) mg/dL Creatinine 2.96 H (0.66-1.25) mg/dL Glucose 230 H (74-99) mg/dL POC Glucose (mg/dL) 241 H (75-99) mg/dL 11/28/18 11/28/18 11/28/18 Range/Units 11:45 16:42 20:47 RBC (4.30-5.90) m/uL Hgb (13.0-17.5) gm/dL Hct (39.0-53.0) % Sodium (137-145) mmol/L Potassium (3.5-5.1) mmol/L BUN (9-20) mg/dL Creatinine (0.66-1.25) mg/dL Glucose (74-99) mg/dL POC Glucose (mg/dL) 274 H 265 H 210 H (75-99) mg/dL Microbiology - Last 24 Hours (Table) 11/24/18 14:53 Anaerobic Culture - Final Back Assessment and Plan Assessment: -Back pain: Secondary to an abscess in the paraspinal area patient underwent incision and drainage. MSSA. continue with cefazolin. Vancomycin DC'd. -Acute kidney injury nonoliguric. Possible ATN. Creatinine 0 .76--2.44--3.7--4.08--3.43--2.96 today. Will hold Lasix, lisinopril NSAID and Neurontin. DC'd IV fluids will. Nephrology is following. -Congestive heart failure chronic systolic dysfunction patient is bit hypovolemic, hold the Lasix with close clinical monitoring. -Coronary artery disease with ischemic cardiomyopathy continue with a beta lukas patient is on dual antiplatelet therapy patient will be continued on aspirin and Plavix will be held patient had stents that were placed more than 2 years ago patient may not require dual antiplatelet therapy and patient will undergo incision and drainage because of that reason Plavix is being held at this time. Patient is on lisinopril because of cardiomyopathy dose of which showed will cut it down because his blood pressures 91-71 do not have ejection fraction available. Beta lukas will be continued -Type 2 diabetes mellitus uncontrolled with hyperglycemia. Hb A1c 11.7 .dietary counseling was provided patient was resumed on his home regimen along with sliding scale insulin titration of his regimen depending on his blood sugars here -Sepsis: Secondary to an abscess. -Multiple sclerosis without any new neurological deficits continue with home medications -Hyperlipidemia -Hypertension -DVT prophylaxis Time with Patient: Greater than 30
[2018-11-29 01:20] LABS: Glucose,Whole Blood 192 mg/dL (75-99)
[2018-11-29 07:10] LABS: Glucose,Whole Blood 200 mg/dL (75-99)
[2018-11-29] MEDS: CARVEDILOL 12.5 MG TAB PO SCH ×2 (07:19→15:14)
[2018-11-29] MEDS: INSULIN ASPART (NovoLOG) 100 UNIT/ML VIAL SQ SCH ×4 (07:19→11:57)
[2018-11-29] MEDS: ISOSORBIDE MONONITRATE ER 60 MG TAB.ER.24H PO SCH (07:20)
[2018-11-29] MEDS: ASPIRIN 81 MG PO SCH (07:20)
[2018-11-29] MEDS: CLOPIDOGREL 75 MG TAB PO SCH (07:20)
[2018-11-29] MEDS: HEPARIN SODIUM,PORCINE 5,000 UNIT/ML 1 ML VIAL SQ SCH ×2 (07:20→15:14)
[2018-11-29] MEDS: FAMOTIDINE 20 MG TAB PO SCH (07:20)
[2018-11-29] MEDS: FUROSEMIDE 20 MG TAB PO SCH (07:20)
[2018-11-29] MEDS: LACTULOSE 20 GM/30 ML CUP PO SCH ×2 (07:20→15:11)
[2018-11-29] MEDS: MULTIVITAMINS, THERA 1 EACH TAB PO SCH (07:21)
[2018-11-29] MEDS: VORTIOXETINE HYDROBROMIDE 20 MG TABLET PO SCH (07:21)
[2018-11-29] MEDS: SENNOSIDES-DOCUSATE SODIUM 1 EACH TAB PO SCH (07:21)
[2018-11-29] MEDS: COPAXONE 20 MG IM SCH (07:22)
[2018-11-29 07:32] LABS: Calcium 9.5 mg/dL (8.4-10.2); Potassium 5.6 mmol/L (3.5-5.1)
[2018-11-29] MEDS: ceFAZolin IN SWFI 2 GM/20 ML SYRINGE IVP SCH ×2 (07:57→15:14)
[2018-11-29] MEDS: ONDANSETRON 4 MG/2 ML VIAL IVP PRN ×2 (09:06→15:14)
--- NOTE | 2018-11-29 10:36 | P.PN ---
Subjective Patient is seen in follow-up for acute kidney injury. Baseline creatinine is near 1. It peaked at 4.08 this admission and is down to 2.77 today. He is currently sitting up in chair. Oral intake is fair. Urine output is good. No diarrhea. He is having intermittent episodes of vomiting. Vital signs are stable. General: The patient appeared well nourished and normally developed. HEENT: Head exam is unremarkable. Neck is without jugular venous distension. LUNGS: Lungs are clear to auscultation and percussion. Breath sounds decreased. HEART: Rate and Rhythm are regular. First and second heart sounds normal. No murmurs, rubs or gallops. ABDOMEN: Abdominal exam reveals normal bowel sounds. Non-tender and non- distended. No evidence of peritonitis. EXTREMITITES: Trace edema. Objective - Vital Signs Vital signs: Vital Signs Temp 98.6 F 11/29/18 06:57 Pulse 81 11/29/18 06:57 Resp 16 11/29/18 06:57 BP 161/90 11/29/18 06:57 Pulse Ox 96 11/29/18 06:57 Intake & Output 11/28/18 11/29/18 11/29/18 18:59 06:59 18:59 Intake Total 400 590 Output Total 1000 Balance -600 590 Weight 141.5 kg Intake: Oral 400 590 Output: Urine 1000 Other: Voiding Method Toilet Toilet # Voids 3 1 - Labs CBC & Chem 7: 11/28/18 06:35 11/29/18 06:33 Labs: Abnormal Lab Results - Last 24 Hours (Table) 11/28/18 11/28/18 11/28/18 Range/Units 11:45 16:42 20:47 Potassium (3.5-5.1) mmol/L BUN (9-20) mg/dL Creatinine (0.66-1.25) mg/dL Glucose (74-99) mg/dL POC Glucose (mg/dL) 274 H 265 H 210 H (75-99) mg/dL 11/29/18 11/29/18 11/29/18 Range/Units 00:50 06:33 06:56 Potassium 5.6 H (3.5-5.1) mmol/L BUN 32 H (9-20) mg/dL Creatinine 2.77 H (0.66-1.25) mg/dL Glucose 167 H (74-99) mg/dL POC Glucose (mg/dL) 192 H 200 H (75-99) mg/dL Microbiology - Last 24 Hours (Table) 11/24/18 14:53 Anaerobic Culture - Final Back Assessment and Plan Plan: Assessment: 1. Acute kidney injury secondary to ATN secondary to hypotension and nonsteroidals. Baseline creatinine is near 1. Creatinine peaked at 4.08 this admission - 2.77 today. No urinary retention. No evidence of hydronephrosis noted on renal ultrasound. Urine eosinophils negative. Trace proteinuria on UA. 2. Hypertonic hyponatremia secondary to hyperglycemia. Better. 3. Insulin-dependent diabetes mellitus. 4. History of MS. 5. Thoracic spine abscess status post debridement on November 24. 6. Mild hyperkalemia secondary to acute kidney injury and hyperglycemia. Plan: Remains off IV fluids. Maintain Lasix 20 mg once daily. Tight blood sugar control. Repeat potassium level this evening. Avoid nephrotoxins.
[2018-11-29 12:19] LABS: Glucose,Whole Blood 168 mg/dL (75-99)
[2018-11-29] MEDS ORDERED: SODIUM POLYSTYRENE SULFONATE 15 GM/60 ML BOTTLE PO ONE (12:46)
[2018-11-29] MEDS ORDERED: POLYETHYLENE GLYCOL 3350 17 GM POWD.PACK PO STA (13:17)
[2018-11-29 15:15] VITALS: BP 163/94; PULSE 75; RESP 12; TEMP 98
[2018-11-29] MEDS ORDERED: SODIUM POLYSTYRENE SULFONATE 15 GM/60 ML BOTTLE PO STA (15:37)
== END 2018-11-29 16:45 | disposition home health service (06) | DRG 853 ==
LOC: 1SOBS 20:56 → OBSVTOIN 11-23 12:55 → 4SSUR 11-23 15:40
PROVIDERS: ADMIT Internal Medicine; ATTEND Internal Medicine
PROC: 0JB70ZZ Excision of Back Subcutaneous Tissue and Fascia, Open Approach (ICD-10-PCS; principal; 2018-11-24 13:30)
DX: A41.01 Sepsis due to Methicillin susceptible Staphylococcus aureus (principal); N17.0 Acute kidney failure with tubular necrosis; L02.212 Cutaneous abscess of back [any part, except buttock and flank]; I50.22 Chronic systolic (congestive) heart failure; E87.1 Hypo-osmolality and hyponatremia; Z68.41 Body mass index [BMI] 40.0-44.9, adult; L03.312 Cellulitis of back [any part except buttock and flank]; E66.9 Obesity, unspecified; I11.0 Hypertensive heart disease with heart failure; E11.65 Type 2 diabetes mellitus with hyperglycemia; G35 Multiple sclerosis; M41.9 Scoliosis, unspecified; E87.5 Hyperkalemia; M51.35 Other intervertebral disc degeneration, thoracolumbar region; E86.1 Hypovolemia; I25.10 Atherosclerotic heart disease of native coronary artery without angina pectoris; I25.5 Ischemic cardiomyopathy; E78.5 Hyperlipidemia, unspecified; K59.00 Constipation, unspecified; I25.2 Old myocardial infarction; Z79.82 Long term (current) use of aspirin; Z79.02 Long term (current) use of antithrombotics/antiplatelets; Z79.4 Long term (current) use of insulin; Z79.899 Other long term (current) drug therapy; Z95.5 Presence of coronary angioplasty implant and graft; Z71.3 Dietary counseling and surveillance; Z82.49 Family history of ischemic heart disease and other diseases of the circulatory system; Z80.51 Family history of malignant neoplasm of kidney; Z83.3 Family history of diabetes mellitus
CPT/HCPCS: 36410; 71045; 76770; 76937; 80048; 80053; 80202; 81001; 83036; 84132; 85025; 85027; 87070; 87075; 87077; 87102; 87116; 87186; 87205; 87206

== ENCOUNTER 2018-11-30 10:45 | Inpatient (IN) | payer OTHER ==
[2018-11-30] MEDS ORDERED: PANTOPRAZOLE 40 MG/10 ML VIAL IVP STA (11:16)
[2018-11-30] MEDS ORDERED: SODIUM CHLORIDE 0.9% 1,000 ML IV STA ×2 (11:16)
[2018-11-30] MEDS ORDERED: ONDANSETRON 4 MG/2 ML VIAL IVP STA (11:16)
[2018-11-30] MEDS ORDERED: MORPHINE SULFATE 4 MG/ML SYRINGE IV STA (11:16)
[2018-11-30] MEDS ORDERED: KETOROLAC 30 MG/ML 1 ML VIAL IVP STA (11:16)
--- NOTE | 2018-11-30 11:16 | ED ---
Abdominal Pain HPI - General Chief Complaint: Abdominal Pain Stated Complaint: Abd.pain Time Seen by Provider: 11/30/18 10:56 Source: patient, RN notes reviewed, old records reviewed Mode of arrival: ambulatory Limitations: no limitations - History of Present Illness Initial Comments: Patient is a 43-year-old male recently discharged yesterday for a back cellulitis and abscess surgery drainage. He presents today complains of some left upper abdominal pain. He's been doing this left upper abdominal pain off and on for the past few months. Patient states he has a history of MS and suffers or constipation. Patient states he was scheduled to have colonoscopy for further evaluation for this pain however with the complications of his back abscess this was not done. Patient reports he did have a small bowel movement today. While he was in the hospital he received multiple laxatives to promote bowel movements. Patient states is been feeling nauseated and did have some episodes of vomiting today. When the visiting nurse arrived his blood sugar was 560. Patient Patient while in the hospital received a midline for IV antibiotics. His visiting nurse came today and stated that his midline was nonfunctioning. - Related Data Home Medications Medication Instructions Recorded Confirmed Aspirin [[place] Aspirin EC] 81 mg PO DAILY 11/22/18 11/30/18 Atorvastatin [Lipitor] 80 mg PO HS 11/22/18 11/30/18 Baclofen 10 mg PO Q6H PRN 11/22/18 11/30/18 Carvedilol [Coreg] 12.5 mg PO BID 11/22/18 11/30/18 Clopidogrel [Plavix] 75 mg PO DAILY 11/22/18 11/30/18 Ergocalciferol (Vitamin D2) 50,000 unit PO Q72H 11/22/18 11/30/18 [Drisdol] Furosemide [Lasix] 20 mg PO AC-SUPPER 11/22/18 11/30/18 Glatiramer Acetate [Copaxone] 20 mg IM DAILY 11/22/18 11/30/18 Insulin Glargine [Lantus] 70 unit SQ HS 11/22/18 11/30/18 Insulin Glulisine [Apidra] 30 units SQ AC-TID 11/22/18 11/30/18 Isosorbide Mononitrate ER [Imdur] 60 mg PO DAILY 11/22/18 11/30/18 Nitroglycerin 0.4 mg SL Q5M PRN 11/22/18 11/30/18 Polyethylene Glycol 3350 [Miralax] 17 gm PO DAILY 11/22/18 11/30/18 QUEtiapine [SEROquel] 100 mg PO HS 11/22/18 11/30/18 Selsun Blue 1 applic TOPICAL DAILY 11/22/18 11/30/18 Vortioxetine Hydrobromide 20 mg PO DAILY 11/22/18 11/30/18 [Trintellix] traMADol HCL [Ultram] 50 mg PO Q6H PRN 11/22/18 11/30/18 HYDROcodone/APAP 5-325MG [[place] 5] 1 tab PO Q4HR PRN 11/30/18 11/30/18 Previous Rx's Medication Instructions Recorded ceFAZolin [Kefzol] 2 gm IVP Q8HR #42 ml 11/24/18 Allergies Allergy/AdvReac Type Severity Reaction Status Date / Time No Known Allergies Allergy Verified 11/30/18 11:02 Review of Systems ROS Statement: Those systems with pertinent positive or pertinent negative responses have been documented in the HPI. ROS Other: All systems not noted in ROS Statement are negative. Past Medical History Past Medical History: Coronary Artery Disease (CAD), Heart Failure, Diabetes Mellitus, Hyperlipidemia, Hypertension, Myocardial Infarction (AR) Additional Past Medical History / Comment(s): scoliosis of spine, 3 AR's x7 stents (2013 x2 AR's w/stents, 2015 AR w/stents), DM II. Last Myocardial Infarction Date:: 2015 History of Any Multi-Drug Resistant Organisms: None Reported Past Surgical History: Back Surgery Additional Past Surgical History / Comment(s): Pt states: "AR's with stents, left knee scope." Past Anesthesia/Blood Transfusion Reactions: No Reported Reaction Past Psychological History: Anxiety, Depression Smoking Status: Never smoker Past Alcohol Use History: None Reported Past Drug Use History: None Reported - Past Family History Father Additional Family Medical History / Comment(s): "heart disease." Mother History Unknown: Yes Family Medical History: Cancer, Diabetes Mellitus Additional Family Medical History / Comment(s): pt states: "kidney cancer." General Exam - General Exam Comments Initial Comments: 43-year-old male. Patient appears in moderate discomfort. Limitations: no limitations General appearance: alert, in no apparent distress Head exam: Present: atraumatic, normocephalic, normal inspection Eye exam: Present: normal appearance, PERRL, EOMI. Absent: scleral icterus, conjunctival injection, periorbital swelling ENT exam: Present: normal exam, mucous membranes moist Neck exam: Present: normal inspection. Absent: tenderness, meningismus, lymphadenopathy Respiratory exam: Present: normal lung sounds bilaterally. Absent: respiratory distress, wheezes, rales, rhonchi, stridor Cardiovascular Exam: Present: regular rate, normal rhythm, normal heart sounds. Absent: systolic murmur, diastolic murmur, rubs, gallop, clicks GI/Abdominal exam: Present: soft, tenderness (Left upper quadrant), normal bowel sounds. Absent: distended, guarding, rebound, rigid Extremities exam: Present: normal inspection, full ROM, normal capillary refill, other (pulled and kinked midline on left upper arm. ). Absent: tenderness, pedal edema, joint swelling, calf tenderness Back exam: Present: normal inspection, other (wound was dressed ) Neurological exam: Present: alert, oriented X3, CN II-XII intact Psychiatric exam: Present: normal affect, normal mood Skin exam: Present: warm, dry, intact, normal color. Absent: rash Course Vital Signs 11/30/18 11/30/18 11/30/18 10:51 11:30 12:00 Temperature 98.1 F Pulse Rate 82 Respiratory 18 Rate Blood Pressure 155/95 194/107 183/115 O2 Sat by Pulse 98 96 Oximetry 11/30/18 11/30/18 11/30/18 12:30 13:00 13:28 Temperature 97.9 F Pulse Rate 77 77 76 Respiratory 18 19 18 Rate Blood Pressure 172/101 164/104 176/103 O2 Sat by Pulse 97 96 95 Oximetry 11/30/18 11/30/18 13:30 14:00 Temperature Pulse Rate 76 76 Respiratory 19 19 Rate Blood Pressure 176/103 168/105 O2 Sat by Pulse 96 98 Oximetry Medical Decision Making - Medical Decision Making Patient is a 43-year-old male presents emergency department today for re evaluation after recent discharge yesterday from hospital. He presents today with complaints of left-sided abdominal pain. Patient appears in moderate discomfort upon arrival. Patient was given IV fluids labwork obtained. Patient's midline is unacceptable this time and kinked. Patient is not co ncerned about this at this time. Patient was given pain medication. Lab work showed evidence of mild leukocytosis. He had significant tenderness and guarding on exam. Patient's kidney function is poor with elevated creatinine 2.6. Patient underwent CT abdomen and pelvis without contrast. There is evidence of some mild stranding around the left quadrant consistent with diverticulitis. Patient is currently receiving Ancef out patiently. They did not get that today we will give the Patient a dose in the ED. I will add Flagyl this time to cover for anaerobic causes for his diverticulitis. Patient will be admitted at this time with consult to infectious disease. - Lab Data Result diagrams: 11/30/18 11:25 11/30/18 11:25 Lab Results 11/30/18 11/30/18 11/30/18 Range/Units 11:25 11:25 11:25 WBC 11.2 H (3.8-10.6) k/uL RBC 4.39 (4.30-5.90) m/uL Hgb 11.9 L (13.0-17.5) gm/dL Hct 36.3 L (39.0-53.0) % MCV 82.5 (80.0-100.0) fL MCH 27.1 (25.0-35.0) pg MCHC 32.8 (31.0-37.0) g/dL RDW 13.7 (11.5-15.5) % Plt Count 387 (150-450) k/uL Neutrophils % 79 % Lymphocytes % 11 % Monocytes % 5 % Eosinophils % 2 % Basophils % 1 % Neutrophils # 8.9 H (1.3-7.7) k/uL Lymphocytes # 1.3 (1.0-4.8) k/uL Monocytes # 0.6 (0-1.0) k/uL Eosinophils # 0.3 (0-0.7) k/uL Basophils # 0.1 (0-0.2) k/uL PT 10.5 (9.0-12.0) sec INR 1.0 (<1.2) APTT 23.3 (22.0-30.0) sec Sodium 137 (137-145) mmol/L Potassium 5.5 H (3.5-5.1) mmol/L Chloride 102 (98-107) mmol/L Carbon Dioxide 27 (22-30) mmol/L Anion Gap 8 mmol/L BUN 31 H (9-20) mg/dL Creatinine 2.62 H (0.66-1.25) mg/dL Est GFR (CKD-EPI)AfAm 33 (>60 ml/min/1.73 sqM) Est GFR (CKD-EPI)NonAf 28 (>60 ml/min/1.73 sqM) Glucose 201 H (74-99) mg/dL Plasma Lactic Acid Sergo (0.7-2.0) mmol/L Calcium 9.9 (8.4-10.2) mg/dL Total Bilirubin 0.4 (0.2-1.3) mg/dL AST 32 (17-59) U/L ALT 19 L (21-72) U/L Alkaline Phosphatase 105 (38-126) U/L Total Protein 6.7 (6.3-8.2) g/dL Albumin 3.6 (3.5-5.0) g/dL Amylase <30 L (30-110) U/L Lipase 73 (23-300) U/L Urine Color Urine Appearance (Clear) Urine pH (5.0-8.0) Ur Specific [place] (1.001-1.035) Urine Protein (Negative) Urine Glucose (UA) (Negative) Urine Ketones (Negative) Urine Blood (Negative) Urine Nitrite (Negative) Urine Bilirubin (Negative) Urine Urobilinogen (<2.0) mg/dL Ur Leukocyte Esterase (Negative) Urine RBC (0-5) /hpf Urine WBC (0-5) /hpf Ur Squamous Epith Cells (0-4) /hpf Urine Mucus (None) /hpf Acetone, Qual Negative (Negative) 11/30/18 11/30/18 Range/Units 11:25 11:40 WBC (3.8-10.6) k/uL RBC (4.30-5.90) m/uL Hgb (13.0-17.5) gm/dL Hct (39.0-53.0) % MCV (80.0-100.0) fL MCH (25.0-35.0) pg MCHC (31.0-37.0) g/dL RDW (11.5-15.5) % Plt Count (150-450) k/uL Neutrophils % % Lymphocytes % % Monocytes % % Eosinophils % % Basophils % % Neutrophils # (1.3-7.7) k/uL Lymphocytes # (1.0-4.8) k/uL Monocytes # (0-1.0) k/uL Eosinophils # (0-0.7) k/uL Basophils # (0-0.2) k/uL PT (9.0-12.0) sec INR (<1.2) APTT (22.0-30.0) sec Sodium (137-145) mmol/L Potassium (3.5-5.1) mmol/L Chloride (98-107) mmol/L Carbon Dioxide (22-30) mmol/L Anion Gap mmol/L BUN (9-20) mg/dL Creatinine (0.66-1.25) mg/dL Est GFR (CKD-EPI)AfAm (>60 ml/min/1.73 sqM) Est GFR (CKD-EPI)NonAf (>60 ml/min/1.73 sqM) Glucose (74-99) mg/dL Plasma Lactic Acid Sergo 2.4 H* (0.7-2.0) mmol/L Calcium (8.4-10.2) mg/dL Total Bilirubin (0.2-1.3) mg/dL AST (17-59) U/L ALT (21-72) U/L Alkaline Phosphatase (38-126) U/L Total Protein (6.3-8.2) g/dL Albumin (3.5-5.0) g/dL Amylase (30-110) U/L Lipase (23-300) U/L Urine Color Light Yellow Urine Appearance Clear (Clear) Urine pH 6.5 (5.0-8.0) Ur Specific [place] 1.008 (1.001-1.035) Urine Protein Trace H (Negative) Urine Glucose (UA) Trace H (Negative) Urine Ketones Negative (Negative) Urine Blood Small H (Negative) Urine Nitrite Negative (Negative) Urine Bilirubin Negative (Negative) Urine Urobilinogen <2.0 (<2.0) mg/dL Ur Leukocyte Esterase Negative (Negative) Urine RBC 1 (0-5) /hpf Urine WBC 1 (0-5) /hpf Ur Squamous Epith Cells <1 (0-4) /hpf Urine Mucus Rare H (None) /hpf Acetone, Qual (Negative) 11/30/18 12:21 EKG shows sinus rhythm with septal infarct age undetermined. Ventricular rate 79 beats were minute. KS interval 170 ms. QS duration 88 ms. QT QTc is 392/449 ms. - Radiology Data Radiology results: report reviewed X-ray shows moderate stool burn. No evidence of bowel obstruction or free air.Mild stranding is adjacent to the sigmoid colon may reflect mild changes of diverticulitis. Disposition Clinical Impression: Diabetes mellitus type 2, uncontrolled, with complications, Diverticulitis, Multiple sclerosis, Failure of outpatient treatment, Nausea & vomiting, Lactic acidosis Disposition: ADMITTED IP TO THIS HOSP Condition: Stable Is patient prescribed a controlled substance at d/c from ED?: No Referrals: Narciso Cheung MD [Primary Care Provider] - 1-2 days Time of Disposition: 14:50
[2018-11-30 11:37] LABS: Basophils # (A) 0.1 k/uL (0-0.2); Basophils % (A) 1 %; Eosinophils # (A) 0.3 k/uL (0-0.7); Eosinophils % (A) 2 %; HCT 36.3 % (39.0-53.0); HGB 11.9 gm/dL (13.0-17.5); Lymphocytes # (A) 1.3 k/uL (1.0-4.8); Lymphocytes % (A) 11 %; MCH 27.1 pg (25.0-35.0); MCHC 32.8 g/dL (31.0-37.0); MCV 82.5 fL (80.0-100.0); Mean Platelet Volume 6.9; Monocytes # (A) 0.6 k/uL (0-1.0); Monocytes % (A) 5 %; Neutrophils # (A) 8.9 k/uL (1.3-7.7); Neutrophils % (A) 79 %; Platelet Count 387 k/uL (150-450); RBC 4.39 m/uL (4.30-5.90); RDW 13.7 % (11.5-15.5); WBC 11.2 k/uL (3.8-10.6)
[2018-11-30 11:49] LABS: ALT 19 U/L (21-72); AST 32 U/L (17-59); Albumin 3.6 g/dL (3.5-5.0); Alkaline Phosphatase 105 U/L (38-126); Amylase <30 U/L (30-110); Anion Gap 8 mmol/L; Blood Urea Nitrogen 31 mg/dL (9-20); Calcium 9.9 mg/dL (8.4-10.2); Carbon Dioxide 27 mmol/L (22-30); Chloride 102 mmol/L (98-107); Glucose 201 mg/dL (74-99); Lipase 73 U/L (23-300); Potassium 5.5 mmol/L (3.5-5.1); Sodium 137 mmol/L (137-145); Total Bilirubin 0.4 mg/dL (0.2-1.3); Total Protein 6.7 g/dL (6.3-8.2)
[2018-11-30 11:53] LABS: Partial Thromboplastin Time 23.3 sec (22.0-30.0); Prothrombin Time 10.5 sec (9.0-12.0)
[2018-11-30 12:02] LABS: Appearance,Urine Clear (Clear); Bilirubin,Urine Negative (Negative); Blood,Urine Small (Negative); Color,Urine Light Yellow; Glucose,Urine (UA) Trace (Negative); Ketones,Urine Negative (Negative); Leukocyte Esterase,Urine Negative (Negative); Mucus,Urine Rare /hpf; Nitrite,Urine Negative (Negative); PH, Urine 6.5 (5.0-8.0); Protein,Urine Trace (Negative); RBC,Urine 1 /hpf (0-5); Specific Gravity,Urine 1.008 (1.001-1.035); Squamous Epithelial Cell,Urine <1 /hpf (0-4); Urobilinogen,Urine <2.0 mg/dL (<2.0); WBC,Urine 1 /hpf (0-5)
--- NOTE | 2018-11-30 12:17 | XR ---
EXAMINATION TYPE: XR KUB DATE OF EXAM: 11/30/2018 CLINICAL DATA: 43-year-old male with abdominal pain, [facility] COMPARISON: None FINDINGS: Lung bases are clear. No evidence for free intraperitoneal air. No dilated small bowel or air-fluid levels. Scattered air and stool seen throughout the colon extendi ng distally into the rectum. Moderate stool burden. No suspicious calcifications identified. IMPRESSION: Moderate stool burden. No evidence of bowel obstruction or free intraperitoneal air.
--- NOTE | 2018-11-30 13:13 | CT ---
EXAMINATION TYPE: CT abdomen pelvis wo con DATE OF EXAM: 11/30/2018 COMPARISON: Outside study 11/22/2018 HISTORY: Left sided abdomijnal pain, possible diverticulitis CT DLP: 1307.4 mGycm Examination of the solid and hollow viscera is limited given the lack of contrast. FINDINGS: LUNG BASES: No evidence for nodule. No evidence for infiltrate. LIVER/GB: The gallbladder is unremarkable. No space-occupying hepatic lesion. PANCREAS: No pancreatic mass identified. No inflammatory process seen. SPLEEN: No evidence for splenomegaly. No intrasplenic lesions seen. ADRENALS: No adrenal nodules identified. No evidence for thickening. KIDNEYS: No evidence for renal mass. No nephrolithiasis. No hydronephrosis. BOWEL: Appendix has a normal appearance. Mild stranding is adjacent to the sigmoid colon may reflect very mild changes of diverticulitis. No perforation or abscess. Lymph nodes: No evidence for adenopathy greater than 1 cm. Abdominal aorta: Atheromatous changes seen. No evidence for aneurysm. Genital organs: No significant abnormality. Other: No significant abnormality. IMPRESSION: 1.Mild stranding is adjacent to the sigmoid colon may reflect very mild changes of diverticulitis.
[2018-11-30] MEDS ORDERED: metroNIDAZOLE-NS PMX 500 MG in SALINE 1 100ML.BAG IVPB STA (14:47)
[2018-11-30] MEDS ORDERED: ceFAZolin IN SWFI 2 GM/20 ML SYRINGE IVP ONE (14:47)
[2018-11-30] MEDS ORDERED: ISOSORBIDE MONONITRATE ER 60 MG TAB.ER.24H PO STA (14:51)
[2018-11-30] MEDS ORDERED: ONDANSETRON 4 MG/2 ML VIAL IVP PRN (14:52)
[2018-11-30] MEDS ORDERED: ACETAMINOPHEN TAB 325 MG TAB PO PRN (14:52)
[2018-11-30] MEDS ORDERED: KETOROLAC 30 MG/ML 1 ML VIAL IVP PRN (14:52)
[2018-11-30] MEDS ORDERED: NALOXONE 0.4 MG/ML 1 ML VIAL IV PRN (14:52)
[2018-11-30] MEDS ORDERED: IBUPROFEN 400 MG TAB PO PRN (14:52)
[2018-11-30] MEDS: MORPHINE SULFATE 4 MG/ML SYRINGE IV PRN ×2 (15:31→21:39)
[2018-11-30 16:52] VITALS: BMI 38.7
[2018-11-30] MEDS ORDERED: BACLOFEN 10 MG TAB PO PRN (17:18)
[2018-11-30] MEDS ORDERED: NITROGLYCERIN SL TABS 0.4 MG TAB SUBLINGUAL PRN (17:18)
[2018-11-30] MEDS ORDERED: traMADol 50 MG TAB PO PRN (17:18)
[2018-11-30 17:31] LABS: Glucose,Whole Blood 108 mg/dL (75-99)
[2018-11-30] MEDS: SODIUM CHLORIDE 0.9% 1,000 ML IV SCH (17:31)
[2018-11-30] MEDS ORDERED: SODIUM POLYSTYRENE SULFONATE 15 GM/60 ML BOTTLE PO STA (17:34)
--- NOTE | 2018-11-30 17:38 | P.HPIM ---
History of Present Illness Patient is a very pleasant 38-year-old gentleman was discharged from the hospital after he was treated for paraspinal abscess which was drained during his last hospitalization, patient was discharged on ceftezole and patient has issues with constipation on and off because of his multiple cirrhosis his multiple sclerosis and symptoms are mostly sensory deficits along with constipation with some weakness in both legs and pain in both legs. Patient is on gabapentin tested for that. Patient started having severe sharp pain in the left upper quadrant found to have mild diverticulitis patient is admitted with the metronidazole and ceftezole and which was subsequently switched to Unasyn by infectious disease. Patient had a small bowel movement today and a large bowel movement couple days ago patient was complaining of nausea and vomiting. Patient denied any fever chills. Patient had leukocytosis which is bit worse from last hospitalization. Patient was also treated for acute renal failure acute tubular necrosis from nonsteroidal anti-inflammatory usage and sepsis. Patient's potassium is 5.5 Review of Systems REVIEW OF SYSTEMS: CONSTITUTIONAL: No fever, no malaise, no fatigue. HEENT: No recent visual problems or hearing problems. Denied any sore throat. CARDIOVASCULAR: No chest pain, orthopnea, PND, no palpitations, no syncope. PULMONARY: No shortness of breath, no cough, no hemoptysis. GASTROINTESTINAL: As mentioned in HPI NEUROLOGICAL: No headaches, no weakness, no numbness. HEMATOLOGICAL: Denies any bleeding or petechiae. GENITOURINARY: Denies any burning micturition, frequency, or urgency. MUSCULOSKELETAL/RHEUMATOLOGICAL: Denies any joint pain, swelling, or any muscle pain. ENDOCRINE: Denies any polyuria or polydipsia. The rest of the 14-point review of systems is negative. Past Medical History Past Medical History: Coronary Artery Disease (CAD), Heart Failure, Diabetes Mellitus, Hyperlipidemia, Hypertension, Myocardial Infarction (ME) Additional Past Medical History / Comment(s): scoliosis of spine, 3 ME's x7 stents (2014 x2 ME's w/stents, 2016 ME w/stents), DM II. Last Myocardial Infarction Date:: 2015 History of Any Multi-Drug Resistant Organisms: None Reported Past Surgical History: Back Surgery Additional Past Surgical History / Comment(s): Pt states: "ME's with stents, left knee scope." Past Anesthesia/Blood Transfusion Reactions: No Reported Reaction Past Psychological History: Anxiety, Depression Additional Psychological History / Comment(s): Patient is and lives in the family home with his . They've a total of 7 children. Four of the children currently live in the home with them. Did not relate any significant alcohol or recreational drug use. No experience. Medically disabled. No animals in the home Smoking Status: Never smoker Past Alcohol Use History: None Reported Past Drug Use History: None Reported - Past Family History Father Additional Family Medical History / Comment(s): "heart disease." Mother History Unknown: Yes Family Medical History: Cancer, Diabetes Mellitus Additional Family Medical History / Comment(s): pt states: "kidney cancer." Medications and Allergies Home Medications Medication Instructions Recorded Confirmed Type Aspirin [[place] Aspirin EC] 81 mg PO DAILY 11/22/18 11/30/18 History Atorvastatin [Lipitor] 80 mg PO HS 11/22/18 11/30/18 History Baclofen 10 mg PO Q6H PRN 11/22/18 11/30/18 History Carvedilol [Coreg] 12.5 mg PO BID 11/22/18 11/30/18 History Clopidogrel [Plavix] 75 mg PO DAILY 11/22/18 11/30/18 History Ergocalciferol (Vitamin D2) 50,000 unit PO Q72H 11/22/18 11/30/18 History [Drisdol] Furosemide [Lasix] 20 mg PO AC-SUPPER 11/22/18 11/30/18 History Glatiramer Acetate [Copaxone] 20 mg IM DAILY 11/22/18 11/30/18 History Insulin Glargine [Lantus] 70 unit SQ HS 11/22/18 11/30/18 History Insulin Glulisine [Apidra] 30 units SQ AC-TID 11/22/18 11/30/18 History Isosorbide Mononitrate ER [Imdur] 60 mg PO DAILY 11/22/18 11/30/18 History Nitroglycerin 0.4 mg SL Q5M PRN 11/22/18 11/30/18 History Polyethylene Glycol 3350 [Miralax] 17 gm PO DAILY 11/22/18 11/30/18 History QUEtiapine [SEROquel] 100 mg PO HS 11/22/18 11/30/18 History Selsun Blue 1 applic TOPICAL DAILY 11/22/18 11/30/18 History Vortioxetine Hydrobromide 20 mg PO DAILY 11/22/18 11/30/18 History [Trintellix] traMADol HCL [Ultram] 50 mg PO Q6H PRN 11/22/18 11/30/18 History ceFAZolin [Kefzol] 2 gm IVP Q8HR #42 ml 11/24/18 11/30/18 Rx HYDROcodone/APAP 5-325MG [[place] 5] 1 tab PO Q4HR PRN 11/30/18 11/30/18 History Allergies Allergy/AdvReac Type Severity Reaction Status Date / Time No Known Allergies Allergy Verified 11/30/18 11:02 Physical Exam Vitals: Vital Signs Temp Pulse Resp BP BP Pulse Ox 11/30/18 17:07 162/84 11/30/18 16:00 18 11/30/18 15:30 97.7 F 75 18 173/99 96 11/30/18 14:00 76 19 168/105 98 11/30/18 13:30 76 19 176/103 96 11/30/18 13:28 97.9 F 76 18 176/103 95 11/30/18 13:00 77 19 164/104 96 11/30/18 12:30 77 18 172/101 97 11/30/18 12:00 183/115 11/30/18 11:30 194/107 96 11/30/18 10:51 98.1 F 82 18 155/95 98 Intake and Output 11/30/18 11/30/18 11/30/18 06:59 14:59 22:59 Other: Weight 122.47 kg PHYSICAL EXAMINATION: GENERAL: The patient is alert and oriented x3, not in any acute distress. Well developed, well nourished. Obese HEENT: Pupils are round and equally reacting to light. EOMI. No scleral icterus. No conjunctival pallor. Normocephalic, atraumatic. No pharyngeal erythema. No thyromegaly. CARDIOVASCULAR: S1 and S2 present. No murmurs, rubs, or gallops. PULMONARY: Chest is clear to auscultation, no wheezing or crackles. ABDOMEN: Soft, mild left upper quadrant tenderness MUSCULOSKELETAL: No joint swelling or deformity. EXTREMITIES: No cyanosis, clubbing, or pedal edema. NEUROLOGICAL: Gross neurological examination did not reveal any focal deficits. SKIN: No rashes. Results CBC & Chem 7: 11/30/18 11:25 11/30/18 11:25 Labs: Abnormal Lab Results - Last 24 Hours (Table) 11/30/18 11/30/18 11/30/18 Range/Units 11:25 11:25 11:25 WBC 11.2 H (3.8-10.6) k/uL Hgb 11.9 L (13.0-17.5) gm/dL Hct 36.3 L (39.0-53.0) % Neutrophils # 8.9 H (1.3-7.7) k/uL Potassium 5.5 H (3.5-5.1) mmol/L BUN 31 H (9-20) mg/dL Creatinine 2.62 H (0.66-1.25) mg/dL Glucose 201 H (74-99) mg/dL Plasma Lactic Acid Sergo 2.4 H* (0.7-2.0) mmol/L ALT 19 L (21-72) U/L Amylase <30 L (30-110) U/L Urine Protein (Negative) Urine Glucose (UA) (Negative) Urine Blood (Negative) Urine Mucus (None) /hpf 11/30/18 Range/Units 11:40 WBC (3.8-10.6) k/uL Hgb (13.0-17.5) gm/dL Hct (39.0-53.0) % Neutrophils # (1.3-7.7) k/uL Potassium (3.5-5.1) mmol/L BUN (9-20) mg/dL Creatinine (0.66-1.25) mg/dL Glucose (74-99) mg/dL Plasma Lactic Acid Sergo (0.7-2.0) mmol/L ALT (21-72) U/L Amylase (30-110) U/L Urine Protein Trace H (Negative) Urine Glucose (UA) Trace H (Negative) Urine Blood Small H (Negative) Urine Mucus Rare H (None) /hpf Thrombosis Risk Factor Assmnt - Choose All That Apply Each Factor Represents 1 point: Obesity (BMI >25) Other Risk Factors: No Other congenital or acquired thrombophilia - If yes, enter type in comment: No Thrombosis Risk Factor Assessment Total Risk Factor Score: 1 Thrombosis Risk Factor Assessment Level: Low Risk Assessment and Plan Plan: -Abdominal pain nausea vomiting: Possibility of diverticulitis patient is on Unasyn and infectious disease was consulted. Patient will be continued on IV fluids -Acute renal failure patient had a recent acute tubular necrosis baseline creatinine the past is 1 discharge creatinine was 2.5 patient's creatinine is about that level nonsteroidal anti-inflammatory is still be discontinued patient will be continued on IV fluids", monitoring and the monitor kidney function with basic metabolic profile. -Recent paraspinal abscess patient's antibiotics as mentioned above -Coronary artery disease continue with his home regimen of dual antiplatelet therapy beta lukas -Congestive heart failure: Chronic systolic dysfunction ejection fraction unkno wn at this point of time hold off Lasix continue IV fluids -Hyperkalemia secondary to acute renal failure and chronic kidney disease unable to stage chronic kidney disease at this time as his creatinine is not stabilized yet. Patient will be started on Atenolol which will also help with his constip ation -Multiple sclerosis without any new neurological deficits at this time next and-hyperlipidemia -Hypertension -DVT prophylaxis with subcutaneous heparin. GI prophylaxis with Pepcid Protonix will be discontinued because of her kidney function
[2018-11-30] MEDS: INSULIN ASPART (NovoLOG) 100 UNIT/ML VIAL SQ SCH (17:39)
[2018-11-30] MEDS: AMPICILLIN-SULBACTAM 3 GM in SODIUM CHLORIDE 0.9% 100 ML IVPB SCH ×2 (17:46→23:26)
[2018-11-30] MEDS: CARVEDILOL 12.5 MG TAB PO SCH (17:46)
[2018-11-30 19:52] LABS: Glucose,Whole Blood 141 mg/dL (75-99)
[2018-11-30] MEDS: INSULIN DETEMIR (LEVEMIR) 100 UNIT/ML SYR SQ SCH (21:38)
[2018-11-30] MEDS: FAMOTIDINE 20 MG TAB PO SCH (21:39)
[2018-11-30] MEDS: ATORVASTATIN 80 MG TAB PO SCH (21:39)
[2018-11-30] MEDS: QUEtiapine 100 MG TAB PO SCH (21:39)
[2018-11-30] MEDS: HEPARIN SODIUM,PORCINE 5,000 UNIT/ML 1 ML VIAL SQ SCH (23:32)
[2018-12-01] MEDS: SODIUM CHLORIDE 0.9% 1,000 ML IV SCH ×2 (01:02→22:53)
[2018-12-01] MEDS: AMPICILLIN-SULBACTAM 3 GM in SODIUM CHLORIDE 0.9% 100 ML IVPB SCH ×4 (06:05→23:14)
[2018-12-01 07:11] LABS: Glucose,Whole Blood 167 mg/dL (75-99)
[2018-12-01 07:28] LABS: HGB 10.2 gm/dL (13.0-17.5); MCH 27.5 pg (25.0-35.0); MCV 83.5 fL (80.0-100.0); Mean Platelet Volume 6.9; Platelet Count 313 k/uL (150-450); RBC 3.71 m/uL (4.30-5.90); RDW 14.3 % (11.5-15.5); WBC 8.7 k/uL (3.8-10.6)
[2018-12-01 07:48] LABS: Potassium 5.5 mmol/L (3.5-5.1)
[2018-12-01] MEDS: INSULIN ASPART (NovoLOG) 100 UNIT/ML VIAL SQ SCH ×3 (08:29→17:45)
[2018-12-01] MEDS: POLYETHYLENE GLYCOL 3350 17 GM POWD.PACK PO SCH (08:29)
[2018-12-01] MEDS: CLOPIDOGREL 75 MG TAB PO SCH (08:30)
[2018-12-01] MEDS: CARVEDILOL 12.5 MG TAB PO SCH ×2 (08:30→17:45)
[2018-12-01] MEDS: ASPIRIN 81 MG PO SCH (08:30)
[2018-12-01] MEDS: HEPARIN SODIUM,PORCINE 5,000 UNIT/ML 1 ML VIAL SQ SCH ×3 (08:30→23:13)
[2018-12-01] MEDS: VORTIOXETINE HYDROBROMIDE 20 MG TABLET PO SCH (08:30)
[2018-12-01] MEDS: ISOSORBIDE MONONITRATE ER 60 MG TAB.ER.24H PO SCH (08:31)
[2018-12-01] MEDS: FAMOTIDINE 20 MG TAB PO SCH (08:31)
[2018-12-01] MEDS: COPAXONE 20 MG IM SCH (08:32)
[2018-12-01] MEDS ORDERED: PANTOPRAZOLE 40 MG/10 ML VIAL IV SCH (09:00)
[2018-12-01 11:59] LABS: Glucose,Whole Blood 162 mg/dL (75-99)
[2018-12-01] MEDS ORDERED: SODIUM POLYSTYRENE SULFONATE 15 GM/60 ML BOTTLE PO STA (12:36)
[2018-12-01] MEDS: MORPHINE SULFATE 4 MG/ML SYRINGE IV PRN (13:12)
--- NOTE | 2018-12-01 15:58 | P.PN ---
Subjective Patient was admitted for diverticulitis. Patient is on Unasyn still complaining of some abdominal pain was recently had a paraspinal abscess. Patient would assume is still elevated low potassium diet and patient will be given capsulate. Patient does have kidney dysfunction because of his recent acute tubular necrosis and his creatinine remained stable at 2.5. Constitutional: Denied any fatigue denied any fever. Cardio vascular: denied any chest pain, palpitations Gastrointestinal denied any nausea vomiting Pulmonary: Denied any shortness of breath cough Neurologic denied any new focal deficits All inpatient medications were reviewed and appropriate changes in these medications as dictated in the interval history and assessment and plan. Objective - Vital Signs Vital signs: Vital Signs Temp 98.1 F 12/01/18 15:00 Pulse 79 12/01/18 15:00 Resp 16 12/01/18 15:49 BP 146/91 12/01/18 15:00 Pulse Ox 95 12/01/18 15:00 Intake & Output 11/30/18 12/01/18 12/01/18 18:59 06:59 18:59 Intake Total 222 Balance 222 Weight 122.47 kg Intake: Oral 222 Other: Voiding Method Toilet # Voids 1 - Exam PHYSICAL EXAMINATION: GENERAL: The patient is alert and oriented x3, not in any acute distress. Well developed, well nourished. Obese HEENT: Pupils are round and equally reacting to light. EOMI. No scleral icterus. No conjunctival pallor. Normocephalic, atraumatic. No pharyngeal erythema. No thyromegaly. CARDIOVASCULAR: S1 and S2 present. No murmurs, rubs, or gallops. PULMONARY: Chest is clear to auscultation, no wheezing or crackles. ABDOMEN: Soft, mild left upper quadrant tenderness MUSCULOSKELETAL: No joint swelling or deformity. EXTREMITIES: No cyanosis, clubbing, or pedal edema. NEUROLOGICAL: Gross neurological examination did not reveal any focal deficits. SKIN: No rashes. - Labs CBC & Chem 7: 12/01/18 06:53 12/01/18 06:53 Labs: Abnormal Lab Results - Last 24 Hours (Table) 11/30/18 11/30/18 12/01/18 Range/Units 17:24 19:50 06:53 RBC 3.71 L (4.30-5.90) m/uL Hgb 10.2 L (13.0-17.5) gm/dL Hct 31.0 L (39.0-53.0) % Potassium (3.5-5.1) mmol/L BUN (9-20) mg/dL Creatinine (0.66-1.25) mg/dL Glucose (74-99) mg/dL POC Glucose (mg/dL) 108 H 141 H (75-99) mg/dL 12/01/18 12/01/18 12/01/18 Range/Units 06:53 06:59 11:48 RBC (4.30-5.90) m/uL Hgb (13.0-17.5) gm/dL Hct (39.0-53.0) % Potassium 5.5 H (3.5-5.1) mmol/L BUN 32 H (9-20) mg/dL Creatinine 2.66 H (0.66-1.25) mg/dL Glucose 158 H (74-99) mg/dL POC Glucose (mg/dL) 167 H 162 H (75-99) mg/dL Microbiology - Last 24 Hours (Table) 11/30/18 11:25 Blood Culture - Preliminary Blood No Growth after 24 hours Assessment and Plan Plan: -Abdominal pain nausea vomiting: Possibility of diverticulitis patient is on Unasyn and infectious disease was consulted. Patient will be continued on IV fluids -Acute renal failure patient had a recent acute tubular necrosis baseline creatinine the past is 1 discharge creatinine was 2.5 patient's creatinine is stable at that level -Recent paraspinal abscess patient's antibiotics as mentioned above -Coronary artery disease continue with his home regimen of dual antiplatelet therapy beta lukas -Congestive heart failure: Chronic systolic dysfunction ejection fraction unknown at this point of time hold off Lasix continue IV fluids -Hyperkalemia secondary to acute renal failure and chronic kidney disease unable to stage chronic kidney disease at this time as his creatinine is not stabilized yet. Patient will be started on Atenolol which will also help with his constipation -Multiple sclerosis without any new neurological deficits at this time next and- hyperlipidemia -Hypertension -DVT prophylaxis with subcutaneous heparin. GI prophylaxis with Pepcid Protonix will be discontinued because of her kidney function
[2018-12-01 17:06] LABS: Glucose,Whole Blood 108 mg/dL (75-99)
[2018-12-01 17:51] LABS: Hemoglobin A1C 11.5 % (4.0-6.0)
[2018-12-01 21:24] LABS: Glucose,Whole Blood 229 mg/dL (75-99)
[2018-12-01] MEDS: ATORVASTATIN 80 MG TAB PO SCH (21:29)
[2018-12-01] MEDS: QUEtiapine 100 MG TAB PO SCH (21:29)
[2018-12-01] MEDS: INSULIN DETEMIR (LEVEMIR) 100 UNIT/ML SYR SQ SCH (21:29)
--- NOTE | 2018-12-01 21:43 | P.CONS ---
History of Present Illness - Reason for Consult Consult date: 12/01/18 - Chief Complaint Abdominal pain and nausea - History of Present Illness 43-year-old male that has a long-standing history of diabetes mellitus type 2 that is poorly controlled hemoglobin A1c has been at 13 more recently was about 11. Relates that he has been having ongoing medical troubles with his underlying coronary artery disease and his multiple sclerosis. As of late he's been doing somewhat poorly and that the MS has been flaring is having increasing difficulties with ambulation and discomforts to his lower extremities. He relates several weeks ago started to feel more poorly and developed an infected cyst on his back that became progressively more uncomfortable. It became larger, swollen, warm and reddened and constantly his attempted to drain it. Her manipulation did not allow any drainage and now the site has considerably worsened. There was a large area that was very painful making it difficult for him to lay supine cause of the swelling and tenderness. He started physically feel more poorly low-grade fever with chills and thought that his MS was worsening. Consequently presented to his local emergency center. There he underwent evaluations which included computed tomography scan and ultrasound and constantly was referred to our facility for surgical evaluation. During that stay he was seen by our service as well as surgery and incision and drainage was performed to the site. The areas been showing marked improvement and he was sent home on intravenous antibiotic therapy. However within 12 hours of is discharged home his catheter malfunctioned and he had rapidly increasing abdominal pain. He did not have any pain medication to take at home and his abdominal pain became so severe that he presented back to the emergency center. Imaging studies revealed evidence of diverticulitis and with the fever he was admitted, and buttocks were initiated and consults were requested. At this time he is feeling better after pain control, antibiotics and fluids. Review of Systems 43-year-old male or comfortable this evening as his abdominal pain has improved HEENT:has only a mild headache but no acute visual change. Denies sinus or mouth discomforts. Denies neck stiffness or pain. Denies significant oral cavity pain. Denies difficulty on swallowing. Lungs: Denies significant shortness of breath, cough, sputum production, or hemoptysis. Cardiovascular: Denies significant shortness of breath, chest pain, chest wall pain, orthopnea, dyspnea on exertion, syncope Gastrointestinal: Abdominal pain improving no nausea as of now no emesis hematemesis melena or hematochezia or occurring he's had no constipation Musculoskeletal: relates to significant pain to his lower extremities that is worsened as his MS has recently flared Skin: Back abscess improving Neuro: has MS flare which is causing pain and weakness to his lower extremities Psychiatric:chronic anxiety and depression Endocrine: chronic fatigue and weight has been increasing Past Medical History Past Medical History: Coronary Artery Disease (CAD), Heart Failure, Diabetes Mellitus, Hyperlipidemia, Hypertension, Myocardial Infarction (NJ) Additional Past Medical History / Comment(s): scoliosis of spine, 3 NJ's x7 stents (2013 x2 NJ's w/stents, 2015 NJ w/stents), DM II. Last Myocardial Infarction Date:: 2015 History of Any Multi-Drug Resistant Organisms: None Reported Past Surgical History: Back Surgery Additional Past Surgical History / Comment(s): Pt states: "NJ's with stents, left knee scope." Past Anesthesia/Blood Transfusion Reactions: No Reported Reaction Past Psychological History: Anxiety, Depression Additional Psychological History / Comment(s): Patient is and lives in the family home with his . They've a total of 7 children. Four of the children currently live in the home with them. Did not relate any significant alcohol or recreational drug use. No experience. Medically disabled. No animals in the home Smoking Status: Never smoker Past Alcohol Use History: None Reported Past Drug Use History: None Reported - Past Family History Father Additional Family Medical History / Comment(s): "heart disease." Mother History Unknown: Yes Family Medical History: Cancer, Diabetes Mellitus Additional Family Medical History / Comment(s): pt states: "kidney cancer." Medications and Allergies Home Medications and Allergies Comment(s): Current Medications Acetaminophen (Tylenol Tab) 650 mg PO Q6HR PRN PRN Reason: Mild Pain or Fever > 100.5 Hydrocodone Bitart/Acetaminophen ([place] 5-325) 1 each PO Q4HR PRN PRN Reason: Pain Aspirin (Aspirin) 81 mg PO DAILY [facility] Last Admin: 12/01/18 08:30 Dose: 81 mg Documented by: Atorvastatin Calcium (Lipitor) 80 mg PO HS [facility] Last Admin: 11/30/18 21:39 Dose: 80 mg Documented by: Baclofen (Lioresal) 10 mg PO Q6H PRN PRN Reason: Spasms Carvedilol (Coreg) 12.5 mg PO BID-W/MEALS [facility] Last Admin: 12/01/18 17:45 Dose: 12.5 mg Documented by: Clopidogrel Bisulfate (Plavix) 75 mg PO DAILY [facility] Last Admin: 12/01/18 08:30 Dose: 75 mg Documented by: Famotidine (Pepcid) 20 mg PO DAILY [facility] Heparin Sodium (Porcine) (Heparin) 5,000 unit SQ Q8HR [facility] Last Admin: 12/01/18 17:45 Dose: 5,000 unit Documented by: Ampicillin Sodium/Sulbactam (Sodium 3 gm/ Sodium Chloride) 100 mls @ 200 mls/hr IVPB Q6HR [facility] Last Admin: 12/01/18 17:46 Dose: 200 mls/hr Documented by: Insulin Aspart (Novolog) 30 unit SQ AC-TID [facility] Last Admin: 12/01/18 17:45 Dose: Not Given Documented by: Insulin Detemir (Levemir) 70 unit SQ [facility] Last Admin: 11/30/18 21:38 Dose: Not Given Documented by: Isosorbide Mononitrate (Imdur) 60 mg PO DAILY [facility] Last Admin: 12/01/18 08:31 Dose: 60 mg Documented by: Morphine Sulfate (Morphine Sulfate (Inj)) 4 mg IV Q4HR PRN PRN Reason: Severe Pain Last Admin: 12/01/18 13:12 Dose: 4 mg Documented by: Naloxone HCl (Narcan) 0.2 mg IV Q2M PRN PRN Reason: Opioid Reversal Nitroglycerin (Nitrostat) 0.4 mg SUBLINGUAL Q5M PRN PRN Reason: Chest Pain Copaxone 20mg 20 mg IM DAILY [facility] Last Admin: 12/01/18 08:32 Dose: Not Given Documented by: Ondansetron HCl (Zofran) 4 mg IVP Q8HR PRN PRN Reason: Nausea And Vomiting Last Admin: 12/01/18 06:12 Dose: 4 mg Documented by: Polyethylene Glycol (Miralax) 17 gm PO DAILY [facility] Last Admin: 12/01/18 08:29 Dose: 17 gm Documented by: Quetiapine Fumarate (Seroquel) 100 mg PO [facility] Last Admin: 11/30/18 21:39 Dose: 100 mg Documented by: Tramadol HCl (Ultram) 50 mg PO Q6H PRN PRN Reason: Pain Vortioxetine (Trintellix) 20 mg PO DAILY [facility] Last Admin: 12/01/18 08:30 Dose: 20 mg Documented by: Home Medications Medication Instructions Recorded Confirmed Type Aspirin [[place] Aspirin EC] 81 mg PO DAILY 11/22/18 11/30/18 History Atorvastatin [Lipitor] 80 mg PO HS 11/22/18 11/30/18 History Baclofen 10 mg PO Q6H PRN 11/22/18 11/30/18 History Carvedilol [Coreg] 12.5 mg PO BID 11/22/18 11/30/18 History Clopidogrel [Plavix] 75 mg PO DAILY 11/22/18 11/30/18 History Ergocalciferol (Vitamin D2) 50,000 unit PO Q72H 11/22/18 11/30/18 History [Drisdol] Furosemide [Lasix] 20 mg PO AC-SUPPER 11/22/18 11/30/18 History Glatiramer Acetate [Copaxone] 20 mg IM DAILY 11/22/18 11/30/18 History Insulin Glargine [Lantus] 70 unit SQ HS 11/22/18 11/30/18 History Insulin Glulisine [Apidra] 30 units SQ AC-TID 11/22/18 11/30/18 History Isosorbide Mononitrate ER [Imdur] 60 mg PO DAILY 11/22/18 11/30/18 History Nitroglycerin 0.4 mg SL Q5M PRN 11/22/18 11/30/18 History Polyethylene Glycol 3350 [Miralax] 17 gm PO DAILY 11/22/18 11/30/18 History QUEtiapine [SEROquel] 100 mg PO HS 11/22/18 11/30/18 History Selsun Blue 1 applic TOPICAL DAILY 11/22/18 11/30/18 History Vortioxetine Hydrobromide 20 mg PO DAILY 11/22/18 11/30/18 History [Trintellix] traMADol HCL [Ultram] 50 mg PO Q6H PRN 11/22/18 11/30/18 History ceFAZolin [Kefzol] 2 gm IVP Q8HR #42 ml 11/24/18 11/30/18 Rx HYDROcodone/APAP 5-325MG [[place] 5] 1 tab PO Q4HR PRN 11/30/18 11/30/18 History Allergies Allergy/AdvReac Type Severity Reaction Status Date / Time No Known Allergies Allergy Verified 11/30/18 11:02 Physical Exam Vitals: Vital Signs Temp Pulse Resp BP Pulse Ox 12/01/18 20:56 98.4 F 88 18 169/96 97 12/01/18 15:49 16 12/01/18 15:00 98.1 F 79 16 146/91 95 12/01/18 08:00 16 12/01/18 07:00 98.1 F 82 16 148/90 95 12/01/18 00:52 97.9 F 72 16 150/84 94 L Intake and Output 12/01/18 12/01/18 12/01/18 06:59 14:59 22:59 Intake Total 222 Balance 222 Intake: Oral 222 Other: # Voids 1 Results CBC & Chem 7: 12/01/18 06:53 12/01/18 06:53 Labs: Abnormal Lab Results - Last 24 Hours (Table) 12/01/18 12/01/18 12/01/18 Range/Units 06:53 06:53 06:53 RBC 3.71 L (4.30-5.90) m/uL Hgb 10.2 L (13.0-17.5) gm/dL Hct 31.0 L (39.0-53.0) % Potassium 5.5 H (3.5-5.1) mmol/L BUN 32 H (9-20) mg/dL Creatinine 2.66 H (0.66-1.25) mg/dL Glucose 158 H (74-99) mg/dL POC Glucose (mg/dL) (75-99) mg/dL Hemoglobin A1c 11.5 H (4.0-6.0) % 12/01/18 12/01/18 12/01/18 Range/Units 06:59 11:48 16:54 RBC (4.30-5.90) m/uL Hgb (13.0-17.5) gm/dL Hct (39.0-53.0) % Potassium (3.5-5.1) mmol/L BUN (9-20) mg/dL Creatinine (0.66-1.25) mg/dL Glucose (74-99) mg/dL POC Glucose (mg/dL) 167 H 162 H 108 H (75-99) mg/dL Hemoglobin A1c (4.0-6.0) % 12/01/18 Range/Units 21:10 RBC (4.30-5.90) m/uL Hgb (13.0-17.5) gm/dL Hct (39.0-53.0) % Potassium (3.5-5.1) mmol/L BUN (9-20) mg/dL Creatinine (0.66-1.25) mg/dL Glucose (74-99) mg/dL POC Glucose (mg/dL) 229 H (75-99) mg/dL Hemoglobin A1c (4.0-6.0) % Microbiology - Last 24 Hours (Table) 11/30/18 11:25 Blood Culture - Preliminary Blood No Growth after 24 hours Assessment and Plan (1) Diabetes mellitus type 2, uncontrolled, with complications Current Visit: Yes Status: Acute Code(s): E11.8 - TYPE 2 DIABETES MELLITUS WITH UNSPECIFIED COMPLICATIONS; E11.65 - TYPE 2 DIABETES MELLITUS WITH HYPERGLYCEMIA SNOMED Code(s): 75764608 (2) Diverticulitis Narrative/Plan: 43-year-old male who was recently hospitalized due to a significant abscess to his back. Palpitation with his uncontrolled diabetes mellitus type 2. Patient incision and drainage was having some improvement and was discharged home on outpatient intravenous antibiotic therapy. However the patient's catheter which is a midline surgical malfunction and developed increasing abdominal pain left lower quadrant. He constantly presented back to the emergency center with a fever and abdominal pain without evidence of some diverticulitis that is mild in the sigmoid colon. Antibiotic therapy was suggested with Unasyn based on his prior recent culture with MSSA and the diverticulitis. Patient is now feeling better after fluid resuscitation which quickly resolved his mild lactic acidosis that was present on admission due to his early sepsis. His abdominal pains are improving. He is taking in some nutrition without difficulty such as nausea or emesis at this time. He does have leukocytosis it's improving. He is not having high fever at this time. He'll continue with the local wound care to the back which is the silver d ressing and ABD pad. Ongoing aggressive control of his blood sugars to help his overall healing status. Once his gastric intestinal function is improved with restart a multivitamin help with his overall healing. As he improves will work with our options for his outpatient intravenous antibiotic therapy. Current Visit: Yes Status: Acute Code(s): K57.92 - DVTRCLI OF INTEST, PART UNSP, W/O PERF OR ABSCESS W/O BLEED SNOMED Code(s): 614216933 (3) Multiple sclerosis Current Visit: Yes Status: Acute Code(s): G35 - MULTIPLE SCLEROSIS SNOMED Code(s): 26456019
[2018-12-02] MEDS: HYDROcodone/APAP 5-325MG 1 EACH TAB PO PRN ×3 (04:56→22:39)
[2018-12-02] MEDS: AMPICILLIN-SULBACTAM 3 GM in SODIUM CHLORIDE 0.9% 100 ML IVPB SCH ×4 (04:59→22:40)
[2018-12-02 07:15] LABS: Glucose,Whole Blood 179 mg/dL (75-99)
[2018-12-02 07:36] LABS: HCT 31.1 % (39.0-53.0); HGB 10.3 gm/dL (13.0-17.5); MCH 27.7 pg (25.0-35.0); MCHC 33.1 g/dL (31.0-37.0); MCV 83.5 fL (80.0-100.0); Mean Platelet Volume 7.3; Platelet Count 311 k/uL (150-450); RBC 3.73 m/uL (4.30-5.90); WBC 7.2 k/uL (3.8-10.6)
[2018-12-02] MEDS: FAMOTIDINE 20 MG TAB PO SCH (07:56)
[2018-12-02] MEDS: ISOSORBIDE MONONITRATE ER 60 MG TAB.ER.24H PO SCH (07:56)
[2018-12-02] MEDS: ASPIRIN 81 MG PO SCH (07:56)
[2018-12-02] MEDS: HEPARIN SODIUM,PORCINE 5,000 UNIT/ML 1 ML VIAL SQ SCH ×3 (07:56→22:39)
[2018-12-02] MEDS: CARVEDILOL 12.5 MG TAB PO SCH ×2 (07:56→16:37)
[2018-12-02] MEDS: CLOPIDOGREL 75 MG TAB PO SCH (07:56)
[2018-12-02] MEDS: INSULIN ASPART (NovoLOG) 100 UNIT/ML VIAL SQ SCH ×3 (07:56→17:31)
[2018-12-02] MEDS: COPAXONE 20 MG IM SCH (07:58)
[2018-12-02] MEDS: POLYETHYLENE GLYCOL 3350 17 GM POWD.PACK PO SCH (07:58)
[2018-12-02 07:59] LABS: Calcium 8.6 mg/dL (8.4-10.2)
[2018-12-02] MEDS: VORTIOXETINE HYDROBROMIDE 20 MG TABLET PO SCH (08:04)
[2018-12-02] MEDS ORDERED: LACTULOSE 20 GM/30 ML CUP PO PRN (11:22)
[2018-12-02 11:32] LABS: Glucose,Whole Blood 232 mg/dL (75-99)
--- NOTE | 2018-12-02 15:24 | P.PN ---
Subjective Patient was admitted for diverticulitis. Patient is on Unasyn still complaining of some abdominal pain was recently had a paraspinal abscess. Patient would assume is still elevated low potassium diet and patient will be given capsulate. Patient does have kidney dysfunction because of his recent acute tubular necrosis and his creatinine remained stable at 2.5. 12/02/2018 Patient is still having some abdominal pain and wanted to go home but patient patient did move his bowels for last 5 days a asked him to avoid [place]. We'll use the Tylenol for pain. We'll give lactulose for his constipation if he is able to move his bowels patient will be discharged tomorrow. Will discuss with infectious disease regarding discharge antibiotics. His abdominal pain and distention is most related to constipation rather than diverticulitis. Patient creatinine did improve minimally with the patient started swelling in both legs because of which IV fluids at this can you patient will not be resumed on Lasix yet Constitutional: Denied any fatigue denied any fever. Cardio vascular: denied any chest pain, palpitations Gastrointestinal denied any nausea vomiting Pulmonary: Denied any shortness of breath cough Neurologic denied any new focal deficits All inpatient medications were reviewed and appropriate changes in these medications as dictated in the interval history and assessment and plan. Objective - Vital Signs Vital signs: Vital Signs Temp 98.3 F 12/02/18 07:00 Pulse 80 12/02/18 07:00 Resp 16 12/02/18 08:00 BP 166/90 12/02/18 07:00 Pulse Ox 97 12/02/18 07:00 Intake & Output 12/01/18 12/02/18 12/02/18 18:59 06:59 18:59 Intake Total 222 500 Balance 222 500 Intake: Oral 222 500 Other: Voiding Method Toilet Toilet # Voids 1 2 - Exam PHYSICAL EXAMINATION: GENERAL: The patient is alert and oriented x3, not in any acute distress. Well developed, well nourished. Obese HEENT: Pupils are round and equally reacting to light. EOMI. No scleral icterus. No conjunctival pallor. Normocephalic, atraumatic. No pharyngeal erythema. No thyromegaly. CARDIOVASCULAR: S1 and S2 present. No murmurs, rubs, or gallops. PULMONARY: Chest is clear to auscultation, no wheezing or crackles. ABDOMEN: Soft, mild left upper quadrant tenderness MUSCULOSKELETAL: No joint swelling or deformity. EXTREMITIES: No cyanosis, clubbing, or pedal edema. NEUROLOGICAL: Gross neurological examination did not reveal any focal deficits. SKIN: No rashes. - Labs CBC & Chem 7: 12/02/18 07:23 12/02/18 07:23 Labs: Abnormal Lab Results - Last 24 Hours (Table) 12/01/18 12/01/18 12/01/18 Range/Units 06:53 16:54 21:10 RBC (4.30-5.90) m/uL Hgb (13.0-17.5) gm/dL Hct (39.0-53.0) % BUN (9-20) mg/dL Creatinine (0.66-1.25) mg/dL Glucose (74-99) mg/dL POC Glucose (mg/dL) 108 H 229 H (75-99) mg/dL Hemoglobin A1c 11.5 H (4.0-6.0) % 12/02/18 12/02/18 12/02/18 Range/Units 07:11 07:23 07:23 RBC 3.73 L (4.30-5.90) m/uL Hgb 10.3 L (13.0-17.5) gm/dL Hct 31.1 L (39.0-53.0) % BUN 28 H (9-20) mg/dL Creatinine 2.38 H (0.66-1.25) mg/dL Glucose 169 H (74-99) mg/dL POC Glucose (mg/dL) 179 H (75-99) mg/dL Hemoglobin A1c (4.0-6.0) % 12/02/18 Range/Units 11:19 RBC (4.30-5.90) m/uL Hgb (13.0-17.5) gm/dL Hct (39.0-53.0) % BUN (9-20) mg/dL Creatinine (0.66-1.25) mg/dL Glucose (74-99) mg/dL POC Glucose (mg/dL) 232 H (75-99) mg/dL Hemoglobin A1c (4.0-6.0) % Microbiology - Last 24 Hours (Table) 11/30/18 11:25 Blood Culture - Preliminary Blood No Growth after 48 hours Assessment and Plan Plan: -Abdominal pain nausea vomiting: Possibility of diverticulitis patient is on Unasyn and infectious disease evaluated the patient, patient is constipated most agrees contributed to his symptoms will use lactulose avoid opiates -Acute renal failure patient had a recent acute tubular necrosis baseline creatinine the past is 1 discharge creatinine was 2.3, improved compared to yesterday -Recent paraspinal abscess patient's antibiotics as mentioned above -Coronary artery disease continue with his home regimen of dual antiplatelet therapy beta lukas -Congestive heart failure: Chronic systolic dysfunction ejection fraction unknown at this point does not appear to be in heart failure exacerbation does have pedal edema -Hyperkalemia secondary to acute renal failure and chronic kidney disease unable to stage chronic kidney disease at this time as his creatinine is not stabilized yet. Patient will be started on Atenolol which will also help with his constipation -Multiple sclerosis without any new neurological deficits at this time next and- hyperlipidemia -Hypertension -DVT prophylaxis with subcutaneous heparin. GI prophylaxis with Pepcid Protonix will be discontinued because of her kidney function
[2018-12-02 16:57] LABS: Glucose,Whole Blood 171 mg/dL (75-99)
[2018-12-02] MEDS: ACETAMINOPHEN TAB 500 MG TAB PO PRN (17:32)
[2018-12-02] MEDS: QUEtiapine 100 MG TAB PO SCH (20:40)
[2018-12-02] MEDS: ATORVASTATIN 80 MG TAB PO SCH (20:40)
[2018-12-02] MEDS: INSULIN DETEMIR (LEVEMIR) 100 UNIT/ML SYR SQ SCH (20:40)
[2018-12-02 20:41] LABS: Glucose,Whole Blood 106 mg/dL (75-99)
[2018-12-03] MEDS: AMPICILLIN-SULBACTAM 3 GM in SODIUM CHLORIDE 0.9% 100 ML IVPB SCH ×2 (05:03→12:05)
[2018-12-03 07:37] LABS: Glucose,Whole Blood 95 mg/dL (75-99)
[2018-12-03] MEDS: HEPARIN SODIUM,PORCINE 5,000 UNIT/ML 1 ML VIAL SQ SCH ×2 (07:55→15:50)
[2018-12-03] MEDS: INSULIN ASPART (NovoLOG) 100 UNIT/ML VIAL SQ SCH ×3 (07:55→17:17)
[2018-12-03] MEDS: ASPIRIN 81 MG PO SCH (07:56)
[2018-12-03] MEDS: CARVEDILOL 12.5 MG TAB PO SCH ×2 (07:56→17:17)
[2018-12-03] MEDS: VORTIOXETINE HYDROBROMIDE 20 MG TABLET PO SCH (07:56)
[2018-12-03] MEDS: CLOPIDOGREL 75 MG TAB PO SCH (07:56)
[2018-12-03] MEDS: POLYETHYLENE GLYCOL 3350 17 GM POWD.PACK PO SCH (07:56)
[2018-12-03] MEDS: ISOSORBIDE MONONITRATE ER 60 MG TAB.ER.24H PO SCH (07:56)
[2018-12-03] MEDS: FAMOTIDINE 20 MG TAB PO SCH (07:56)
[2018-12-03] MEDS: COPAXONE 20 MG IM SCH (07:57)
[2018-12-03 08:07] VITALS: PULSE 77; RESP 16; TEMP 98.5
--- NOTE | 2018-12-03 08:13 | XR ---
EXAMINATION TYPE: XR chest 1V DATE OF EXAM: 12/03/2018 COMPARISON: 11/23/2018 HISTORY: Chest pain TECHNIQUE: Single frontal view of the chest is obtained. FINDINGS: There is no focal air space opacity, pleural effusion, or pneumothorax seen. Vascular crowding and/or atelectasis right medial lung base is stable. No evidence for congestive failure at this time. The cardiac silhouette size is within normal limits. Chronic elevation right hemidiaphragm. The osseous structures are intact. IMPRESSION: 1. Vascular crowding and/or atelectasis right medial lung base is stable. No evidence for congestiv e failure at this time.
--- NOTE | 2018-12-03 08:15 | P.PN ---
Subjective Progress Note Date: 12/02/18 43-year-old male that has a long-standing history of diabetes mellitus type 2 that is poorly controlled hemoglobin A1c has been at 13 more recently was about 11. Relates that he has been having ongoing medical troubles with his underlying coronary artery disease and his multiple sclerosis. As of late he's been doing somewhat poorly and that the MS has been flaring is having increasing difficulties with ambulation and discomforts to his lower extremities. He relates several weeks ago started to feel more poorly and developed an infected cyst on his back that became progressively more uncomfortable. It became larger, swollen, warm and reddened and constantly his attempted to drain it. Her manipulation did not allow any drainage and now the site has considerably worsened. There was a large area that was very painful making it difficult for him to lay supine cause of the swelling and tenderness. He started physically feel more poorly low-grade fever with chills and thought that his MS was worsening. Consequently presented to his local emergency center. There he underwent evaluations which included computed tomography scan and ultrasound and constantly was referred to our facility for surgical evaluation. During that stay he was seen by our service as well as surgery and incision and drainage was performed to the site. The areas been showing marked improvement and he was sent home on intravenous antibiotic therapy. However within 12 hours of is discharged home his catheter malfunctioned and he had rapidly increasing abdominal pain. He did not have any pain medication to take at home and his abdominal pain became so severe that he presented back to the emergency center. Imaging studies revealed evidence of diverticulitis and with the fever he was admitted, antibiotics were initiated and consults were requested. At this time he is feeling better after pain control, antibiotics and fluids. 12/02/2018 patient relates that he's feeling considerably better. Pain to his back is improved. The site is functioning well. It is intense abdominal pain has improved. He is regaining some appetite and has eaten at least some of his breakfast and is ingesting fluids without great difficulty. Objective - Vital Signs Vital signs: Vital Signs Temp 98.5 F 12/03/18 07:00 Pulse 77 12/03/18 07:00 Resp 16 12/03/18 07:00 BP 177/102 12/03/18 07:00 Pulse Ox 97 12/03/18 07:00 Intake & Output 12/02/18 12/03/18 12/03/18 18:59 06:59 18:59 Intake Total 900 Balance 900 Weight 122.47 kg Intake: Oral 900 Other: Voiding Method Toilet Toilet # Voids 3 2 # Bowel Movements 1 - Exam Pleasant 43-year-old male HEENT: Anicteric conjunctiva are pink and moist nasal mucosa grossly intact without significant lesions, there is no thrush. Neck: The neck is supple without significant lymphadenopathy or thyromegaly. Lungs: Good bilateral air entry without significant crackles or wheezing. There is no significant bronchial sounds. There is no egophony or dullness. Heart: Regular rate and rhythm with an audible S1-S2, no S3 no S4. There is no significant murmur click or rub, PMI was nondisplaced. Abdomen: Bowel sounds are noted, a significant left lower quadrant tenderness is slightly improved. There is no guarding or rebound. There is no rigidity. Extremities: The upper extremities have excellent pulses they are symmetric, no significant petechiae or telangiectasia. No splinter hemorrhages were noted. The lower extremities are free from significant edema. The peripheral pulses were 2+ and symmetric. Neuro: Patient is awake and alert, sitting up in the chair. Has the somewhat diffuse weakness related to his MS Skin the lesion to his back had been surgically incised and drained and is now closed with 2 sutures with only scant drainage surrounding erythema and tenderness have generally resolved. - Labs CBC & Chem 7: 12/02/18 07:23 12/02/18 07:23 Labs: Abnormal Lab Results - Last 24 Hours (Table) 12/02/18 12/02/18 12/02/18 Range/Units 11:19 16:46 20:23 POC Glucose (mg/dL) 232 H 171 H 106 H (75-99) mg/dL Microbiology - Last 24 Hours (Table) 11/30/18 11:25 Blood Culture - Preliminary Blood No Growth after 48 hours Laboratory Results WBC 7.2 k/uL (3.8-10.6) 12/02/18 07:23 RBC 3.73 m/uL (4.30-5.90) L 12/02/18 07:23 Hgb 10.3 gm/dL (13.0-17.5) L 12/02/18 07:23 Hct 31.1 % (39.0-53.0) L 12/02/18 07:23 MCV 83.5 fL (80.0-100.0) 12/02/18 07: MCH 27.7 pg (25.0-35.0) 12/02/18 07: MCHC 33.1 g/dL (31.0-37.0) 12/02/18 07: RDW 14.0 % (11.5-15.5) 12/02/18 07:23 Plt Count 311 k/uL (150-450) 12/02/18 07: Neutrophils % 79 % 11/30/18 11:25 Lymphocytes % 11 % 11/30/18 11:25 Monocytes % 5 % 11/30/18 11:25 Eosinophils % 2 % 11/30/18 11:25 Basophils % 1 % 11/30/18 11:25 Neutrophils # 8.9 k/uL (1.3-7.7) H 11/30/18 11:25 Lymphocytes # 1.3 k/uL (1.0-4.8) 11/30/18 11:25 Monocytes # 0.6 k/uL (0-1.0) 11/30/18 11:25 Eosinophils # 0.3 k/uL (0-0.7) 11/30/18 11:25 Basophils # 0.1 k/uL (0-0.2) 11/30/18 11:25 PT 10.5 sec (9.0-12.0) 11/30/18 11:25 INR 1.0 (<1.2) 11/30/18 11:25 APTT 23.3 sec (22.0-30.0) 11/30/18 11:25 Sodium 138 mmol/L (137-145) 12/02/18 07:23 Potassium 5.0 mmol/L (3.5-5.1) 12/02/18 07:23 Chloride 104 mmol/L (98-107) 12/02/18 07:23 Carbon Dioxide 30 mmol/L (22-30) 12/02/18 07:23 Anion Gap 4 mmol/L 12/02/18 07:23 BUN 28 mg/dL (9-20) H 12/02/18 07:23 Creatinine 2.38 mg/dL (0.66-1.25) H 12/02/18 07:23 Est GFR (CKD-EPI)AfAm 37 (>60 ml/min/1.73 sqM) 12/02/18 07:23 Est GFR (CKD-EPI)NonAf 32 (>60 ml/min/1.73 sqM) 12/02/18 07:23 Glucose 169 mg/dL (74-99) H 12/02/18 07:23 POC Glucose (mg/dL) 95 mg/dL (75-99) 12/03/18 07:34 POC Glu Music Typographer ID Negrita Cartagena 12/03/18 07:[address] Glu mg/dL 283 12/01/18 06:53 Hemoglobin A1c 11.5 % (4.0-6.0) H 12/01/18 06:53 Lactic Ac Sepsis Rflx Y 11/30/18 12:12 Plasma Lactic Acid Sergo 0.8 mmol/L (0.7-2.0) 11/30/18 15:35 Calcium 8.6 mg/dL (8.4-10.2) 12/02/18 07:23 Total Bilirubin 0.4 mg/dL (0.2-1.3) 11/30/18 11:25 AST 32 U/L (17-59) 11/30/18 11:25 ALT 19 U/L (21-72) L 11/30/18 11:25 Alkaline Phosphatase 105 U/L (38-126) 11/30/18 11:25 Total Protein 6.7 g/dL (6.3-8.2) 11/30/18 11:25 Albumin 3.6 g/dL (3.5-5.0) 11/30/18 11:25 Amylase <30 U/L (30-110) L 11/30/18 11:25 Lipase 73 U/L (23-300) 11/30/18 11:25 Urine Color Light Yellow 11/30/18 11:40 Urine Appearance Clear (Clear) 11/30/18 11:40 Urine pH 6.5 (5.0-8.0) 11/30/18 11:40 Ur Specific [place] 1.008 (1.001-1.035) 11/30/18 11:40 Urine Protein Trace (Negative) H 11/30/18 11:40 Urine Glucose (UA) Trace (Negative) H 11/30/18 11:40 Urine Ketones Negative (Negative) 11/30/18 11:40 Urine Blood Small (Negative) H 11/30/18 11:40 Urine Nitrite Negative (Negative) 11/30/18 11:40 Urine Bilirubin Negative (Negative) 11/30/18 11:40 Urine Urobilinogen <2.0 mg/dL (<2.0) 11/30/18 11:40 Ur Leukocyte Esterase Negative (Negative) 11/30/18 11:40 Urine RBC 1 /hpf (0-5) 11/30/18 11:40 Urine WBC 1 /hpf (0-5) 11/30/18 11:40 Ur Squamous Epith Cells <1 /hpf (0-4) 11/30/18 11:40 Urine Mucus Rare /hpf (None) H 11/30/18 11:40 Acetone, Qual Negative (Negative) 11/30/18 11:25 Microbiology 11/30/18 11:25 Blood Blood Culture - Preliminary No Growth after 48 hours Assessment and Plan (1) Diabetes mellitus type 2, uncontrolled, with complications Current Visit: Yes Status: Acute Code(s): E11.8 - TYPE 2 DIABETES MELLITUS WITH UNSPECIFIED COMPLICATIONS; E11.65 - TYPE 2 DIABETES MELLITUS WITH HYPERGLYCEMIA SNOMED Code(s): 46267984 (2) Diverticulitis Narrative/Plan: 43-year-old male who was recently hospitalized due to a significant abscess to his back. Palpitation with his uncontrolled diabetes mellitus type 2. Patient incision and drainage was having some improvement and was discharged home on outpatient intravenous antibiotic therapy. However the patient's catheter which is a midline surgical malfunction and developed increasing abdominal pain left lower quadrant. He constantly presented back to the emergency center with a fever and abdominal pain without evidence of some diverticulitis that is mild in the sigmoid colon. Antibiotic therapy was suggested with Unasyn based on his prior recent culture with MSSA and the diverticulitis. Patient is now feeling better after fluid resuscitation which quickly resolved his mild lactic acidosis that was present on admission due to his early sepsis. His abdominal pains are improving. He is taking in some nutrition without difficulty such as nausea or emesis at this time. He does have leukocytosis it's improving. He is not having high fever at this time. He'll continue with the local wound care to the back which is the silver dressing and ABD pad. Ongoing aggressive control of his blood sugars to help his overall healing status. Once his gastric intestinal function is improved with restart a multivitamin help with his overall healing. As he improves will work with our options for his outpatient intravenous antibiotic therapy.12/02/2018 patient is now starting to have some improvements with the fluids, pain control and antibiotic therapy for the diverticulitis. Fortunately the back abscess is also doing considerably better. As patient improves will need to work with home care as to what best possible option is for antibiotic therapy at home to complete treatment of the diverticulitis and abscess to his back. Likely will transition to ertapenem. Current Visit: Yes Status: Acute Code(s): K57.92 - DVTRCLI OF INTEST, PART UNSP, W/O PERF OR ABSCESS W/O BLEED SNOMED Code(s): 412367654 (3) Multiple sclerosis Current Visit: Yes Status: Acute Code(s): G35 - MULTIPLE SCLEROSIS SNOMED Code(s): 14898491
[2018-12-03 10:38] VITALS: BP 157/88
[2018-12-03 11:50] LABS: Glucose,Whole Blood 211 mg/dL (75-99)
[2018-12-03] MEDS: HYDROcodone/APAP 5-325MG 1 EACH TAB PO PRN (12:08)
[2018-12-03] MEDS ORDERED: ERTAPENEM 1 GM in SODIUM CHLORIDE 0.9% 50 ML IVPB STA (13:56)
--- NOTE | 2018-12-03 14:40 | P.DS ---
Providers Date of admission: 11/30/18 14:05 Attending physician: Vicki Farias Consults: 11/30/18 14:52 Consult Physician Stat Consulting Provider: Dre Noriega Reason/Comments: Recent back abcess, diverticulitis, midline failur Do you want consulting provider notified?: Yes Primary care physician: [facility] Course: Patient was admitted for diverticulitis. Patient is on Unasyn still complaining of some abdominal pain was recently had a paraspinal abscess. Patient would assume is still elevated low potassium diet and patient will be given capsulate. Patient does have kidney dysfunction because of his recent acute tubular necrosis and his creatinine remained stable at 2.5. 12/02/2018 Patient is still having some abdominal pain and wanted to go home but patient patient did move his bowels for last 5 days a asked him to avoid [place]. We'll use the Tylenol for pain. We'll give lactulose for his constipation if he is able to move his bowels patient will be discharged tomorrow. Will discuss with infectious disease regarding discharge antibiotics. His abdominal pain and distention is most related to constipation rather than diverticulitis. Patient creatinine did improve minimally with the patient started swelling in both legs because of which IV fluids at this can you patient will not be resumed on Lasix yet 12/03/2018 Patient's abdominal pain is better today. Had a small bowel movement. Patient was discharged on lactulose infectious disease will start him on Invanz and discontinue cefazolin PHYSICAL EXAMINATION: GENERAL: The patient is alert and oriented x3, not in any acute distress. Well developed, well nourished. Obese HEENT: Pupils are round and equally reacting to light. EOMI. No scleral icterus. No conjunctival pallor. Normocephalic, atraumatic. No pharyngeal erythema. No thyromegaly. CARDIOVASCULAR: S1 and S2 present. No murmurs, rubs, or gallops. PULMONARY: Chest is clear to auscultation, no wheezing or crackles. ABDOMEN: Soft, mild left upper quadrant tenderness MUSCULOSKELETAL: No joint swelling or deformity. EXTREMITIES: No cyanosis, clubbing, or pedal edema. NEUROLOGICAL: Gross neurological examination did not reveal any focal deficits. SKIN: No rashes. Assessment and Plan Plan: -Abdominal pain nausea vomiting: Possibility of diverticulitis patient is on Unasyn and infectious disease evaluated the patient, patient will be discharged on ertapenem IV. Abdominal pain significant improved still be constipated. Will discharge him on lactulose on as-needed basis for constipation -Acute renal failure patient had a recent acute tubular necrosis baseline creatinine the past is 1 discharge creatinine was 2.3, present creatinine is close to his recent discharge creatinine -Recent paraspinal abscess patient's antibiotics as mentioned above -Coronary artery disease continue with his home regimen of dual antiplatelet therapy beta lukas -Congestive heart failure: Chronic systolic dysfunction ejection fraction unknown at this point does not appear to be in heart failure exacerbation does have pedal edema -Hyperkalemia secondary to acute renal failure and chronic kidney disease unable to stage chronic kidney disease at this time as his creatinine is not stabilized yet. -Multiple sclerosis without any new neurological deficits at this time next and- hyperlipidemia -Hypertension -DVT prophylaxis with subcutaneous heparin. GI prophylaxis with Pepcid Protonix will be discontinued because of her kidney function Patient Condition at Discharge: Stable Plan - Discharge Summary Discharge Rx Participant: No New Discharge Prescriptions: New Lactulose [Cephulac] 20 gm PO TID PRN #20 day PRN Reason: Constipation Ertapenem [INVanz] 1 gm IM DAILY #6 vial Continue Ergocalciferol (Vitamin D2) [Drisdol] 50,000 unit PO Q72H traMADol HCL [Ultram] 50 mg PO Q6H PRN PRN Reason: Pain Vortioxetine Hydrobromide [Trintellix] 20 mg PO DAILY QUEtiapine [SEROquel] 100 mg PO HS Polyethylene Glycol 3350 [Miralax] 17 gm PO DAILY Nitroglycerin 0.4 mg SL Q5M PRN PRN Reason: Chest Pain Isosorbide Mononitrate ER [Imdur] 60 mg PO DAILY Insulin Glargine [Lantus] 70 unit SQ HS Furosemide [Lasix] 20 mg PO AC-SUPPER Glatiramer Acetate [Copaxone] 20 mg IM DAILY Clopidogrel [Plavix] 75 mg PO DAILY Carvedilol [Coreg] 12.5 mg PO BID Baclofen 10 mg PO Q6H PRN PRN Reason: Spasms Atorvastatin [Lipitor] 80 mg PO HS Aspirin [[place] Aspirin EC] 81 mg PO DAILY Sels[place] Blue 1 applic TOPICAL DAILY Insulin Glulisine [Apidra] 30 units SQ AC-TID ceFAZolin [Kefzol] 2 gm IVP Q8HR #42 ml HYDROcodone/APAP 5-325MG [[place] 5-325] 1 tab PO Q4HR PRN PRN Reason: Pain Discharge Medication List Aspirin [[place] Aspirin EC] 81 mg PO DAILY 11/22/18 [History] Atorvastatin [Lipitor] 80 mg PO HS 11/22/18 [History] Baclofen 10 mg PO Q6H PRN 11/22/18 [History] Carvedilol [Coreg] 12.5 mg PO BID 11/22/18 [History] Clopidogrel [Plavix] 75 mg PO DAILY 11/22/18 [History] Ergocalciferol (Vitamin D2) [Drisdol] 50,000 unit PO Q72H 11/22/18 [History] Furosemide [Lasix] 20 mg PO AC-SUPPER 11/22/18 [History] Glatiramer Acetate [Copaxone] 20 mg IM DAILY 11/22/18 [History] Insulin Glargine [Lantus] 70 unit SQ HS 11/22/18 [History] Insulin Glulisine [Apidra] 30 units SQ AC-TID 11/22/18 [History] Isosorbide Mononitrate ER [Imdur] 60 mg PO DAILY 11/22/18 [History] Nitroglycerin 0.4 mg SL Q5M PRN 11/22/18 [History] Polyethylene Glycol 3350 [Miralax] 17 gm PO DAILY 11/22/18 [History] QUEtiapine [SEROquel] 100 mg PO HS 11/22/18 [History] Selsun Blue 1 applic TOPICAL DAILY 11/22/18 [History] Vortioxetine Hydrobromide [Trintellix] 20 mg PO DAILY 11/22/18 [History] traMADol HCL [Ultram] 50 mg PO Q6H PRN 11/22/18 [History] ceFAZolin [Kefzol] 2 gm IVP Q8HR #42 ml 11/24/18 [Rx] HYDROcodone/APAP 5-325MG [[place] 5-325] 1 tab PO Q4HR PRN 11/30/18 [History] Ertapenem [INVanz] 1 gm IM DAILY #6 vial 12/03/18 [Rx] Lactulose [Cephulac] 20 gm PO TID PRN #20 day 12/03/18 [Rx] Follow up Appointment(s)/Referral(s): [facility], [REFERRING] - 1 Week (in [place] for GI outpatient scope. ) [facility], [NON-STAFF] - [facility], [REFERRING] - Jennifer Shirley NPC [REFERRING] - 12/16/18 3:30 pm Patient Instructions/Handouts: Diverticulitis (GEN) Activity/Diet/Wound Care/Special Instructions: Diverticulitis, diabetic diet. Activity as tolerated.
[2018-12-03] MEDS ORDERED: GLYCERIN ADULT SUPPOSITORY 1 EACH RECTAL STA (14:59)
[2018-12-03 17:26] LABS: Glucose,Whole Blood 171 mg/dL (75-99)
[2018-12-03] MEDS: ACETAMINOPHEN TAB 500 MG TAB PO PRN (17:58)
--- NOTE | 2018-12-03 21:41 | P.PN ---
Subjective Progress Note Date: 12/03/18 43-year-old male that has a long-standing history of diabetes mellitus type 2 that is poorly controlled hemoglobin A1c has been at 13 more recently was about 11. Relates that he has been having ongoing medical troubles with his underlying coronary artery disease and his multiple sclerosis. As of late he's been doing somewhat poorly and that the MS has been flaring is having increasing difficulties with ambulation and discomforts to his lower extremities. He relates several weeks ago started to feel more poorly and developed an infected cyst on his back that became progressively more uncomfortable. It became larger, swollen, warm and reddened and constantly his attempted to drain it. Her manipulation did not allow any drainage and now the site has considerably worsened. There was a large area that was very painful making it difficult for him to lay supine cause of the swelling and tenderness. He started physically feel more poorly low-grade fever with chills and thought that his MS was worsening. Consequently presented to his local emergency center. There he underwent evaluations which included computed tomography scan and ultrasound and constantly was referred to our facility for surgical evaluation. During that stay he was seen by our service as well as surgery and incision and drainage was performed to the site. The areas been showing marked improvement and he was sent home on intravenous antibiotic therapy. However within 12 hours of is discharged home his catheter malfunctioned and he had rapidly increasing abdominal pain. He did not have any pain medication to take at home and his abdominal pain became so severe that he presented back to the emergency center. Imaging studies revealed evidence of diverticulitis and with the fever he was admitted, antibiotics were initiated and consults were requested. At this time he is feeling better after pain control, antibiotics and fluids. 12/02/2018 patient relates that he's feeling considerably better. Pain to his back is improved. The site is functioning well. It is intense abdominal pain has improved. He is regaining some appetite and has eaten at least some of his breakfast and is ingesting fluids without great difficulty. 12/03/2018 patient is improved still feels constipated but nursing relates to very adequate stool output. Objective - Vital Signs Vital signs: Vital Signs Temp 98.5 F 12/03/18 07:00 Pulse 77 12/03/18 15:46 Resp 16 12/03/18 15:46 BP 157/88 12/03/18 10:38 Pulse Ox 97 12/03/18 07:00 Intake & Output 12/03/18 12/03/18 12/04/18 06:59 18:59 06:59 Intake Total 900 Output Total 1 Balance 900 -1 Intake: Oral 900 Output: Urine 1 Other: Voiding Method Toilet Toilet # Voids 2 2 # Bowel Movements 1 2 - Exam Pleasant 43-year-old male HEENT: Anicteric conjunctiva are pink and moist nasal mucosa grossly intact without significant lesions, there is no thrush. Neck: The neck is supple without significant lymphadenopathy or thyromegaly. Lungs: Good bilateral air entry without significant crackles or wheezing. There is no significant bronchial sounds. There is no egophony or dullness. Heart: Regular rate and rhythm with an audible S1-S2, no S3 no S4. There is no significant murmur click or rub, PMI was nondisplaced. Abdomen: Bowel sounds are noted, a significant left lower quadrant tenderness is slightly improved. There is no guarding or rebound. There is no rigidity. Extremities: The upper extremities have excellent pulses they are symmetric, no significant petechiae or telangiectasia. No splinter hemorrhages were noted. The lower extremities are free from significant edema. The peripheral pulses were 2+ and symmetric. Neuro: Patient is awake and alert, sitting up in the chair. Has the somewhat diffuse weakness related to his MS Skin the lesion to his back had been surgically incised and drained and is now closed with 2 sutures with only scant drainage surrounding erythema and tenderness have generally resolved. - Labs CBC & Chem 7: 12/02/18 07:23 12/02/18 07:23 Labs: Abnormal Lab Results - Last 24 Hours (Table) 12/03/18 12/03/18 Range/Units 11:38 17:15 POC Glucose (mg/dL) 211 H 171 H (75-99) mg/dL Microbiology - Last 24 Hours (Table) 11/30/18 11:25 Blood Culture - Preliminary Blood No Growth after 72 hours Laboratory Results WBC 7.2 k/uL (3.8-10.6) 12/02/18 07:23 RBC 3.73 m/uL (4.30-5.90) L 12/02/18 07:23 Hgb 10.3 gm/dL (13.0-17.5) L 12/02/18 07:23 Hct 31.1 % (39.0-53.0) L 12/02/18 07: MCV 83.5 fL (80.0-100.0) 12/02/18 07: MCH 27.7 pg (25.0-35.0) 12/02/18 07: MCHC 33.1 g/dL (31.0-37.0) 12/02/18 07: RDW 14.0 % (11.5-15.5) 12/02/18 07:23 Plt Count 311 k/uL (150-450) 12/02/18 07: Neutrophils % 79 % 11/30/18 11:25 Lymphocytes % 11 % 11/30/18 11:25 Monocytes % 5 % 11/30/18 11:25 Eosinophils % 2 % 11/30/18 11:25 Basophils % 1 % 11/30/18 11:25 Neutrophils # 8.9 k/uL (1.3-7.7) H 11/30/18 11:25 Lymphocytes # 1.3 k/uL (1.0-4.8) 11/30/18 11:25 Monocytes # 0.6 k/uL (0-1.0) 11/30/18 11:25 Eosinophils # 0.3 k/uL (0-0.7) 11/30/18 11:25 Basophils # 0.1 k/uL (0-0.2) 11/30/18 11:25 PT 10.5 sec (9.0-12.0) 11/30/18 11:25 INR 1.0 (<1.2) 11/30/18 11:25 APTT 23.3 sec (22.0-30.0) 11/30/18 11:25 Sodium 138 mmol/L (137-145) 12/02/18 07:23 Potassium 5.0 mmol/L (3.5-5.1) 12/02/18 07:23 Chloride 104 mmol/L (98-107) 12/02/18 07:23 Carbon Dioxide 30 mmol/L (22-30) 12/02/18 07:23 Anion Gap 4 mmol/L 12/02/18 07:23 BUN 28 mg/dL (9-20) H 12/02/18 07:23 Creatinine 2.38 mg/dL (0.66-1.25) H 12/02/18 07:23 Est GFR (CKD-EPI)AfAm 37 (>60 ml/min/1.73 sqM) 12/02/18 07:23 Est GFR (CKD-EPI)NonAf 32 (>60 ml/min/1.73 sqM) 12/02/18 07:23 Glucose 169 mg/dL (74-99) H 12/02/18 07:23 POC Glucose (mg/dL) 171 mg/dL (75-99) H 12/03/18 17:15 POC Glu Smocker ID Luz Dunbar 12/03/18 17:[address] Glu mg/dL 283 12/01/18 06:53 Hemoglobin A1c 11.5 % (4.0-6.0) H 12/01/18 06:53 Lactic Ac Sepsis Rflx Y 11/30/18 12:12 Plasma Lactic Acid Sergo 0.8 mmol/L (0.7-2.0) 11/30/18 15:35 Calcium 8.6 mg/dL (8.4-10.2) 12/02/18 07:23 Total Bilirubin 0.4 mg/dL (0.2-1.3) 11/30/18 11:25 AST 32 U/L (17-59) 11/30/18 11:25 ALT 19 U/L (21-72) L 11/30/18 11:25 Alkaline Phosphatase 105 U/L (38-126) 11/30/18 11:25 Total Protein 6.7 g/dL (6.3-8.2) 11/30/18 11:25 Albumin 3.6 g/dL (3.5-5.0) 11/30/18 11:25 Amylase <30 U/L (30-110) L 11/30/18 11:25 Lipase 73 U/L (23-300) 11/30/18 11:25 Urine Color Light Yellow 11/30/18 11:40 Urine Appearance Clear (Clear) 11/30/18 11:40 Urine pH 6.5 (5.0-8.0) 11/30/18 11:40 Ur Specific [place] 1.008 (1.001-1.035) 11/30/18 11:40 Urine Protein Trace (Negative) H 11/30/18 11:40 Urine Glucose (UA) Trace (Negative) H 11/30/18 11:40 Urine Ketones Negative (Negative) 11/30/18 11:40 Urine Blood Small (Negative) H 11/30/18 11:40 Urine Nitrite Negative (Negative) 11/30/18 11:40 Urine Bilirubin Negative (Negative) 11/30/18 11:40 Urine Urobilinogen <2.0 mg/dL (<2.0) 11/30/18 11:40 Ur Leukocyte Esterase Negative (Negative) 11/30/18 11:40 Urine RBC 1 /hpf (0-5) 11/30/18 11:40 Urine WBC 1 /hpf (0-5) 11/30/18 11:40 Ur Squamous Epith Cells <1 /hpf (0-4) 11/30/18 11:40 Urine Mucus Rare /hpf (None) H 11/30/18 11:40 Acetone, Qual Negative (Negative) 11/30/18 11:25 Microbiology 11/30/18 11:25 Blood Blood Culture - Preliminary No Growth after 72 hours Assessment and Plan (1) Diabetes mellitus type 2, uncontrolled, with complications Status: Acute Code(s): E11.8 - TYPE 2 DIABETES MELLITUS WITH UNSPECIFIED COMPLICATIONS; E11.65 - TYPE 2 DIABETES MELLITUS WITH HYPERGLYCEMIA SNOMED Code(s): 48702202 (2) Diverticulitis Narrative/Plan: 43-year-old male who was recently hospitalized due to a significant abscess to his back. Palpitation with his uncontrolled diabetes mellitus type 2. Patient incision and drainage was having some improvement and was discharged home on outpatient intravenous antibiotic therapy. However the patient's catheter which is a midline surgical malfunction and developed increasing abdominal pain left lower quadrant. He constantly presented back to the emergency center with a fever and abdominal pain without evidence of some dive rticulitis that is mild in the sigmoid colon. Antibiotic therapy was suggested with Unasyn based on his prior recent culture with MSSA and the diverticulitis. Patient is now feeling better after fluid resuscitation which quickly resolved his mild lactic acidosis that was present on admission due to his early sepsis. His abdominal pains are improving. He is taking in some nutrition without diff iculty such as nausea or emesis at this time. He does have leukocytosis it's improving. He is not having high fever at this time. He'll continue with the local wound care to the back which is the silver dressing and ABD pad. Ongoing aggressive control of his blood sugars to help his overall healing status. Once his gastric intestinal function is improved with restart a multivitamin help with his overall healing. As he improves will work with our options for his outpatient intravenous antibiotic therapy.12/02/2018 patient is now starting to have some improvements with the fluids, pain control and antibiotic therapy for the diverticulitis. Fortunately the back abscess is also doing considerably better. As patient improves will need to work with home care as to what best possible option is for antibiotic therapy at home to complete treatment of the diverticulitis and abscess to his back. Likely will transition to ertapenem. 12/03/2018 patient is having some improvement. Although complaining of some ongoing constipation the nursing staff relate to adequate bowel movements being noted. The patient's abdominal fullness improved. Abdominal pain is improved. Fever is resolved. An abscess to his back is improving. He will complete 7 days of ertapenem at home first dose today. Home care is aware of the change of antibiotic. He should follow in the office in a week. Status: Acute Code(s): K57.92 - DVTRCLI OF INTEST, PART UNSP, W/O PERF OR ABSCESS W/O BLEED SNOMED Code(s): 452841035 (3) Multiple sclerosis Status: Acute Code(s): G35 - MULTIPLE SCLEROSIS SNOMED Code(s): 22174666
== END 2018-12-03 18:00 | disposition home or self-care (01) | DRG 392 ==
LOC: EC 10:45 → 4SSUR 14:05
PROVIDERS: ADMIT Hospitalist; ATTEND Hospitalist
PROC: 05HF33Z Insertion of Infusion Device into Left Cephalic Vein, Percutaneous Approach (ICD-10-PCS; principal; 2018-12-01 13:30)
DX: K57.32 Diverticulitis of large intestine without perforation or abscess without bleeding (principal); E87.2 Acidosis; I50.22 Chronic systolic (congestive) heart failure; N17.9 Acute kidney failure, unspecified; I13.0 Hypertensive heart and chronic kidney disease with heart failure and stage 1 through stage 4 chronic kidney disease, or unspecified chronic kidney disease; L02.212 Cutaneous abscess of back [any part, except buttock and flank]; K59.00 Constipation, unspecified; E78.5 Hyperlipidemia, unspecified; F41.8 Other specified anxiety disorders; E87.5 Hyperkalemia; N18.9 Chronic kidney disease, unspecified; E11.22 Type 2 diabetes mellitus with diabetic chronic kidney disease; G35 Multiple sclerosis; M41.9 Scoliosis, unspecified; E11.65 Type 2 diabetes mellitus with hyperglycemia; I25.10 Atherosclerotic heart disease of native coronary artery without angina pectoris; Z79.82 Long term (current) use of aspirin; Z79.02 Long term (current) use of antithrombotics/antiplatelets; Z79.899 Other long term (current) drug therapy; Z79.4 Long term (current) use of insulin; I25.2 Old myocardial infarction; Z95.5 Presence of coronary angioplasty implant and graft; Z82.49 Family history of ischemic heart disease and other diseases of the circulatory system; Z83.3 Family history of diabetes mellitus; Z80.51 Family history of malignant neoplasm of kidney; Z98.890 Other specified postprocedural states
CPT/HCPCS: 36410; 36415; 71045; 74018; 74176; 76937; 80048; 80053; 81001; 82009; 82150; 83036; 83605; 83690; 85025; 85027; 85610; 85730; 87040; 93005; 96361; 96374; 96375; 96376; 99285

== ENCOUNTER 2019-04-07 16:47 | Emergency (ER) | payer OTHER ==
[2019-04-07 16:56] VITALS: BP 161/93; PULSE 84; RESP 18; TEMP 98.5
[2019-04-07] MEDS ORDERED: HYDROcodone/APAP 10-325MG 1 EACH TAB PO ONE (17:39)
--- NOTE | 2019-04-07 17:39 | XR ---
EXAMINATION TYPE: XR shoulder complete RT DATE OF EXAM: 04/07/2019 COMPARISON: NONE HISTORY: Shoulder pain TECHNIQUE: 3 views FINDINGS: I see no fracture nor dislocation. There is mild spurring at the glenohumeral joint. IMPRESSION: Mild osteoarthritis. No fracture.
--- NOTE | 2019-04-07 17:48 | ED ---
Upper Extremity HPI - General Chief Complaint: Extremity Injury, Upper Stated Complaint: RT arm/shoulder pain Time Seen by Provider: 04/07/19 16:59 Source: patient Mode of arrival: ambulatory Limitations: no limitations - History of Present Illness Initial Comments: 43-year-old male with history of MS presents today for chief complaint of right shoulder pain. Patient states about 2 weeks ago he was helping a friend move tiles. He states he felt like he strained his right shoulder. Patient states she has persistent pain in the right shoulder sense and increases with overhead range of motion. Patient states that he has not been able to use the right shoulder much secondary to the pain. He describes as sharp increase with range of motion and denies any radiation. Patient doesn't chest pain or shortness of breath. Remaining review system negative. Patient denies any falls or direct trauma to the shoulder swelling or fevers. - Related Data Home Medications Medication Instructions Recorded Confirmed Aspirin [Brenas Aspirin EC] 81 mg PO DAILY 11/22/18 11/30/18 Atorvastatin [Lipitor] 80 mg PO HS 11/22/18 11/30/18 Baclofen 10 mg PO Q6H PRN 11/22/18 11/30/18 Carvedilol [Coreg] 12.5 mg PO BID 11/22/18 11/30/18 Clopidogrel [Plavix] 75 mg PO DAILY 11/22/18 11/30/18 Ergocalciferol (Vitamin D2) 50,000 unit PO Q72H 11/22/18 11/30/18 [Drisdol] Furosemide [Lasix] 20 mg PO AC-SUPPER 11/22/18 11/30/18 Glatiramer Acetate [Copaxone] 20 mg IM DAILY 11/22/18 11/30/18 Insulin Glargine [Lantus] 70 unit SQ HS 11/22/18 11/30/18 Insulin Glulisine [Apidra] 30 units SQ AC-TID 11/22/18 11/30/18 Isosorbide Mononitrate ER [Imdur] 60 mg PO DAILY 11/22/18 11/30/18 Nitroglycerin 0.4 mg SL Q5M PRN 11/22/18 11/30/18 Polyethylene Glycol 3350 [Miralax] 17 gm PO DAILY 11/22/18 11/30/18 QUEtiapine [SEROquel] 100 mg PO HS 11/22/18 11/30/18 Selsun Blue 1 applic TOPICAL DAILY 11/22/18 11/30/18 Vortioxetine Hydrobromide 20 mg PO DAILY 11/22/18 11/30/18 [Trintellix] traMADol HCL [Ultram] 50 mg PO Q6H PRN 11/22/18 11/30/18 HYDROcodone/APAP 5-325MG [Carroll 1 tab PO Q4HR PRN 11/30/18 11/30/18 5-325] Previous Rx's Medication Instructions Recorded ceFAZolin [Kefzol] 2 gm IVP Q8HR #42 ml 11/24/18 Ertapenem [INVanz] 1 gm IM DAILY #6 vial 12/03/18 Lactulose [Cephulac] 20 gm PO TID PRN #20 day 12/03/18 Amoxic-Pot Clav 875-125Mg 1 tab PO Q12HR #14 tablet 12/06/18 [Augmentin 875-125] Allergies Allergy/AdvReac Type Severity Reaction Status Date / Time No Known Allergies Allergy Verified 04/07/19 16:56 Review of Systems ROS Statement: Those systems with pertinent positive or pertinent negative responses have been documented in the HPI. ROS Other: All systems not noted in ROS Statement are negative. Past Medical History Past Medical History: Coronary Artery Disease (CAD), Heart Failure, Diabetes Mellitus, Hyperlipidemia, Hypertension, Myocardial Infarction (CA) Additional Past Medical History / Comment(s): scoliosis of spine, 3 CA's x7 stents (2013 x2 CA's w/stents, 2015 CA w/stents), DM II. Last Myocardial Infarction Date:: 2015 History of Any Multi-Drug Resistant Organisms: None Reported Past Surgical History: Back Surgery Additional Past Surgical History / Comment(s): Pt states: "CA's with stents, left knee scope." Past Anesthesia/Blood Transfusion Reactions: No Reported Reaction Past Psychological History: Anxiety, Depression Smoking Status: Never smoker Past Alcohol Use History: None Reported Past Drug Use History: None Reported - Past Family History Father Additional Family Medical History / Comment(s): "heart disease." Mother History Unknown: Yes Family Medical History: Cancer, Diabetes Mellitus Additional Family Medical History / Comment(s): pt states: "kidney cancer." General Exam - General Exam Comments Initial Comments: General: The patient is awake and alert, in no distress, and does not appear acutely ill. Eye: Pupils are equal, round and reactive to light, extra-ocular movements are intact. No nystagmus. There is normal conjunctiva bilaterally. No signs of icterus. Cardiovascular: There is a regular rate and rhythm. No murmur, rub or gallop is appreciated. Respiratory: Lungs are clear to auscultation, respirations are non-labored, breath sounds are equal. No wheezes, stridor, rales, or rhonchi. Musculoskeletal: Normal inspection of the shoulders bilaterally. Patient has te nderness to palpation of the before meals joint as well as the posterior shoulder near the glenohumeral joint. Patient has full range of motion however appears tender of the right shoulder. Strength 5/5. Sensation intact both proximal and distal to injury site compared to the unaffected extremity. Radial pulses equal bilaterally 2+. She is able to make the okay fingers crossed him set up in a oppose the small digit and thumb. He is able to extend at the wrist bilaterally. Positive Neer's testing. Neurological: A&O x 3. CN II-XII intact, There are no obvious motor or sensory deficits. Coordination appears grossly intact. Speech is normal. Skin: Skin is warm and dry and no rashes or lesions are noted. Psychiatric: Cooperative, appropriate mood & affect, normal judgment. Limitations: no limitations Course Vital Signs 04/07/19 16:53 Temperature 98.5 F Pulse Rate 84 Respiratory 18 Rate Blood Pressure 161/93 O2 Sat by Pulse 100 Oximetry Medical Decision Making - Medical Decision Making 43-year-old male presented for right shoulder pain after lifting heavy tiles. Patient has increased pain with range of motion. Point localized tenderness over the before meals joint. Patient imaging studies reveal a spur near the glenohumeral aspect of the right shoulder. This could be possible cause of pain. Patient was placed in a splint for comfort. Given a Carroll 10 mg for pain management. Patient is has a prescription for Vicodin outpatient for chronic pain. This time record patient follow up with orthopedic surgery. Return parameters were discussed the patient was discharged appearing well. He was agreeable care plan discharge at this time. Disposition Clinical Impression: Right shoulder injury, Right shoulder pain Disposition: HOME SELF-CARE Condition: Good Instructions (If sedation given, give patient instructions): Shoulder Sprain (ED) Additional Instructions: Please use medication as discussed. Please follow-up with family doctor in the next 2 days, orthopedic surgery in next week. Please return to emergency room if the symptoms increase or worsen or for any other concerns. Is patient prescribed a controlled substance at d/c from ED?: No Referrals: Narciso Cheung MD [Primary Care Provider] - 1-2 days Timmy Kan DO [Medical Doctor] - 1-2 days Time of Disposition: 17:47
--- NOTE | 2019-04-09 03:56 | CDI ---
Dear Inderjit Chavez DO: Please do addendum type of the splint placed for comfort. Thank you, El Worthy, Medical Lab Specialist. If you have any questions, please contact Web Specialist at [phone]. mtdD
== END 2019-04-07 18:00 | disposition home or self-care (01) ==
LOC: EC 16:47
DX: S49.91XA Unspecified injury of right shoulder and upper arm, initial encounter (principal); G35 Multiple sclerosis; M75.81 Other shoulder lesions, right shoulder; I25.10 Atherosclerotic heart disease of native coronary artery without angina pectoris; I11.0 Hypertensive heart disease with heart failure; I50.9 Heart failure, unspecified; E78.5 Hyperlipidemia, unspecified; I25.2 Old myocardial infarction; E11.9 Type 2 diabetes mellitus without complications; F41.9 Anxiety disorder, unspecified; F32.9 Major depressive disorder, single episode, unspecified; Z79.82 Long term (current) use of aspirin; Z79.02 Long term (current) use of antithrombotics/antiplatelets; Z79.4 Long term (current) use of insulin; Z79.899 Other long term (current) drug therapy; Z95.5 Presence of coronary angioplasty implant and graft; X50.0XXA Overexertion from strenuous movement or load, initial encounter; Y93.89 Activity, other specified
CPT/HCPCS: 99283

== ENCOUNTER → 2020-07-04 | Outpatient (CLI) | payer OTHER ==
[2020-07-04 12:58] VITALS: BP 100/69; PULSE 89; RESP 18; TEMP 98.9
--- NOTE | 2020-07-04 18:25 | P.PAINCN ---
History of Present Illness - Reason for Consult Consult date: 07/04/20 - History of Present Illness This is a 45 years old male with a chronic history of severe low back pain with radiation to the lower extremity associated with numbness and tingling sensation started more than 5 years ago, and this still the pain increased over time and currently is interfering with the quality of life and preventing him from doing his activity of daily livings, it's constant this a blink patient feels pressure and squeezing tightness and numbness burning sensation in the lower extremity, patient had history of MS, and also he had a history of degenerative disc disease, patient tried multiple pain medication without any significant improvement of his pain, patient had difficulty ambulating secondary to the intensity of the pain, he denies any fever or night sweats. The intensity of the pain is 7/10 increased to 10 over 10 with activity is currently on Ultram 50 mg every 6 hours [place] 5/325 every 4 hours when necessary, Neurontin 300 mg 3 times a day and baclofen 10 mg every 8 hours, denies any side effect of the medication he denies any excessive drowsiness or sleepiness and is getting some benefit from the pain medication Past Medical History Past Medical History: Coronary Artery Disease (CAD), Heart Failure, Diabetes Mellitus, Hypertension, Myocardial Infarction (MN), Musculoskeletal Disorder Additional Past Medical History / Comment(s): scoliosis of spine, 3 MN's x7 stents (2013 x2 MN's w/stents, 2015 MN w/stents), DM II. History of MS Last Myocardial Infarction Date:: 2015 History of Any Multi-Drug Resistant Organisms: C-DIFF Year Discovered:: 04/2020 MDRO Source:: Stool Past Surgical History: Back Surgery, Orthopedic Surgery Additional Past Surgical History / Comment(s): Pt states: "MN's with stents, left knee scope.". Back cyst operation. Past Anesthesia/Blood Transfusion Reactions: No Reported Reaction Smoking Status: Never smoker - Past Family History Father Additional Family Medical History / Comment(s): "heart disease." Mother History Unknown: Yes Family Medical History: Cancer, Diabetes Mellitus Additional Family Medical History / Comment(s): pt states: "kidney cancer." Medications and Allergies Home Medications Medication Instructions Recorded Confirmed Type Aspirin [[place] Aspirin EC] 81 mg PO DAILY 11/22/18 11/30/18 History Atorvastatin [Lipitor] 80 mg PO HS 11/22/18 11/30/18 History Baclofen 10 mg PO Q8HR PRN 11/22/18 11/30/18 History Carvedilol [Coreg] 12.5 mg PO BID 11/22/18 11/30/18 History Clopidogrel [Plavix] 75 mg PO DAILY 11/22/18 11/30/18 History Ergocalciferol (Vitamin D2) 50,000 unit PO WEEKLY 11/22/18 11/30/18 History [Drisdol] Furosemide [Lasix] 20 mg PO HS 11/22/18 11/30/18 History Glatiramer Acetate [Copaxone] 20 mg IM DAILY 11/22/18 11/30/18 History Insulin Glargine [Lantus] 60 unit SQ HS 11/22/18 11/30/18 History Insulin Glulisine [Apidra] 35 units SQ AC-TID 11/22/18 11/30/18 History Isosorbide Mononitrate ER [Imdur] 60 mg PO DAILY 11/22/18 11/30/18 History Nitroglycerin 0.4 mg SL Q5M PRN 11/22/18 11/30/18 History QUEtiapine [SEROquel] 100 mg PO HS 11/22/18 11/30/18 History Selsun Blue 1 applic TOPICAL DAILY 11/22/18 11/30/18 History Vortioxetine Hydrobromide 20 mg PO DAILY 11/22/18 11/30/18 History [Trintellix] polyethylene glycoL 3350 [Miralax] 17 gm PO DAILY 11/22/18 11/30/18 History traMADol HCL [Ultram] 50 mg PO Q6H PRN 11/22/18 11/30/18 History Lactulose [Cephulac] 20 gm PO TID PRN #20 day 12/03/18 Rx Gabapentin [Neurontin] 300 mg PO TID 07/04/20 07/04/20 History Insulin Glargine,Hum.rec.anlog 07/04/20 History [Basaglar Kwikpen U-100] Insulin Lispro [Admelog] 1 SQ DAILY 07/04/20 History Lisinopril [Zestril] 10 mg PO BID 07/04/20 07/04/20 History Omeprazole 40 mg pe PO DAILY 07/04/20 07/04/20 History Pentoxifylline 400 mg PO DAILY 07/04/20 07/04/20 History Ranolazine [Ranexa] 1,000 mg PO DAILY 07/04/20 07/04/20 History Sildenafil [Revatio] 20 mg PO PRN 07/04/20 History Teriflunomide [Aubagio] 14 mg PO DAILY 07/04/20 07/04/20 History Topiramate [Topiramate ER] 100 mg PO DAILY 07/04/20 07/04/20 History Triamcinolone 0.5% Cream [Kenalog TOPICAL BID 07/04/20 History 0.5% Cream] metOLazone [Zaroxolyn] 5 mg PO DAILY 07/04/20 07/04/20 History ondansetron HCL [Zofran] 8 mg PO DAILY 07/04/20 07/04/20 History Allergies Allergy/AdvReac Type Severity Reaction Status Date / Time No Known Allergies Allergy Verified 07/04/20 12:48 Physical Exam Vitals: Vital Signs Temp Pulse Resp BP Pulse Ox 07/04/20 12:49 98.9 F 89 18 100/69 97 Intake and Output 07/04/20 07/04/20 07/04/20 06:59 14:59 22:59 Other: Weight 121.563 kg Physical Examinations : -Constitutiona : Cooperative , not in acute distress . -HEENT : nech : supple , no Lymphadenopathy , normal thyroid size . : eyes : no ptosis , no icterus, no photophobia . - neurologic : Cranial nerve II to XII intact , no focal neurological deffecit . -psychatric : alert , oriented X 3 , appropriate affect , intact judgment and insight . -Lymphatic : no Lymphadenopathy . - musculoskeltal : Lumber spine moter stegnth lower extremities ,thigh and legs 4/5 Right side , 4/5 Left side Decreased sensation in the anterior and medial aspect of lower extremity bilaterally lumber facet Loading Test =positive Right , positive Left Range of motion of the lumbar spine Flexion 30 degrees, extension 10 degrees strait leg raising test = positive at 30 degree Fabere test= positive Right , and positive LT . Sever tenderness over the Sacroiliac joint on the Right , and Left sides Gaenslen test= positive right ,and positive left . Seated flexion test= positive right ,and positive Left . Results Comments: MRI of the lumbar spine= L12 ,L2 3 ,L3 4, L4 5 and L5-S1 bulging disc disease and facet arthropathy Assessment and Plan Assessment: Assessment and plan=1-lumbar degenerative disc disease. 2-lumbar spondylosis as well as lumbar facet art hropathy. 3-multiple sclerosis. 4-Bilateral sacroiliitis Clinically the low back pain is coming from the facetogenic component, and patient has some numbness and tingling sensation in the lower extremity , and slight decrease in the sensation in lower extremity mostly secondary to MS. he will be good candidate to have diagnostic medial branch block lumbar area at L3, L4, L5 ( to target facet joint at L45,L5- S1 ) Patient does not have to hold Plavix the for the diagnostic medial branch block, he has to hold Plavix only if we proceed with RFA Time with Patient: Greater than 30 PQRS Measure Charge Sheet Measure #130: Documentation of Current Meds in Medical Chart: Patient's medications documented in chart Measure #226: Tobacco Use: Screen & Cessation Intervention: Pt not a tobacco user Measure #111: Pneumonia Vaccination: Pneumococcal vaccine administered or previously received Measure #47: Advance Care Plan: Advance care planning discussed & documented, pt chose/unable to give Measure #412: Opioid Treatment Agreement: No documentation of signed opioid treatment agreement Measure #408: Opioid Therapy Follow-up Evaluation: Patient had NO f/u eval minimum every 3 months during opioid therapy Measure #317: Preventitive Care & Scrn High Bld Press & F/U: Normal blood pressure, f/u not required Measure #128: Body Mass Index (BMI) Screening & Follow-up: BMI documented ABOVE normal parameters - f/u documented Measure #131: Pain Assessment & Follow-up: Pain positive & plan documented, F ollow-up scheduled Measure #431: Unhealthy Alcohol Use Preventative Care & Scrn: Patient not identified as an unhealthy alcohol user PQRS Narrative: Smoking Status Never smoker Blood Pressure 100/69 Pain Intensity [Lower Back] 5 Scale Used Numeric (1 - 10) Hx Alcohol Use (MH) No Home Medications: Ambulatory Orders Aspirin [[place] Aspirin EC] 81 mg PO DAILY 11/22/18 Atorvastatin [Lipitor] 80 mg PO HS 11/22/18 Baclofen 10 mg PO Q8HR PRN 11/22/18 Carvedilol [Coreg] 12.5 mg PO BID 11/22/18 Clopidogrel [Plavix] 75 mg PO DAILY 11/22/18 Ergocalciferol (Vitamin D2) [Drisdol] 50,000 unit PO WEEKLY 11/22/18 Furosemide [Lasix] 20 mg PO HS 11/22/18 Glatiramer Acetate [Copaxone] 20 mg IM DAILY 11/22/18 Insulin Glargine [Lantus] 60 unit SQ HS 11/22/18 Insulin Glulisine [Apidra] 35 units SQ AC-TID 11/22/18 Isosorbide Mononitrate ER [Imdur] 60 mg PO DAILY 11/22/18 Nitroglycerin 0.4 mg SL Q5M PRN 11/22/18 QUEtiapine [SEROquel] 100 mg PO HS 11/22/18 Selsun Blue 1 applic TOPICAL DAILY 11/22/18 Vortioxetine Hydrobromide [Trintellix] 20 mg PO DAILY 11/22/18 polyethylene glycoL 3350 [Miralax] 17 gm PO DAILY 11/22/18 traMADol HCL [Ultram] 50 mg PO Q6H PRN 11/22/18 Lactulose [Cephulac] 20 gm PO TID PRN #20 day 12/03/18 Gabapentin [Neurontin] 300 mg PO TID 07/04/20 Insulin Glargine,Hum.rec.anlog [Basaglar Kwikpen U-100] 07/04/20 Insulin Lispro [Admelog] 1 SQ DAILY 07/04/20 Lisinopril [Zestril] 10 mg PO BID 07/04/20 Omeprazole 40 mg pe PO DAILY 07/04/20 Pentoxifylline 400 mg PO DAILY 07/04/20 Ranolazine [Ranexa] 1,000 mg PO DAILY 07/04/20 Sildenafil [Revatio] 20 mg PO PRN 07/04/20 Teriflunomide [Aubagio] 14 mg PO DAILY 07/04/20 Topiramate [Topiramate ER] 100 mg PO DAILY 07/04/20 Triamcinolone 0.5% Cream [Kenalog 0.5% Cream] TOPICAL BID 07/04/20 metOLazone [Zaroxolyn] 5 mg PO DAILY 07/04/20 ondansetron HCL [Zofran] 8 mg PO DAILY 07/04/20
== END | disposition home or self-care (01) ==
LOC: PNWHC3 12:29
PROVIDERS: ATTEND Specialist
DX: M51.36 Other intervertebral disc degeneration, lumbar region (principal); M46.1 Sacroiliitis, not elsewhere classified; M47.816 Spondylosis without myelopathy or radiculopathy, lumbar region; Z79.891 Long term (current) use of opiate analgesic; Z79.899 Other long term (current) drug therapy; Z79.82 Long term (current) use of aspirin; Z79.4 Long term (current) use of insulin; Z79.1 Long term (current) use of non-steroidal anti-inflammatories (NSAID)
CPT/HCPCS: 99211

== ENCOUNTER 2020-07-05 13:22 | Emergency (ER) | payer OTHER ==
[2020-07-05] MEDS ORDERED: ALBUTEROL HFA INHALER INHALATION STA (13:59)
--- NOTE | 2020-07-05 14:31 | ED ---
SOB HPI - General Chief Complaint: Shortness of Breath Stated Complaint: Covid+ Time Seen by Provider: 07/05/20 13:38 Source: patient Mode of arrival: ambulatory Limitations: no limitations - History of Present Illness Initial Comments: Patient is a 45-year-old male, with history of heart disease, MS, presenting to the emergency Department with complaints of shortness of breath and cough for the last 24 hours. Patient states his was recently diagnosed with covid last night. Patient states he's been having intermittent diarrhea for the past 2 or 3 days and thought it could be his C. diff again so he started taking vancomycin tablets. Patient starts then yesterday he felt feverish, started having a cough, shortness of breath and body aches. He denies any chest pain. He does admit to nausea, no vomiting. He admits to abdominal cramping but no specific area pain. He denies any Tylenol or Motrin today. He has no further complaints at this time. Patient is afebrile on arrival, 94% on room air, rest of vitals are normal. - Related Data Home Medications Medication Instructions Recorded Confirmed Aspirin [[place] Aspirin EC] 81 mg PO DAILY 11/22/18 11/30/18 Atorvastatin [Lipitor] 80 mg PO HS 11/22/18 11/30/18 Baclofen 10 mg PO Q8HR PRN 11/22/18 11/30/18 Carvedilol [Coreg] 12.5 mg PO BID 11/22/18 11/30/18 Clopidogrel [Plavix] 75 mg PO DAILY 11/22/18 11/30/18 Ergocalciferol (Vitamin D2) 50,000 unit PO WEEKLY 11/22/18 11/30/18 [Drisdol] Furosemide [Lasix] 20 mg PO HS 11/22/18 11/30/18 Glatiramer Acetate [Copaxone] 20 mg IM DAILY 11/22/18 11/30/18 Insulin Glargine [Lantus] 60 unit SQ HS 11/22/18 11/30/18 Insulin Glulisine [Apidra] 35 units SQ AC-TID 11/22/18 11/30/18 Isosorbide Mononitrate ER [Imdur] 60 mg PO DAILY 11/22/18 11/30/18 Nitroglycerin 0.4 mg SL Q5M PRN 11/22/18 11/30/18 QUEtiapine [SEROquel] 100 mg PO HS 11/22/18 11/30/18 Selsun Blue 1 applic TOPICAL DAILY 11/22/18 11/30/18 Vortioxetine Hydrobromide 20 mg PO DAILY 11/22/18 11/30/18 [Trintellix] polyethylene glycoL 3350 [Miralax] 17 gm PO DAILY 11/22/18 11/30/18 traMADol HCL [Ultram] 50 mg PO Q6H PRN 11/22/18 11/30/18 Gabapentin [Neurontin] 300 mg PO TID 07/04/20 07/04/20 Insulin Glargine,Hum.rec.anlog 07/04/20 [Basaglar Kwikpen U-100] Insulin Lispro [Admelog] 1 SQ DAILY 07/04/20 Lisinopril [Zestril] 10 mg PO BID 07/04/20 07/04/20 Omeprazole 40 mg pe PO DAILY 07/04/20 07/04/20 Pentoxifylline 400 mg PO DAILY 07/04/20 07/04/20 Ranolazine [Ranexa] 1,000 mg PO DAILY 07/04/20 07/04/20 Sildenafil [Revatio] 20 mg PO PRN 07/04/20 Teriflunomide [Aubagio] 14 mg PO DAILY 07/04/20 07/04/20 Topiramate [Topiramate ER] 100 mg PO DAILY 07/04/20 07/04/20 Triamcinolone 0.5% Cream [Kenalog TOPICAL BID 07/04/20 0.5% Cream] metOLazone [Zaroxolyn] 5 mg PO DAILY 07/04/20 07/04/20 ondansetron HCL [Zofran] 8 mg PO DAILY 07/04/20 07/04/20 Previous Rx's Medication Instructions Recorded Lactulose [Cephulac] 20 gm PO TID PRN #20 day 12/03/18 Allergies Allergy/AdvReac Type Severity Reaction Status Date / Time No Known Allergies Allergy Verified 07/05/20 13:36 Review of Systems ROS Statement: Those systems with pertinent positive or pertinent negative responses have been documented in the HPI. ROS Other: All systems not noted in ROS Statement are negative. Past Medical History Past Medical History: Coronary Artery Disease (CAD), Heart Failure, Diabetes Mellitus, Hypertension, Myocardial Infarction (VT), Musculoskeletal Disorder Additional Past Medical History / Comment(s): scoliosis of spine, 3 VT's x7 stents (2013 x2 VT's w/stents, 2016 VT w/stents), DM II. History of MS Last Myocardial Infarction Date:: 2015 History of Any Multi-Drug Resistant Organisms: C-DIFF Date of last positivie culture/infection: 04/2020 MDRO Source:: Stool Past Surgical History: Back Surgery, Orthopedic Surgery Additional Past Surgical History / Comment(s): Pt states: "VT's with stents, left knee scope.". Back cyst operation. Past Anesthesia/Blood Transfusion Reactions: No Reported Reaction Past Psychological History: Anxiety, Depression Smoking Status: Never smoker Past Alcohol Use History: None Reported Past Drug Use History: None Reported - Past Family History Father Additional Family Medical History / Comment(s): "heart disease." Mother History Unknown: Yes Family Medical History: Cancer, Diabetes Mellitus Additional Family Medical History / Comment(s): pt states: "kidney cancer." General Exam - General Exam Comments Initial Comments: GENERAL: Patient is well-developed and well-nourished. Patient is nontoxic and in mild distress, seems anxious. HEAD: Atraumatic, normocephalic. EYES: Pupils equal round and reactive to light, extraocular movements intact, sclera anicteric, conjunctiva are normal. Eyelids were unremarkable. ENT: TMs normal, nares patent, oropharynx clear without exudates. Moist mucous membranes. NECK: Normal range of motion, supple without lymphadenopathy or JVD. LUNGS: Unlabored respirations. Breath sounds clear to auscultation bilaterally and equal. No wheezes rales or rhonchi. HEART: Regular rate and rhythm without murmurs, rubs or gallops. ABDOMEN: Soft, nontender, normoactive bowel sounds. No guarding, no rebound. No masses appreciated. : Deferred MUSCULOSKELETAL: Normal extremities with adequate strength and normal range of motion, no pitting or edema. No clubbing or cyanosis. NEUROLOGICAL: Patient is alert and oriented x 3. Motor and sensory are also intact. Cranial nerves II through XII grossly intact. Symmetrical smile. Normal speech, normal gait. PSYCH: Normal mood, normal affect. SKIN: Warm, Dry, normal turgor, no rashes or lesions noted. Limitations: no limitations Course Vital Signs 07/05/20 13:32 Temperature 99.0 F Pulse Rate 75 Respiratory 22 Rate Blood Pressure 165/89 O2 Sat by Pulse 94 L Oximetry Medical Decision Making - Medical Decision Making Patient is a 45-year-old male with history of heart disease, MS, presenting with flulike symptoms since yesterday, shortness of breath. His just recently tested positive for Covid. He did arrive on 94% on room air, rest of vitals are normal. Patient seems very anxious about the possibility of Covid. His EKG shows no acute process, chest x-ray shows no acute process. Patient's labs are normal, normal white count, d-dimer is normal, lactic acid is normal, troponin is normal. Influenza and Covid are both negative at this time. Patient was reevaluated and has been resting comfortably. His vital signs are stable. I discussed with patient his findings. This is most likely viral in nature. I have recommended continue to drink lots of fluids, take Tylenol or Motrin as needed for fever or body aches. Patient is stable for discharge. He is in agreement with this plan of care. Return parameters were discussed with the patient and he verbalized understanding. Case discussed with Dr. Morgan. - Lab Data Result diagrams: 07/05/20 14:14 07/05/20 14:14 Lab Results 07/05/20 07/05/20 07/05/20 Range/Units 14:14 14:14 14:14 WBC 9.1 (3.8-10.6) k/uL RBC 5.00 (4.30-5.90) m/uL Hgb 13.6 (13.0-17.5) gm/dL Hct 39.8 (39.0-53.0) % MCV 79.6 L (80.0-100.0) fL MCH 27.1 (25.0-35.0) pg MCHC 34.1 (31.0-37.0) g/dL RDW 14.4 (11.5-15.5) % Plt Count 220 (150-450) k/uL MPV 7.9 Neutrophils % 72 % Lymphocytes % 17 % Monocytes % 7 % Eosinophils % 2 % Basophils % 1 % Neutrophils # 6.6 (1.3-7.7) k/uL Lymphocytes # 1.6 (1.0-4.8) k/uL Monocytes # 0.6 (0-1.0) k/uL Eosinophils # 0.2 (0-0.7) k/uL Basophils # 0.1 (0-0.2) k/uL PT 10.2 (9.0-12.0) sec INR 1.0 (<1.2) APTT 23.1 (22.0-30.0) sec D-Dimer 0.40 (<0.60) mg/L FEU Sodium 138 (137-145) mmol/L Potassium 4.2 (3.5-5.1) mmol/L Chloride 105 (98-107) mmol/L Carbon Dioxide 26 (22-30) mmol/L Anion Gap 7 mmol/L BUN 21 H (9-20) mg/dL Creatinine 1.45 H (0.66-1.25) mg/dL Est GFR (CKD-EPI)AfAm 66 (>60 ml/min/1.73 sqM) Est GFR (CKD-EPI)NonAf 57 (>60 ml/min/1.73 sqM) Glucose 120 H (74-99) mg/dL Plasma Lactic Acid Sergo (0.7-2.0) mmol/L Calcium 10.0 (8.4-10.2) mg/dL Magnesium 2.2 (1.6-2.3) mg/dL Total Bilirubin 0.4 (0.2-1.3) mg/dL AST 37 (17-59) U/L ALT 32 (4-49) U/L Alkaline Phosphatase 97 (38-126) U/L Lactate Dehydrogenase 604 (313-618) U/L Troponin I (0.000-0.034) ng/mL C-Reactive Protein 5.8 (<10.0) mg/L Total Protein 8.1 (6.3-8.2) g/dL Albumin 4.4 (3.5-5.0) g/dL Coronavirus (PCR) (Not Detectd) Influenza Type A RNA (Not Detectd) Influenza Type B (PCR) (Not Detectd) 07/05/20 07/05/20 07/05/20 Range/Units 14:14 14:14 14:14 WBC (3.8-10.6) k/uL RBC (4.30-5.90) m/uL Hgb (13.0-17.5) gm/dL Hct (39.0-53.0) % MCV (80.0-100.0) fL MCH (25.0-35.0) pg MCHC (31.0-37.0) g/dL RDW (11.5-15.5) % Plt Count (150-450) k/uL MPV Neutrophils % % Lymphocytes % % Monocytes % % Eosinophils % % Basophils % % Neutrophils # (1.3-7.7) k/uL Lymphocytes # (1.0-4.8) k/uL Monocytes # (0-1.0) k/uL Eosinophils # (0-0.7) k/uL Basophils # (0-0.2) k/uL PT (9.0-12.0) sec INR (<1.2) APTT (22.0-30.0) sec D-Dimer (<0.60) mg/L FEU Sodium (137-145) mmol/L Potassium (3.5-5.1) mmol/L Chloride (98-107) mmol/L Carbon Dioxide (22-30) mmol/L Anion Gap mmol/L BUN (9-20) mg/dL Creatinine (0.66-1.25) mg/dL Est GFR (CKD-EPI)AfAm (>60 ml/min/1.73 sqM) Est GFR (CKD-EPI)NonAf (>60 ml/min/1.73 sqM) Glucose (74-99) mg/dL Plasma Lactic Acid Sergo 1.1 (0.7-2.0) mmol/L Calcium (8.4-10.2) mg/dL Magnesium (1.6-2.3) mg/dL Total Bilirubin (0.2-1.3) mg/dL AST (17-59) U/L ALT (4-49) U/L Alkaline Phosphatase (38-126) U/L Lactate Dehydrogenase (313-618) U/L Troponin I <0.012 (0.000-0.034) ng/mL C-Reactive Protein (<10.0) mg/L Total Protein (6.3-8.2) g/dL Albumin (3.5-5.0) g/dL Coronavirus (PCR) Not Detected (Not Detectd) Influenza Type A RNA Not Detected (Not Detectd) Influenza Type B (PCR) Not Detected (Not Detectd) - EKG Data EKG Comments: Normal sinus rhythm, septal infarct, age undetermined, similar to previous EKG on 11/30/2018, no signs of acute ischemia. Ventricular rate 80, PA interval 170, QT 382. Disposition Clinical Impression: Upper respiratory infection, viral, Cough, Dyspnea Disposition: HOME SELF-CARE Condition: Stable Instructions (If sedation given, give patient instructions): Upper Respiratory Infection (ED) Additional Instructions: Please return to the Emergency Department if symptoms worsen or any other c oncerns. COVID and flu are negative today, Chest XR and labs are normal. Recommend Tylenol or Motrin for fever and body aches, drink lots of fluids. Follow up with your PCP. Is patient prescribed a controlled substance at d/c from ED?: No Referrals: Narciso Cheung MD [Primary Care Provider] - 1-2 days
[2020-07-05 14:46] LABS: Basophils # (A) 0.1 k/uL (0-0.2); Basophils % (A) 1 %; Eosinophils # (A) 0.2 k/uL (0-0.7); Eosinophils % (A) 2 %; HCT 39.8 % (39.0-53.0); HGB 13.6 gm/dL (13.0-17.5); Lymphocytes # (A) 1.6 k/uL (1.0-4.8); Lymphocytes % (A) 17 %; MCH 27.1 pg (25.0-35.0); MCHC 34.1 g/dL (31.0-37.0); MCV 79.6 fL (80.0-100.0); Mean Platelet Volume 7.9; Monocytes # (A) 0.6 k/uL (0-1.0); Monocytes % (A) 7 %; Neutrophils # (A) 6.6 k/uL (1.3-7.7); Neutrophils % (A) 72 %; Platelet Count 220 k/uL (150-450); RDW 14.4 % (11.5-15.5); WBC 9.1 k/uL (3.8-10.6)
--- NOTE | 2020-07-05 14:56 | XR ---
EXAMINATION TYPE: XR chest 1V portable DATE OF EXAM: 07/05/2020 COMPARISON: Chest x-ray December 03, 2018 HISTORY: Extreme cough and shortness of breath. Suspect covid 19 pneumonia. TECHNIQUE: Single AP portable frontal upright view of the chest is obtained. FINDINGS: Improved inspiration on current study. There is no suspicious new focal air space opacity, pleural effusion, or pneumothorax seen. The cardiac silhouette size is stable and within normal [place] its. The osseous structures are intact. Overlying EKG leads on current study. IMPRESSION: No new acute pulmonary process.
[2020-07-05 15:04] LABS: SARS-CoV-2 RNA Rapid Abbott Not Detected (Not Detectd)
[2020-07-05 15:07] LABS: Albumin 4.4 g/dL (3.5-5.0); C Reactive Protein 5.8 mg/L (<10.0); Magnesium 2.2 mg/dL (1.6-2.3); Potassium 4.2 mmol/L (3.5-5.1); Total Bilirubin 0.4 mg/dL (0.2-1.3); Total Protein 8.1 g/dL (6.3-8.2)
[2020-07-05 15:16] LABS: D-Dimer 0.4 mg/L FEU (<0.60); Partial Thromboplastin Time 23.1 sec (22.0-30.0); Prothrombin Time 10.2 sec (9.0-12.0)
[2020-07-05 16:49] VITALS: BP 142/96; PULSE 84; RESP 18; TEMP 97.6
[2020-07-05 22:58] LABS: Ferritin 67.7 ng/mL (22.0-322.0)
== END 2020-07-05 16:49 | disposition home or self-care (01) ==
LOC: EC 13:22
DX: J06.9 Acute upper respiratory infection, unspecified (principal); I11.0 Hypertensive heart disease with heart failure; I50.9 Heart failure, unspecified; I25.10 Atherosclerotic heart disease of native coronary artery without angina pectoris; E11.9 Type 2 diabetes mellitus without complications; I25.2 Old myocardial infarction; F41.9 Anxiety disorder, unspecified; F32.9 Major depressive disorder, single episode, unspecified; Z20.828 Contact with and (suspected) exposure to other viral communicable diseases; Z79.4 Long term (current) use of insulin; Z79.899 Other long term (current) drug therapy; Z79.82 Long term (current) use of aspirin; Z79.02 Long term (current) use of antithrombotics/antiplatelets
CPT/HCPCS: 36415; 71045; 80053; 82728; 83605; 83615; 83735; 84145; 84484; 85025; 85379; 85610; 85730; 86140; 87040; 87502; 87635; 93005; 94640; 99285

== ENCOUNTER 2020-09-21 22:10 | Inpatient (IN) | payer OTHER ==
--- NOTE | 2020-09-21 22:36 | ED ---
Nausea/Vomiting/Diarrhea HPI - General Chief complaint: Nausea/Vomiting/Diarrhea Stated complaint: Poss CDiff, Not Eating Time Seen by Provider: 09/21/20 22:29 Source: patient, RN notes reviewed, old records reviewed Mode of arrival: ambulatory Limitations: no limitations - History of Present Illness Initial comments: This is a 45-year-old male to the ER for evaluation patient presents today for evaluation of abdominal pain left lower quadrant abdominal pain back pain nausea vomiting diarrhea. Fevers history of fevers. She has recurrent C. diff his symptoms been going on for weeks did have CT if test 2 weeks ago but no results MD complaint: nausea, vomiting, diarrhea, abdominal pain -: week(s) Description of Vomiting: food contents, watery, bilious Description of Diarrhea: water, mucous Associated Abdominal Pain: Yes Location: diffuse, LLQ Radiation: none Severity: moderate Severity scale (1-10): 7 Quality: stabbing Consistency: constant Improves with: none Worsens with: eating, bowel movement, vomiting Context: recent antibiotic use Associated Symptoms: loss of appetite, malaise, nausea/vomiting, weakness - Related Data Home Medications Medication Instructions Recorded Confirmed Aspirin [[place] Aspirin EC] 81 mg PO DAILY 11/22/18 11/30/18 Atorvastatin [Lipitor] 80 mg PO HS 11/22/18 11/30/18 Baclofen 10 mg PO Q8HR PRN 11/22/18 11/30/18 Carvedilol [Coreg] 12.5 mg PO BID 11/22/18 11/30/18 Clopidogrel [Plavix] 75 mg PO DAILY 11/22/18 11/30/18 Ergocalciferol (Vitamin D2) 50,000 unit PO WEEKLY 11/22/18 11/30/18 [Drisdol (50,000 Iu)] Furosemide [Lasix] 20 mg PO HS 11/22/18 11/30/18 Glatiramer Acetate [[place]] 20 mg IM DAILY 11/22/18 11/30/18 Insulin Glargine [Lantus] 60 unit SQ HS 11/22/18 11/30/18 Insulin Glulisine [Apidra] 35 units SQ AC-TID 11/22/18 11/30/18 Isosorbide Mononitrate ER [Imdur] 60 mg PO DAILY 11/22/18 11/30/18 Nitroglycerin 0.4 mg SL Q5M PRN 11/22/18 11/30/18 QUEtiapine [SEROquel] 100 mg PO HS 11/22/18 11/30/18 Selsun Blue 1 applic TOPICAL DAILY 11/22/18 11/30/18 Vortioxetine Hydrobromide 20 mg PO DAILY 11/22/18 11/30/18 [Trintellix] polyethylene glycoL 3350 [Miralax] 17 gm PO DAILY 11/22/18 11/30/18 traMADol HCL [Ultram] 50 mg PO Q6H PRN 11/22/18 11/30/18 Gabapentin [Neurontin] 300 mg PO TID 07/04/20 07/04/20 Insulin Glargine,Hum.rec.anlog 07/04/20 [Basaglar Kwikpen U-100] Insulin Lispro [Admelog] 1 SQ DAILY 07/04/20 Lisinopril [Zestril] 10 mg PO BID 07/04/20 07/04/20 Omeprazole 40 mg pe PO DAILY 07/04/20 07/04/20 Pentoxifylline 400 mg PO DAILY 07/04/20 07/04/20 Ranolazine [Ranexa] 1,000 mg PO DAILY 07/04/20 07/04/20 Sildenafil [Revatio] 20 mg PO PRN 07/04/20 Teriflunomide [Aubagio] 14 mg PO DAILY 07/04/20 07/04/20 Topiramate [Topiramate ER] 100 mg PO DAILY 07/04/20 07/04/20 Triamcinolone 0.5% Cream [Kenalog TOPICAL BID 07/04/20 0.5% Cream] metOLazone [Zaroxolyn] 5 mg PO DAILY 07/04/20 07/04/20 ondansetron HCL [Zofran] 8 mg PO DAILY 07/04/20 07/04/20 Previous Rx's Medication Instructions Recorded Lactulose [Cephulac] 20 gm PO TID PRN #20 day 12/03/18 Allergies Allergy/AdvReac Type Severity Reaction Status Date / Time No Known Allergies Allergy Verified 09/21/20 22:14 Review of Systems ROS Statement: Those systems with pertinent positive or pertinent negative responses have been documented in the HPI. ROS Other: All systems not noted in ROS Statement are negative. Past Medical History Past Medical History: Coronary Artery Disease (CAD), Heart Failure, Diabetes Mellitus, Hypertension, Myocardial Infarction (OH), Musculoskeletal Disorder Additional Past Medical History / Comment(s): scoliosis of spine, 3 OH's x7 stents (2013 x2 OH's w/stents, 2015 OH w/stents), DM II. History of MS Last Myocardial Infarction Date:: 2015 History of Any Multi-Drug Resistant Organisms: C-DIFF Date of last positivie culture/infection: 04/2020 MDRO Source:: Stool Past Surgical History: Back Surgery, Orthopedic Surgery Additional Past Surgical History / Comment(s): Pt states: "OH's with stents, left knee scope.". Back cyst operation. Past Anesthesia/Blood Transfusion Reactions: No Reported Reaction Past Psychological History: Anxiety, Depression Smoking Status: Never smoker Past Alcohol Use History: None Reported Past Drug Use History: None Reported - Past Family History Father Additional Family Medical History / Comment(s): "heart disease." Mother History Unknown: Yes Family Medical History: Cancer, Diabetes Mellitus Additional Family Medical History / Comment(s): pt states: "kidney cancer." General Exam Limitations: no limitations General appearance: alert, in no apparent distress Head exam: Present: atraumatic, normocephalic, normal inspection Eye exam: Present: normal appearance, PERRL, EOMI. Absent: scleral icterus, conjunctival injection, periorbital swelling ENT exam: Present: normal exam, mucous membranes moist Neck exam: Present: normal inspection. Absent: tenderness, meningismus, lym phadenopathy Respiratory exam: Present: normal lung sounds bilaterally. Absent: respiratory distress, wheezes, rales, rhonchi, stridor Cardiovascular Exam: Present: regular rate, normal rhythm, normal heart sounds. Absent: systolic murmur, diastolic murmur, rubs, gallop, clicks GI/Abdominal exam: Present: soft, normal bowel sounds. Absent: distended, tenderness, guarding, rebound, rigid Extremities exam: Present: normal inspection, full ROM, normal capillary refill. Absent: tenderness, pedal edema, joint swelling, calf tenderness Back exam: Present: normal inspection Neurological exam: Present: alert, oriented X3, CN II-XII intact Psychiatric exam: Present: normal affect, normal mood Skin exam: Present: warm, dry, intact, normal color. Absent: rash Course Vital Signs 09/21/20 09/21/20 22:11 23:36 Temperature 99.0 F Pulse Rate 92 90 Respiratory 16 18 Rate Blood Pressure 177/95 148/82 O2 Sat by Pulse 98 98 Oximetry - Reevaluation(s) Reevaluation #1: 09/22/20 01:24 Medical record is reviewed Reevaluation #2: 09/22/20 01:24 No improvement of symptoms here in the emergency department Reevaluation #3: 09/22/20 01:24 Patient continues to have diarrhea and weakness - Consultations Consultation #1: Spoke with Dr. angeles agrees to admit this patient Medical Decision Making - Medical Decision Making 45 male DF for evaluation patient Dese for evaluation of abdominal pain left lower quadrant abdominal pain history of diverticulitis, will admit for persistent nausea vomiting and diarrhea - Lab Data Result diagrams: 09/21/20 23:01 09/21/20 23:01 Lab Results 09/21/20 09/21/20 09/21/20 Range/Units 23:01 23:01 23:01 WBC 8.3 (3.8-10.6) k/uL RBC 4.39 (4.30-5.90) m/uL Hgb 12.5 L (13.0-17.5) gm/dL Hct 36.3 L (39.0-53.0) % MCV 82.9 (80.0-100.0) fL MCH 28.6 (25.0-35.0) pg MCHC 34.5 (31.0-37.0) g/dL RDW 14.5 (11.5-15.5) % Plt Count 181 (150-450) k/uL MPV 8.0 Neutrophils % 72 % Lymphocytes % 16 % Monocytes % 8 % Eosinophils % 2 % Basophils % 1 % Neutrophils # 6.0 (1.3-7.7) k/uL Lymphocytes # 1.4 (1.0-4.8) k/uL Monocytes # 0.6 (0-1.0) k/uL Eosinophils # 0.1 (0-0.7) k/uL Basophils # 0.1 (0-0.2) k/uL PT 10.2 (9.0-12.0) sec INR 0.9 (<1.2) APTT 22.1 (22.0-30.0) sec Sodium (137-145) mmol/L Potassium (3.5-5.1) mmol/L Chloride (98-107) mmol/L Carbon Dioxide (22-30) mmol/L Anion Gap mmol/L BUN (9-20) mg/dL Creatinine (0.66-1.25) mg/dL Est GFR (CKD-EPI)AfAm (>60 ml/min/1.73 sqM) Est GFR (CKD-EPI)NonAf (>60 ml/min/1.73 sqM) Glucose (74-99) mg/dL Plasma Lactic Acid Sergo (0.7-2.0) mmol/L Calcium (8.4-10.2) mg/dL Phosphorus (2.5-4.5) mg/dL Magnesium (1.6-2.3) mg/dL Total Bilirubin (0.2-1.3) mg/dL AST (17-59) U/L ALT (4-49) U/L Alkaline Phosphatase (38-126) U/L Creatine Kinase (55-170) U/L Troponin I (0.000-0.034) ng/mL Total Protein (6.3-8.2) g/dL Albumin (3.5-5.0) g/dL Urine Color Light Yellow Urine Appearance Clear (Clear) Urine pH 7.0 (5.0-8.0) Ur Specific [place] 1.011 (1.001-1.035) Urine Protein Negative (Negative) Urine Glucose (UA) Negative (Negative) Urine Ketones Negative (Negative) Urine Blood Negative (Negative) Urine Nitrite Negative (Negative) Urine Bilirubin Negative (Negative) Urine Urobilinogen <2.0 (<2.0) mg/dL Ur Leukocyte Esterase Negative (Negative) C. difficile (EIA) Intrp (Negative) 09/21/20 09/21/20 09/21/20 Range/Units 23:01 23:01 23:01 WBC (3.8-10.6) k/uL RBC (4.30-5.90) m/uL Hgb (13.0-17.5) gm/dL Hct (39.0-53.0) % MCV (80.0-100.0) fL MCH (25.0-35.0) pg MCHC (31.0-37.0) g/dL RDW (11.5-15.5) % Plt Count (150-450) k/uL MPV Neutrophils % % Lymphocytes % % Monocytes % % Eosinophils % % Basophils % % Neutrophils # (1.3-7.7) k/uL Lymphocytes # (1.0-4.8) k/uL Monocytes # (0-1.0) k/uL Eosinophils # (0-0.7) k/uL Basophils # (0-0.2) k/uL PT (9.0-12.0) sec INR (<1.2) APTT (22.0-30.0) sec Sodium 137 (137-145) mmol/L Potassium 4.5 (3.5-5.1) mmol/L Chloride 108 H (98-107) mmol/L Carbon Dioxide 20 L (22-30) mmol/L Anion Gap 9 mmol/L BUN 18 (9-20) mg/dL Creatinine 1.29 H (0.66-1.25) mg/dL Est GFR (CKD-EPI)AfAm 76 (>60 ml/min/1.73 sqM) Est GFR (CKD-EPI)NonAf 66 (>60 ml/min/1.73 sqM) Glucose 132 H (74-99) mg/dL Plasma Lactic Acid Sergo 0.8 (0.7-2.0) mmol/L Calcium 9.3 (8.4-10.2) mg/dL Phosphorus 3.4 (2.5-4.5) mg/dL Magnesium 1.9 (1.6-2.3) mg/dL Total Bilirubin 0.3 (0.2-1.3) mg/dL AST 44 (17-59) U/L ALT 37 (4-49) U/L Alkaline Phosphatase 81 (38-126) U/L Creatine Kinase 1056 H* (55-170) U/L Troponin I <0.012 (0.000-0.034) ng/mL Total Protein 7.3 (6.3-8.2) g/dL Albumin 4.1 (3.5-5.0) g/dL Urine Color Urine Appearance (Clear) Urine pH (5.0-8.0) Ur Specific [place] (1.001-1.035) Urine Protein (Negative) Urine Glucose (UA) (Negative) Urine Ketones (Negative) Urine Blood (Negative) Urine Nitrite (Negative) Urine Bilirubin (Negative) Urine Urobilinogen (<2.0) mg/dL Ur Leukocyte Esterase (Negative) C. difficile (EIA) Intrp (Negative) 09/21/20 Range/Units 23:30 WBC (3.8-10.6) k/uL RBC (4.30-5.90) m/uL Hgb (13.0-17.5) gm/dL Hct (39.0-53.0) % MCV (80.0-100.0) fL MCH (25.0-35.0) pg MCHC (31.0-37.0) g/dL RDW (11.5-15.5) % Plt Count (150-450) k/uL MPV Neutrophils % % Lymphocytes % % Monocytes % % Eosinophils % % Basophils % % Neutrophils # (1.3-7.7) k/uL Lymphocytes # (1.0-4.8) k/uL Monocytes # (0-1.0) k/uL Eosinophils # (0-0.7) k/uL Basophils # (0-0.2) k/uL PT (9.0-12.0) sec INR (<1.2) APTT (22.0-30.0) sec Sodium (137-145) mmol/L Potassium (3.5-5.1) mmol/L Chloride (98-107) mmol/L Carbon Dioxide (22-30) mmol/L Anion Gap mmol/L BUN (9-20) mg/dL Creatinine (0.66-1.25) mg/dL Est GFR (CKD-EPI)AfAm (>60 ml/min/1.73 sqM) Est GFR (CKD-EPI)NonAf (>60 ml/min/1.73 sqM) Glucose (74-99) mg/dL Plasma Lactic Acid Sergo (0.7-2.0) mmol/L Calcium (8.4-10.2) mg/dL Phosphorus (2.5-4.5) mg/dL Magnesium (1.6-2.3) mg/dL Total Bilirubin (0.2-1.3) mg/dL AST (17-59) U/L ALT (4-49) U/L Alkaline Phosphatase (38-126) U/L Creatine Kinase (55-170) U/L Troponin I (0.000-0.034) ng/mL Total Protein (6.3-8.2) g/dL Albumin (3.5-5.0) g/dL Urine Color Urine Appearance (Clear) Urine pH (5.0-8.0) Ur Specific [place] (1.001-1.035) Urine Protein (Negative) Urine Glucose (UA) (Negative) Urine Ketones (Negative) Urine Blood (Negative) Urine Nitrite (Negative) Urine Bilirubin (Negative) Urine Urobilinogen (<2.0) mg/dL Ur Leukocyte Esterase (Negative) C. difficile (EIA) Intrp Negative (Negative) - EKG Data -: EKG Interpreted by Me (EKG is sinus 87, VA 166 QRS 92 QTC 442) - Radiology Data Radiology results: report reviewed (CT of the abdomen and pelvis is pending), image reviewed Disposition Clinical Impression: Dehydration, Gastroenteritis, Diverticulitis, Nausea & vomiting, Rhabdomyolysis Disposition: ADMITTED IP TO THIS HOSP Condition: Fair Is patient prescribed a controlled substance at d/c from ED?: No Referrals: Narciso Cheung MD [Primary Care Provider] - 1-2 days
[2020-09-21] MEDS ORDERED: PANTOPRAZOLE 40 MG/10 ML VIAL IVP STA (22:37)
[2020-09-21] MEDS ORDERED: SODIUM CHLORIDE 0.9% 1,000 ML IV STA ×3 (22:37→22:38)
[2020-09-21] MEDS ORDERED: ONDANSETRON 4 MG/2 ML VIAL IVP STA (22:37)
[2020-09-21 23:17] LABS: Basophils # (A) 0.1 k/uL (0-0.2); Basophils % (A) 1 %; Eosinophils # (A) 0.1 k/uL (0-0.7); Eosinophils % (A) 2 %; HCT 36.3 % (39.0-53.0); HGB 12.5 gm/dL (13.0-17.5); Lymphocytes # (A) 1.4 k/uL (1.0-4.8); Lymphocytes % (A) 16 %; MCH 28.6 pg (25.0-35.0); MCHC 34.5 g/dL (31.0-37.0); MCV 82.9 fL (80.0-100.0); Monocytes # (A) 0.6 k/uL (0-1.0); Monocytes % (A) 8 %; Neutrophils % (A) 72 %; Platelet Count 181 k/uL (150-450); RBC 4.39 m/uL (4.30-5.90); RDW 14.5 % (11.5-15.5); WBC 8.3 k/uL (3.8-10.6)
[2020-09-21 23:27] LABS: INR 0.9 (<1.2)
[2020-09-21 23:28] LABS: Albumin 4.1 g/dL (3.5-5.0); Calcium 9.3 mg/dL (8.4-10.2); Magnesium 1.9 mg/dL (1.6-2.3); Partial Thromboplastin Time 22.1 sec (22.0-30.0); Phosphorus 3.4 mg/dL (2.5-4.5); Potassium 4.5 mmol/L (3.5-5.1); Prothrombin Time 10.2 sec (9.0-12.0); Total Bilirubin 0.3 mg/dL (0.2-1.3); Total Protein 7.3 g/dL (6.3-8.2)
[2020-09-22] MEDS ORDERED: SODIUM CHLORIDE 0.9% 1,000 ML IV STA (00:49)
[2020-09-22] MEDS ORDERED: HYDROmorphone 1 MG/ML 1 ML SYRINGE IVP STA (00:49)
[2020-09-22 01:03] LABS: Appearance,Urine Clear (Clear); Bilirubin,Urine Negative (Negative); Blood,Urine Negative (Negative); Color,Urine Light Yellow; Glucose,Urine (UA) Negative (Negative); Ketones,Urine Negative (Negative); Leukocyte Esterase,Urine Negative (Negative); Nitrite,Urine Negative (Negative); Protein,Urine Negative (Negative); Specific Gravity,Urine 1.011 (1.001-1.035); Urobilinogen,Urine <2.0 mg/dL (<2.0)
[2020-09-22] MEDS ORDERED: NALOXONE 0.4 MG/ML 1 ML VIAL IV PRN (01:21)
[2020-09-22] MEDS: SODIUM CHLORIDE 0.9% 1,000 ML IV SCH ×3 (01:56→19:55)
--- NOTE | 2020-09-22 02:02 | CT ---
EXAM: CT Abdomen and Pelvis With Intravenous Contrast CLINICAL HISTORY: ITS.REASON CT Reason: pain TECHNIQUE: Axial computed tomography images of the abdomen and pelvis with intravenous contrast. CTDI is 45.97 mGy and DLP is 2130.1 mGy-cm. This CT exam was performed using one or more of the following dose reduction techniques: automated exposure control, adjustment of the mA and/or kV according to patient size, and/or use of iterative reconstruction technique. COMPARISON: CT abdomen and pelvis 11/30/18 FINDINGS: Lung bases: Clear lung bases. ABDOMEN: Liver: Unremarkable. No mass. Gallbladder and bile ducts: Unremarkable. No calcified stones. No ductal dilation. Pancreas: Unremarkable. No mass. No ductal dilation. Spleen: Unremarkable. No splenomegaly. Adrenals: Unremarkable. No mass. Kidneys and ureters: Symmetric renal enhancement. No hydronephrosis. Nonspecific bilateral perinephric stranding. Stomach and bowel: No bowel obstruction or inflammation. No mucosal thickening. PELVIS: Appendix: Normal appendix. Bladder: No urinary bladder wall thickening. Reproductive: Prostatomegaly. ABDOMEN and PELVIS: Intraperitoneal space: No free fluid or free air. Bones/joints: No acute fracture or dislocation. Sclerotic lesion in the right iliac bone, likely bone island. Mild multilevel degenerative disc disease in the thoracolumbar spine. Soft tissues: Small fat-containing inguinal hernias. Vasculature: Aorta is normal in caliber. No abdominal aortic aneurysm. Lymph nodes: No lymphadenopathy. IMPRESSION: No acute findings in the abdomen or pelvis.
[2020-09-22 07:11] LABS: Glucose,Whole Blood 83 mg/dL (75-99)
[2020-09-22] MEDS: HYDROmorphone 1 MG/ML 1 ML SYRINGE IVP PRN ×3 (07:17→19:52)
[2020-09-22] MEDS ORDERED: PANTOPRAZOLE 40 MG/10 ML VIAL IVP SCH (09:00)
[2020-09-22] MEDS: INSULIN ASPART (NovoLOG) 100 UNIT/ML VIAL SQ SCH ×4 (09:01→19:54)
[2020-09-22] MEDS ORDERED: BACLOFEN 10 MG TAB PO PRN (11:23)
[2020-09-22] MEDS ORDERED: NON FORMULARY DRUG (Ondansetron Hcl [Zofran] 8 MG Tablet) PO PRN (11:23)
[2020-09-22] MEDS ORDERED: NON FORMULARY DRUG (Omeprazole [Omeprazole] 40 MG Capsule.Dr) PO SCH (11:30)
[2020-09-22 12:01] LABS: Glucose,Whole Blood 68 mg/dL (75-99)
[2020-09-22] MEDS: ISOSORBIDE MONONITRATE ER 60 MG TAB.ER.24H PO SCH (12:43)
[2020-09-22] MEDS: CLOPIDOGREL 75 MG TAB PO SCH (12:43)
[2020-09-22] MEDS: carvediloL 12.5 MG TAB PO SCH ×2 (12:43→17:53)
[2020-09-22] MEDS: GABAPENTIN 400 MG CAP PO SCH ×3 (12:43→19:53)
[2020-09-22] MEDS: allopurinoL 100 MG TAB PO SCH (12:50)
[2020-09-22] MEDS: ENOXAPARIN 40 MG/0.4 ML SYRINGE SQ SCH (12:51)
[2020-09-22] MEDS: ASPIRIN 81 MG PO SCH (12:51)
[2020-09-22] MEDS: PENTOXIFYLLINE 400 MG TABLET.ER PO SCH ×2 (15:21→16:22)
[2020-09-22] MEDS: NON FORMULARY DRUG (Teriflunomide [Aubagio] 14 MG Tablet) PO SCH (15:22)
[2020-09-22] MEDS: TRIAMCINOLONE ACET 0.5% CREAM 15 GM TUBE TOPICAL SCH (16:21)
[2020-09-22] MEDS: metroNIDAZOLE 500 MG TAB PO SCH ×3 (16:22→19:53)
[2020-09-22] MEDS: VORTIOXETINE HYDROBROMIDE 20 MG TABLET PO SCH (16:23)
[2020-09-22] MEDS: TOPIRAMATE 25 MG TAB PO SCH (16:23)
[2020-09-22 17:29] LABS: Glucose,Whole Blood 120 mg/dL (75-99)
[2020-09-22] MEDS: CIPROFLOXACIN HCL 500 MG TAB PO SCH ×2 (17:50→19:53)
[2020-09-22 19:53] LABS: Glucose,Whole Blood 127 mg/dL (75-99)
[2020-09-22] MEDS: MELATONIN 5 MG TABLET PO SCH (19:53)
[2020-09-22] MEDS: ATORVASTATIN 80 MG TAB PO SCH (19:53)
--- NOTE | 2020-09-22 23:00 | P.HPIM ---
History of Present Illness H&P Date: 09/22/20 Chief Complaint: Abdominal pain History of presenting complaint: This is a pleasant [address] Cheung. Chronic stable medical conditions include coronary artery disease with stent last one being 1 year ago, multiple sclerosis, sleep apnea type unknown, chronic kidney disease, bipolar disorder,. Patient follows with Dr. abel near [facility]. Patient presents with left-sided abdominal pain for about 3 days. Some nausea vomiting. No fever no chills. Many loose stools a day. No blood. Admitted for the same. Review of systems: GEN.: Tired EYES: None HEENT: None NECK: None RESPIRATORY: None CARDIOVASCULAR: None GASTROINTESTINAL: As above] GENITOURINARY: None MUSCULOSKELETAL: None LYMPHATICS: None HEMATOLOGICAL: None PSYCHIATRY: Some depression and anxiety NEUROLOGICAL: None Past medical history to include: Coronary artery disease with stent, 1 year ago, CHF, diabetes, hypertension, scoliosis of the spine, multiple sclerosis, sleep apnea, anxiety depression Social history: Patient lists his 3 children. Disabled. Total of 7 children. Legally separat ed. No history of alcohol or smoking or recreational drugs Physical examination: VITAL SIGNS: 99, 90, 18, 148/82, 98% room air GENERAL: BMI 37.2, laying in bed, not in distress. EYES: Pupils equal. Conjunctiva normal. HEENT: External appearance of nose and ears normal, oral cavity grossly normal. NECK: JVD not raised; masses not palpable. HEART: First and second heart sounds are normal; no edema. LUNGS: Respiratory rate normal; clear to auscultation. ABDOMEN: Soft, some left-sided tenderness, no guarding rigidity, liver spleen not palpable, no masses palpable. PSYCH: Alert and oriented x3; mood and affect normal. NEUROLOGICAL: Cranial nerves grossly intact; no facial asymmetry, power and sensation grossly intact. LYMPHATICS: No lymph nodes palpable in the axilla and neck INVESTIGATIONS, reviewed in the clinical context: WBC 8.3 hemoglobin 12.5 platelets 181 potassium 4.5 bun 18 and creatinine 1.29 Troponin I less than 0.012 UA negative C. difficile-negative Coronavirus [PCF]-not detected EKG tracing personally reviewed by me-normal sinus rhythm Computed tomography scan of the abdomen pelvis-unremarkable Assessment and plan: -Acute nonspecific mild colitis with left-sided abdominal pain and diarrhea. Does not report any obvious fever and chills. C. diff has come back to be negative. Treat empirically with Flagyl and ciprofloxacin. -Coronary artery disease by history of stent about a year ago-continue with Plavix Lipitor LLUVIA inhibitor -Chronic congestive heart failure EF not known -Diabetes mellitus type 2, chronically on insulin, follow Accu-Chek -Diabetic peripheral neuropathy on Neurontin -Essential hypertension -Scoliosis -Multiple sclerosis -Hyperlipidemia on Lipitor -Anxiety depression otherwise specified -Obesity BMI 37.2 -Sleep apnea type unknown. On Provigil Additionally: Patient placed in the clinical liquid diet. Follow Accu-Cheks. Empiric antibiotics. Repeat labs in the morning. Discussed with the patient Past Medical History Past Medical History: Coronary Artery Disease (CAD), Heart Failure, Diabetes Mellitus, Hypertension, Myocardial Infarction (OH), Musculoskeletal Disorder Additional Past Medical History / Comment(s): scoliosis of spine, 3 OH's x7 stents (2013 x2 OH's w/stents, 2015 OH w/stents), DM II. History of MS Last Myocardial Infarction Date:: 2015 History of Any Multi-Drug Resistant Organisms: C-DIFF Date of last positivie culture/infection: 04/2020 MDRO Source:: Stool Past Surgical History: Back Surgery, Orthopedic Surgery Additional Past Surgical History / Comment(s): Pt states: "OH's with stents, left knee scope.". Back cyst operation. Past Anesthesia/Blood Transfusion Reactions: No Reported Reaction Past Psychological History: Anxiety, Depression Additional Psychological History / Comment(s): Patient is and lives in the family home with his . They've a total of 7 children. Four of the children currently live in the home with them. Did not relate any significant alcohol or recreational drug use. No experience. Medically disabled. No animals in the home Smoking Status: Never smoker Past Alcohol Use History: None Reported Past Drug Use History: None Reported - Past Family History Father Additional Family Medical History / Comment(s): "heart disease." Mother History Unknown: Yes Family Medical History: Cancer, Diabetes Mellitus Additional Family Medical History / Comment(s): pt states: "kidney cancer." Medications and Allergies Home Medications Medication Instructions Recorded Confirmed Type Aspirin [[place] Aspirin EC] 81 mg PO DAILY 11/22/18 09/22/20 History Atorvastatin [Lipitor] 80 mg PO HS 11/22/18 09/22/20 History Baclofen 10 mg PO Q8HR PRN 11/22/18 09/22/20 History Carvedilol [Coreg] 12.5 mg PO BID 11/22/18 09/22/20 History Clopidogrel [Plavix] 75 mg PO DAILY 11/22/18 09/22/20 History Ergocalciferol (Vitamin D2) 50,000 unit PO Q30D 11/22/18 09/22/20 History [Drisdol (50,000 Iu)] Insulin Glulisine [Apidra] 30 units SQ AC-TID 11/22/18 09/22/20 History Nitroglycerin 0.4 mg SL Q5M PRN 11/22/18 09/22/20 History Selsun Blue 1 applic TOPICAL DAILY 11/22/18 09/22/20 History Vortioxetine Hydrobromide 20 mg PO DAILY 11/22/18 09/22/20 History [Trintellix] polyethylene glycoL 3350 [Miralax] 17 gm PO DAILY 11/22/18 09/22/20 History traMADol HCL [Ultram] 50 mg PO Q6H PRN 11/22/18 09/22/20 History Lisinopril [Zestril] 10 mg PO BID 07/04/20 09/22/20 History Omeprazole 40 mg PO DAILY 07/04/20 09/22/20 History Pentoxifylline 400 mg PO DAILY 07/04/20 09/22/20 History Teriflunomide [Aubagio] 14 mg PO DAILY 07/04/20 09/22/20 History Topiramate [Topiramate ER] 100 mg PO HS 07/04/20 09/22/20 History Triamcinolone 0.5% Cream [Kenalog 1 applic TOPICAL BID 07/04/20 09/22/20 History 0.5% Cream] metOLazone [Zaroxolyn] 5 mg PO DAILY PRN 07/04/20 09/22/20 History ondansetron HCL [Zofran] 8 mg PO Q12H PRN 07/04/20 09/22/20 History Allopurinol [Zyloprim] 100 mg PO DAILY 09/22/20 09/22/20 History Furosemide [Lasix] 40 mg PO BID 09/22/20 09/22/20 History Gabapentin [Neurontin] 400 mg PO TID 09/22/20 09/22/20 History HYDROcodone/APAP 7.5-325MG [[place] 1 tab PO Q8H PRN 09/22/20 09/22/20 History 7.5-325] Insulin Glargine [Lantus] 80 unit SQ HS 09/22/20 09/22/20 History Isosorbide Mononitrate [Imdur] 120 mg PO DAILY 09/22/20 09/22/20 History Melatonin 5 mg PO HS 09/22/20 09/22/20 History Risankizumab-Rzaa [[place] (2 150 mg SQ Q90D 09/22/20 09/22/20 History Syringes) Kit] modafiniL [Provigil] 200 mg PO DAILY 09/22/20 09/22/20 History Allergies Allergy/AdvReac Type Severity Reaction Status Date / Time No Known Allergies Allergy Verified 09/22/20 08:43 Physical Exam Vitals: Vital Signs Temp Pulse Pulse Resp BP BP Pulse Ox 09/22/20 08:00 17 09/22/20 07:03 97.9 F 83 18 176/101 97 09/22/20 02:03 85 18 156/94 97 09/22/20 02:00 97.9 F 97 16 169/84 97 09/22/20 01:49 97.9 F 88 17 169/84 97 09/21/20 23:36 90 18 148/82 98 09/21/20 22:11 99.0 F 92 16 177/95 98 Intake and Output 09/21/20 09/22/20 09/22/20 22:59 06:59 14:59 Intake Total 480 Balance 480 Intake: Intake, IV Titration 480 Amount Sodium Chloride 0.9% 1, 480 000 ml @ 120 mls/hr IV . Q8H20M [facility] Rx#:[id number] Other: # Voids 1 # Bowel Movements 1 Weight 121.109 kg 121.109 kg Results CBC & Chem 7: 09/21/20 23:01 09/21/20 23:01 Labs: Abnormal Lab Results - Last 24 Hours (Table) 09/21/20 09/21/20 Range/Units 23:01 23:01 Hgb 12.5 L (13.0-17.5) gm/dL Hct 36.3 L (39.0-53.0) % Chloride 108 H (98-107) mmol/L Carbon Dioxide 20 L (22-30) mmol/L Creatinine 1.29 H (0.66-1.25) mg/dL Glucose 132 H (74-99) mg/dL Creatine Kinase 1056 H* (55-170) U/L Thrombosis Risk Factor Assmnt - Choose All That Apply Any of the Below Risk Factors Present?: Yes Each Factor Represents 1 point: Age 41-60 years, Obesity (BMI >25) Thrombosis Risk Factor Assessment Total Risk Factor Score: 2 Thrombosis Risk Factor Assessment Level: Low Risk
[2020-09-23] MEDS: HYDROmorphone 1 MG/ML 1 ML SYRINGE IVP PRN ×3 (03:39→14:29)
[2020-09-23] MEDS: SODIUM CHLORIDE 0.9% 1,000 ML IV SCH ×3 (03:39→23:05)
[2020-09-23] MEDS: TRIAMCINOLONE ACET 0.5% CREAM 15 GM TUBE TOPICAL SCH ×3 (03:50→23:02)
[2020-09-23 07:10] LABS: Glucose,Whole Blood 92 mg/dL (75-99)
[2020-09-23] MEDS: CIPROFLOXACIN HCL 500 MG TAB PO SCH ×2 (08:38→23:01)
[2020-09-23] MEDS: ENOXAPARIN 40 MG/0.4 ML SYRINGE SQ SCH (08:39)
[2020-09-23] MEDS: allopurinoL 100 MG TAB PO SCH (08:39)
[2020-09-23] MEDS: VORTIOXETINE HYDROBROMIDE 20 MG TABLET PO SCH (08:39)
[2020-09-23] MEDS: GABAPENTIN 400 MG CAP PO SCH ×3 (08:39→23:02)
[2020-09-23] MEDS: carvediloL 12.5 MG TAB PO SCH ×2 (08:40→16:46)
[2020-09-23] MEDS: ISOSORBIDE MONONITRATE ER 60 MG TAB.ER.24H PO SCH (08:40)
[2020-09-23] MEDS: ASPIRIN 81 MG PO SCH (08:40)
[2020-09-23] MEDS: CLOPIDOGREL 75 MG TAB PO SCH (08:40)
[2020-09-23] MEDS: TOPIRAMATE 25 MG TAB PO SCH ×2 (08:40→23:01)
[2020-09-23] MEDS: metroNIDAZOLE 500 MG TAB PO SCH ×3 (08:40→23:01)
[2020-09-23] MEDS: PANTOPRAZOLE 40 MG TABLET PO SCH (08:41)
[2020-09-23] MEDS: INSULIN ASPART (NovoLOG) 100 UNIT/ML VIAL SQ SCH ×4 (08:46→23:03)
[2020-09-23] MEDS: NON FORMULARY DRUG (Teriflunomide [Aubagio] 14 MG Tablet) PO SCH (08:47)
[2020-09-23 11:49] LABS: African American GFR (CKD) 75.3 (60.0-200.0); Albumin 4.2 g/dL (3.80-4.90); Albumin/Globulin Ratio 1.68 (1.60-3.17); Anion Gap 4.9 mmol/L (4.00-12.00); Calcium 8.8 mg/dL (8.7-10.3); Carbon Dioxide 22.1 mmol/L (21.6-31.8); Globulin 2.5 g/dL (1.6-3.3); Magnesium 1.8 mg/dL (1.5-2.4); Phosphorus 2.8 mg/dL (2.4-5.1); Potassium 4.4 mmol/L (3.5-5.5); Total Bilirubin 0.4 mg/dL (0.3-1.2); Total Protein 6.7 g/dL (6.2-8.2)
[2020-09-23 11:57] LABS: Basophils # (A) 0.05 X 10*3/uL (0.00-0.10); Basophils % (A) 0.7 %; Eosinophils # (A) 0.22 X 10*3/uL (0.04-0.35); Eosinophils % (A) 3.1 %; HCT 35.2 % (39.6-50.0); HGB 11.3 g/dL (13.0-17.0); Lymphocytes # (A) 1.19 X 10*3/uL (0.90-5.00); Lymphocytes % (A) 16.9 %; MCH 27.3 pg (27.0-32.0); MCHC 32.1 g/dL (32.0-37.0); Mean Platelet Volume 11.3 fL (9.5-12.2); Monocytes # (A) 0.69 X 10*3/uL (0.20-1.00); Monocytes % (A) 9.8 %; Neutrophils # (A) 4.88 X 10*3/uL (1.80-7.70); Neutrophils % (A) 69.4 %; Platelet Count 189 X 10*3/uL (140-440); RBC 4.14 X 10*6/uL (4.40-5.60); RDW 14.4 % (11.5-14.5); WBC 7.04 X 10*3/uL (4.50-10.00)
[2020-09-23 12:33] LABS: Glucose,Whole Blood 117 mg/dL (75-99)
[2020-09-23] MEDS: PSYLLIUM HUSK 100% 6 GM PACKET PO SCH ×2 (12:54→23:23)
[2020-09-23] MEDS: ONDANSETRON 4 MG/2 ML VIAL IVP PRN (14:28)
[2020-09-23 15:29] LABS: Hemoglobin A1C 8.3 % (4.0-6.0)
[2020-09-23 17:32] LABS: Glucose,Whole Blood 92 mg/dL (75-99)
[2020-09-23 20:28] LABS: Glucose,Whole Blood 121 mg/dL (75-99)
--- NOTE | 2020-09-23 22:02 | P.PN ---
Progress Note - Text Progress Note Date: 09/23/20 Chief Complaint: Abdominal pain History of presenting complaint: This is a pleasant [address] Cheung. Chronic stable medical conditions include coronary artery disease with stent last one being 1 year ago, multiple sclerosis, sleep apnea type unknown, chronic kidney disease, bipolar disorder,. Patient follows with Dr. abel near [place]. Patient presents with left-sided abdominal pain for about 3 days. Some nausea vomiting. No fever no chills. Many loose stools a day. No blood. Admitted for the same. Admitted with acute diarrhea. C. diff came back to be negative. Started empirically on ciprofloxacin and Flagyl. Today-still having abdominal pain. Diarrhea with no blood. No nausea vomiting. No fever. On a clear liquid diet. Review of systems: Was done for constitutional, cardiovascular, GI, pulmonary. relevant finding as above Active Medications Hydrocodone Bitart/Acetaminophen (Hydrocodone/Apap 7.5-325mg 1 Each Tab) 1 each PO Q8H PRN PRN Reason: Pain Allopurinol (Allopurinol 100 Mg Tab) 100 mg PO DAILY [facility] Last Admin: 09/23/20 08:39 Dose: 100 mg Documented by: Aspirin (Aspirin 81 Mg) 81 mg PO DAILY [facility] Last Admin: 09/23/20 08:40 Dose: 81 mg Documented by: Atorvastatin Calcium (Atorvastatin 80 Mg Tab) 80 mg PO HS [facility] Last Admin: 09/22/20 19:53 Dose: 80 mg Documented by: Baclofen (Baclofen 10 Mg Tab) 10 mg PO Q8HR PRN PRN Reason: Spasms Carvedilol (Carvedilol 12.5 Mg Tab) 12.5 mg PO BID-W/MEALS [facility] Last Admin: 09/23/20 16:46 Dose: 12.5 mg Documented by: Ciprofloxacin (Ciprofloxacin Hcl 500 Mg Tab) 500 mg PO BID [facility] Last Admin: 09/23/20 08:38 Dose: 500 mg Documented by: Clopidogrel Bisulfate (Clopidogrel 75 Mg Tab) 75 mg PO DAILY [facility] Last Admin: 09/23/20 08:40 Dose: 75 mg Documented by: Enoxaparin Sodium (Enoxaparin 40 Mg/0.4 Ml Syringe) 40 mg SQ DAILY [facility] Last Admin: 09/23/20 08:39 Dose: 40 mg Documented by: Gabapentin (Gabapentin 400 Mg Cap) 400 mg PO TID [facility] Last Admin: 09/23/20 16:46 Dose: 400 mg Documented by: Hydromorphone HCl (Hydromorphone 1 Mg/Ml 1 Ml Syringe) 1 mg IVP Q4HR PRN PRN Reason: Pain Last Admin: 09/23/20 14:29 Dose: 1 mg Documented by: Sodium Chloride (Saline 0.9%) 1,000 mls @ 120 mls/hr IV .Q8H20M [facility] Last Admin: 09/23/20 12:53 Dose: 120 mls/hr Documented by: Insulin Aspart (Insulin Aspart (Novolog) 100 Unit/Ml Vial) 0 unit SQ ACHS [facility]; Protocol Last Admin: 09/23/20 17:41 Dose: Not Given Documented by: Isosorbide Mononitrate (Isosorbide Mononitrate Er 60 Mg Tab.Er.24h) 120 mg PO DAILY [facility] Last Admin: 09/23/20 08:40 Dose: 120 mg Documented by: Melatonin (Melatonin 5 Mg Tablet) 5 mg PO HS [facility] Last Admin: 09/22/20 19:53 Dose: 5 mg Documented by: Metronidazole (Metronidazole 500 Mg Tab) 500 mg PO TID [facility] Last Admin: 09/23/20 16:47 Dose: 500 mg Documented by: Modafinil (Modafinil 200 Mg Tab) 200 mg PO DAILY [facility] Last Admin: 09/23/20 08:40 Dose: 200 mg Documented by: Naloxone HCl (Naloxone 0.4 Mg/Ml 1 Ml Vial) 0.2 mg IV Q2M PRN PRN Reason: Opioid Reversal Non-Formulary Medication (Teriflunomide [Aubagio]) 14 mg PO DAILY [facility] Last Admin: 09/23/20 08:47 Dose: Not Given Documented by: Ondansetron HCl (Ondansetron 4 Mg/2 Ml Vial) 4 mg IVP Q6HR PRN PRN Reason: Nausea And Vomiting Last Admin: 09/23/20 14:28 Dose: 4 mg Documented by: Pantoprazole Sodium (Pantoprazole 40 Mg Tablet) 40 mg PO DAILY [facility] Last Admin: 09/23/20 08:41 Dose: 40 mg Documented by: Pentoxifylline (Pentoxifylline 400 Mg Tablet.Er) 400 mg PO DAILY [facility] Last Admin: 09/22/20 16:22 Dose: 400 mg Documented by: Psyllium Hydrophilic Mucilloid (Psyllium Husk 100% 6 Gm Packet) 6 gm PO BID [facility] Last Admin: 09/23/20 12:54 Dose: Not Given Documented by: Topiramate (Topiramate 25 Mg Tab) 50 mg PO BID [facility] Last Admin: 09/23/20 08:40 Dose: 50 mg Documented by: Triamcinolone Acetonide (Triamcinolone Acet 0.5% Cream 15 Gm Tube) 1 applic TOPICAL BID [facility] Last Admin: 09/23/20 08:47 Dose: 1 applic Documented by: Vortioxetine (Vortioxetine Hydrobromide 20 Mg Tablet) 20 mg PO DAILY [facility] Last Admin: 09/23/20 08:39 Dose: 20 mg Documented by: Past medical history to include: Coronary artery disease with stent, 1 year ago, CHF, diabetes, hypertension, scoliosis of the spine, multiple sclerosis, sleep apnea, anxiety depression Social history: Patient lists his 3 children. Disabled. Total of 7 children. Legally . No history of alcohol or smoking or recreational drugs Physical examination: VITAL SIGNS: 98, 70, 18, 160/91, 99% room air GENERAL: Sitting up, but tired appearing EYES: Pupils equal. Conjunctiva normal. NECK: JVD not raised; masses not palpable. HEART: First and second heart sounds are normal; no edema. LUNGS: Respiratory rate normal; clear to auscultation. ABDOMEN: Soft, some left-sided tenderness, no guarding rigidity, liver spleen not palpable, no masses palpable. PSYCH: Alert and oriented x3; mood and affect normal. INVESTIGATIONS, reviewed in the clinical context: September 23: White count 7.04 hemoglobin 11.3 potassium 4.4 creatinine 1.3 WBC 8.3 hemoglobin 12.5 platelets 181 potassium 4.5 bun 18 and creatinine 1.29 Troponin I less than 0.012 UA negative C. difficile-negative Coronavirus [PCF]-not detected EKG tracing personally reviewed by me-normal sinus rhythm Computed tomography scan of the abdomen pelvis-unremarkable Assessment and plan: -Acute nonspecific mild colitis with left-sided abdominal pain and diarrhea. Does not report any obvious fever and chills. C. diff has come back to be negative. Treat empirically with Flagyl and ciprofloxacin.-Not improving. Have asked for stool fall and parasites -Coronary artery disease by history of stent about a year ago-continue with Plavix Lipitor LLUVIA inhibitor -Chronic congestive heart failure EF not known -Diabetes mellitus type 2, chronically on insulin, follow Accu-Chek -Diabetic peripheral neuropathy on Neurontin -Essential hypertension -Scoliosis -Multiple sclerosis -Hyperlipidemia on Lipitor -Anxiety depression otherwise specified -Obesity BMI 37.2 -Sleep apnea type unknown. On Provigil Additionally: Metamucil to see for help bulk up the stool. Keep the patient on liquid diet. Consult GI. May need a colonoscopy to rule out microscopic colitis. Continue with oral antibiotics discussed with the patient.
[2020-09-23] MEDS: ATORVASTATIN 80 MG TAB PO SCH (23:01)
[2020-09-23] MEDS: HYDROcodone/APAP 7.5-325MG 1 EACH TAB PO PRN (23:01)
[2020-09-23] MEDS: MELATONIN 5 MG TABLET PO SCH (23:02)
[2020-09-24] MEDS: ONDANSETRON 4 MG/2 ML VIAL IVP PRN (01:56)
[2020-09-24] MEDS: HYDROmorphone 1 MG/ML 1 ML SYRINGE IVP PRN (01:56)
[2020-09-24] MEDS: SODIUM CHLORIDE 0.9% 1,000 ML IV SCH ×3 (05:36→20:29)
[2020-09-24 06:59] LABS: Glucose,Whole Blood 105 mg/dL (75-99)
[2020-09-24] MEDS: carvediloL 12.5 MG TAB PO SCH ×2 (07:48→17:26)
[2020-09-24] MEDS: INSULIN ASPART (NovoLOG) 100 UNIT/ML VIAL SQ SCH ×4 (07:49→20:39)
[2020-09-24] MEDS: PANTOPRAZOLE 40 MG TABLET PO SCH (09:05)
[2020-09-24] MEDS: ISOSORBIDE MONONITRATE ER 60 MG TAB.ER.24H PO SCH (09:05)
[2020-09-24] MEDS: ASPIRIN 81 MG PO SCH (09:05)
[2020-09-24] MEDS: CLOPIDOGREL 75 MG TAB PO SCH (09:06)
[2020-09-24] MEDS: allopurinoL 100 MG TAB PO SCH (09:06)
[2020-09-24] MEDS: PENTOXIFYLLINE 400 MG TABLET.ER PO SCH (09:06)
[2020-09-24] MEDS: metroNIDAZOLE 500 MG TAB PO SCH ×3 (09:06→21:25)
[2020-09-24] MEDS: GABAPENTIN 400 MG CAP PO SCH ×3 (09:06→21:25)
[2020-09-24] MEDS: CIPROFLOXACIN HCL 500 MG TAB PO SCH ×2 (09:06→20:39)
[2020-09-24] MEDS: VORTIOXETINE HYDROBROMIDE 20 MG TABLET PO SCH (09:07)
[2020-09-24] MEDS: TOPIRAMATE 25 MG TAB PO SCH ×2 (09:07→20:40)
[2020-09-24] MEDS: TRIAMCINOLONE ACET 0.5% CREAM 15 GM TUBE TOPICAL SCH ×2 (09:08→20:40)
[2020-09-24] MEDS: PSYLLIUM HUSK 100% 6 GM PACKET PO SCH ×2 (09:08→20:40)
[2020-09-24] MEDS: NON FORMULARY DRUG (Teriflunomide [Aubagio] 14 MG Tablet) PO SCH (09:09)
[2020-09-24] MEDS: ENOXAPARIN 40 MG/0.4 ML SYRINGE SQ SCH (09:09)
[2020-09-24 09:33] LABS: Basophils # (A) 0.03 X 10*3/uL (0.00-0.10); Basophils % (A) 0.7 %; Eosinophils # (A) 0.22 X 10*3/uL (0.04-0.35); Eosinophils % (A) 4.8 %; HCT 32.8 % (39.6-50.0); HGB 10.8 g/dL (13.0-17.0); Lymphocytes # (A) 1.06 X 10*3/uL (0.90-5.00); Lymphocytes % (A) 23.2 %; MCHC 32.9 g/dL (32.0-37.0); Mean Platelet Volume 11.3 fL (9.5-12.2); Monocytes # (A) 0.51 X 10*3/uL (0.20-1.00); Monocytes % (A) 11.2 %; Neutrophils # (A) 2.74 X 10*3/uL (1.80-7.70); Neutrophils % (A) 59.9 %; Platelet Count 167 X 10*3/uL (140-440); RBC 3.86 X 10*6/uL (4.40-5.60); WBC 4.57 X 10*3/uL (4.50-10.00)
[2020-09-24 09:52] LABS: African American GFR (CKD) 92.2 (60.0-200.0); BUN/Creat Ratio 8.18 Ratio (12.00-20.00); Calcium 8.5 mg/dL (8.7-10.3); Non-African American GFR(CKD) 79.5 (60.0-200.0)
[2020-09-24] MEDS ORDERED: HYDROmorphone 0.5 MG/0.5 ML SYRINGE IVP PRN (10:10)
--- NOTE | 2020-09-24 10:21 | P.PN ---
Subjective From the records: This is a pleasant [address] Cheung. Chronic stable medical conditions include coronary artery disease with stent last one being 1 year ago, multiple sclerosis, sleep apnea type unknown, chronic kidney disease, bipolar disorder,. Patient follows with Dr. abel near [place]. Patient presents with left-sided abdominal pain for about 3 days. Some nausea vomiting. No fever no chills. Many loose stools a day. No blood. Admitted for the same. Admitted with acute diarrhea. C. diff came back to be negative. Started em pirically on ciprofloxacin and Flagyl. Today-still having abdominal pain. Diarrhea with no blood. No nausea vomiting. No fever. On a clear liquid diet. Subjective:this is the first day I am taking care of the patient 09/24/2020 This is a pleasant 45 years old male with multiple medical problems as below who was told me he came because of significant left abdominal pain, mainly in the left flank that started about 10 days ago about 8/10, currently 66/10, felt like patient sensation associated with constant diarrhea about 8 bouts yesterday of watery diarrhea with no blood but regular light brown, he vomited twice and he feels fatigued and weak Says that his mom has been diagnosed with Crohn's disease. Patient denies trauma or fall He has history of multiple sclerosis and history of the spine disease which is extensive and his been brought to his legs. Has history of C. diff, but this came back negative. Patient does not look in distress due to pain Vitas looks stable and patient is afebrile CBC and BMP is unremarkable on reviewing records he has history of diverticulitis on 11/2018 about 2 years ago Discussed with staff Review of systems CONSTITUTIONAL: No fever, no malaise, no fatigue. HEENT: No recent visual problems or hearing problems. Denied any sore throat. CARDIOVASCULAR: No orthopnea, PND, no palpitations, no syncope. PULMONARY: No shortness of breath, no cough, no hemoptysis. GASTROINTESTINAL: No diarrhea, no nausea, no vomiting, no abdominal pain. Normoactive bowel sounds. NEUROLOGICAL: No headaches, no weakness, no numbness. Active Medications Generic Name Dose Route Start Last Admin Trade Name Freq PRN Reason Stop Dose Admin Hydrocodone Bitart/Acetaminophen 1 each 09/22/20 11:23 09/23/20 23:01 Hydrocodone/Apap 7.5-325mg 1 Each Tab PO 1 each Q8H PRN Administration Pain Allopurinol 100 mg 09/22/20 11:30 09/24/20 09:06 Allopurinol 100 Mg Tab PO 100 mg DAILY [facility] Administration Aspirin 81 mg 09/22/20 11:30 09/24/20 09:05 Aspirin 81 Mg PO 81 mg DAILY [facility] Administration Atorvastatin Calcium 80 mg 09/22/20 21:00 09/23/20 23:01 Atorvastatin 80 Mg Tab PO 80 mg HS [facility]ONSO Administration Baclofen 10 mg 09/22/20 11:23 Baclofen 10 Mg Tab PO Q8HR PRN Spasms Carvedilol 12.5 mg 09/22/20 11:30 09/24/20 07:48 Carvedilol 12.5 Mg Tab PO 12.5 mg BID-W/MEALS ALONSO Administration Ciprofloxacin 500 mg 09/22/20 13:00 09/24/20 09:06 Ciprofloxacin Hcl 500 Mg Tab PO 500 mg BID [facility] Administration Clopidogrel Bisulfate 75 mg 09/22/20 11:30 09/24/20 09:06 Clopidogrel 75 Mg Tab PO 75 mg DAILY [facility] Administration Enoxaparin Sodium 40 mg 09/22/20 11:30 09/24/20 09:09 Enoxaparin 40 Mg/0.4 Ml Syringe SQ 40 mg DAILY [facility] Administration Gabapentin 400 mg 09/22/20 11:30 09/24/20 09:06 Gabapentin 400 Mg Cap PO 400 mg TID [facility] Administration Hydromorphone HCl 0.5 mg 09/24/20 10:10 Hydromorphone 0.5 Mg/0.5 Ml Syringe IVP Q8HR PRN Pain Sodium Chloride 1,000 mls @ 120 mls/hr 09/22/20 01:30 09/24/20 05:36 Saline 0.9% IV 120 mls/hr .Q8H20M COUNTS INCLUDE 234 BEDS AT THE [facility] Administration Insulin Aspart 0 unit 09/22/20 07:30 09/24/20 07:49 Insulin Aspart (Novolog) 100 Unit/Ml Vial SQ Not Given ACHS COUNTS INCLUDE 234 BEDS AT THE [facility] Protocol Isosorbide Mononitrate 120 mg 09/22/20 11:30 09/24/20 09:05 Isosorbide Mononitrate Er 60 Mg Tab.Er.24h PO 120 mg DAILY COUNTS INCLUDE 234 BEDS AT THE [facility] Administration Melatonin 5 mg 09/22/20 21:00 09/23/20 23:02 Melatonin 5 Mg Tablet PO 5 mg HS [facility] Administration Metronidazole 500 mg 09/22/20 13:01 09/24/20 09:06 Metronidazole 500 Mg Tab PO 500 mg TID [facility] Administration Modafinil 200 mg 09/22/20 11:30 09/24/20 09:06 Modafinil 200 Mg Tab PO 200 mg DAILY [facility] Administration Naloxone HCl 0.2 mg 09/22/20 01:21 Naloxone 0.4 Mg/Ml 1 Ml Vial IV Q2M PRN Opioid Reversal Non-Formulary Medication 14 mg 09/22/20 11:30 09/24/20 09:09 Teriflunomide [Aubagio] PO Not Given DAILY COUNTS INCLUDE 234 BEDS AT THE [facility] Ondansetron HCl 4 mg 09/22/20 00:49 09/24/20 01:56 Ondansetron 4 Mg/2 Ml Vial IVP 4 mg Q6HR PRN Administration Nausea And Vomiting Pantoprazole Sodium 40 mg 09/23/20 09:00 09/24/20 09:05 Pantoprazole 40 Mg Tablet PO 40 mg DAILY [facility] Administration Pentoxifylline 400 mg 09/22/20 11:30 09/24/20 09:06 Pentoxifylline 400 Mg Tablet.Er PO 400 mg DAILY [facility] Administration Psyllium Hydrophilic Mucilloid 6 gm 09/23/20 12:45 09/24/20 09:08 Psyllium Husk 100% 6 Gm Packet PO 6 gm BID [facility] Administration Topiramate 50 mg 09/22/20 21:00 09/24/20 09:07 Topiramate 25 Mg Tab PO 50 mg BID [facility] Administration Triamcinolone Acetonide 1 applic 09/22/20 11:30 09/24/20 09:08 Triamcinolone Acet 0.5% Cream 15 Gm Tube TOPICAL 1 applic BID [facility] Administration Vortioxetine 20 mg 09/22/20 11:30 09/24/20 09:07 Vortioxetine Hydrobromide 20 Mg Tablet PO 20 mg DAILY [facility] Administration Objective - Vital Signs Vital signs: Vital Signs Temp 98.2 F 09/24/20 07:51 Pulse 78 09/24/20 07:51 Resp 16 09/24/20 07:51 BP 160/95 09/24/20 07:51 Pulse Ox 98 09/24/20 07:51 Intake & Output 09/23/20 09/24/20 09/24/20 18:59 06:59 18:59 Other: Voiding Method Toilet # Voids 3 2 # Bowel Movements 8 2 - Exam GENERAL: The patient is alert and oriented x3, not in any acute distress. obese HEENT: Pupils are round and equally reacting to light. EOMI. No scleral icterus. No conjunctival pallor. Normocephalic, atraumatic. No pharyngeal erythema. No thyromegaly. CARDIOVASCULAR: S1 and S2 present. No murmurs, rubs, or gallops. PULMONARY: Chest is clear to auscultation, no wheezing or crackles. -ABDOMEN: Soft, tenderness on the left flank just below the left side rib cage, but the tenderness is not currently rib cage itself as below it, nondistended, normoactive bowel sounds. No palpable organomegaly. MUSCULOSKELETAL: No joint swelling or deformity. EXTREMITIES: No cyanosis, clubbing, or pedal edema. NEUROLOGICAL: Gross neurological examination did not reveal any focal deficits. SKIN: No rashes. no petechiae. - Labs CBC & Chem 7: 09/24/20 04:41 09/24/20 04:41 Labs: Abnormal Lab Results - Last 24 Hours (Table) 09/23/20 09/23/20 09/23/20 Range/Units 06:56 06:56 06:56 RBC 4.14 L (4.40-5.60) X 10*6/uL Hgb 11.3 L (13.0-17.0) g/dL Hct 35.2 L (39.6-50.0) % Chloride 110 H (96-109) mmol/L Anion Gap (4.00-12.00) mmol/L BUN/Creatinine Ratio 10.00 L (12.00-20.00) Ratio POC Glucose (mg/dL) (75-99) mg/dL Hemoglobin A1c 8.3 H (4.0-6.0) % Calcium (8.7-10.3) mg/dL 09/23/20 09/23/20 09/24/20 Range/Units 12:31 20:14 04:41 RBC 3.86 L (4.40-5.60) X 10*6/uL Hgb 10.8 L (13.0-17.0) g/dL Hct 32.8 L (39.6-50.0) % Chloride (96-109) mmol/L Anion Gap (4.00-12.00) mmol/L BUN/Creatinine Ratio (12.00-20.00) Ratio POC Glucose (mg/dL) 117 H 121 H (75-99) mg/dL Hemoglobin A1c (4.0-6.0) % Calcium (8.7-10.3) mg/dL 09/24/20 09/24/20 Range/Units 04:41 06:56 RBC (4.40-5.60) X 10*6/uL Hgb (13.0-17.0) g/dL Hct (39.6-50.0) % Chloride 114 H (96-109) mmol/L Anion Gap 3.00 L (4.00-12.00) mmol/L BUN/Creatinine Ratio 8.18 L (12.00-20.00) Ratio POC Glucose (mg/dL) 105 H (75-99) mg/dL Hemoglobin A1c (4.0-6.0) % Calcium 8.5 L (8.7-10.3) mg/dL Assessment and Plan Assessment: -Possible gastroenteritis Treat empirically with Flagyl and ciprofloxacin. -Left flank pain, could be due to gastroenteritis. Check renal ultrasound -Coronary artery disease by history of stent about a year ago-continue with Plavix Lipitor LLUVIA inhibitor -Chronic congestive heart failure EF not known -Diabetes mellitus type 2, chronically on insulin, follow Accu-Chek -Diabetic peripheral neuropathy on Neurontin -Essential hypertension -Scoliosis -Multiple sclerosis -Hyperlipidemia on Lipitor -Anxiety depression otherwise specified -Obesity BMI 37.2 -Sleep apnea type unknown. On Provigil Plan: This is a pleasant 45 years old male who reports frequent diarrhea and abdominal pain suspicious for gastroenteritis. Patient is already on Cipro and Flagyl. C. diff is negative. We will go to check for stool studies and WBC. We will check for procalcitonin Also check renal ultrasound and review of the location of the pain on the left flank below the rib cage GI team already is been consulted and will follow their recommendations Pain R Dilaudid from 1 mg every 4 hours down to 0.5 mg every 8 hours Check ESR and C-reactive protein Labs and medication were reviewed.. Continue same treatment. Continue with symptomatic treatment. Resume home medication. Monitor lytes and vitals. DVT and GI prophylaxis. Further recommendationsas per clinical course of the patient DVT prophylaxis: Subcutaneous Lovenox GI Prophylaxis: Ppi Prognosis is guarded
[2020-09-24 11:32] LABS: Glucose,Whole Blood 182 mg/dL (75-99)
--- NOTE | 2020-09-24 13:20 | US ---
EXAMINATION TYPE: US renals and bladder DATE OF EXAM: 09/24/2020 COMPARISON: None CLINICAL HISTORY: left flank pain . Left side pain. EXAM MEASUREMENTS: Right Kidney: 12.9 x 6.0 x 6.4 cm Left Kidney: 13.5 x 5.6 x 6.8 cm Right Kidney: No hydronephrosis or masses seen. Lobular cortical tissue visualized. Left Kidney: No hydronephrosis or masses seen. Lobular cortical tissue visualized. Bladder: anechoic IMPRESSION: No acute ultrasound abnormality bilateral kidneys
[2020-09-24 17:22] LABS: Glucose,Whole Blood 105 mg/dL (75-99)
--- NOTE | 2020-09-24 19:51 | CONS ---
CONSULTATION DATE OF DICTATION: 09/24/2020 REASON FOR CONSULTATION: Diarrhea and abdominal pain. HISTORY OF PRESENT ILLNESS: The patient is a 45-year-old pleasant white male with history of coronary artery disease, multiple sclerosis, sleep apnea, chronic kidney disease and bipolar disorder who was admitted to the hospital with left flank pain for the last one week's duration associated with severe diarrhea. He was having bowel movements anywhere from 7-10 a day which were loose to watery in consistency, but no blood or mucus in the stool. The diarrhea continued to progressively get worse associated with some nausea and vomiting, but he denies any fever, chills or night sweats. He had a similar episode in July wherein he had severe diarrhea that lasted for 4 days and resolved. In fact, he has been having intermittent symptoms on and off every 2- 3 months. He was investigated at [facility] and had an EGD and colonoscopy by Dr. Ivan in August of 2018 and, according to the patient, it was within normal limits. He denies any recent travel history. Denies any recent antibiotic use. The patient states that he was diagnosed with recurrent C difficile colitis, and the last episode was in summer of last year. C difficile toxin during this hospitalization was negative. PAST MEDICAL HISTORY: Significant for coronary artery disease, congestive heart failure, diabetes mellitus, hypertension, chronic back pain, sleep apnea, anxiety, depression and multiple sclerosis. PAST SURGICAL HISTORY: Back surgery, EGD, colonoscopy years ago. MEDICATIONS: Medications at home include aspirin, Lipitor, baclofen, Plavix, Coreg, vitamin B12, nitroglycerin, Trintellix, MiraLAX, Ultram, Zestril, omeprazole, pentoxifylline, Aubagio, topiramate, Zaroxolyn, Zofran, Zyloprim, Lasix, Neurontin, Natalia, Lantus, Imdur, Provigil. ALLERGIES: NONE. SOCIAL HISTORY: No smoking. No alcohol use. FAMILY HISTORY: Father had coronary artery disease. Mother has kidney cancer and diabetes mellitus. REVIEW OF SYSTEMS: CARDIOPULMONARY: He does complain of some shortness of breath, but no chest pain. GENITOURINARY: No dysuria or hematuria. MUSCULOSKELETAL: Chronic back pain. NEUROLOGY: Unremarkable. ENDOCRINE: History of diabetes mellitus. HEMATOLOGY: Unremarkable. PSYCHIATRIC: History of anxiety, depression. CONSTITUTIONAL: No recent weight loss. No fever, chills, night sweats. GI: As mentioned above. PHYSICAL EXAMINATION: He appears comfortable. No apparent distress. Vital signs are stable. Blood pressure is 143/86, pulse rate 99 per minute, and afebrile. HEENT examination unremarkable. Conjunctivae pink. Sclerae anicteric. Oral cavity no lesions. NECK: No JVD or lymph node enlargement. CHEST: Clear to auscultation. HEART: Regular rate and rhythm. ABDOMEN: Soft. Bowel sounds are positive. No organomegaly. EXTREMITIES: No pedal edema. SKIN: No rashes. NEUROLOGIC: Alert and oriented x3. No focal deficits. LABS: WBC 4.5, hemoglobin 12.5, platelets normal. Basic metabolic panel is within normal limits. BUN is 18, creatinine 1.29 today. Today BUN and creatinine are within normal limits. CBC shows a WBC of 4.5, hemoglobin 10.8, and platelets normal. C difficile toxin is negative. Coronavirus PCR is negative. Basic metabolic panel is within normal limits. IMPRESSION: 1. This is a patient who presented with diarrhea for the last 10 days' duration; has been having bowel movements from 7-10 a day which are loose to watery in consistency, associated with cramping, lower abdominal pain and some left flank pain. He has been having intermittent episodes every 2 months lasting about 3-4 days and then resolving. He did have an EGD and colonoscopy by Dr. Ivan at [facility] in August of 2018, and according to the patient it was within normal limits. His symptoms are suggestive of an acute infectious etiology, possibly viral or bacterial in nature. C difficile toxin has been negative. At present on empiric antibiotics with Levaquin and Flagyl. 2. History of diabetes mellitus. 3. Gastroesophageal reflux disease. 4. History of coronary artery disease, status post myocardial infarction several years ago, at present on aspirin and Plavix. RECOMMENDATIONS: 1. Continue with empiric antibiotics with Flagyl and Levaquin. 2. Start him on a clear liquid diet today and advance as tolerated. 3. Obtain stool cultures as well as ova/parasites. 4. Monitor labs closely. 5. Will follow with you. Thank you for this consultation. MMODL / IJN: [id number] /
[2020-09-24 19:53] LABS: Glucose,Whole Blood 148 mg/dL (75-99)
[2020-09-24] MEDS: ATORVASTATIN 80 MG TAB PO SCH (20:39)
[2020-09-24] MEDS: MELATONIN 5 MG TABLET PO SCH (20:39)
[2020-09-25] MEDS: SODIUM CHLORIDE 0.9% 1,000 ML IV SCH ×2 (06:04→12:43)
[2020-09-25 06:54] LABS: Glucose,Whole Blood 151 mg/dL (75-99)
[2020-09-25] MEDS: ENOXAPARIN 40 MG/0.4 ML SYRINGE SQ SCH (08:10)
[2020-09-25] MEDS: INSULIN ASPART (NovoLOG) 100 UNIT/ML VIAL SQ SCH ×4 (08:10→22:02)
[2020-09-25] MEDS: ISOSORBIDE MONONITRATE ER 60 MG TAB.ER.24H PO SCH (08:11)
[2020-09-25] MEDS: carvediloL 12.5 MG TAB PO SCH ×2 (08:11→16:17)
[2020-09-25] MEDS: GABAPENTIN 400 MG CAP PO SCH ×3 (08:11→22:02)
[2020-09-25] MEDS: CLOPIDOGREL 75 MG TAB PO SCH (08:11)
[2020-09-25] MEDS: allopurinoL 100 MG TAB PO SCH (08:11)
[2020-09-25] MEDS: PSYLLIUM HUSK 100% 6 GM PACKET PO SCH ×2 (08:11→22:02)
[2020-09-25] MEDS: PANTOPRAZOLE 40 MG TABLET PO SCH (08:12)
[2020-09-25] MEDS: PENTOXIFYLLINE 400 MG TABLET.ER PO SCH (08:12)
[2020-09-25] MEDS: ASPIRIN 81 MG PO SCH (08:12)
[2020-09-25] MEDS: CIPROFLOXACIN HCL 500 MG TAB PO SCH ×2 (08:12→22:09)
[2020-09-25] MEDS: metroNIDAZOLE 500 MG TAB PO SCH ×3 (08:12→22:02)
[2020-09-25] MEDS: VORTIOXETINE HYDROBROMIDE 20 MG TABLET PO SCH (08:12)
[2020-09-25] MEDS: TOPIRAMATE 25 MG TAB PO SCH ×2 (08:13→22:09)
[2020-09-25] MEDS: NON FORMULARY DRUG (Teriflunomide [Aubagio] 14 MG Tablet) PO SCH (08:13)
[2020-09-25] MEDS: TRIAMCINOLONE ACET 0.5% CREAM 15 GM TUBE TOPICAL SCH ×2 (08:14→22:03)
[2020-09-25] MEDS: HYDROcodone/APAP 7.5-325MG 1 EACH TAB PO PRN (09:55)
--- NOTE | 2020-09-25 10:57 | P.PN ---
Subjective From the records: This is a pleasant [address] Cheung. Chronic stable medical conditions include coronary artery disease with stent last one being 1 year ago, multiple sclerosis, sleep apnea type unknown, chronic kidney disease, bipolar disorder,. Patient follows with Dr. abel near [place]. Patient presents with left-sided abdominal pain for about 3 days. Some nausea vomiting. No fever no chills. Many loose stools a day. No blood. Admitted for the same. Admitted with acute diarrhea. C. diff came back to be negative. Started em pirically on ciprofloxacin and Flagyl. Today-still having abdominal pain. Diarrhea with no blood. No nausea vomiting. No fever. On a clear liquid diet. Subjective: 09/24/2020 This is a pleasant 45 years old male with multiple medical problems as below who was told me he came because of significant left abdominal pain, mainly in the left flank that started about 10 days ago about 8/10, currently 66/10, felt like patient sensation associated with constant diarrhea about 8 bouts yesterday of w atery diarrhea with no blood but regular light brown, he vomited twice and he feels fatigued and weak Says that his mom has been diagnosed with Crohn's disease. Patient denies trauma or fall He has history of multiple sclerosis and history of the spine disease which is extensive and his been brought to his legs. Has history of C. diff, but this came back negative. Patient does not look in distress due to pain Vitas looks stable and patient is afebrile CBC and BMP is unremarkable on reviewing records he has history of diverticulitis on 11/2018 about 2 years ago Discussed with staff 09/25/2020 patient still complaining from left abdominal side pain and tenderness however he does agree to stop the Dilaudid and to continue with Narco although he stated that he will try not to take [place] as well His bowel movement looks improving as they are formed a little bit as per patient and staff and they are 4-5 per day as of yesterday compared to 8 times a day before surgery. Patient is able to walk using a cane with no problem as he states He feels nauseated but no vomiting and he isn't clear diet. We are going to advance the diet vitals are stable. ESR is 26 and C-reactive protein is 10 only slightly elevated with are not very impressive for his history of Crohn's disease in his mother Renal ultrasound is negative. Stool culture is pending. GI team on the case He remains on Cipro, Flagyl and normal saline which will be lowered to 75 mL per hour Objective - Vital Signs Vital signs: Vital Signs Temp 98.2 F 09/25/20 07:00 Pulse 89 09/25/20 07:00 Resp 17 09/25/20 07:00 BP 177/101 09/25/20 07:00 Pulse Ox 98 09/25/20 07:00 Intake & Output 09/24/20 09/25/20 09/25/20 18:59 06:59 18:59 Intake Total 2180 1260 400 Balance 2180 1260 400 Intake: Intake, IV Titration 840 Amount Sodium Chloride 0.9% 1, 840 000 ml @ 120 mls/hr IV . Q8H20M ALONSO Rx#:[id number] Oral 1340 1260 400 Other: Voiding Method Toilet Toilet # Voids 2 1 # Bowel Movements 1 - Exam GENERAL: The patient is alert and oriented x3, not in any acute distress. obese HEENT: Pupils are round and equally reacting to light. EOMI. No scleral icterus. No conjunctival pallor. Normocephalic, atraumatic. No pharyngeal erythema. No thyromegaly. CARDIOVASCULAR: S1 and S2 present. No murmurs, rubs, or gallops. PULMONARY: Chest is clear to auscultation, no wheezing or crackles. -ABDOMEN: Soft, tenderness on the left flank just below the left side rib cage, but the tenderness is not currently rib cage itself as below it, nondistended, normoactive bowel sounds. No palpable organomegaly. MUSCULOSKELETAL: No joint swelling or deformity. EXTREMITIES: No cyanosis, clubbing, or pedal edema. NEUROLOGICAL: Gross neurological examination did not reveal any focal deficits. SKIN: No rashes. no petechiae. - Labs CBC & Chem 7: 09/24/20 04:41 09/24/20 04:41 Labs: Abnormal Lab Results - Last 24 Hours (Table) 09/24/20 09/24/20 09/24/20 Range/Units 11:17 11:17 11:31 ESR 26 H (0-15) mm/hr POC Glucose (mg/dL) 182 H (75-99) mg/dL C-Reactive Protein 10.1 H (<10.0) mg/L 09/24/20 09/24/20 09/25/20 Range/Units 17:21 19:52 06:53 ESR (0-15) mm/hr POC Glucose (mg/dL) 105 H 148 H 151 H (75-99) mg/dL C-Reactive Protein (<10.0) mg/L Microbiology - Last 24 Hours (Table) 09/24/20 10:35 Stool Culture - Preliminary Stool Assessment and Plan Assessment: -Possible gastroenteritis Treat empirically with Flagyl and ciprofloxacin. -Left flank pain, could be due to gastroenteritis. Check renal ultrasound -Coronary artery disease by history of stent about a year ago-continue with Plavix Lipitor LLUVIA inhibitor -Chronic congestive heart failure EF not known -Diabetes mellitus type 2, chronically on insulin, follow Accu-Chek -Diabetic peripheral neuropathy on Neurontin -Essential hypertension -Scoliosis -Multiple sclerosis -Hyperlipidemia on Lipitor -Anxiety depression otherwise specified -Obesity BMI 37.2 -Sleep apnea type unknown. On Provigil Plan: This is a pleasant 45 years old male who reports frequent diarrhea and abdominal pain suspicious for gastroenteritis. Patient is already on Cipro and Flagyl. C. diff is negative. We will go to check for stool studies and WBC. We will check for procalcitonin Also check renal ultrasound and review of the location of the pain on the left flank below the rib cage GI team already is been consulted and will follow their recommendations Pain R Dilaudid from 1 mg every 4 hours down to 0.5 mg every 8 hours Check ESR and C-reactive protein Labs and medication were reviewed.. Continue same treatment. Continue with symptomatic treatment. Resume home medication. Monitor lytes and vitals. DVT and GI prophylaxis. Further recommendationsas per clinical course of the patient DVT prophylaxis: Subcutaneous Lovenox GI Prophylaxis: Ppi Prognosis is guarded
[2020-09-25 11:30] LABS: Glucose,Whole Blood 161 mg/dL (75-99)
[2020-09-25 11:57] LABS: Basophils # (A) 0.04 X 10*3/uL (0.00-0.10); Basophils % (A) 0.7 %; Eosinophils # (A) 0.24 X 10*3/uL (0.04-0.35); Eosinophils % (A) 4.5 %; HCT 35.6 % (39.6-50.0); HGB 11.6 g/dL (13.0-17.0); Lymphocytes # (A) 1.31 X 10*3/uL (0.90-5.00); Lymphocytes % (A) 24.3 %; MCH 27.3 pg (27.0-32.0); MCHC 32.6 g/dL (32.0-37.0); MCV 83.8 fL (80.0-97.0); Mean Platelet Volume 11.3 fL (9.5-12.2); Monocytes # (A) 0.57 X 10*3/uL (0.20-1.00); Monocytes % (A) 10.6 %; Neutrophils # (A) 3.22 X 10*3/uL (1.80-7.70); Neutrophils % (A) 59.7 %; Platelet Count 203 X 10*3/uL (140-440); RBC 4.25 X 10*6/uL (4.40-5.60); RDW 14.2 % (11.5-14.5); WBC 5.39 X 10*3/uL (4.50-10.00)
[2020-09-25 12:08] LABS: African American GFR (CKD) 92.2 (60.0-200.0); Anion Gap 4.7 mmol/L (4.00-12.00); BUN/Creat Ratio 6.36 Ratio (12.00-20.00); Calcium 9.1 mg/dL (8.7-10.3); Carbon Dioxide 23.3 mmol/L (21.6-31.8); Non-African American GFR(CKD) 79.5 (60.0-200.0); Potassium 4.7 mmol/L (3.5-5.5)
--- NOTE | 2020-09-25 15:47 | P.PN ---
Subjective Progress Note Date: 09/25/20 Principal diagnosis: diarrhea, abdominal pain This is a 45 year old male being seen for follow up for complaints of diarrhea for the past two weeks with left flank pain which he states has been intermittent for the past few years. He has a history of C-difficile infection four times in the past with treatment. C-difficile toxin negative this admission. He states diarrhea has improved with only four episodes yesterday and one today. He still complains of left flank pain, mild nausea with no vomiting. Renal US done yesterday with no acute findings. Objective - Vital Signs Vital signs: Vital Signs Temp 98.2 F 09/25/20 07:00 Pulse 89 09/25/20 07:00 Resp 17 09/25/20 07:00 BP 177/101 09/25/20 07:00 Pulse Ox 98 09/25/20 07:00 Intake & Output 09/24/20 09/25/20 09/25/20 18:59 06:59 18:59 Intake Total 2180 1260 400 Balance 2180 1260 400 Intake: Intake, IV Titration 840 Amount Sodium Chloride 0.9% 1, 840 000 ml @ 120 mls/hr IV . Q8H20M ALONSO Rx#:[id number] Oral 1340 1260 400 Other: Voiding Method Toilet Toilet # Voids 2 1 # Bowel Movements 1 - Exam Appears comfortable, is alert and appears in no acute distress. HEENT: Atraumatic, trachea midline, no oral lesions. Lungs : Clear to ausculation Heart: Regular rate and rhythm Abdomen: Soft, abdomen nontender, left flank tenderness, non distended with bowel sounds. Extremities: No pedal edema. Skin: No rashes. No jaundice. Neurologic: Alert and orientated. - Labs CBC & Chem 7: 09/25/20 05:23 09/25/20 05:23 Labs: Abnormal Lab Results - Last 24 Hours (Table) 09/24/20 09/24/20 09/24/20 Range/Units 10:35 17:21 19:52 RBC (4.40-5.60) X 10*6/uL Hgb (13.0-17.0) g/dL Hct (39.6-50.0) % Chloride (96-109) mmol/L BUN (9.0-27.0) mg/dL BUN/Creatinine Ratio (12.00-20.00) Ratio Glucose (70-110) mg/dL POC Glucose (mg/dL) 105 H 148 H (75-99) mg/dL Stool Lactoferrin POSITIVE A (NEGATIVE) 09/25/20 09/25/20 09/25/20 Range/Units 05:23 05:23 06:53 RBC 4.25 L (4.40-5.60) X 10*6/uL Hgb 11.6 L (13.0-17.0) g/dL Hct 35.6 L (39.6-50.0) % Chloride 113 H (96-109) mmol/L BUN 7.0 L (9.0-27.0) mg/dL BUN/Creatinine Ratio 6.36 L (12.00-20.00) Ratio Glucose 134 H (70-110) mg/dL POC Glucose (mg/dL) 151 H (75-99) mg/dL Stool Lactoferrin (NEGATIVE) 09/25/20 Range/Units 11:28 RBC (4.40-5.60) X 10*6/uL Hgb (13.0-17.0) g/dL Hct (39.6-50.0) % Chloride (96-109) mmol/L BUN (9.0-27.0) mg/dL BUN/Creatinine Ratio (12.00-20.00) Ratio Glucose (70-110) mg/dL POC Glucose (mg/dL) 161 H (75-99) mg/dL Stool Lactoferrin (NEGATIVE) Microbiology - Last 24 Hours (Table) 09/24/20 10:35 Stool Culture - Preliminary Stool Assessment and Plan Assessment: 1. Abdominal pain which the patient states is mostly left flank pain that has been intermittent for the past four years. This is not likely related to bowels and GI symptoms. Had recent EGD/colonoscopy in 2019 which he states was normal. 2. Diarrhea which is improving. Has a past history of C-difficile infection however C-diff negative this admission. Stool cultures pending. No plans for inpatient colonoscopy as patient recently had one. Recommend outpatient follow up. Plan: 1. Continue supportive care 2. Advance diet as tolerated 3. Await stool cultures 4. NO plans for endoscopy at this time as he had recent endoscopies in 2019 5. Flank pain likely musculoskeletal in nature 6. Outpatient follow up with Dr. oSlomon Thank you for this consultation, we will sign off at this time Dr. Jeffrey Blunt I agree with the dictator's note, documented as a scribe by Elba MCKAY
[2020-09-25 16:41] LABS: Glucose,Whole Blood 159 mg/dL (75-99)
[2020-09-25 20:42] LABS: Glucose,Whole Blood 164 mg/dL (75-99)
[2020-09-25] MEDS: MELATONIN 5 MG TABLET PO SCH (22:02)
[2020-09-25] MEDS: ATORVASTATIN 80 MG TAB PO SCH (22:02)
[2020-09-25] MEDS ORDERED: FLUCONAZOLE 150 MG TAB PO ONE (23:30)
[2020-09-26] MEDS: HYDROcodone/APAP 7.5-325MG 1 EACH TAB PO PRN (00:54)
[2020-09-26 07:30] VITALS: RESP 14; TEMP 97.9
[2020-09-26 07:35] LABS: Glucose,Whole Blood 149 mg/dL (75-99)
[2020-09-26] MEDS: PANTOPRAZOLE 40 MG TABLET PO SCH (08:21)
[2020-09-26] MEDS: VORTIOXETINE HYDROBROMIDE 20 MG TABLET PO SCH (08:21)
[2020-09-26] MEDS: carvediloL 12.5 MG TAB PO SCH (08:21)
[2020-09-26] MEDS: CIPROFLOXACIN HCL 500 MG TAB PO SCH (08:21)
[2020-09-26] MEDS: allopurinoL 100 MG TAB PO SCH (08:21)
[2020-09-26] MEDS: ENOXAPARIN 40 MG/0.4 ML SYRINGE SQ SCH (08:22)
[2020-09-26] MEDS: PENTOXIFYLLINE 400 MG TABLET.ER PO SCH (08:22)
[2020-09-26] MEDS: GABAPENTIN 400 MG CAP PO SCH (08:22)
[2020-09-26] MEDS: CLOPIDOGREL 75 MG TAB PO SCH (08:23)
[2020-09-26] MEDS: INSULIN ASPART (NovoLOG) 100 UNIT/ML VIAL SQ SCH ×2 (08:23→12:28)
[2020-09-26] MEDS: TOPIRAMATE 25 MG TAB PO SCH (08:23)
[2020-09-26] MEDS: ASPIRIN 81 MG PO SCH (08:23)
[2020-09-26] MEDS: PSYLLIUM HUSK 100% 6 GM PACKET PO SCH (08:24)
[2020-09-26] MEDS: NON FORMULARY DRUG (Teriflunomide [Aubagio] 14 MG Tablet) PO SCH (08:24)
[2020-09-26] MEDS: ISOSORBIDE MONONITRATE ER 60 MG TAB.ER.24H PO SCH (08:24)
[2020-09-26] MEDS: TRIAMCINOLONE ACET 0.5% CREAM 15 GM TUBE TOPICAL SCH (08:25)
[2020-09-26] MEDS: metroNIDAZOLE 500 MG TAB PO SCH (08:30)
[2020-09-26] MEDS ORDERED: amLODIPine 10 MG TAB PO SCH (08:45)
[2020-09-26] MEDS ORDERED: amLODIPine 5 MG TAB PO ONE (09:00)
[2020-09-26] MEDS ORDERED: amLODIPine 5 MG TAB PO SCH (09:00)
[2020-09-26 11:36] VITALS: BP 161/84; PULSE 70
[2020-09-26 11:37] LABS: Glucose,Whole Blood 226 mg/dL (75-99)
[2020-09-27] MEDS ORDERED: amLODIPine 10 MG TAB PO SCH (09:00)
--- NOTE | 2020-09-27 15:24 | CDI ---
Documentation Clarification Form Date: 09/27/2020 03:22:00 PM From: Nadiya Cope CCS Phone: If you have a question about this query, please contact Olga Fiore Patient Safety Tech at [phone] between 8am and 5pm Admit Date: 09/22/2020 10:28:00 AM Patient Name: Tej Díaz Visit Number: [id number] Discharge Date: 09/26/2020 01:35:00 PM ATTENTION: The Clinical Documentation Specialists (CDI) and [facility] Coding Staff appreciate your assistance in clarifying documentation. Please respond to the clarification below the line at the bottom and electronically sign. The CDI & [facility] Coding staff will review the response and follow-up if needed. Please note: Queries are made part of the Legal Health Record. If you have any questions, please contact the author of this message via ITS. Dr. Alejandro Moon CKD is documented in the H&P, PNs, Consult. History/Risk Factors: DM, HTN, CHF, CAD Patients Historical BUN/CR/GFR [be sure to date and specify where obtained]: Clinical Indicators: Current BUN: 18, 1.3, 9.0, 7.0 CR: 1.29, 1.3, 1.1 GFR: 66 ,65, 79.5 Treatment: Monitor In order to capture the severity of condition, please clarify the stage of the CKD, if known: CKD Stage 1 (GFR > 90) CKD Stage 2 (GFR 60-89) CKD Stage 3a (GFR 45-59) CKD Stage 3b (GFR 30-44) CKD Stage 4 (GFR 15-29) CKD Stage 5 (GFR <15) ESRD Other, please specify Unable to determine no ckd MTDD
--- NOTE | 2020-09-27 15:34 | CDI ---
Documentation Clarification Form Date: 09/27/2020 03:32:00 PM From: Nadiya Cope CCS Phone: If you have a question about this query, please contact Olga Fiore Plywood And Veneer Repairer at [phone] between 8am and 5pm Admit Date: 09/22/2020 10:28:00 AM Patient Name: Tej Díaz Visit Number: [id number] Discharge Date: 09/26/2020 01:35:00 PM ATTENTION: The Clinical Documentation Specialists (CDI) and [facility] Coding Staff appreciate your assistance in clarifying documentation. Please respond to the clarification below the line at the bottom and electronically sign. The CDI & [facility] Coding staff will review the response and follow-up if needed. Please note: Queries are made part of the Legal Health Record. If you have any questions, please contact the author of this message via ITS. Dr. Alejandro Moon Colitis is documented in the H&P, Consult, PNs. Patient history/risk factors: DM, HTN, CAD, CKD, CHF, Dehydration Clinical Indicators: Nausea/vomiting/diarrhea Radiology: No acute findings in the abdomen or pelvis Microbiology: Shama Albicans Colonoscopy results: None Treatment: Flagyl 500 mg PO BID, Ciproflaxin 500 mg PO BID Consults: Jose Raul In your professional opinion, can you please further specify the following, if known? Infectious colitis Non-infectious colitis Any related complications Other, please specify Unable to determine Infectious colitis MTDD
== END 2020-09-26 13:35 | disposition home or self-care (01) | DRG 392 ==
LOC: EC 22:10 → 6NMEDSUR 09-22 01:23 → OBSVTOIN 09-22 10:28
PROVIDERS: ADMIT Hospitalist; ATTEND Hospitalist
DX: A09 Infectious gastroenteritis and colitis, unspecified (principal); M62.82 Rhabdomyolysis; E11.42 Type 2 diabetes mellitus with diabetic polyneuropathy; I50.9 Heart failure, unspecified; E11.22 Type 2 diabetes mellitus with diabetic chronic kidney disease; I11.0 Hypertensive heart disease with heart failure; G35 Multiple sclerosis; F31.9 Bipolar disorder, unspecified; Z79.4 Long term (current) use of insulin; Z20.822 Contact with and (suspected) exposure to COVID-19; E86.0 Dehydration; I25.10 Atherosclerotic heart disease of native coronary artery without angina pectoris; G47.30 Sleep apnea, unspecified; F41.9 Anxiety disorder, unspecified; E66.9 Obesity, unspecified; Z68.37 Body mass index [BMI] 37.0-37.9, adult; M41.9 Scoliosis, unspecified; E78.5 Hyperlipidemia, unspecified; M54.9 Dorsalgia, unspecified; G89.29 Other chronic pain; K21.9 Gastro-esophageal reflux disease without esophagitis; I25.2 Old myocardial infarction; Z79.82 Long term (current) use of aspirin; Z79.899 Other long term (current) drug therapy; Z79.02 Long term (current) use of antithrombotics/antiplatelets; Z95.5 Presence of coronary angioplasty implant and graft; Z98.890 Other specified postprocedural states; Z83.79 Family history of other diseases of the digestive system; Z83.3 Family history of diabetes mellitus; Z80.51 Family history of malignant neoplasm of kidney; Z82.49 Family history of ischemic heart disease and other diseases of the circulatory system
CPT/HCPCS: 36415; 74177; 76770; 80048; 80053; 81003; 82550; 83036; 83605; 83630; 83735; 84100; 84145; 84484; 85025; 85610; 85652; 85730; 86140; 87045; 87046; 87324; 87635; 93005; 96361; 96374; 96375; 96376; 99285

== ENCOUNTER → 2020-12-14 | Outpatient (CLI) | payer OTHER ==
[2020-12-15 04:12] LABS: Alpha Fetoprotein, Tumor Mkr <2.5 ng/mL (0.0-7.9)
[2020-12-15 11:20] LABS: Hepatitis A Antibody IgM Non-Reactive (Non-Reactive); Hepatitis B Core IgM Non-Reactive (Non-Reactive); Hepatitis B Surface Antigen Non-Reactive (Non-Reactive); Hepatitis C IgG Antibody Non-Reactive (Non-Reactive)
== END | disposition home or self-care (01) ==
LOC: LABWHC1 13:50
PROVIDERS: ATTEND Internal Medicine Gastroenterology
DX: K74.60 Unspecified cirrhosis of liver (principal); R93.2 Abnormal findings on diagnostic imaging of liver and biliary tract
CPT/HCPCS: 36415; 80074; 82105; 86709; 87340

== ENCOUNTER 2023-09-16 18:29 | Inpatient (IN) | payer OTHER ==
[2023-09-16 18:39] LABS: Glucose,Whole Blood >600 mg/dL (70-110)
[2023-09-16] MEDS: NITROGLYCERIN SL TABS 0.4 MG TAB SUBLINGUAL STA ×2 (19:20→19:54)
[2023-09-16] MEDS: ASPIRIN 81 MG PO STA (19:23)
[2023-09-16] MEDS: HEPARIN SODIUM 1,000 UN/ML (10ML VL) IV ONE (19:25)
[2023-09-16] MEDS: HEPARIN SOD,PORK IN 0.45% NACL 25,000 UNIT in 0.45% NACL 1 250ML.BAG IV SCH (19:27)
[2023-09-16 19:40] LABS: Basophils % (A) 1 %; Eosinophils # (A) 0.1 k/uL (0-0.7); Eosinophils % (A) 2 %; HCT 41.2 % (39.0-53.0); HGB 13.6 gm/dL (13.0-17.5); Lymphocytes # (A) 1.4 k/uL (1.0-4.8); Lymphocytes % (A) 23 %; MCH 27.6 pg (25.0-35.0); MCHC 33.1 g/dL (31.0-37.0); MCV 83.4 fL (80.0-100.0); Mean Platelet Volume 8.5; Monocytes # (A) 0.3 k/uL (0-1.0); Monocytes % (A) 5 %; Neutrophils # (A) 3.9 k/uL (1.3-7.7); Neutrophils % (A) 67 %; Platelet Count 179 k/uL (150-450); RBC 4.94 m/uL (4.30-5.90); RDW 13.9 % (11.5-15.5); WBC 5.9 k/uL (3.8-10.6)
[2023-09-16 19:49] LABS: ALT 20 U/L (4-49); AST 23 U/L (17-59); African American GFR (CKD) 78 (>60 ml/min/1.73 sqM); Albumin 3.9 g/dL (3.5-5.0); Alkaline Phosphatase 106 U/L (38-126); Anion Gap 7 mmol/L; Blood Urea Nitrogen 30 mg/dL (9-20); Calcium 8.8 mg/dL (8.4-10.2); Carbon Dioxide 21 mmol/L (22-30); Chloride 99 mmol/L (98-107); Lipase 332 U/L (23-300); Magnesium 1.9 mg/dL (1.6-2.3); Non-African American GFR(CKD) 67 (>60 ml/min/1.73 sqM); Potassium 4.6 mmol/L (3.5-5.1); Sodium 127 mmol/L (137-145); Total Bilirubin 0.5 mg/dL (0.2-1.3); Total Protein 6.9 g/dL (6.3-8.2)
[2023-09-16 19:52] LABS: Glucose 612 mg/dL (74-99)
[2023-09-16 19:54] LABS: VBG PH 7.28 (7.31-7.41)
[2023-09-16 19:58] LABS: NT-Pro-B-Type Natriuretic Pept 388 pg/mL
[2023-09-16 20:00] LABS: Appearance,Urine Clear (Clear); Bilirubin,Urine Negative (Negative); Blood,Urine Negative (Negative); Color,Urine Colorless; Glucose,Urine (UA) 4+ (Negative); Ketones,Urine Negative (Negative); Leukocyte Esterase,Urine Negative (Negative); Nitrite,Urine Negative (Negative); PH, Urine 5.5 (5.0-8.0); Protein,Urine Negative (Negative); Specific Gravity,Urine 1.017 (1.001-1.035); Urobilinogen,Urine <2.0 mg/dL (<2.0)
[2023-09-16 20:15] LABS: INR 0.9 (<1.2); Partial Thromboplastin Time 22.6 sec (22.0-30.0); Prothrombin Time 10.2 sec (10.0-12.5)
--- NOTE | 2023-09-16 20:30 | XR ---
EXAMINATION TYPE: XR chest 2V DATE OF EXAM: 09/16/2023 8:09 PM CLINICAL INDICATION:Male, 48 years old with history of Chest Pain; COMPARISON: Chest radiographs from 07/05/2020 TECHNIQUE: XR chest 2V Frontal and lateral views of the chest. FINDINGS: Lungs/Pleura: There is no evidence of pleural effusion, focal consolidation, or pneumothorax. Pulmonary vascularity: Unremarkable. Heart/mediastinum: Cardiomediastinal silhouette is unremarkable. Musculoskeletal: Degenerative changes of the shoulder joints. Other findings: None IMPRESSION: No acute cardiopulmonary disease/process.
[2023-09-16] MEDS ORDERED: DEXTROSE 50% SYRINGE 50 ML IVP PRN ×2 (20:42)
--- NOTE | 2023-09-16 20:59 | ED ---
General Adult HPI - General Chief complaint: Chest Pain Stated complaint: Diabetic - high blood sugar Time Seen by Provider: 09/16/23 18:42 Source: patient, RN notes reviewed, old records reviewed Mode of arrival: ambulatory Limitations: no limitations - History of Present Illness Initial comments: Patient is a 48-year-old male who presents emergency department complaining of elevated blood sugars, medication noncompliance, chest pain. Chest pain is substernal, and has been constant for approximately 2 months. Is also complaining of worsening orthopnea, exertional dyspnea, lower extremity edema, nonproductive cough. Has a history of CHF, prior MIs with stents, as well as poorly controlled diabetes. Has been without his prescription medications for the last 3 months. Denies any fevers, chills. Denies any nausea, vomiting, abdominal pain. Persistent diarrhea but no nausea or vomiting. Saw his new PCP, found that his sugar was over 600 and was sent here for further evaluation. Remainder of his symptoms have been chronic for the last 2 months since he has been off of his medications. - Related Data Home Medications Medication Instructions Recorded Confirmed Aspirin [Owsley Aspirin EC] 81 mg PO DAILY 11/22/18 09/16/23 Atorvastatin [Lipitor] 80 mg PO DIRECTED 11/22/18 09/16/23 Clopidogrel [Plavix] 75 mg PO DAILY 11/22/18 09/16/23 Insulin Glulisine [Apidra] 10 units SQ AC-TID 11/22/18 09/16/23 Nitroglycerin 0.4 mg SL Q5M PRN 11/22/18 09/16/23 carvediloL [Coreg] 12.5 mg PO BID 11/22/18 09/16/23 Teriflunomide [Aubagio] 14 mg PO DAILY 07/04/20 09/16/23 ondansetron HCL [Zofran] 8 mg PO Q12H PRN 07/04/20 09/16/23 Insulin Glargine [Lantus Vial] 100 unit SQ HS 09/22/20 09/16/23 Risankizumab-Rzaa [Skyrizi (2 150 mg SQ Q90D 09/22/20 09/16/23 Syringes) Kit] allopurinoL [Zyloprim] 100 mg PO DIRECTED 09/22/20 09/16/23 modafiniL [Provigil] 200 mg PO BID 09/22/20 09/16/23 Topiramate [Topamax] 100 mg PO BID 09/24/20 09/16/23 Cabergoline 0.5 mg PO WESA 09/16/23 09/16/23 Clindamycin Phosphate 1% Swab 1 applic TOPICAL BID PRN 09/16/23 09/16/23 Furosemide [Lasix] 20 mg PO BID 09/16/23 09/16/23 Insulin Glulisine [Apidra] See Protocol SQ AC-TID PRN 09/16/23 09/16/23 Isosorbide Mononitrate ER [Imdur] 30 mg PO DAILY 09/16/23 09/16/23 LORazepam [Ativan] 1 mg PO DAILY 09/16/23 09/16/23 Losartan [Cozaar] 25 mg PO DAILY 09/16/23 09/16/23 Sodium Chloride Tab 2 gm PO BID-W/MEALS 09/16/23 09/16/23 Triamcinolone 0.1% Cream [Kenalog 1 applicatio TOPICAL BID PRN 09/16/23 09/16/23 0.1% Cream] Allergies Allergy/AdvReac Type Severity Reaction Status Date / Time No Known Allergies Allergy Verified 09/16/23 22:09 Review of Systems ROS Statement: Those systems with pertinent positive or pertinent negative responses have been documented in the HPI. Review of Systems: CONST: Denies fever EYES: Denies blurry vision ENT: Denies nasal congestion C/V: Endorses chest pain RESP: Endorses exertional shortness of breath GI: Denies abdominal pain : Denies dysuria SKIN: Denies rash. MSK: Denies joint pain. NEURO: Denies headache ROS Other: All systems not noted in ROS Statement are negative. Past Medical History Past Medical History: Coronary Artery Disease (CAD), Heart Failure, Diabetes Mellitus, Hypertension, Myocardial Infarction (CT), Musculoskeletal Disorder Additional Past Medical History / Comment(s): scoliosis of spine, 3 CT's x7 stents ([address]'s w/stents, 2015 CT w/stents), DM II. History of MS Last Myocardial Infarction Date:: 2015 History of Any Multi-Drug Resistant Organisms: C-DIFF Date of last positivie culture/infection: 04/2020 MDRO Source:: Stool Past Surgical History: Back Surgery, Heart Catheterization With Stent, Ortho pedic Surgery Additional Past Surgical History / Comment(s): Pt states: "CT's with stents, left knee scope.". Back cyst operation. Past Anesthesia/Blood Transfusion Reactions: No Reported Reaction Past Psychological History: Anxiety, Depression Smoking Status: Never smoker Past Alcohol Use History: None Reported Past Drug Use History: None Reported - Past Family History Father Additional Family Medical History / Comment(s): "heart disease." Mother History Unknown: Yes Family Medical History: Cancer, Diabetes Mellitus Additional Family Medical History / Comment(s): pt states: "kidney cancer." General Exam - General Exam Comments Initial Comments: General: Appears in no acute distress. HEAD: Normal with no signs of head trauma. EYES: PERRLA, EOMI, conjunctiva normal, no discharge. ENT: Hearing grossly intact, normal oropharynx. RESPIRATORY: Clear breath sounds bilaterally. No wheezes, rales, or rhonchi. No hypoxia. No significant increased work of breathing. C/V: Regular rate and rhythm. S1 and S2 auscultated, significant bilateral symmetrical pitting edema of the lower extremities., peripheral pulses 2+ and intact throughout ABD: Abd is soft, nontender, nondistended EXT: Normal range of motion, no obvious deformity SKIN: No rashes or lesions observed on exposed skin. NEURO: Alert and oriented x 4. Limitations: no limitations Course Vital Signs 09/16/23 09/16/23 09/16/23 18:34 20:00 21:00 Temperature 97.8 F Pulse Rate 81 79 74 Respiratory 16 18 18 Rate Blood Pressure 156/86 146/82 112/76 O2 Sat by Pulse 96 96 Oximetry Medical Decision Making - Medical Decision Making Was pt. sent in by a medical professional or institution (, PA, RESOURCE DEVELOPMENT MANAGER, urgent care, hospital, or fdc...) When possible be specific @ -No Did you speak to anyone other than the patient for history (EMS, parent, family, police, friend...)? What history was obtained from this source @ -No Did you review nursing and triage notes (agree or disagree)? Why? @ -I reviewed and agree with nursing and triage notes Were old charts reviewed (outside hosp., previous admission, EMS record, old EKG, old radiological studies, urgent care reports/EKG's, fdc records)? Report findings @ -Old chart reviewed Differential Diagnosis (chest pain, altered mental status, abdominal pain women, abdominal pain men, vaginal bleeding, weakness, fever, dyspnea, syncope, headache, dizziness, GI bleed, back pain, seizure, CVA, palpatations, mental health, musculoskeletal)? @ -Differential Chest Pain: Stable Angina, Unstable Angina, STEMI, NSTEMI Aortic Dissection, Pneumothorax, Musculoskeletal, Esophageal Spasm GERD, Cholecystitis, Pancreatitis, Zoster, this is not meant to be an all-inclusive list. EKG interpreted by me (3pts min.). @ -As above X-rays interpreted by me (1pt min.). @ -Chest x-ray reveals no acute cardiopulmonary process. CT interpreted by me (1pt min.). @ -None done U/S interpreted by me (1pt. min.). @ -None done What testing was considered but not performed or refused? (CT, X-rays, U/S, labs)? Why? @ -None What meds were considered but not given or refused? Why? @ -None Did you discuss the management of the patient with other professionals (professionals i.e. , PA, RESOURCE DEVELOPMENT MANAGER, lab, RT, psych nurse, social work associate, maintenance mechanic engine, teacher, transit authority police officer, case fitter)? Give summary @ -Discussed with Dr. Blunt of cardiology. Discussed that STEMI pager was acti vated by nursing staff prior to speaking with myself regarding the EKG. I have low suspicion considering the patient's clinical presentation for STEMI and we did discuss this. We reviewed the patient's EKGs. He is in agreement with my assessment that not concerned for an acute STEMI at this time but is in agreement with cardiology workup. I spoke with the admitting physician, Dr. Lofton who was in agreement the plan and accepted the admission. Was smoking cessation discussed for >3mins.? @ -No Was critical care preformed (if so, how long)? @ -Yes, 36 minutes. Were there social determinants of health that impacted care today? How? (Homelessness, low income, unemployed, alcoholism, drug addiction, transportation, low edu. Level, literacy, decrease access to med. care, correction, rehab)? @ -No Was there de-escalation of care discussed even if they declined (Discuss DNR or withdrawal of care, Hospice)? DNR status @ -No What co-morbidities impacted this encounter? (DM, HTN, Smoking, COPD, CAD, Cancer, CVA, ARF, Chemo, Hep., AIDS, mental health diagnosis, sleep apnea, morbid obesity)? @ -CAD, CHF, medication noncompliance, diabetes Was patient admitted / discharged? Hospital course, mention meds given and route, prescriptions, significant lab abnormalities, going to OR and other p ertinent info. @ -Based on the patient's presentation and physical exam, and concern for medication noncompliance and poorly controlled diabetes as well as CHF with chronic chest pain. We will obtain cardiopulmonary workup. Patient was in agreement this plan. Aspirin ordered. Nitro sublingual ordered. Vital signs within acceptable limits. EKG was obtained by nursing staff and prior to showing it to myself it revealed a STEMI. They were concerned and activated the STEMI pager before notifying myself. I evaluated the EKG 1-2 minutes after STEMI pager was activated which is after it was obtained, and in the clinical presentation likely would not have activated the STEMI pager myself. I did speak with cardiology on-call Dr. Blunt and I did convey this to him. He was in agreement to evaluate the EKGs as well. After discussion and evaluation of the EKGs, stated STEMI pager was canceled. He was in agreement cardiopulmonary workup. I did update the patient regarding this and he expressed understanding. We will continue with the heparin drip as the patient is having constant chest pain however patient is not having any improvement with nitroglycerin tablets. He already received 324 mg of aspirin. Patient's laboratory studies are remarkable for hyperglycemia but no evidence of DKA. Troponin is undetectable. BNP is within acceptable limits. Chest x-ray shows no obvious pulmonary vascular congestion. On reevaluation, patient remains resting comfortably at this time. I updated him on his results. He will be admitted for cardiology evaluation as well as obtaining better control of his blood sugar. He was in agreement this plan. We will continue with a heparin drip. Cardiology consulted. Echo ordered. Patient is symptomatically presenting as a CHF exacerbation with orthopnea, PND, exertional dyspnea in the setting of symmetrical bilateral lower extremity swelling that is worsened. We will start the patient on IV Lasix. I spoke with the admitting physician, Dr. Lofton who was in agreement the plan and accepted the admission.Patient restarted on insulin for his diabetes. Undiagnosed new problem with uncertain prognosis? @ -No Drug Therapy requiring intensive monitoring for toxicity (Heparin, Nitro, Insulin, Cardizem)? @ -Heparin Were any procedures done? @ -No Diagnosis/symptom? @ -Chest pain, hyperglycemia, medication noncompliance, CHF Acute, or Chronic, or Acute on Chronic? @ -Acute on chronic Uncomplicated (without systemic symptoms) or Complicated (systemic symptoms)? @ -Complicated Side effects of treatment? @ -No Exacerbation, Progression, or Severe Exacerbation? @ -No Poses a threat to life or bodily function? How? (Chest pain, USA, CT, pneumonia, PE, COPD, DKA, ARF, appy, cholecystitis, CVA, Diverticulitis, Homicidal, Suicidal, threat to staff... and all critical care pts) @ -Yes - Lab Data Result diagrams: 09/16/23 19:17 09/16/23 19:17 Lab Results 09/16/23 09/16/23 09/16/23 Range/Units 18:38 19:17 19:17 WBC 5.9 (3.8-10.6) k/uL RBC 4.94 (4.30-5.90) m/uL Hgb 13.6 (13.0-17.5) gm/dL Hct 41.2 (39.0-53.0) % MCV 83.4 (80.0-100.0) fL MCH 27.6 (25.0-35.0) pg MCHC 33.1 (31.0-37.0) g/dL RDW 13.9 (11.5-15.5) % Plt Count 179 (150-450) k/uL MPV 8.5 Neutrophils % 67 % Lymphocytes % 23 % Monocytes % 5 % Eosinophils % 2 % Basophils % 1 % Neutrophils # 3.9 (1.3-7.7) k/uL Lymphocytes # 1.4 (1.0-4.8) k/uL Monocytes # 0.3 (0-1.0) k/uL Eosinophils # 0.1 (0-0.7) k/uL Basophils # 0.0 (0-0.2) k/uL PT 10.2 (10.0-12.5) sec INR 0.9 (<1.2) APTT 22.6 (22.0-30.0) sec VBG pH (7.31-7.41) VBG pCO2 (37-51) mmHg VBG HCO3 (24-28) mmol/L Sodium (137-145) mmol/L Potassium (3.5-5.1) mmol/L Chloride (98-107) mmol/L Carbon Dioxide (22-30) mmol/L Anion Gap mmol/L BUN (9-20) mg/dL Creatinine (0.66-1.25) mg/dL Est GFR (CKD-EPI)AfAm (>60 ml/min/1.73 sqM) Est GFR (CKD-EPI)NonAf (>60 ml/min/1.73 sqM) Glucose (74-99) mg/dL POC Glucose (mg/dL) >600 H (70-110) mg/dL POC Glu Store Lead ID Ezekiel Fine Calcium (8.4-10.2) mg/dL Magnesium (1.6-2.3) mg/dL Total Bilirubin (0.2-1.3) mg/dL AST (17-59) U/L ALT (4-49) U/L Alkaline Phosphatase (38-126) U/L Troponin I (0.000-0.034) ng/mL NT-Pro-B Natriuret Pep pg/mL Total Protein (6.3-8.2) g/dL Albumin (3.5-5.0) g/dL Lipase (23-300) U/L Urine Color Urine Appearance (Clear) Urine pH (5.0-8.0) Ur Specific [place] (1.001-1.035) Urine Protein (Negative) Urine Glucose (UA) (Negative) Urine Ketones (Negative) Urine Blood (Negative) Urine Nitrite (Negative) Urine Bilirubin (Negative) Urine Urobilinogen (<2.0) mg/dL Ur Leukocyte Esterase (Negative) Acetone, Qual (Negative) Influenza Type A (PCR) (Not Detectd) Influenza Type B (PCR) (Not Detectd) RSV (PCR) (Not Detectd) SARS-CoV-2 (PCR) (Not Detectd) 09/16/23 09/16/23 09/16/23 Range/Units 19:17 19:17 19:17 WBC (3.8-10.6) k/uL RBC (4.30-5.90) m/uL Hgb (13.0-17.5) gm/dL Hct (39.0-53.0) % MCV (80.0-100.0) fL MCH (25.0-35.0) pg MCHC (31.0-37.0) g/dL RDW (11.5-15.5) % Plt Count (150-450) k/uL MPV Neutrophils % % Lymphocytes % % Monocytes % % Eosinophils % % Basophils % % Neutrophils # (1.3-7.7) k/uL Lymphocytes # (1.0-4.8) k/uL Monocytes # (0-1.0) k/uL Eosinophils # (0-0.7) k/uL Basophils # (0-0.2) k/uL PT (10.0-12.5) sec INR (<1.2) APTT (22.0-30.0) sec VBG pH (7.31-7.41) VBG pCO2 (37-51) mmHg VBG HCO3 (24-28) mmol/L Sodium 127 L (137-145) mmol/L Potassium 4.6 (3.5-5.1) mmol/L Chloride 99 (98-107) mmol/L Carbon Dioxide 21 L (22-30) mmol/L Anion Gap 7 mmol/L BUN 30 H (9-20) mg/dL Creatinine 1.25 (0.66-1.25) mg/dL Est GFR (CKD-EPI)AfAm 78 (>60 ml/min/1.73 sqM) Est GFR (CKD-EPI)NonAf 67 (>60 ml/min/1.73 sqM) Glucose 612 H* (74-99) mg/dL POC Glucose (mg/dL) (70-110) mg/dL POC Glu Store Lead ID Calcium 8.8 (8.4-10.2) mg/dL Magnesium 1.9 (1.6-2.3) mg/dL Total Bilirubin 0.5 (0.2-1.3) mg/dL AST 23 (17-59) U/L ALT 20 (4-49) U/L Alkaline Phosphatase 106 (38-126) U/L Troponin I <0.012 (0.000-0.034) ng/mL NT-Pro-B Natriuret Pep 388 pg/mL Total Protein 6.9 (6.3-8.2) g/dL Albumin 3.9 (3.5-5.0) g/dL Lipase 332 H (23-300) U/L Urine Color Urine Appearance (Clear) Urine pH (5.0-8.0) Ur Specific [place] (1.001-1.035) Urine Protein (Negative) Urine Glucose (UA) (Negative) Urine Ketones (Negative) Urine Blood (Negative) Urine Nitrite (Negative) Urine Bilirubin (Negative) Urine Urobilinogen (<2.0) mg/dL Ur Leukocyte Esterase (Negative) Acetone, Qual Negative (Negative) Influenza Type A (PCR) Not Detected (Not Detectd) Influenza Type B (PCR) Not Detected (Not Detectd) RSV (PCR) Not Detected (Not Detectd) SARS-CoV-2 (PCR) Not Detected (Not Detectd) 09/16/23 09/16/23 Range/Units 19:17 19:17 WBC (3.8-10.6) k/uL RBC (4.30-5.90) m/uL Hgb (13.0-17.5) gm/dL Hct (39.0-53.0) % MCV (80.0-100.0) fL MCH (25.0-35.0) pg MCHC (31.0-37.0) g/dL RDW (11.5-15.5) % Plt Count (150-450) k/uL MPV Neutrophils % % Lymphocytes % % Monocytes % % Eosinophils % % Basophils % % Neutrophils # (1.3-7.7) k/uL Lymphocytes # (1.0-4.8) k/uL Monocytes # (0-1.0) k/uL Eosinophils # (0-0.7) k/uL Basophils # (0-0.2) k/uL PT (10.0-12.5) sec INR (<1.2) APTT (22.0-30.0) sec VBG pH 7.28 L (7.31-7.41) VBG pCO2 52 H (37-51) mmHg VBG HCO3 25 (24-28) mmol/L Sodium (137-145) mmol/L Potassium (3.5-5.1) mmol/L Chloride (98-107) mmol/L Carbon Dioxide (22-30) mmol/L Anion Gap mmol/L BUN (9-20) mg/dL Creatinine (0.66-1.25) mg/dL Est GFR (CKD-EPI)AfAm (>60 ml/min/1.73 sqM) Est GFR (CKD-EPI)NonAf (>60 ml/min/1.73 sqM) Glucose (74-99) mg/dL POC Glucose (mg/dL) (70-110) mg/dL POC Glu Store Lead ID Calcium (8.4-10.2) mg/dL Magnesium (1.6-2.3) mg/dL Total Bilirubin (0.2-1.3) mg/dL AST (17-59) U/L ALT (4-49) U/L Alkaline Phosphatase (38-126) U/L Troponin I (0.000-0.034) ng/mL NT-Pro-B Natriuret Pep pg/mL Total Protein (6.3-8.2) g/dL Albumin (3.5-5.0) g/dL Lipase (23-300) U/L Urine Color Colorless Urine Appearance Clear (Clear) Urine pH 5.5 (5.0-8.0) Ur Specific [place] 1.017 (1.001-1.035) Urine Protein Negative (Negative) Urine Glucose (UA) 4+ H (Negative) Urine Ketones Negative (Negative) Urine Blood Negative (Negative) Urine Nitrite Negative (Negative) Urine Bilirubin Negative (Negative) Urine Urobilinogen <2.0 (<2.0) mg/dL Ur Leukocyte Esterase Negative (Negative) Acetone, Qual (Negative) Influenza Type A (PCR) (Not Detectd) Influenza Type B (PCR) (Not Detectd) RSV (PCR) (Not Detectd) SARS-CoV-2 (PCR) (Not Detectd) - EKG Data -: EKG Interpreted by Me EKG Comments: 12-lead Electrocardiogram Interpretation Note EKG was reviewed and interpreted by myself. 12-lead ECG performed at 1859 is interpreted by me as revealing normal sinus rhythm at a rate of 75 beats per minute. [place] is normal. [place] interval is 180 ms, QRS duration is 102 ms, QTc is 411 ms.. Does have some mild ST segment elevations in leads V2 through V6 which does appear somewhat chronic and seen somewhat on prior EKGs from 2019. R wave progression across the precordium was delayed. Critical Care Time Critical Care Time: Yes Total Critical Care Time: 36 Disposition Clinical Impression: Chest pain, Hyperglycemia due to diabetes mellitus, Non compliance w medication regimen, CHF exacerbation Disposition: ADMITTED IP TO THIS [facility] Condition: Stable Time of Disposition: 20:59
[2023-09-16] MEDS ORDERED: NALOXONE 0.4 MG/ML 1 ML VIAL IV PRN (21:00)
[2023-09-16] MEDS ORDERED: ACETAMINOPHEN TAB 325 MG TAB PO PRN (21:00)
[2023-09-16] MEDS ORDERED: ONDANSETRON 4 MG/2 ML VIAL IVP PRN (21:00)
[2023-09-16] MEDS: INSULIN ASPART (NovoLOG) 100 UNIT/ML VIAL SQ STA (21:25)
[2023-09-16 21:26] LABS: Glucose,Whole Blood 560 mg/dL (70-110)
[2023-09-16] MEDS: FUROSEMIDE 10 MG/ML 4 ML VIAL IV STA (21:26)
[2023-09-16] MEDS: FUROSEMIDE 10 MG/ML 4 ML VIAL IV SCH (21:36)
[2023-09-17] MEDS: carvediloL 12.5 MG TAB PO SCH (00:22)
[2023-09-17 00:23] LABS: Glucose,Whole Blood 486 mg/dL (70-110)
[2023-09-17] MEDS: HEPARIN SODIUM 1,000 UN/ML (10ML VL) IV PRN (02:59)
[2023-09-17 05:02] LABS: Basophils % (A) 1 %; Eosinophils # (A) 0.1 k/uL (0-0.7); Eosinophils % (A) 2 %; HCT 39.6 % (39.0-53.0); HGB 13.4 gm/dL (13.0-17.5); Lymphocytes # (A) 1.5 k/uL (1.0-4.8); Lymphocytes % (A) 27 %; MCHC 33.8 g/dL (31.0-37.0); MCV 82.8 fL (80.0-100.0); Mean Platelet Volume 9.7; Monocytes # (A) 0.3 k/uL (0-1.0); Monocytes % (A) 5 %; Neutrophils # (A) 3.6 k/uL (1.3-7.7); Neutrophils % (A) 63 %; Platelet Count 167 k/uL (150-450); RBC 4.79 m/uL (4.30-5.90); RDW 14.3 % (11.5-15.5); WBC 5.7 k/uL (3.8-10.6)
[2023-09-17 05:15] LABS: Prothrombin Time 10.7 sec (10.0-12.5)
[2023-09-17 06:37] LABS: African American GFR (CKD) 65 (>60 ml/min/1.73 sqM); Anion Gap 11 mmol/L; Blood Urea Nitrogen 32 mg/dL (9-20); Calcium 8.6 mg/dL (8.4-10.2); Carbon Dioxide 19 mmol/L (22-30); Chloride 101 mmol/L (98-107); Glucose 452 mg/dL (74-99); Non-African American GFR(CKD) 56 (>60 ml/min/1.73 sqM); Potassium 4.3 mmol/L (3.5-5.1); Sodium 131 mmol/L (137-145)
[2023-09-17] MEDS: INSULIN ASPART (NovoLOG) 100 UNIT/ML VIAL SQ SCH ×2 (07:45→17:21)
[2023-09-17 07:53] LABS: Glucose,Whole Blood 449 mg/dL (70-110)
[2023-09-17] MEDS: ASPIRIN 81 MG PO SCH (08:46)
[2023-09-17] MEDS: CLOPIDOGREL 75 MG TAB PO SCH (08:47)
[2023-09-17] MEDS: LOSARTAN 25 MG TAB PO SCH (08:47)
[2023-09-17] MEDS: ISOSORBIDE MONONITRATE ER 30 MG TAB.ER.24H PO SCH (08:47)
[2023-09-17] MEDS: HEPARIN SODIUM,PORCINE 5,000 UNIT/ML 1 ML VIAL SQ SCH (09:36)
--- NOTE | 2023-09-17 09:40 | P.CRDCN ---
History of Present Illness History of present illness: HISTORY OF PRESENT ILLNESS: This is a 48-year-old male with a past medical history significant for coronary artery disease with previous stenting, hypertension, hyperlipidemia, and diabet es. Patient follows with a shank inspector in [place]. We have been asked to see the patient in consultation for chest pain. Patient examined at the bedside in the emergency room. Patient states he was being established yesterday with a new PCP and was found to have significantly elevated blood sugars and was directed to come to the emergency room. Patient reports having an isolated episode of chest discomfort yesterday which resolved on its own without any medications. He denies any further episodes of chest pain or pressure. He denies any shortness of breath. The patient states that he sees a shank inspector in [place] and has had multiple stents placed in the past. He states the last stent was placed in 2017 at [facility]. He is a current non-smoker. Patient states he is medically disabled. DIAGNOSTICS: - EKG reveals sinus mechanism with Q waves anteriorly. No signs of acute ischemia - Chest xray negative for acute process - Laboratory data: WBC 5.7. Hemoglobin 13.4. Platelet count 167. Sodium 131. Potassium 4.3. BUN 32. Creatinine 1.44. Troponin negative x 3. Hemoglobin A1c 16.3 - Current home cardiac medications include aspirin 81 mg daily, Lipitor 80 mg d aily, Plavix 75 mg daily, carvedilol 12.5 mg twice a day, Lasix 20 mg twice a day, Imdur 30 mg daily. -No previous echocardiogram or cardiac catheterization available in EMR for review REVIEW OF SYSTEMS: At the time of my exam: CONSTITUTIONAL: Denies fever or chills. HEENT: Denies blurred vision, vision changes, or eye pain. Denies hemoptysis CARDIOVASCULAR: Denies chest pain. Denies orthopnea. Denies PND. Denies palpitations RESPIRATORY: Denies shortness of breath. GASTROINTESTINAL: Denies abdominal pain. Denies nausea or vomiting. HEMATOLOGIC: Denies bleeding disorders. GENITOURINARY: Denies any blood in urine. SKIN: Denies pruitis. Denies rash. PHYSICAL EXAM: VITAL SIGNS: Reviewed. GENERAL: Well-developed in no acute distress. HEENT: Head is normocephalic. Pupils are equal, round. Sclerae anicteric. Mucous membranes of the mouth are moist. Neck supple. No JVD or thyromegaly LUNGS: Respirations even and unlabored. Lungs essentially clear to auscultation bilaterally. HEART: Regular rate and rhythm. S1 and S2 heard. ABDOMEN: Soft. Nondistended. Nontender. EXTREMITIES: Normal range of motion. No clubbing or cyanosis. Peripheral pulses intact. No lower extremity edema NEUROLOGIC: Awake and alert. Oriented x 3. ASSESSMENT: Chest pain, atypical, troponin negative x 3 Uncontrolled diabetes, hemoglobin A1c 16.3 Coronary artery disease with previous stenting, most recently in 2017, details unknown Hypertension Hyperlipidemia Multiple sclerosis PLAN: An acute coronary but has been ruled out Resume home cardiac medications Obtain 2D echo to assess cardiac structure and function Patient instructed on improving blood glucose control. Patient verbalized understanding No plans for inpatient stress testing or cardiac catheterization Patient to follow-up postdischarge with his primary shank inspector Nurse practitioner note has been reviewed by physician. Signing provider agrees with the documented findings, assessment, and plan of care documented by RETIREMENT OFFICER as a scribe. Past Medical History Past Medical History: Coronary Artery Disease (CAD), Heart Failure, Diabetes Mellitus, Hypertension, Myocardial Infarction ([place]), Musculoskeletal Disorder Additional Past Medical History / Comment(s): scoliosis of spine, 3 WV's x7 stents (2013 x2 [place]'s w/stents, 2015 [place] w/stents), DM II. History of MS, hypona tremia 2022 Last Myocardial Infarction Date:: 2015 History of Any Multi-Drug Resistant Organisms: C-DIFF Date of last positivie culture/infection: 04/2020 MDRO Source:: Stool Past Surgical History: Back Surgery, Heart Catheterization With Stent, Orthopedic Surgery Additional Past Surgical History / Comment(s): Pt states: "WV's with stents, left knee scope" "7 cardiac stents total", penile implant. Back cyst operation. Past Anesthesia/Blood Transfusion Reactions: No Reported Reaction Date of Last Stent Placement:: 2016 Past Psychological History: Anxiety, Depression Additional Psychological History / Comment(s): Patient is and lives in the family home with his . They've a total of 7 children. Four of the children currently live in the home with them. Did not relate any significant alcohol or recreational drug use. No experience. Medically disabled. No animals in the home Smoking Status: Never smoker Past Alcohol Use History: Rare Additional Past Alcohol Use History / Comment(s): "maybe once a year" Past Drug Use History: None Reported - Past Family History Father Additional Family Medical History / Comment(s): "heart disease." Mother History Unknown: Yes Family Medical History: Cancer, Diabetes Mellitus Additional Family Medical History / Comment(s): pt states: "kidney cancer." Medications and Allergies Home Medications Medication Instructions Recorded Confirmed Type Aspirin [Cole Aspirin EC] 81 mg PO DAILY 11/22/18 09/16/23 History Atorvastatin [Lipitor] 80 mg PO DIRECTED 11/22/18 09/16/23 History Clopidogrel [Plavix] 75 mg PO DAILY 11/22/18 09/16/23 History Insulin Glulisine [Apidra] 10 units SQ AC-TID 11/22/18 09/16/23 History Nitroglycerin 0.4 mg SL Q5M PRN 11/22/18 09/16/23 History carvediloL [Coreg] 12.5 mg PO BID 11/22/18 09/16/23 History Teriflunomide [Aubagio] 14 mg PO DAILY 07/04/20 09/16/23 History ondansetron HCL [Zofran] 8 mg PO Q12H PRN 07/04/20 09/16/23 History Insulin Glargine [Lantus Vial] 100 unit SQ HS 09/22/20 09/16/23 History Risankizumab-Rzaa [Skyrizi (2 150 mg SQ Q90D 09/22/20 09/16/23 History Syringes) Kit] allopurinoL [Zyloprim] 100 mg PO DIRECTED 09/22/20 09/16/23 History modafiniL [Provigil] 200 mg PO BID 09/22/20 09/16/23 History Topiramate [Topamax] 100 mg PO BID 09/24/20 09/16/23 History Cabergoline 0.5 mg PO WESA 09/16/23 09/16/23 History Clindamycin Phosphate 1% Swab 1 applic TOPICAL BID PRN 09/16/23 09/16/23 History Furosemide [Lasix] 20 mg PO BID 09/16/23 09/16/23 History Insulin Glulisine [Apidra] See Protocol SQ AC-TID PRN 09/16/23 09/16/23 History Isosorbide Mononitrate ER [Imdur] 30 mg PO DAILY 09/16/23 09/16/23 History LORazepam [Ativan] 1 mg PO DAILY 09/16/23 09/16/23 History Losartan [Cozaar] 25 mg PO DAILY 09/16/23 09/16/23 History Sodium Chloride Tab 2 gm PO BID-W/MEALS 09/16/23 09/16/23 History Triamcinolone 0.1% Cream [Kenalog 1 applicatio TOPICAL BID PRN 09/16/23 09/16/23 History 0.1% Cream] Allergies Allergy/AdvReac Type Severity Reaction Status Date / Time No Known Allergies Allergy Verified 09/16/23 22:09 Physical Exam Vitals: Vital Signs Temp Pulse Resp BP Pulse Ox 09/17/23 07:37 77 12 132/89 92 L 09/17/23 06:00 67 16 92/74 94 L 09/17/23 05:00 68 16 124/86 94 L 09/17/23 04:00 69 16 128/78 94 L 09/17/23 03:00 67 16 103/69 95 09/17/23 02:00 64 16 90/64 96 09/17/23 01:00 68 16 97/67 96 09/17/23 00:00 70 18 107/69 97 09/16/23 23:00 75 118/86 96 09/16/23 22:00 72 136/94 96 09/16/23 21:00 74 18 112/76 96 09/16/23 20:00 79 18 146/82 96 09/16/23 18:34 97.8 F 81 16 156/86 Intake and Output 09/16/23 09/17/23 09/17/23 22:59 06:59 14:59 Intake Total 74.674 Output Total 700 Balance -700 74.674 Intake: Intake, IV Titration 74.674 Amount Heparin Sod,Pork in 0.45% 74.674 NaCl 25,000 unit In 0.45 % NaCl 1 250ml.bag @ 7.96 UNITS/KG/HR 10.001 mls/ hr IV .Q24H [facility] Rx#: [id number] Output: Urine 700 Other: # Bowel Movements 0 Weight 125.645 kg Results 09/17/23 04:03 09/17/23 04:03 Cardiac Enzymes 09/16/23 09/16/23 09/17/23 Range/Units 19:17 19:17 01:09 AST 23 (17-59) U/L Troponin I <0.012 <0.012 (0.000-0.034) ng/mL 09/17/23 Range/Units 04:03 AST (17-59) U/L Troponin I <0.012 (0.000-0.034) ng/mL Coagulation 09/16/23 09/17/23 09/17/23 Range/Units 19:17 01:09 04:03 PT 10.2 10.7 (10.0-12.5) sec APTT 22.6 25.9 (22.0-30.0) sec CBC 09/16/23 09/17/23 Range/Units 19:17 04:03 WBC 5.9 5.7 (3.8-10.6) k/uL RBC 4.94 4.79 (4.30-5.90) m/uL Hgb 13.6 13.4 (13.0-17.5) gm/dL Hct 41.2 39.6 (39.0-53.0) % Plt Count 179 167 (150-450) k/uL Comprehensive Metabolic Panel 09/16/23 09/17/23 Range/Units 19:17 04:03 Sodium 127 L 131 L (137-145) mmol/L Potassium 4.6 4.3 (3.5-5.1) mmol/L Chloride 99 101 (98-107) mmol/L Carbon Dioxide 21 L 19 L (22-30) mmol/L BUN 30 H 32 H (9-20) mg/dL Creatinine 1.25 1.44 H (0.66-1.25) mg/dL Glucose 612 H* 452 H (74-99) mg/dL Calcium 8.8 8.6 (8.4-10.2) mg/dL AST 23 (17-59) U/L ALT 20 (4-49) U/L Alkaline Phosphatase 106 (38-126) U/L Total Protein 6.9 (6.3-8.2) g/dL Albumin 3.9 (3.5-5.0) g/dL Current Medications Generic Name Dose Route Start Last Admin Trade Name Freq PRN Reason Stop Dose Admin Acetaminophen 650 mg 09/16/23 21:00 Acetaminophen Tab 325 Mg Tab PO Q6HR PRN Mild Pain or Fever > 100.5 Allopurinol 100 mg 09/17/23 09:00 Allopurinol 100 Mg Tab PO DIRECTED [facility] Aspirin 81 mg 09/17/23 09:00 09/17/23 08:46 Aspirin 81 Mg PO 81 mg DAILY ALONSO Administration Atorvastatin Calcium 80 mg 09/17/23 21:00 Atorvastatin 80 Mg Tab PO DIRECTED [facility] Carvedilol 12.5 mg 09/16/23 23:05 09/17/23 08:49 Carvedilol 12.5 Mg Tab PO 12.5 mg BID ALONSO Administration Clopidogrel Bisulfate 75 mg 09/17/23 09:00 09/17/23 08:47 Clopidogrel 75 Mg Tab PO 75 mg DAILY ALONSO Administration Dextrose/Water 25 ml 09/16/23 20:42 Dextrose 50% Syringe 50 Ml IVP PER PROTOCOL PRN Hypoglycemia Protocol Dextrose/Water 50 ml 09/16/23 20:42 Dextrose 50% Syringe 50 Ml IVP PER PROTOCOL PRN Hypoglycemia Protocol Furosemide 40 mg 09/16/23 21:00 09/17/23 08:48 Furosemide 10 Mg/Ml 4 Ml Vial IV 40 mg Q12HR ALONSO Administration Heparin Sodium (Porcine) 0 unit 09/16/23 19:16 09/17/23 02:59 Heparin Sodium 1,000 Un/Ml (10ml Vl) IV 4,000 unit PER PROTOCOL PRN Administration Low PTT Protocol Insulin Aspart 0 unit 09/17/23 07:30 09/17/23 08:47 Insulin Aspart (Novolog) 100 Unit/Ml Vial SQ 12 unit AC-TID ALONSO Administration Protocol Insulin Detemir 30 unit 09/17/23 21:00 Insulin Detemir (Levemir) 100 Unit/Ml Syr SQ HS [facility] Isosorbide Mononitrate 30 mg 09/17/23 09:00 09/17/23 08:47 Isosorbide Mononitrate Er 30 Mg Tab.Er.24h PO 30 mg DAILY ALONSO Administration Losartan Potassium 25 mg 09/17/23 09:00 09/17/23 08:47 Losartan 25 Mg Tab PO 25 mg DAILY [facility] Administration Modafinil 200 mg 09/17/23 09:00 Modafinil 200 Mg Tab PO BID [facility] Naloxone HCl 0.2 mg 09/16/23 21:00 Naloxone 0.4 Mg/Ml 1 Ml Vial IV Q2M PRN Opioid Reversal Ondansetron HCl 4 mg 09/16/23 21:00 Ondansetron 4 Mg/2 Ml Vial IVP Q8HR PRN Nausea And Vomiting Intake and Output 09/16/23 09/17/23 09/17/23 22:59 06:59 14:59 Intake Total 74.674 Output Total 700 Balance -700 74.674 Intake: Intake, IV Titration 74.674 Amount Heparin Sod,Pork in 0.45% 74.674 NaCl 25,000 unit In 0.45 % NaCl 1 250ml.bag @ 7.96 UNITS/KG/HR 10.001 mls/ hr IV .Q24H [facility] Rx#: [id number] Output: Urine 700 Other: # Bowel Movements 0 Weight 125.645 kg 09/17/23 04:03 09/17/23 04:03
[2023-09-17] MEDS: INSULIN ASPART (NovoLOG) 100 UNIT/ML VIAL SQ ONE ×2 (10:04→10:07)
--- NOTE | 2023-09-17 11:06 | CA ---
Transthoracic Echo Report Name: Tej Díaz Age: 48 Gender: M : 1975 Exam Date: 09/17/2023 07:42 Exam Location: [facility] Ht (in): 60 Wt (lb): 277 Ordering Physician: Juan Miguel Redman MD Attending/Referring Phys: Template Checker Breana Merida RDCS Procedure CPT: Indications: chf, chest pain Cardiac Hx: Technical Quality: Fair Contrast 1: Total Dose (mL): Contrast 2: Total Dose (mL): MEASUREMENTS (Male / Female) Normal Values 2D ECHO LV Diastolic Diameter PLAX 4.5 cm 4.2 - 5.9 / 3.9 - 5.3 cm LV Systolic Diameter PLAX 3.4 cm IVS Diastolic Thickness 1.7 cm 0.6 - 1.0 / 0.6 - 0.9 cm LVPW Diastolic Thickness 0.9 cm 0.6 - 1.0 / 0.6 - 0.9 cm LV Relative Wall Thickness 0.6 Aortic Root Diameter 3.6 cm LA Systolic Diameter LX 4.5 cm 3.0 - 4.0 / 2.7 - 3.8 cm DOPPLER AV Peak Velocity 90.4 cm/s AV Peak Gradient 3.3 mmHg AV Mean Velocity 61.2 cm/s AV Mean Gradient 1.7 mmHg AV Velocity Time Integral 17.8 cm LVOT Peak Velocity 67.4 cm/s LVOT Peak Gradient 1.8 mmHg LVOT Velocity Time Integral 13.0 cm Mitral E Point Velocity 54.7 cm/s Mitral A Point Velocity 78.4 cm/s Mitral E to A Ratio 0.7 MV Deceleration Time 201.7 ms MV E' Velocity 6.4 cm/s Mitral E to MV E' Ratio 8.6 PV Peak Velocity 79.7 cm/s PV Peak Gradient 2.5 mmHg FINDINGS Left Ventricle Left ventricular ejection fraction is estimated at 45-50 %. Mild global hypokinesis. Septal hypertrophy was noted.left ventricular cavity size normal. Right Ventricle Normal right ventricular size and function. Right Atrium Right atrium not well visualized. Left Atrium Left atrial size at the upper limits of normal. Mitral Valve Trace mitral regurgitation.moderate mitral annular calcification. Aortic Valve Trileaflet aortic valve. Tricuspid Valve No tricuspid regurgitation.structurally normal tricuspid valve. Pulmonic Valve No pulmonic regurgitation.pulmonic valve not well visualized. Pericardium No pericardial effusion. Aorta Normal size aortic root and proximal ascending aorta. CONCLUSIONS 1. Mild global hypokinesis with septal hypertrophy 2. Trace mitral regurgitation with mitral annulus calcification Previewed by: Dr. Maxx Braun MD (Electronically Signed) Final Date: 17 September 2023 11:05
[2023-09-17] MEDS: allopurinoL 100 MG TAB PO SCH (11:34)
[2023-09-17] MEDS ORDERED: CALCIUM CARBONATE 500 MG CHEWABLE PO PRN (13:38)
[2023-09-17] MEDS ORDERED: ALPRAZolam 0.25 MG TAB PO PRN (13:38)
[2023-09-17] MEDS ORDERED: LACTULOSE 20 GM/30 ML CUP PO PRN (13:38)
[2023-09-17] MEDS ORDERED: MELATONIN 3 MG TABLET PO PRN (13:38)
[2023-09-17 14:08] LABS: Glucose,Whole Blood 499 mg/dL (70-110)
[2023-09-17] MEDS: INSULIN NPH 100 UNIT/ML 10 ML VIAL SQ SCH (15:07)
--- NOTE | 2023-09-17 16:54 | US ---
EXAMINATION TYPE: US kidneys/renal and bladder DATE OF EXAM: 09/17/2023 COMPARISON: Ultrasound 11/26/2018 CLINICAL INDICATION: Male, 48 years old with history of eval for CKD; CKD EXAM MEASUREMENTS: Right Kidney: 13.6 x 6.0 x 5.2 cm. Stable appearing diffuse parenchymal thinning, with the parenchyma l thickness measuring 18.5 mm. Parenchymal echotexture is normal in appearance, hypoechoic to liver p arenchyma. No hydronephrosis, calcifications, or masses. Left Kidney: 12.6 x 6.5 x 5.7 cm. Stable appearing diffuse parenchymal thinning, with the parenchymal thickness measuring 19.5 mm. Parenchymal echotexture appears normal. No hydronephrosis, calcificatio ns, or masses. Bladder: Unremarkable. Bilateral Doppler ureteral Jets seen: yes IMPRESSION: No acute sonographic process.
[2023-09-17 17:10] LABS: Glucose,Whole Blood 407 mg/dL (70-110)
[2023-09-17 18:25] LABS: Glucose,Whole Blood 520 mg/dL (70-110)
[2023-09-17 18:27] LABS: Glucose,Whole Blood 497 mg/dL (70-110)
[2023-09-17] MEDS ORDERED: INSULIN DETEMIR (LEVEMIR) 100 UNIT/ML SYR SQ SCH ×2 (21:00)
[2023-09-17 21:12] LABS: Glucose,Whole Blood 366 mg/dL (70-110)
[2023-09-17] MEDS: INSULIN DETEMIR (LEVEMIR) 100 UNIT/ML SYR SQ SCH (21:31)
[2023-09-18 06:05] LABS: Glucose,Whole Blood 239 mg/dL (70-110)
[2023-09-18 07:14] LABS: African American GFR (CKD) 89 (>60 ml/min/1.73 sqM); Anion Gap 6 mmol/L; Blood Urea Nitrogen 27 mg/dL (9-20); Carbon Dioxide 24 mmol/L (22-30); Chloride 103 mmol/L (98-107); Glucose 241 mg/dL (74-99); Non-African American GFR(CKD) 77 (>60 ml/min/1.73 sqM); Sodium 133 mmol/L (137-145)
[2023-09-18] MEDS ORDERED: allopurinoL 100 MG TAB PO SCH (09:00)
[2023-09-18] MEDS: allopurinoL 100 MG TAB PO SCH (09:31)
[2023-09-18 10:40] LABS: Glucose,Whole Blood 254 mg/dL (70-110)
--- NOTE | 2023-09-18 11:09 | P.PN ---
Subjective Progress Note Date: 09/18/23 This is a 48-year-old male with a past medical history of CAD with prior stenting x 7 according to the patient, hypertension, hyperlipidemia, diabetes and prior CHF. Follows with a rail flaw detector operator out of [place] but has not been seen in at least 2 years. Patient came in it sounds like mostly for edema but also had an isolated episode of chest discomfort on which resolved on its own without any medication and was brief. He recently established with a new primary care provider, Dr. Lozano and was found to have significantly elevated blood sugars and was directed to come to the emergency department. He is had no complaints of shortness of breath, orthopnea or PND. But continues to have low er extremity edema. He takes Lasix at home regularly does not feel it has been working for him. NT proBNP came back at 232, troponins have been negative, renal function is stable with a BUN of 27 and creatinine 1.11. Echocardiogram with Doppler study showed mild global hypokinesis with estimated ejection fraction at 45 to 50% the patient does not recall what his ejection fraction has been previously and we have no prior records available. Objective - Vital Signs Vital signs: Vital Signs Temp 97.8 F 09/18/23 06:55 Pulse 71 09/18/23 09:31 Resp 16 09/18/23 06:55 BP 157/92 09/18/23 06:55 Pulse Ox 98 09/18/23 06:55 FiO2 Intake & Output 09/17/23 09/18/23 09/18/23 18:59 06:59 18:59 Weight 123.5 kg - Exam VITAL SIGNS: Reviewed. GENERAL: Well-developed in no acute distress. HEENT: Head is normocephalic. Pupils are equal, round. Sclerae anicteric. Mucous membranes of the mouth are moist. Neck supple. No JVD or thyromegaly LUNGS: Respirations even and unlabored. Lungs essentially clear to auscultation bilaterally. HEART: Regular rate and rhythm. S1 and S2 heard. Systolic murmur. ABDOMEN: Soft. Nondistended. Nontender. EXTREMITIES: Normal range of motion. No clubbing or cyanosis. Peripheral pulses intact. 2+ lower extremity edema NEUROLOGIC: Awake and alert. Oriented x 3. - Labs CBC & Chem 7: 09/17/23 04:03 09/18/23 06:25 Labs: Abnormal Lab Results - Last 24 Hours (Table) 09/17/23 09/17/23 09/17/23 Range/Units 14:07 17:08 18:23 Sodium (137-145) mmol/L BUN (9-20) mg/dL Glucose (74-99) mg/dL POC Glucose (mg/dL) 499 H 407 H 520 H (70-110) mg/dL 09/17/23 09/17/23 09/18/23 Range/Units 18:25 21:09 06:03 Sodium (137-145) mmol/L BUN (9-20) mg/dL Glucose (74-99) mg/dL POC Glucose (mg/dL) 497 H 366 H 239 H (70-110) mg/dL 09/18/23 09/18/23 Range/Units 06:25 10:38 Sodium 133 L (137-145) mmol/L BUN 27 H (9-20) mg/dL Glucose 241 H (74-99) mg/dL POC Glucose (mg/dL) 254 H (70-110) mg/dL Assessment and Plan Assessment: Chest pain, atypical, troponin negative x 3 Lower extremity edema with normal NT proBNP patient with a BMI of 39 Uncontrolled diabetes, hemoglobin A1c 16.3 Coronary artery disease with previous stenting, most recently in 2017, details unknown Hypertension Hyperlipidemia Multiple sclerosis Plan: From cardiology's perspective medications were reviewed we will add Farxiga 10 mg p.o. daily. Continue Lasix 40 mg IV every 12 hours. Continue to monitor daily weight, intake and output, renal function and electrolytes. We will continue to follow the patient and provide further recommendations accordingly. ROLL UP GUIDER OPERATOR note has been reviewed, I agree with a documented findings and plan of care. Patient was seen and examined.
[2023-09-18] MEDS: DAPAGLIFLOZIN PROPANEDIOL 10 MG TABLET PO SCH (12:35)
[2023-09-18 13:37] VITALS: BMI 39.0
[2023-09-18 15:37] VITALS: BP 115/63; PULSE 76; RESP 17; TEMP 98.7
[2023-09-18] MEDS ORDERED: ATORVASTATIN 80 MG TAB PO SCH (21:00)
--- NOTE | 2023-09-21 00:04 | HP ---
HISTORY AND PHYSICAL CHIEF COMPLAINT: Chest pain, shortness of breath, and uncontrolled diabetes. HISTORY OF PRESENT ILLNESS: This is the first known admission for this 48-year-old white male who came to the office with shortness of breath, lower extremity edema, and DKA. He had been diagnosed with diabetes in the past but had not been getting any treatment for several years.. REVIEW OF SYSTEMS: He had slight blurred vision, shortness of breath, nausea, and frequency. Past medical history, family history and personal and social histories reveal that he is not allergic to any medication and had been on Trulicity, topiramate, losartan, Lantus, Isordil, gabapentin, Farxiga, and clopidogrel. Remainder of his history is unremarkable. He did have a history of previous myocardial infarctions, hypertension, and heart failure. PHYSICAL EXAMINATION: VITAL SIGNS: 118/74 with a pulse of 87, respirations of 36. He is afebrile. GENERAL: Appeared to be overweight, short of breath. SKIN: Color is normal. Skin is warm and dry. HEAD, EARS, EYES, NOSE, MOUTH AND THROAT: Normal. NECK: Veins are not distended. Thyroid enlarged. CHEST: Demonstrated poor breath sounds with scattered rales. No rhonchi. CARDIAC: Normal. Sinus tachycardia. ABDOMEN: Soft and nontender. EXTREMITIES: Normal. NEUROLOGIC: Intact. He is admitted to the hospital with diagnoses: 1. Congestive heart failure. 2. Uncontrolled insulin-dependent diabetes mellitus. 3. History of coronary artery disease. 4. Myocardial infarctions. PLAN: 1. Bedrest. 2. IV fluids. 3. Diuresis. 4. Control diabetes. MMODL / IJN: [id number] /
--- NOTE | 2023-09-21 00:46 | DS ---
DISCHARGE SUMMARY CHIEF COMPLAINT: Uncontrolled diabetes and shortness of breath. HISTORY OF PRESENT ILLNESS AND PHYSICAL EXAMINATION: Details of this man's history and physical can be found in the initial workup. COURSE IN HOSPITAL: After admission, he was placed on bedrest, started on intravenous fluids and diuresed, and he was started back on his insulin. Sugars are coming down. He is doing well. It was felt he could be discharged on the night. He will follow up in the office in the next day or 2. FINAL DIAGNOSES: 1. Acute on chronic congestive heart failure. 2. Uncontrolled diabetes mellitus. OPERATIONS: None. CONSULTATIONS: None. He is improved. MMODL / IJN: [id number] /
--- NOTE | 2023-09-21 00:49 | PN ---
PROGRESS NOTE DATE OF SERVICE: 09/17/2023 CHIEF COMPLAINT: Uncontrolled diabetes and heart failure. HISTORY OF PRESENT ILLNESS: This gentleman's sugars are still elevated and this will be addressed. Has less edema. He is not complaining of any chest pain. PHYSICAL EXAMINATION: CHEST: There are rales and rhonchi posteriorly. CARDIAC: Normal. ABDOMEN: Soft, nontender. IMPRESSION: 1. Uncontrolled insulin-dependent diabetes mellitus. 2. Acute on chronic heart failure. PLAN: Continue to manage his diabetes and heart failure and increase activity. MMODL / IJN: [id number] /
--- NOTE | 2023-09-22 06:23 | CDI ---
Documentation Clarification Form Date: 09/22/2023 06:08:00 AM From: Vivian Fritz Admit Date: 09/16/2023 09:01:00 PM Patient Name: Tej Díaz Visit Number: [id number] Discharge Date: 09/18/2023 04:06:00 PM ATTENTION: The Clinical Documentation Specialists (CDI) and [facility] Coding Staff appreciate your assistance in clarifying documentation. Please respond to the clarification below the line at the bottom and electronically sign. The CDI & [facility] Coding staff will review the response and follow-up if needed. Please note: Queries are made part of the Legal Health Record. If you have any questions, please contact the author of this message via ITS. Dr. Maxx Braun Your patient has the documented diagnosis of Acute and charonic unspecified CHF in H and P and Final diagnosis of DCS. Additional information regarding the type of CHF is requested. History/Risk Factors: Chest pain, SOB, DM uncontrolled, noncompliant, previous VT, HTN, bilateral LE swelling worsened. Clinical Indicators: VS/Pulse OX: 95% BNP: 388 Echocardiogram Results: Chest X Ray: No acute cardiopulmonary process Treatment: Lasix 40mg IV In your professional opinion, can you please clarify the [acuity and type] of CHF if known? [ ] Acute on Chronic Systolic Heart Failure (reduced EF) [ ] Acute on Chronic Diastolic Heart Failure (preserved EF) [ ] Acute on Chronic Heart Failure Systolic & Diastolic Heart Failure [ ] Other, please specify [x ] Unable to determine MTDD
== END 2023-09-18 16:06 | disposition home or self-care (01) | DRG 194 ==
LOC: EC 18:29 → 3SCARD 21:01 → 4SSUR 09-17 10:46
PROVIDERS: ADMIT Family Medicine; ATTEND Family Medicine
DX: I11.0 Hypertensive heart disease with heart failure (principal); G35 Multiple sclerosis; I50.9 Heart failure, unspecified; E78.5 Hyperlipidemia, unspecified; E11.65 Type 2 diabetes mellitus with hyperglycemia; Z79.4 Long term (current) use of insulin; Z79.82 Long term (current) use of aspirin; Z79.02 Long term (current) use of antithrombotics/antiplatelets; Z79.899 Other long term (current) drug therapy; I25.110 Atherosclerotic heart disease of native coronary artery with unstable angina pectoris; I25.2 Old myocardial infarction; Z68.39 Body mass index [BMI] 39.0-39.9, adult; Z83.3 Family history of diabetes mellitus; Z91.148 Patient's other noncompliance with medication regimen for other reason; Z95.5 Presence of coronary angioplasty implant and graft; R07.9 Chest pain, unspecified; M41.9 Scoliosis, unspecified; E87.1 Hypo-osmolality and hyponatremia; Z11.52 Encounter for screening for COVID-19; Z28.21 Immunization not carried out because of patient refusal; E66.3 Overweight; Z71.3 Dietary counseling and surveillance
CPT/HCPCS: 36415; 71046; 76770; 80048; 80053; 81003; 82009; 82803; 83036; 83690; 83735; 83880; 84484; 85025; 85610; 85730; 87636; 93005; 93306; 96374; 96375; 96376; 99291

== ENCOUNTER → 2023-10-02 | Outpatient (CLI) | payer OTHER ==
[2023-10-02 18:19] LABS: Basophils # (A) 0.07 X 10*3/uL (0.00-0.10); Basophils % (A) 0.9 %; Eosinophils # (A) 0.14 X 10*3/uL (0.04-0.35); Eosinophils % (A) 1.8 %; HCT 41.4 % (39.6-50.0); HGB 13.5 g/dL (13.0-17.0); Lymphocytes # (A) 1.74 X 10*3/uL (0.90-5.00); Lymphocytes % (A) 21.8 %; MCH 26.8 pg (27.0-32.0); MCHC 32.6 g/dL (32.0-37.0); MCV 82.1 FL (80.0-97.0); Mean Platelet Volume 11.8 FL (9.5-12.2); Monocytes # (A) 0.78 X 10*3/uL (0.20-1.00); Monocytes % (A) 9.8 %; NRBC Per 100 WBC 0 X 10*3/uL (0.00-0.01); Neutrophils # (A) 5.19 X 10*3/uL (1.80-7.70); Neutrophils % (A) 65.1 %; Platelet Count 215 X 10*3/uL (140-440); RBC 5.04 X 10*6/uL (4.40-5.60); RDW 14.2 % (11.5-14.5); WBC 7.97 X 10*3/uL (4.50-10.00)
[2023-10-02 19:00] LABS: ALT 22 U/L (10-49); AST 21 U/L (14-35)
== END | disposition home or self-care (01) ==
LOC: LABWHC1 14:16
PROVIDERS: ATTEND Dermatology MOHS-Micrographic Surgery
DX: L40.0 Psoriasis vulgaris (principal)
CPT/HCPCS: 36415; 82565; 84450; 84460; 85025; 86480

== ENCOUNTER 2024-06-24 17:06 | Inpatient (IN) | payer OTHER ==
--- NOTE | 2024-06-24 17:26 | ED ---
General Adult HPI - General Chief complaint: Skin/Abscess/Foreign Body Stated complaint: R foot injury/infection Time Seen by Provider: 06/24/24 17:26 Source: patient Mode of arrival: ambulatory Limitations: no limitations - History of Present Illness Initial comments: 49-year-old male with history of diabetes with neuropathy, CAD, heart failure, hypertension presenting with chief complaint of wound to the right foot. Patient states that about a week ago he obtained this wound while walking a lot in downtown [place]. States that he was trying to keep it clean at home but has difficulty due to his neuropathy. He had an e-visit today with his PCP, he was advised to report to the ER due to concerns for osteomyelitis. No fevers. There is some swelling and redness to the big toe, the wound is located just proximal to the big toe. - Related Data Home Medications Medication Instructions Recorded Confirmed Aspirin [[place] Aspirin EC] 81 mg PO DAILY 11/22/18 06/24/24 Atorvastatin [Lipitor] 80 mg PO HS 11/22/18 06/24/24 Clopidogrel [Plavix] 75 mg PO DAILY 11/22/18 06/24/24 Insulin Glulisine [Apidra] 10 units SQ AC-TID 11/22/18 06/24/24 Nitroglycerin 0.4 mg SL Q5M PRN 11/22/18 06/24/24 carvediloL [Coreg] 12.5 mg PO BID 11/22/18 06/24/24 Teriflunomide [Aubagio] 14 mg PO DAILY 07/04/20 06/24/24 ondansetron HCL [Zofran] 8 mg PO DAILY 07/04/20 06/24/24 Insulin Glargine [Lantus Vial] 60 unit SQ BID 09/22/20 06/24/24 Topiramate [Topamax] 100 mg PO BID 09/24/20 06/24/24 Isosorbide Mononitrate ER [Imdur] 30 mg PO DAILY 09/16/23 06/24/24 LORazepam [Ativan] 0.5 mg PO BID 09/16/23 06/24/24 Losartan [Cozaar] 25 mg PO DAILY 09/16/23 06/24/24 Furosemide [Lasix] 80 mg PO DAILY 06/24/24 06/24/24 Naproxen [Naprosyn] 500 mg PO BID 06/24/24 06/24/24 Previous Rx's Medication Instructions Recorded Dapagliflozin Propanediol [Farxiga] 10 mg PO DAILY #30 tab 09/18/23 Allergies Allergy/AdvReac Type Severity Reaction Status Date / Time cephalexin [From Keflex] Allergy Unknown Verified 06/24/24 21:20 Review of Systems ROS Statement: Those systems with pertinent positive or pertinent negative responses have been documented in the HPI. ROS Other: All systems not noted in ROS Statement are negative. Past Medical History Past Medical History: Coronary Artery Disease (CAD), Heart Failure, Diabetes Mellitus, Hypertension, Myocardial Infarction ([place]), Musculoskeletal Disorder Additional Past Medical History / Comment(s): scoliosis of spine, 3 [place]'s x7 stents (2013 x2 AL's w/stents, 2015 [place] w/stents), DM II. History of MS, hyponatremia 2022 Last Myocardial Infarction Date:: 2015 History of Any Multi-Drug Resistant Organisms: C-DIFF Date of last positivie culture/infection: 04/2020 MDRO Source:: Stool Past Surgical History: Back Surgery, Heart Catheterization With Stent, Orthopedic Surgery Additional Past Surgical History / Comment(s): Pt states: "AL's with stents, left knee scope" "7 cardiac stents total", penile implant. Back cyst operation. Past Anesthesia/Blood Transfusion Reactions: No Reported Reaction Date of Last Stent Placement:: 2016 Past Psychological History: Anxiety, Depression Smoking Status: Never smoker Past Alcohol Use History: Rare Past Drug Use History: None Reported - Past Family History Father Additional Family Medical History / Comment(s): "heart disease." Mother History Unknown: Yes Family Medical History: Cancer, Diabetes Mellitus Additional Family Medical History / Comment(s): pt states: "kidney cancer." General Exam - General Exam Comments Initial Comments: Visual Physical Exam Vital signs reviewed General: Well-appearing, nontoxic, no acute distress. Head: Normocephalic, atraumatic Eyes: PERRLA, EOMI ENT: Airway patent Chest: Nonlabored breathing Skin: No visual rash, normal skin tone Neuro: Alert and oriented 3 Musculoskeletal: No gross abnormalities Limitations: no limitations General appearance: alert, in no apparent distress Head exam: Present: atraumatic, normocephalic, normal inspection Eye exam: Present: normal appearance, EOMI Neck exam: Present: normal inspection. Absent: meningismus Respiratory exam: Absent: respiratory distress Cardiovascular Exam: Present: regular rate Right Foot/Toe exam: Present: swelling, erythema Neurological exam: Present: alert, oriented X3 Psychiatric exam: Present: normal affect, normal mood Skin exam: Present: other (Diabetic foot wound) Course Vital Signs 06/24/24 06/24/24 06/24/24 17:18 19:11 21:07 Temperature 98.8 F Pulse Rate 95 84 78 Respiratory 18 20 20 Rate Blood Pressure 202/94 129/81 132/78 O2 Sat by Pulse 98 96 97 Oximetry Medical Decision Making - Medical Decision Making Was pt. sent in by a medical professional or institution (, PA, [employer]OCIATE, urgent care, hospital, or long term...) When possible be specific @ -PCP Did you speak to anyone other than the patient for history (EMS, parent, family, police, friend...)? What history was obtained from this source @ -No Did you review nursing and triage notes (agree or disagree)? Why? @ -I reviewed and agree with nursing and triage notes Were old charts reviewed (outside hosp., previous admission, EMS record, old EKG, old radiological studies, urgent care reports/EKG's, long term records)? Report findings @ -No old charts were reviewed Differential Diagnosis (chest pain, altered mental status, abdominal pain women, abdominal pain men, vaginal bleeding, weakness, fever, dyspnea, syncope, headache, dizziness, GI bleed, back pain, seizure, CVA, palpatations, mental health, musculoskeletal)? @ -Differential Musculoskeletal Muscular strain, contusion, ligament sprain, fracture, arthritis, septic arthritis, bursitis, cellulitis, muscle spasm, nerve compression, DVT, arterial occlusion, herpes zoster, electrolyte abnormality, tumor.... This is not meant to be in all inclusive list EKG interpreted by me (3pts min.). @ -As above X-rays interpreted by me (1pt min.). @ -Foot x-ray shows no acute osseous abnormality radiographically apparent. There is clinical concern for osteomyelitis three-phase bone scan could be performed. There is a lucency within the distal fifth metatarsal, away from the known infection. However osteomyelitis at this level should be considered CT interpreted by me (1pt min.). @ -None done U/S interpreted by me (1pt. min.). @ -None done What testing was considered but not performed or refused? (CT, X-rays, U/S, labs)? Why? @ -None What meds were considered but not given or refused? Why? @ -None Did you discuss the management of the patient with other professionals (professionals i.e. Dr., PA, [employer]OCIATE, lab, RT, psych nurse, director social service, oracle database architect, teacher, chief strategy officer, insurance case manager)? Give summary @ -Spoke with Dr. Lozano who accepts admission Was smoking cessation discussed for >3mins.? @ -No Was critical care preformed (if so, how long)? @ -No Were there social determinants of health that impacted care today? How? (Homeles sness, low income, unemployed, alcoholism, drug addiction, transportation, low edu. Level, literacy, decrease access to med. care, care home, rehab)? @ -No Was there de-escalation of care discussed even if they declined (Discuss DNR or withdrawal of care, Hospice)? DNR status @ -No What co-morbidities impacted this encounter? (DM, HTN, Smoking, COPD, CAD, Cancer, CVA, ARF, Chemo, Hep., AIDS, mental health diagnosis, sleep apnea, morbid obesity)? @ -None Was patient admitted / discharged? Hospital course, mention meds given and route, prescriptions, significant lab abnormalities, going to OR and other pertinent info. @ -49-year-old male presenting with diabetic foot wound advised to come by his PCP due to concerns for osteomyelitis. No leukocytosis or anemia. Creatinine of 1.68 seems to be in line with the patient's baseline. Lactic acid 2.8, patient is receiving IV fluids. CRP is 1.3. Foot x-ray shows lucency over the fifth metatarsal while this is not near the known infection osteomyelitis should be considered at this level. Patient is started on Rocephin and vancomycin. He will be admitted with orthopedics and infectious disease on consult. Patient is agreeable with this plan. I discussed this case with my attending Dr. Ho Undiagnosed new problem with uncertain prognosis? @ -No Drug Therapy requiring intensive monitoring for toxicity (Heparin, Nitro, Insulin, Cardizem)? @ -No Were any procedures done? @ -No Diagnosis/symptom? @ -Osteomyelitis Acute, or Chronic, or Acute on Chronic? @ -Acute Uncomplicated (without systemic symptoms) or Complicated (systemic symptoms)? @ -Complicated Side effects of treatment? @ -No Exacerbation, Progression, or Severe Exacerbation? @ -No Poses a threat to life or bodily function? How? (Chest pain, USA, AL, pneumonia, PE, COPD, DKA, ARF, appy, cholecystitis, CVA, Diverticulitis, Homicidal, Suicidal, threat to staff... and all critical care pts) @ -Yes - Lab Data Result diagrams: 06/24/24 18:14 06/24/24 18:14 Lab Results 06/24/24 06/24/24 06/24/24 Range/Units 18:14 18:14 18:14 WBC 9.0 (3.8-10.6) k/uL RBC 4.96 (4.30-5.90) m/uL Hgb 13.7 (13.0-17.5) gm/dL Hct 42.2 (39.0-53.0) % MCV 85.0 (80.0-100.0) fL MCH 27.7 (25.0-35.0) pg MCHC 32.5 (31.0-37.0) g/dL RDW 13.7 (11.5-15.5) % Plt Count 256 (150-450) k/uL MPV 7.9 Neutrophils % 80 % Lymphocytes % 14 % Monocytes % 4 % Eosinophils % 1 % Basophils % 1 % Neutrophils # 7.2 (1.3-7.7) k/uL Lymphocytes # 1.3 (1.0-4.8) k/uL Monocytes # 0.3 (0-1.0) k/uL Eosinophils # 0.1 (0-0.7) k/uL Basophils # 0.0 (0-0.2) k/uL Sodium 134 L (137-145) mmol/L Potassium 3.9 (3.5-5.1) mmol/L Chloride 101 (98-107) mmol/L Carbon Dioxide 24 (22-30) mmol/L Anion Gap 9 mmol/L BUN 30 H (9-20) mg/dL Creatinine 1.68 H (0.66-1.25) mg/dL Est GFR (CKD-EPI)AfAm 54 (>60 ml/min/1.73 sqM) Est GFR (CKD-EPI)NonAf 47 (>60 ml/min/1.73 sqM) Glucose 269 H (74-99) mg/dL Plasma Lactic Acid Sergo 2.8 H* (0.7-2.0) mmol/L Calcium 8.6 (8.4-10.2) mg/dL Total Bilirubin 0.6 (0.2-1.3) mg/dL AST 31 (17-59) U/L ALT 26 (4-49) U/L Alkaline Phosphatase 107 (38-126) U/L C-Reactive Protein 1.3 H (<1.0) mg/dL Total Protein 7.6 (6.3-8.2) g/dL Albumin 4.4 (3.5-5.0) g/dL Disposition Clinical Impression: Osteomyelitis Disposition: ADMITTED IP TO THIS [facility] Condition: Serious Time of Disposition: 19:25
[2024-06-24 18:23] LABS: Basophils % (A) 1 %; Eosinophils # (A) 0.1 k/uL (0-0.7); Eosinophils % (A) 1 %; HCT 42.2 % (39.0-53.0); HGB 13.7 gm/dL (13.0-17.5); Lymphocytes # (A) 1.3 k/uL (1.0-4.8); Lymphocytes % (A) 14 %; MCH 27.7 pg (25.0-35.0); MCHC 32.5 g/dL (31.0-37.0); Mean Platelet Volume 7.9; Monocytes # (A) 0.3 k/uL (0-1.0); Monocytes % (A) 4 %; Neutrophils # (A) 7.2 k/uL (1.3-7.7); Neutrophils % (A) 80 %; Platelet Count 256 k/uL (150-450); RBC 4.96 m/uL (4.30-5.90); RDW 13.7 % (11.5-15.5)
--- NOTE | 2024-06-24 18:35 | XR ---
EXAMINATION TYPE: XR foot complete RT DATE OF EXAM: 06/24/2024 6:25 PM COMPARISON: None. CLINICAL INDICATION: Male, 49 years old with history of wound, TECHNIQUE: 3 view(s) obtained. FINDINGS: Mild soft tissue swelling is over the dorsum of the foot. No acute fractures evident. Joint spaces are preserved. There is subluxation of the proximal phalanx on the metatarsal. Some varus deformity is present. There is some lucency within the distal fifth metatarsal. This is not entirely smooth bordered. Osteo myelitis at this level is not excluded. Soft tissue injury below the first digit. No suspicious cortical erosion is evident. Soft tissues ruben ear normal. IMPRESSION: 1. No acute osseous abnormality radiographically apparent. There is clinical concern for osteomyelit is 3 phase bone scan could be performed 2. There is a lucency within the distal fifth metatarsal, away from the known infection. However, ost eomyelitis at this level should be considered. [facility], , 06/24/2024 6:32 PM
[2024-06-24 18:39] LABS: ALT 26 U/L (4-49); AST 31 U/L (17-59); African American GFR (CKD) 54 (>60 ml/min/1.73 sqM); Albumin 4.4 g/dL (3.5-5.0); Alkaline Phosphatase 107 U/L (38-126); Anion Gap 9 mmol/L; Blood Urea Nitrogen 30 mg/dL (9-20); C Reactive Protein 1.3 mg/dL (<1.0); Calcium 8.6 mg/dL (8.4-10.2); Carbon Dioxide 24 mmol/L (22-30); Chloride 101 mmol/L (98-107); Glucose 269 mg/dL (74-99); Non-African American GFR(CKD) 47 (>60 ml/min/1.73 sqM); Potassium 3.9 mmol/L (3.5-5.1); Sodium 134 mmol/L (137-145); Total Bilirubin 0.6 mg/dL (0.2-1.3); Total Protein 7.6 g/dL (6.3-8.2)
[2024-06-24] MEDS ORDERED: VANCOMYCIN IV PER PHARMACY 1 EACH MISC MISCELLANE PRN (18:54)
[2024-06-24] MEDS ORDERED: NALOXONE 0.4 MG/ML 1 ML VIAL IV PRN (19:45)
[2024-06-24] MEDS ORDERED: ACETAMINOPHEN TAB 325 MG TAB PO PRN (19:45)
[2024-06-24] MEDS: SODIUM CHLORIDE 0.9% 1,000 ML IV SCH (20:40)
[2024-06-24] MEDS: VANCOMYCIN 2,000 MG in SODIUM CHLORIDE 0.9% 500 ML 500 ML IVPB ONE (20:40)
[2024-06-24] MEDS: SODIUM CHLORIDE 0.9% 1,000 ML IV ONE (20:42)
[2024-06-25 02:18] LABS: Glucose,Whole Blood 179 mg/dL (70-110)
[2024-06-25] MEDS: hydrALAZINE HCL 50 MG TAB PO STA (02:36)
[2024-06-25 02:50] LABS: Erythrocyte Sedimentation Rate 72 mm/Hr (0-20)
[2024-06-25 07:12] LABS: Glucose,Whole Blood 174 mg/dL (70-110)
[2024-06-25 07:15] LABS: African American GFR (CKD) 66 (>60 ml/min/1.73 sqM); Non-African American GFR(CKD) 57 (>60 ml/min/1.73 sqM)
[2024-06-25] MEDS: INSULIN ASPART (NovoLOG) 100 UNIT/ML VIAL SQ SCH (08:55)
[2024-06-25] MEDS: ISOSORBIDE MONONITRATE ER 30 MG TAB.ER.24H PO SCH (08:55)
[2024-06-25] MEDS: DAPAGLIFLOZIN PROPANEDIOL 10 MG TABLET PO SCH (08:56)
[2024-06-25] MEDS: carvediloL 12.5 MG TAB PO SCH (08:56)
[2024-06-25] MEDS: LOSARTAN 25 MG TAB PO SCH (08:56)
[2024-06-25] MEDS: LORazepam 0.5 MG TAB PO SCH (08:56)
[2024-06-25] MEDS: TOPIRAMATE 100 MG TAB PO SCH (08:56)
[2024-06-25] MEDS: FUROSEMIDE 80 MG TAB PO SCH (08:56)
[2024-06-25] MEDS: ASPIRIN 81 MG PO SCH (09:00)
[2024-06-25] MEDS: CLOPIDOGREL 75 MG TAB PO SCH (09:00)
[2024-06-25] MEDS: INSULIN DETEMIR (LEVEMIR) 100 UNIT/ML SYR SQ SCH ×2 (09:12→21:10)
[2024-06-25] MEDS: VANCOMYCIN 2,000 MG in SODIUM CHLORIDE 0.9% 500 ML 500 ML IVPB SCH ×2 (09:12→21:10)
[2024-06-25 12:25] LABS: Glucose,Whole Blood 327 mg/dL (70-110)
--- NOTE | 2024-06-25 13:56 | P.CNOR ---
History of Present Illness - [facility] Consult date: 06/25/24 Consult reason: other (Rule out osteomyelitis right foot) History of present illness: Patient is a 49-year-old male who came in to [facility] emergency room for further evaluation of a wound involving the plantar surface of his right foot near his great toe. Apparently the patient was doing a lot of walking last week in downtown [place] with his family. Patient has known diabetes insulin-dependent with significant neuropathy to the bilateral lower extremities. Patient was initially tried to treat the wound at home but was concerned it was not getting better so he came into the hospital for further evaluation. Our orthopedic team was consulted to rule out osteomyelitis Patient was evaluated today at bedside, he is very pleasant on exam, he was resting in his hospital chair. Patient is having minimal if any discomfort to the right foot at this time. Like stated above he has significant neuropathy to that foot from his diabetes. Patient does have a medical type athletic shoe that he From a medical supply store that he wears constantly. Patient denies any recent trauma. Patient has no left lower extremity symptoms. Patient denies any pain involving the ankle, upper leg, knee, hip at this time. Review of Systems Constitutional: Reports as per [facility] Past Medical History Past Medical History: Coronary Artery Disease (CAD), Heart Failure, Diabetes Mellitus, Hypertension, Myocardial Infarction ([place]), Musculoskeletal Disorder Additional Past Medical History / Comment(s): scoliosis of spine, 3 [place]'s x7 stents (2013 x2 [place]'s w/stents, 2015 [place] w/stents), DM II. History of MS, h yponatremia 2022 Last Myocardial Infarction Date:: 2015 History of Any Multi-Drug Resistant Organisms: C-DIFF Year Discovered:: 04/2020 MDRO Source:: Stool Past Surgical History: Back Surgery, Heart Catheterization With Stent, Orthopedic Surgery Additional Past Surgical History / Comment(s): Pt states: "[place]'s with stents, left knee scope" "7 cardiac stents total", penile implant. Back cyst operation. Past Anesthesia/Blood Transfusion Reactions: No Reported Reaction Date of Last Stent Placement:: 2016 Past Psychological History: Anxiety, Depression Smoking Status: Never smoker Past Alcohol Use History: Rare Past Drug Use History: None Reported - Past Family History Father Additional Family Medical History / Comment(s): "heart disease." Mother History Unknown: Yes Family Medical History: Cancer, Diabetes Mellitus Additional Family Medical History / Comment(s): pt states: "kidney cancer." Medications and Allergies Home Medications Medication Instructions Recorded Confirmed Type Aspirin [[place] Aspirin EC] 81 mg PO DAILY 11/22/18 06/24/24 History Atorvastatin [Lipitor] 80 mg PO HS 11/22/18 06/24/24 History Clopidogrel [Plavix] 75 mg PO DAILY 11/22/18 06/24/24 History Insulin Glulisine [Apidra] 10 units SQ AC-TID 11/22/18 06/24/24 History Nitroglycerin 0.4 mg SL Q5M PRN 11/22/18 06/24/24 History carvediloL [Coreg] 12.5 mg PO BID 11/22/18 06/24/24 History Teriflunomide [Aubagio] 14 mg PO DAILY 07/04/20 06/24/24 History ondansetron HCL [Zofran] 8 mg PO DAILY 07/04/20 06/24/24 History Insulin Glargine [Lantus Vial] 60 unit SQ BID 09/22/20 06/24/24 History Topiramate [Topamax] 100 mg PO BID 09/24/20 06/24/24 History Isosorbide Mononitrate ER [Imdur] 30 mg PO DAILY 09/16/23 06/24/24 History LORazepam [Ativan] 0.5 mg PO BID 09/16/23 06/24/24 History Losartan [Cozaar] 25 mg PO DAILY 09/16/23 06/24/24 History Dapagliflozin Propanediol [Farxiga] 10 mg PO DAILY #30 tab 09/18/23 06/24/24 Rx Furosemide [Lasix] 80 mg PO DAILY 06/24/24 06/24/24 History Naproxen [Naprosyn] 500 mg PO BID 06/24/24 06/24/24 History Allergies Allergy/AdvReac Type Severity Reaction Status Date / Time cephalexin [From Keflex] Allergy Unknown Verified 06/24/24 21:20 Physical Examination Right lower extremity: There is a sore present on the plantar aspect of the right foot near the first metatarsal base, there is a Silvadene type dressing in place. The wound edges appear clean, there is no obvious purulence or erythema noted. There is some minor soft tissue swelling in the midfoot that is likely chronic, there is no significant erythema in this area. There are no other open wounds or sores present Patient's sensation to light light touch is limited in all toes and the plantar aspect of the foot, he has better sensation on the top of the foot No areas of fluctuance appreciated on the dorsum and plantar aspect of the foot. Patient is able to wiggle all the toes with no difficulty, plantarflexion, dorsiflexion are intact Patient is nontender with palpation to the midfoot, forefoot and hindfoot, he is nontender to the medial lateral malleolus. Dorsalis pedis pulses 2+ Results - Labs Labs: Abnormal Lab Results - Last 24 Hours (Table) 06/24/24 06/24/24 06/24/24 Range/Units 18:14 18:14 18:14 ESR 72 H (0-20) mm/Hr Sodium 134 L (137-145) mmol/L BUN 30 H (9-20) mg/dL Creatinine 1.68 H (0.66-1.25) mg/dL Glucose 269 H (74-99) mg/dL POC Glucose (mg/dL) (70-110) mg/dL Plasma Lactic Acid Sergo 2.8 H* (0.7-2.0) mmol/L C-Reactive Protein 1.3 H (<1.0) mg/dL 06/25/24 06/25/24 06/25/24 Range/Units 02:17 06:22 07:10 ESR (0-20) mm/Hr Sodium (137-145) mmol/L BUN (9-20) mg/dL Creatinine 1.42 H (0.66-1.25) mg/dL Glucose (74-99) mg/dL POC Glucose (mg/dL) 179 H 174 H (70-110) mg/dL Plasma Lactic Acid Sergo (0.7-2.0) mmol/L C-Reactive Protein (<1.0) mg/dL 06/25/24 Range/Units 12:24 ESR (0-20) mm/Hr Sodium (137-145) mmol/L BUN (9-20) mg/dL Creatinine (0.66-1.25) mg/dL Glucose (74-99) mg/dL POC Glucose (mg/dL) 327 H (70-110) mg/dL Plasma Lactic Acid Sergo (0.7-2.0) mmol/L C-Reactive Protein (<1.0) mg/dL H & H 06/24/24 Range/Units 18:14 Hgb 13.7 (13.0-17.5) gm/dL Hct 42.2 (39.0-53.0) % Result Diagrams: 06/24/24 18:14 06/25/24 06:22 - Diagnostic results Ankle/Foot x-ray: report reviewed, image reviewed (Report and images were reviewed of the right foot, no obvious fractures or dislocations. There are some cystic changes noted in the fifth metatarsal head.) Assessment and Plan Assessment: Diabetic wound, plantar aspect right foot Insulin-dependent diabetic Other medical comorbidities Plan: I was able to discuss the case, this to include physical exam findings and imaging studies my attending Dr. Joya Streeter. No orthopedic surgical in tervention is recommended at this time Low concern for osteomyelitis at this time based on x-ray and clinical findings Recommend vascular versus wound care consult for further evaluation of the plan tar wound Recommend protective weightbearing, this to include a diabetic shoe to be utilized for the right foot GI/DVT prophylaxis per primary medical service Orthopedically patient remains stable, please contact our service with any questions regarding this patient. Time with Patient: Less than 30
[2024-06-25] MEDS: SILVER NITRATE APPLICATOR 1 EACH STICK..EA. TOPICAL STA (14:36)
[2024-06-25] MEDS: COLLAGENASE 250 UNIT/GM OINTMENT 30 GM TUBE TOPICAL SCH (14:36)
[2024-06-25] MEDS: LIDOCAINE 1% INJ 10MG/ML (20 ML MDV) SQ ONE (14:44)
[2024-06-25 14:52] VITALS: BMI 38.7
--- NOTE | 2024-06-25 15:05 | P.GSCN ---
History of Present Illness History of present illness: 49-year-old gentleman came to the emergency room last night according to the patient he was not walking for long distance he developed a wound on the right foot plantar aspect of the big toe. Patient has history of diabetes neuropathy consulted for wound management. Medical history history of coronary artery disease, neuropathy, history of hypertension, Patient was seen in his room neck is supple no bruit appreciated Chest is clear good entry both lung. Second sound present Abdomen soft nontender Vascular femorals are 1+ PT DP by the Doppler patient had a infected callus on the plantar aspect of the right foot drainage noted from the base of the wound. Plan is debrided with the deep culture patient is an IV antibiotic and under care of infectious disease current complication discussed with the patient Past Medical History Past Medical History: Coronary Artery Disease (CAD), Heart Failure, Diabetes Mellitus, Hypertension, Myocardial Infarction ([place]), Musculoskeletal Disorder Additional Past Medical History / Comment(s): scoliosis of spine, 3 [place]'s x7 stents (2013 x2 [place]'s w/stents, 2015 [place] w/stents), DM II. History of MS, hyponatremia 2022 Last Myocardial Infarction Date:: 2015 History of Any Multi-Drug Resistant Organisms: C-DIFF Year Discovered:: 04/2020 MDRO Source:: Stool Past Surgical History: Back Surgery, Heart Catheterization With Stent, Orthopedic Surgery Additional Past Surgical History / Comment(s): Pt states: "[place]'s with stents, left knee scope" "7 cardiac stents total", penile implant. Back cyst operation. Past Anesthesia/Blood Transfusion Reactions: No Reported Reaction Date of Last Stent Placement:: 2016 Past Psychological History: Anxiety, Depression Smoking Status: Never smoker Past Alcohol Use History: Rare Past Drug Use History: None Reported - Past Family History Father Additional Family Medical History / Comment(s): "heart disease." Mother History Unknown: Yes Family Medical History: Cancer, Diabetes Mellitus Additional Family Medical History / Comment(s): pt states: "kidney cancer." Medications and Allergies Home Medications Medication Instructions Recorded Confirmed Type Aspirin [Person Aspirin EC] 81 mg PO DAILY 11/22/18 06/24/24 History Atorvastatin [Lipitor] 80 mg PO HS 11/22/18 06/24/24 History Clopidogrel [Plavix] 75 mg PO DAILY 11/22/18 06/24/24 History Insulin Glulisine [Apidra] 10 units SQ AC-TID 11/22/18 06/24/24 History Nitroglycerin 0.4 mg SL Q5M PRN 11/22/18 06/24/24 History carvediloL [Coreg] 12.5 mg PO BID 11/22/18 06/24/24 History Teriflunomide [Aubagio] 14 mg PO DAILY 07/04/20 06/24/24 History ondansetron HCL [Zofran] 8 mg PO DAILY 07/04/20 06/24/24 History Insulin Glargine [Lantus Vial] 60 unit SQ BID 09/22/20 06/24/24 History Topiramate [Topamax] 100 mg PO BID 09/24/20 06/24/24 History Isosorbide Mononitrate ER [Imdur] 30 mg PO DAILY 09/16/23 06/24/24 History LORazepam [Ativan] 0.5 mg PO BID 09/16/23 06/24/24 History Losartan [Cozaar] 25 mg PO DAILY 09/16/23 06/24/24 History Dapagliflozin Propanediol [Farxiga] 10 mg PO DAILY #30 tab 09/18/23 06/24/24 Rx Furosemide [Lasix] 80 mg PO DAILY 06/24/24 06/24/24 History Naproxen [Naprosyn] 500 mg PO BID 06/24/24 06/24/24 History Allergies Allergy/AdvReac Type Severity Reaction Status Date / Time cephalexin [From Keflex] Allergy Unknown Verified 06/24/24 21:20 Surgical - Exam Vital Signs Temp Pulse Resp BP Pulse Ox 98.8 F 95 18 202/94 98 06/24/24 17:18 06/24/24 17:18 06/24/24 17:18 06/24/24 17:18 06/24/24 17:18 Results - Labs 06/24/24 18:14 06/25/24 06:22 Abnormal Lab Results - Last 24 Hours (Table) 06/24/24 06/24/24 06/24/24 Range/Units 18:14 18:14 18:14 ESR 72 H (0-20) mm/Hr Sodium 134 L (137-145) mmol/L BUN 30 H (9-20) mg/dL Creatinine 1.68 H (0.66-1.25) mg/dL Glucose 269 H (74-99) mg/dL POC Glucose (mg/dL) (70-110) mg/dL Plasma Lactic Acid Sergo 2.8 H* (0.7-2.0) mmol/L C-Reactive Protein 1.3 H (<1.0) mg/dL 06/25/24 06/25/24 06/25/24 Range/Units 02:17 06:22 07:10 ESR (0-20) mm/Hr Sodium (137-145) mmol/L BUN (9-20) mg/dL Creatinine 1.42 H (0.66-1.25) mg/dL Glucose (74-99) mg/dL POC Glucose (mg/dL) 179 H 174 H (70-110) mg/dL Plasma Lactic Acid Sergo (0.7-2.0) mmol/L C-Reactive Protein (<1.0) mg/dL 06/25/24 Range/Units 12:24 ESR (0-20) mm/Hr Sodium (137-145) mmol/L BUN (9-20) mg/dL Creatinine (0.66-1.25) mg/dL Glucose (74-99) mg/dL POC Glucose (mg/dL) 327 H (70-110) mg/dL Plasma Lactic Acid Sergo (0.7-2.0) mmol/L C-Reactive Protein (<1.0) mg/dL Diabetes panel 06/24/24 06/25/24 Range/Units 18:14 06:22 Sodium 134 L (137-145) mmol/L Potassium 3.9 (3.5-5.1) mmol/L Chloride 101 (98-107) mmol/L Carbon Dioxide 24 (22-30) mmol/L BUN 30 H (9-20) mg/dL Creatinine 1.68 H 1.42 H (0.66-1.25) mg/dL Glucose 269 H (74-99) mg/dL Calcium 8.6 (8.4-10.2) mg/dL AST 31 (17-59) U/L ALT 26 (4-49) U/L Alkaline Phosphatase 107 (38-126) U/L Total Protein 7.6 (6.3-8.2) g/dL Albumin 4.4 (3.5-5.0) g/dL Calcium panel 06/24/24 Range/Units 18:14 Calcium 8.6 (8.4-10.2) mg/dL Albumin 4.4 (3.5-5.0) g/dL Pituitary panel 06/24/24 06/25/24 Range/Units 18:14 06:22 Sodium 134 L (137-145) mmol/L Potassium 3.9 (3.5-5.1) mmol/L Chloride 101 (98-107) mmol/L Carbon Dioxide 24 (22-30) mmol/L BUN 30 H (9-20) mg/dL Creatinine 1.68 H 1.42 H (0.66-1.25) mg/dL Glucose 269 H (74-99) mg/dL Calcium 8.6 (8.4-10.2) mg/dL Adrenal panel 06/24/24 06/25/24 Range/Units 18:14 06:22 Sodium 134 L (137-145) mmol/L Potassium 3.9 (3.5-5.1) mmol/L Chloride 101 (98-107) mmol/L Carbon Dioxide 24 (22-30) mmol/L BUN 30 H (9-20) mg/dL Creatinine 1.68 H 1.42 H (0.66-1.25) mg/dL Glucose 269 H (74-99) mg/dL Calcium 8.6 (8.4-10.2) mg/dL Total Bilirubin 0.6 (0.2-1.3) mg/dL AST 31 (17-59) U/L ALT 26 (4-49) U/L Alkaline Phosphatase 107 (38-126) U/L Total Protein 7.6 (6.3-8.2) g/dL Albumin 4.4 (3.5-5.0) g/dL
--- NOTE | 2024-06-25 15:07 | P.PCN ---
Description of Procedure: Preop diagnosis is infected callus right foot plantar aspect base of the big toe with marked redness noted on the dorsum aspect of the foot measurement is 3 x 2 cm Postop measurement is 3 x 2 x 0.5 cm Procedure right foot was prepped draped in Prestel manner 1% lidocaine infiltrated using knife with did the debridement down to subcu tissue almost down to the periosteum of the big toe there was devitalized tissue with some foul odor noted all the devitalized tissue was excised with a sharp knife we send the tissue for deep culture wound was irrigated with saline some bleeding point which were controlled by nitro stick Santyl cream applied to the wound dressing applied patient tarted the procedure well was nonweightbearing ev aluation continue with IV antibiotic
[2024-06-25 17:15] LABS: Glucose,Whole Blood 272 mg/dL (70-110)
[2024-06-25] MEDS ORDERED: NITROGLYCERIN SL TABS 0.4 MG TAB SUBLINGUAL PRN (17:16)
[2024-06-25 20:34] LABS: Glucose,Whole Blood 218 mg/dL (70-110)
[2024-06-25] MEDS: ATORVASTATIN 80 MG TAB PO SCH (21:10)
[2024-06-25] MEDS: NAPROXEN 250 MG TAB PO SCH (21:24)
--- NOTE | 2024-06-25 22:02 | P.CONS ---
History of Present Illness - Reason for Consult Consult date: 06/25/24 Osteomyelitis Requesting physician: Kinza Lezama - Chief Complaint Right big toe ulcer x days - History of Present Illness Patient is a 49-year-old male with a past medical history significant for diabetes mellitus hypertension [place] heart failure coronary artery disease presenting to the hospital concerning for wound on the right big toe plantar aspect patient did have diabetic neuropathy denies significant sensation to the foot and apparently was noticed to have some blood on the bathroom floor and subsequently patient noticed to having a wound on the plantar aspect of the right big toe with the patient has been trying to clean and apply some antibioti c cream patient subsequently did have telehealth visit with his primary care physician [employer] and the patient was noticed to have some redness to the right big toe concerning for a diabetic foot infection for the patient was advised to go to the hospital patient denies having any fever or any chills he is breathing comfortably on room air no chest pain shortness of breath or cough no nausea vomiting abdominal pain or diarrhea as mentioned earlier he did have diabetic neuropathy has denies significant pain to the right big toe did have minimal swelling redness and no foul-smelling drainage patient on presentation the hospital was afebrile and no fever have recorded subsequently patient did have a white count of 9.0 BUN and creatinine has been mildly elevated liver enzymes are normal patient did have x-ray of the foot did not show any acute bony abnormality did show some lucency within the distal fifth metatarsal and did not mention any abnormality to the right big toe with the patient did have the ulcer patient was started on vancomycin infectious disease was consulted for further management of antibiotic therapy Review of Systems Positive point and negatives has been mentioned in the HPI, complete review of systems was performed and all other systems are negative Past Medical History Past Medical History: Coronary Artery Disease (CAD), Heart Failure, Diabetes Mellitus, Hypertension, Myocardial Infarction ([place]), Musculoskeletal Disorder Additional Past Medical History / Comment(s): scoliosis of spine, 3 [place]'s x7 stents (2013 x2 [place]'s w/stents, 2015 [place] w/stents), DM II. History of MS, hy ponatremia 2022 Last Myocardial Infarction Date:: 2015 History of Any Multi-Drug Resistant Organisms: C-DIFF Year Discovered:: 04/2020 MDRO Source:: Stool Past Surgical History: Back Surgery, Heart Catheterization With Stent, Orthopedic Surgery Additional Past Surgical History / Comment(s): Pt states: "[place]'s with stents, left knee scope" "7 cardiac stents total", penile implant. Back cyst operation. Past Anesthesia/Blood Transfusion Reactions: No Reported Reaction Date of Last Stent Placement:: 2016 Past Psychological History: Anxiety, Depression Smoking Status: Never smoker Past Alcohol Use History: Rare Past Drug Use History: None Reported - Past Family History Father Additional Family Medical History / Comment(s): "heart disease." Mother History Unknown: Yes Family Medical History: Cancer, Diabetes Mellitus Additional Family Medical History / Comment(s): pt states: "kidney cancer." Medications and Allergies Home Medications Medication Instructions Recorded Confirmed Type Aspirin [Henry Aspirin EC] 81 mg PO DAILY 11/22/18 06/24/24 History Atorvastatin [Lipitor] 80 mg PO HS 11/22/18 06/24/24 History Clopidogrel [Plavix] 75 mg PO DAILY 11/22/18 06/24/24 History Insulin Glulisine [Apidra] 10 units SQ AC-TID 11/22/18 06/24/24 History Nitroglycerin 0.4 mg SL Q5M PRN 11/22/18 06/24/24 History carvediloL [Coreg] 12.5 mg PO BID 11/22/18 06/24/24 History Teriflunomide [Aubagio] 14 mg PO DAILY 07/04/20 06/24/24 History ondansetron HCL [Zofran] 8 mg PO DAILY 07/04/20 06/24/24 History Insulin Glargine [Lantus Vial] 60 unit SQ BID 09/22/20 06/24/24 History Topiramate [Topamax] 100 mg PO BID 09/24/20 06/24/24 History Isosorbide Mononitrate ER [Imdur] 30 mg PO DAILY 09/16/23 06/24/24 History LORazepam [Ativan] 0.5 mg PO BID 09/16/23 06/24/24 History Losartan [Cozaar] 25 mg PO DAILY 09/16/23 06/24/24 History Dapagliflozin Propanediol [Farxiga] 10 mg PO DAILY #30 tab 09/18/23 06/24/24 Rx Furosemide [Lasix] 80 mg PO DAILY 06/24/24 06/24/24 History Naproxen [Naprosyn] 500 mg PO BID 06/24/24 06/24/24 History Allergies Allergy/AdvReac Type Severity Reaction Status Date / Time cephalexin [From Keflex] Allergy Unknown Verified 06/24/24 21:20 Physical Exam Vitals: Vital Signs Temp Pulse Pulse Resp BP BP BP 06/25/24 07:13 98.0 F 77 16 160/91 06/25/24 02:26 77 139/74 06/25/24 01:54 98.6 F 73 16 144/82 06/24/24 22:10 98.8 F 83 16 170/90 06/24/24 21:07 78 20 132/78 06/24/24 19:11 84 20 129/81 06/24/24 17:18 98.8 F 95 18 202/94 Pulse Ox 06/25/24 07:13 95 06/25/24 02:26 06/25/24 01:54 97 06/24/24 22:10 98 06/24/24 21:07 97 06/24/24 19:11 96 06/24/24 17:18 98 Intake and Output 06/24/24 06/25/24 06/25/24 22:59 06:59 14:59 Other: Voiding Method Toilet # Voids 3 Weight 122.47 kg GENERAL DESCRIPTION: Middle-aged male up in the chair no distress. No tachypnea or accessory muscle of respiration use. HEENT: Shows Pallor , no scleral icterus. Oral mucous membrane is dry. No pharyngeal erythema or thrush NECK: Trachea central, no thyromegaly. LUNGS: Unlabored breathing. Clear to auscultation anteriorly. No wheeze or crackle. HEART: S1, S2, regular rate and rhythm. No loud murmur ABDOMEN: Soft, no tenderness , guarding or rigidity, no organomegaly EXTREMITIES: Right big toe plantar ulcer with some devitalized tissue with minimal swelling and some redness of the right big toe no foul-smelling drainage SKIN: No rash, no masses palpable. NEUROLOGICAL: The patient is awake, alert, oriented x3, mood and affect normal. Results CBC & Chem 7: 06/24/24 18:14 06/25/24 06:22 Labs: Abnormal Lab Results - Last 24 Hours (Table) 06/24/24 06/24/24 06/24/24 Range/Units 18:14 18:14 18:14 ESR 72 H (0-20) mm/Hr Sodium 134 L (137-145) mmol/L BUN 30 H (9-20) mg/dL Creatinine 1.68 H (0.66-1.25) mg/dL Glucose 269 H (74-99) mg/dL POC Glucose (mg/dL) (70-110) mg/dL Plasma Lactic Acid Sergo 2.8 H* (0.7-2.0) mmol/L C-Reactive Protein 1.3 H (<1.0) mg/dL 06/25/24 06/25/24 06/25/24 Range/Units 02:17 06:22 07:10 ESR (0-20) mm/Hr Sodium (137-145) mmol/L BUN (9-20) mg/dL Creatinine 1.42 H (0.66-1.25) mg/dL Glucose (74-99) mg/dL POC Glucose (mg/dL) 179 H 174 H (70-110) mg/dL Plasma Lactic Acid Sergo (0.7-2.0) mmol/L C-Reactive Protein (<1.0) mg/dL Assessment and Plan (1) Diabetic ulcer of right foot Current Visit: Yes Status: Acute Code(s): E11.621 - TYPE 2 DIABETES MELLITUS WITH FOOT ULCER; L97.519 - NON-PRS CHRONIC ULCER OTH PRT RIGHT FOOT W UNSP SEVERITY SNOMED Code(s): 763962415 (2) Diabetic foot infection Current Visit: Yes Status: Acute Code(s): E11.628 - TYPE 2 DIABETES MELLITUS WITH OTHER SKIN COMPLICATIONS; L08.9 - LOCAL INFECTION OF THE SKIN AND SUBCUTANEOUS TISSUE, UNSP SNOMED Code(s): 244416392 Plan: 1patient presented to hospital with right big toe swelling and some redness in this patient who did have possible infected callus on the plantar aspect of the right big toe with secondary cellulitis. 2cephalexin allergy which was C. difficile more of a side effect than a true allergy 3-patient did have mild insufficiency and high risk of nephrotoxicity and Vanco trough need to be monitored closely 4-we will consult vascular surgery for debridement and deep culture 5-for now continue with the vancomycin while waiting for the workup to be completed and will check inflammatory markers We will follow on clinical condition and cultures to further adjust medication if needed Thank you for this consultation we will follow the patient along with you Dictation was produced using [employer] dictation software. please excuse any grammatical, word or spelling errors. Time with Patient: Greater than 30
[2024-06-25] MEDS: MORPHINE SULFATE 4 MG/ML SYRINGE IV PRN (22:51)
[2024-06-26 01:44] LABS: Glucose,Whole Blood 162 mg/dL (70-110)
[2024-06-26 07:08] LABS: ALT 21 U/L (4-49); AST 22 U/L (17-59); African American GFR (CKD) 67 (>60 ml/min/1.73 sqM); Albumin 3.4 g/dL (3.5-5.0); Albumin/Globulin Ratio 1.2; Alkaline Phosphatase 91 U/L (38-126); Anion Gap 4 mmol/L; Blood Urea Nitrogen 20 mg/dL (9-20); Calcium 8.6 mg/dL (8.4-10.2); Carbon Dioxide 21 mmol/L (22-30); Chloride 109 mmol/L (98-107); Globulin 2.9 g/dL; Glucose 129 mg/dL (74-99); Non-African American GFR(CKD) 58 (>60 ml/min/1.73 sqM); Potassium 3.7 mmol/L (3.5-5.1); Sodium 134 mmol/L (137-145); Total Bilirubin 0.4 mg/dL (0.2-1.3); Total Protein 6.3 g/dL (6.3-8.2)
[2024-06-26 07:17] LABS: C Reactive Protein 0.9 mg/dL (<1.0)
[2024-06-26 07:19] LABS: Glucose,Whole Blood 126 mg/dL (70-110)
[2024-06-26] MEDS: KETOROLAC 15 MG/ML 1 ML VIAL IVP PRN (09:23)
[2024-06-26] MEDS: Teriflunomide [Aubagio] 14 MG Tablet PO SCH (09:38)
[2024-06-26 09:54] LABS: Basophils # (A) 0.06 X 10*3/uL (0.00-0.10); Basophils % (A) 0.8 %; Eosinophils # (A) 0.19 X 10*3/uL (0.04-0.35); Eosinophils % (A) 2.4 %; HCT 37.6 % (39.6-50.0); HGB 12.4 g/dL (13.0-17.0); MCH 27.9 pg (27.0-32.0); MCV 84.7 FL (80.0-97.0); Mean Platelet Volume 11.4 FL (9.5-12.2); Monocytes # (A) 0.89 X 10*3/uL (0.20-1.00); Monocytes % (A) 11.3 %; NRBC Per 100 WBC 0 X 10*3/uL (0.00-0.01); Neutrophils # (A) 5.25 X 10*3/uL (1.80-7.70); Neutrophils % (A) 66.2 %; Platelet Count 216 X 10*3/uL (140-440); RBC 4.44 X 10*6/uL (4.40-5.60); RDW 13.3 % (11.5-14.5); WBC 7.91 X 10*3/uL (4.50-10.00)
--- NOTE | 2024-06-26 10:19 | P.PN ---
Progress Note - Text 49-year-old diabetic male patient had a debridement of the right foot big toe callus which was excised sent for culture final report is pending patient is growing gram-positive cocci patient has no fever chills wound was a dressing was changed no drainage noted we use Santyl cream dressing was applied patient is an IV antibiotic under care of infectious disease dressing has been changed the basis
[2024-06-26 12:15] LABS: Glucose,Whole Blood 191 mg/dL (70-110)
[2024-06-26 15:15] LABS: Erythrocyte Sedimentation Rate 56 mm/Hr (0-20)
[2024-06-26 17:07] LABS: Glucose,Whole Blood 226 mg/dL (70-110)
[2024-06-26 20:28] LABS: Glucose,Whole Blood 257 mg/dL (70-110)
[2024-06-27 07:17] LABS: Glucose,Whole Blood 210 mg/dL (70-110)
--- NOTE | 2024-06-27 07:39 | P.PN ---
Subjective Progress Note Date: 06/26/24 Principal diagnosis: Reason for follow-up is right big toe diabetic foot ulcer infection Patient is a 49-year-old male with a past medical history significant for diabetes mellitus hypertension [place] heart failure coronary artery disease presenting to the hospital concerning for wound on the right big toe plantar aspect, patient been evaluated by vascular surgery did have debridement of the wound and deep culture. On today's evaluation that is 06/26/2024,the patient denies any fever or any chills, patient is breathing comfortably on room air, the patient denies chest pain shortness of breath and no significant cough, patient denies abdominal pain, no nausea vomiting or diarrhea. Patient denies any worsening pain to the right big toe wound area. Patient did have white count of 7.91, creatinine is 1.40 local culture currently growing Staph aureus with sensitivities pending Objective - Vital Signs Vital signs: Vital Signs Temp 97.9 F 06/26/24 12:41 Pulse 70 06/26/24 12:41 Resp 16 06/26/24 12:41 BP 154/87 06/26/24 12:41 Pulse Ox 99 06/26/24 12:41 FiO2 Intake & Output 06/25/24 06/26/24 06/26/24 18:59 06:59 18:59 Intake Total 2062 Balance 2062 Weight 122.47 kg Intake: Oral 2062 Other: Voiding Method Toilet Toilet # Voids 2 3 - Exam GENERAL DESCRIPTION: Middle-age male up in the chair in no distress RESPIRATORY SYSTEM: Unlabored breathing , decreased breath sounds at bases HEART: S1 S2 regular rate and rhythm , ABDOMEN: Soft , no tenderness EXTREMITIES: Right foot wound is currently dressed - Labs CBC & Chem 7: 06/26/24 06:04 06/26/24 06:04 Labs: Abnormal Lab Results - Last 24 Hours (Table) 06/25/24 06/25/24 06/26/24 Range/Units 17:13 20:28 01:38 Hgb (13.0-17.0) g/dL Hct (39.6-50.0) % Sodium (137-145) mmol/L Chloride (98-107) mmol/L Carbon Dioxide (22-30) mmol/L Creatinine (0.66-1.25) mg/dL Glucose (74-99) mg/dL POC Glucose (mg/dL) 272 H 218 H 162 H (70-110) mg/dL Albumin (3.5-5.0) g/dL 06/26/24 06/26/24 06/26/24 Range/Units 06:04 06:04 07:18 Hgb 12.4 L (13.0-17.0) g/dL Hct 37.6 L (39.6-50.0) % Sodium 134 L (137-145) mmol/L Chloride 109 H (98-107) mmol/L Carbon Dioxide 21 L (22-30) mmol/L Creatinine 1.40 H (0.66-1.25) mg/dL Glucose 129 H (74-99) mg/dL POC Glucose (mg/dL) 126 H (70-110) mg/dL Albumin 3.4 L (3.5-5.0) g/dL 06/26/24 Range/Units 12:14 Hgb (13.0-17.0) g/dL Hct (39.6-50.0) % Sodium (137-145) mmol/L Chloride (98-107) mmol/L Carbon Dioxide (22-30) mmol/L Creatinine (0.66-1.25) mg/dL Glucose (74-99) mg/dL POC Glucose (mg/dL) 191 H (70-110) mg/dL Albumin (3.5-5.0) g/dL Microbiology - Last 24 Hours (Table) 06/25/24 14:15 Gram Stain - Preliminary Toe - Right First 06/24/24 19:35 Blood Culture - Preliminary Blood Assessment and Plan (1) Diabetic ulcer of right foot Current Visit: Yes Status: Acute Code(s): E11.621 - TYPE 2 DIABETES MELLITUS WITH FOOT ULCER; L97.519 - NON-PRS CHRONIC ULCER OTH PRT RIGHT FOOT W UNSP JOVITA RITY SNOMED Code(s): 718676304 (2) Diabetic foot infection Current Visit: Yes Status: Acute Code(s): E11.628 - TYPE 2 DIABETES MELLITUS WITH OTHER SKIN COMPLICATIONS; L08.9 - LOCAL INFECTION OF THE SKIN AND SUBCUTANEOUS TISSUE, UNSP SNOMED Code(s): 214282095 Plan: 1patient presented to hospital with right big toe swelling and some redness in this patient who did have possible infected callus on the plantar aspect of the right big toe with secondary cellulitis. 2cephalexin allergy which was C. difficile more of a side effect than a true allergy 3-patient did have mild insufficiency and high risk of nephrotoxicity and Vanco trough need to be monitored closely 4-patient is status post was consulted evaluation, debridement and deep culture which are currently growing Staph aureus 5-patient to continue with the vancomycin while waiting for sensitivities to finalize to determine discharge antibiotics Dictation was produced using [employer] dictation software. please excuse any grammatical, word or spelling errors. Time with Patient: Less than 30
[2024-06-27 07:49] VITALS: RESP 16
[2024-06-27] MEDS: VANCOMYCIN TROUGH DUE 1 EACH MISC MISCELLANE ONE (08:54)
[2024-06-27 09:00] LABS: African American GFR (CKD) 76 (>60 ml/min/1.73 sqM); Anion Gap 6 mmol/L; Blood Urea Nitrogen 21 mg/dL (9-20); Calcium 8.9 mg/dL (8.4-10.2); Carbon Dioxide 21 mmol/L (22-30); Chloride 106 mmol/L (98-107); Glucose 225 mg/dL (74-99); Non-African American GFR(CKD) 66 (>60 ml/min/1.73 sqM); Potassium 4.4 mmol/L (3.5-5.1); Sodium 133 mmol/L (137-145)
[2024-06-27 12:25] LABS: Glucose,Whole Blood 290 mg/dL (70-110)
[2024-06-27 12:37] VITALS: BP 150/87; PULSE 79; TEMP 97.9
--- NOTE | 2024-06-27 12:45 | P.PN ---
Progress Note - Text 49-year-old gentleman history of diabetes hypertension patient has history of callus formation on the plantar aspect of the right foot base of the big toe patient had a debridement and deep culture presumptive diagnosis Staph aureus. Patient is under care of infectious disease we have been changing dressing with Santyl cream patient be continued and also give the prescription for offloading shoe dressing should be changed on daily basis using Santyl cream if patient goes home will follow-up with the wound clinic on Thursday at [facility]
[2024-06-27] MEDS ORDERED: VANCOMYCIN IV PER PHARMACY 1 EACH MISC MISCELLANE PRN (13:49)
[2024-06-27 17:29] LABS: Glucose,Whole Blood 285 mg/dL (70-110)
[2024-06-27] MEDS ORDERED: SULFAMETHOX-TMP 800-160MG 1 EACH TAB PO SCH (21:00)
[2024-06-27] MEDS ORDERED: AMOXIC-POT CLAV 875-125MG 1 EACH TAB PO SCH (21:00)
--- NOTE | 2024-06-28 13:14 | P.PN ---
Subjective Progress Note Date: 06/27/24 Principal diagnosis: Reason for follow-up is right big toe diabetic foot ulcer infection Patient is a 49-year-old male with a past medical history significant for diabetes mellitus hypertension [place] heart failure coronary artery disease presenting to the hospital concerning for wound on the right big toe plantar aspect, patient been evaluated by vascular surgery did have debridement of the wound and deep culture. On today's evaluation that is 06/27/2024,the patient remains to be afebrile, patient is on room air not requiring supplemental oxygen and denies any short ness of breath no chest pain or cough.Patient denies having any nausea or vomiting, no abdominal pain and no diarrhea, denies pain to the right big toe. Patient did have a creatinine 1.26, culture currently growing Staph aureus with sensitivities pending Objective - Vital Signs Vital signs: Vital Signs Temp 97.5 F L 06/27/24 07:07 Pulse 80 06/27/24 07:07 Resp 16 06/27/24 07:07 BP 195/93 06/27/24 07:07 Pulse Ox 98 06/27/24 07:07 FiO2 Intake & Output 06/26/24 06/27/24 06/27/24 18:59 06:59 18:59 Intake Total 2861 1580 838 Balance 2861 1580 838 Intake: Intake, IV Titration 500 Amount Vancomycin 2,000 mg In 500 Sodium Chloride 0.9% 500 ml 500 ml @ 167 mls/hr IVPB Q12HR [facility] Rx#: [id number] Oral 2861 1080 838 Other: Voiding Method Toilet # Voids 2 - Exam GENERAL DESCRIPTION: Middle-age male up in the chair in no distress RESPIRATORY SYSTEM: Unlabored breathing , decreased breath sounds at bases HEART: S1 S2 regular rate and rhythm , ABDOMEN: Soft , no tenderness EXTREMITIES: Right right big toe plantar wound extensive but bone is not palpable - Labs CBC & Chem 7: 06/26/24 06:04 06/27/24 07:55 Labs: Abnormal Lab Results - Last 24 Hours (Table) 06/26/24 06/26/24 06/26/24 Range/Units 06:04 12:14 17:05 ESR 56 H (0-20) mm/Hr Sodium (137-145) mmol/L Carbon Dioxide (22-30) mmol/L BUN (9-20) mg/dL Creatinine (0.66-1.25) mg/dL Glucose (74-99) mg/dL POC Glucose (mg/dL) 191 H 226 H (70-110) mg/dL 06/26/24 06/27/24 06/27/24 Range/Units 20:26 07:16 07:55 ESR (0-20) mm/Hr Sodium 133 L (137-145) mmol/L Carbon Dioxide 21 L (22-30) mmol/L BUN 21 H (9-20) mg/dL Creatinine 1.26 H (0.66-1.25) mg/dL Glucose 225 H (74-99) mg/dL POC Glucose (mg/dL) 257 H 210 H (70-110) mg/dL Microbiology - Last 24 Hours (Table) 06/24/24 19:35 Blood Culture - Preliminary Blood 06/25/24 14:15 Gram Stain - Preliminary Toe - Right First Tissue Culture - Preliminary Presumptive Staph aureus Assessment and Plan (1) Diabetic ulcer of right foot Status: Acute Code(s): E11.621 - TYPE 2 DIABETES MELLITUS WITH FOOT ULCER; L97.519 - NON-PRS CHRONIC ULCER OTH PRT RIGHT FOOT W UNSP SEVERITY SNOMED Code(s): 505950124 (2) Diabetic foot infection Status: Acute Code(s): E11.628 - TYPE 2 DIABETES MELLITUS WITH OTHER SKIN COMPLICATIONS; L08.9 - LOCAL INFECTION OF THE SKIN AND SUBCUTANEOUS TISSUE, UNSP SNOMED Code(s): 944325906 Plan: 1patient presented to hospital with right big toe swelling and some redness in this patient who did have possible infected callus on the plantar aspect of the right big toe with secondary cellulitis. 2cephalexin allergy which was C. difficile more of a side effect than a true allergy 3-patient did have mild insufficiency and high risk of nephrotoxicity and Vanco trough need to be monitored closely 4-patient is status post vascular surgery and debridement and deep culture which are currently growing Staph aureus with sensitivities pending 5-patient to continue with the vancomycin while waiting for sensitivities to finalize to determine discharge antibiotics, local wound care to continue per the vascular surgery Dictation was produced using [employer] dictation software. please excuse any grammatical, word or spelling errors. Time with Patient: Less than 30
--- NOTE | 2024-06-30 02:49 | HP ---
HISTORY AND PHYSICAL CHIEF COMPLAINT: Infection in the right great toe. HISTORY OF PRESENT ILLNESS: This is another admission for this 49-year-old gentleman with poorly controlled diabetes mellitus. He has an ulcer on the bottom of the right foot and is admitted for IV antibiotics, and surgical consult as well as Infectious Disease evaluation. REVIEW OF SYSTEMS: He denies significant pain. He has had no fever, chills, chest pain, shortness of breath, etc. Past medical history, family history, and personal and social histories reveal that he is on, 1. Lantus. 2. Spironolactone. 3. Lasix. 4. Vitamin D. 5. Trulicity. 6. Clopidogrel. 7. Carvedilol. 8. Apidra. 9. Topamax. 10.Losartan. 11.Isordil. 12.Gabapentin. 13.Farxiga. 14.Atorvastatin. 15.Lorazepam. 16.Allopurinol. 17.Aspirin. 18.Aubagio. He does have a history of several myocardial infarctions and congestive heart failure. He has also had issues with glaucoma. He does not smoke. PHYSICAL EXAMINATION: VITAL SIGNS: Normal. HEAD, EARS, EYES, NOSE, MOUTH AND THROAT: Normal. CHEST: Clear. CARDIAC: Demonstrates sinus rhythm and no murmurs or extra sounds. ABDOMEN: Soft and nontender. EXTREMITIES: The right foot and right toe were dressed. IMPRESSION: 1. Diabetic ulcer of the right great toe. 2. Diabetes mellitus. 3. Coronary artery disease. 4. Congestive heart failure. PLAN: 1. Bed rest. 2. IV fluids. 3. Consult with Vascular Surgery and Infectious Disease. MMODL / IJN: [id number] /
== END 2024-06-27 19:18 | disposition home or self-care (01) | DRG 380 ==
LOC: EC 17:06 → 5NMEDONC 19:00
PROVIDERS: ADMIT Family Medicine; ATTEND Family Medicine
PROC: 0JBQ0ZZ Excision of Right Foot Subcutaneous Tissue and Fascia, Open Approach (ICD-10-PCS; principal; 2024-06-25)
DX: E11.621 Type 2 diabetes mellitus with foot ulcer (principal); E11.628 Type 2 diabetes mellitus with other skin complications; L84 Corns and callosities; E11.40 Type 2 diabetes mellitus with diabetic neuropathy, unspecified; I11.0 Hypertensive heart disease with heart failure; I25.10 Atherosclerotic heart disease of native coronary artery without angina pectoris; I25.2 Old myocardial infarction; I50.9 Heart failure, unspecified; L08.9 Local infection of the skin and subcutaneous tissue, unspecified; L97.519 Non-pressure chronic ulcer of other part of right foot with unspecified severity; F32.A Depression, unspecified; G35 Multiple sclerosis; F41.9 Anxiety disorder, unspecified; M41.9 Scoliosis, unspecified; Z79.02 Long term (current) use of antithrombotics/antiplatelets; Z79.4 Long term (current) use of insulin; Z79.82 Long term (current) use of aspirin; Z79.84 Long term (current) use of oral hypoglycemic drugs; Z79.899 Other long term (current) drug therapy; Z95.5 Presence of coronary angioplasty implant and graft; Z96.89 Presence of other specified functional implants; Z88.1 Allergy status to other antibiotic agents
CPT/HCPCS: 36415; 80048; 80053; 80202; 82565; 83605; 85025; 85652; 86140; 87040; 87070; 87075; 87077; 87186; 87205; 96365; 96366; 96367; 99285